=== PATIENT | female | born 1940 | race Caucasian/White ===

== ENCOUNTER 2017-01-12 08:23 | Emergency (ER) | payer MEDICARE, MEDICAID ==
[2017-01-12 08:27] VITALS: BP 156/87; PULSE 83; TEMP 98.7; O2SAT 98
[2017-01-12 08:28] VITALS: BMI 28.3
--- NOTE | 2017-01-12 08:46 | ED PDOC ---
HPI: Trauma/Fall - HPI Time Seen by Provider: 01/12/17 08:31 Chief Complaint (Nursing): Trauma Chief Complaint (Provider): Trauma History Per: Patient History/Exam Limitations: no limitations Onset/Duration Of Symptoms: Hrs Injury Occurred (Timing): Hours Ago: Location Of Injury: Left: Chest Severity: Mild Additional Complaint(s): Patient is a 76 year old female who presents to ED for evaluation of left rib pain s/p fall. Patient states that at 0200 todays he was walking to the bathroom and fell injury that area. Denies head, neck, back or hip injury. Notes pain is worsened with movement and deep inspirations but denies SOB. Past Medical History Reviewed: Historical Data, Nursing Documentation, Vital Signs Vital Signs: Last Vital Signs Temp 98.7 F 01/12/17 08:26 Pulse 83 01/12/17 08:26 Resp BP 156/87 H 01/12/17 08:26 Pulse Ox 98 01/12/17 09:01 - Medical History PMH: Anxiety, Arthritis, Asthma, COPD, HTN, Hypercholesterolemia, Osteoporosis Denies: Chronic Kidney Disease - Surgical History Surgical History: No Surg Hx - Family History Family History: States: No Known Family Hx - Living Arrangements Living Arrangements: Alone - Home Medications Home Medications: Ambulatory Orders Medication Instructions Recorded Albuterol/Ipratropium [Duoneb 3 3 ml IH Q6H PRN 01/26/15 mg/0.5 mg (3 ml) UD] Losartan/Hydrochlorothiazide 1 tab PO DAILY 01/26/15 [Hyzaar 12.5 mg-100 mg] Albuterol HFA [Ventolin HFA 90 2 puff IH Q4H PRN 06/13/16 mcg/actuation (8 g)] Alprazolam [Xanax] 0.5 mg PO BID 06/13/16 Bimatoprost [Lumigan] 1 drop EACHEYE HS 06/13/16 Budesonide/Formoterol Fumarate 2 puff IH Q12H 06/13/16 [Symbicort 160-4.5 Mcg Inhaler] Esomeprazole Magnesium [Nexium] 40 mg PO DAILY 06/13/16 Fluticasone Nasal [Flonase] 1 spray LA DAILY 06/13/16 Hydrocortisone [Proctosol-Hc] 1 appl RI HS 06/13/16 Loratadine [Claritin] 10 mg PO DAILY 06/13/16 Megestrol Acetate [Megace] 10 ml PO BID 06/13/16 Mirtazapine [Remeron] 15 mg PO HS 06/13/16 Montelukast [Singulair] 10 mg PO DAILY 06/13/16 Oxycodone HCl/Acetaminophen 1 tab PO Q6H PRN 06/13/16 [Percocet 7.5-325 mg Tablet] Rosuvastatin Calcium [Crestor] 10 mg PO DAILY 06/13/16 traMADol [Ultram] 50 mg PO Q8 #10 tab 01/12/17 - Allergies Allergies/Adverse Reactions: Allergies Allergy/AdvReac Type Severity Reaction Status Date / Time aspirin Allergy Mild RASH Verified 01/12/17 08:39 Review of Systems Constitutional: Negative for: Weakness Eyes: Negative for: Vision Change Cardiovascular: Negative for: Chest Pain, Palpitations Respiratory: Positive for: Pleuritic Pain. Negative for: Shortness of Breath Musculoskeletal: Positive for: Other (Rib pain ). Negative for: Neck Pain, Arm Pain, Back Pain, Leg Pain Neurological: Negative for: Weakness, Numbness Physical Exam - Reviewed Nursing Documentation Reviewed: Yes Vital Signs Reviewed: Yes - Physical Exam Appears: Positive for: Non-toxic, No Acute Distress Head Exam: Positive for: ATRAUMATIC, NORMAL INSPECTION Skin: Positive for: Normal Color, Warm Eye Exam: Positive for: Normal appearance Neck: Positive for: Normal, Painless ROM, Supple Cardiovascular/Chest: Positive for: Regular Rate, Rhythm. Negative for: Chest Non Tender (Left lateral rib tenderness (-) deformity (-) eccymosis (-) flail ) , Murmur Respiratory: Positive for: Normal Breath Sounds. Negative for: Respiratory Distress Back: Positive for: Normal Inspection. Negative for: Vertebral Tenderness Extremity: Positive for: Normal ROM. Negative for: Pedal Edema Neurologic/Psych: Positive for: Alert, Oriented. Negative for: Motor/Sensory Deficits - ECG O2 Sat by Pulse Oximetry: 98 (RA) Pulse Ox Interpretation: Normal Medical Decision Making Medical Decision Making: Time: 829 Initial impression: Fall injury r/o rib fracture Initial plan: -- Ribs and Chest Xray -- Morphine IM Scribe Attestation: Documented by Mini Stanton acting as a scribe for Raffaele Lira MD MD Scribe Attestation: All medical record entries made by the Shukri were at my direction and personally dictated by me. I have reviewed the chart and agree that the record accurately reflects my personal performance of the history, physical exam, medical decision making, and the department course for this patient. I have also personally directed, reviewed, and agree with the discharge instructions and disposition. Disposition - Clinical Impression Clinical Impression: Rib contusion - Patient ED Disposition Is Patient to be Admitted: No - Disposition Referrals: Corey García MD [Family Provider] - Disposition: Routine/Home Disposition Time: 09:43 Condition: FAIR Prescriptions: traMADol [Ultram] 50 mg PO Q8 #10 tab Instructions: Rib Contusion (ED) Print Language: SENEGALESE
--- NOTE | 2017-01-12 10:59 | RAD ---
PROCEDURE: Radiographs of the Chest and Left Ribs. HISTORY: trauma COMPARISON: Chest x-ray performed 06/13/16. TECHNIQUE: Frontal radiograph of the chest and multiple oblique radiographs of the left ribs were obtained. FINDINGS: Examination limited by habitus and hypoinflation. LEFT RIBS: No appreciable displaced rib fracture deformity. LUNGS: Central vascular and pulmonary venous congestion. PLEURA: No significant pleural effusion or definite pneumothorax identified. CARDIOVASCULAR: Cardiomegaly. Dense atherosclerotic calcifications of the aortic knob. OTHER FINDINGS: Osseous demineralization. Multilevel degenerative changes of the spine. Moderate constipation. Osseous demineralization limits evaluation for acute fracture lines. Severe degenerative changes in joint space narrowing of bilateral hip joints. Multilevel chronic anterior wedge fracture deformities of the thoracolumbar spine. IMPRESSION: Mild central vascular and pulmonary venous congestion. Cardiomegaly. Moderate constipation. Osseous demineralization. Degenerative changes. No appreciable displaced left rib fracture deformities. Multilevel chronic anterior wedge fracture deformities of the thoracolumbar spine.
== END 2017-01-12 12:58 | disposition home or self-care (01) ==
LOC: H.ER 08:23
DX: S20.219A Contusion of unspecified front wall of thorax, initial encounter (principal); W19.XXXA Unspecified fall, initial encounter; Y92.002 Bathroom of unspecified non-institutional (private) residence as the place of occurrence of the external cause; E78.00 Pure hypercholesterolemia, unspecified; F41.9 Anxiety disorder, unspecified; I10 Essential (primary) hypertension; J44.9 Chronic obstructive pulmonary disease, unspecified
CPT/HCPCS: 71101; 96372; 99283; J2270

== ENCOUNTER 2017-02-09 15:58 | Inpatient (IN) | payer MEDICARE, MEDICAID ==
[2017-02-09 15:58] VITALS: BMI 28.3
--- NOTE | 2017-02-09 16:37 | ED PDOC ---
HPI: SOB/CHF/COPD Time Seen by Provider: 02/09/17 16:08 Chief Complaint (Nursing): Shortness Of Breath History Per: Patient Onset/Duration Of Symptoms: Hrs (1), Sudden Onset Current Symptoms Are (Timing): Still Present Context: palpitations no cp Current Respiratory Medications: Albuterol Severity: Moderate Past Medical History Reviewed: Historical Data, Nursing Documentation, Vital Signs Vital Signs: Last Vital Signs Temp 98.2 F 02/09/17 16:01 Pulse 180 H 02/09/17 16:01 Resp 18 02/09/17 16:01 BP 101/64 02/09/17 16:01 Pulse Ox 97 02/09/17 16:38 - Medical History PMH: Anxiety, Arthritis, Asthma, COPD, HTN, Hypercholesterolemia, Osteoporosis Denies: Chronic Kidney Disease - Family History Family History: States: No Known Family Hx - Living Arrangements Living Arrangements: With Family - Social History Current smoker - smoking cessation education provided: No - Home Medications Home Medications: Ambulatory Orders Medication Instructions Recorded Albuterol/Ipratropium [Duoneb 3 3 ml IH Q6H PRN 01/26/15 mg/0.5 mg (3 ml) UD] Losartan/Hydrochlorothiazide 1 tab PO DAILY 01/26/15 [Hyzaar 12.5 mg-100 mg] Albuterol HFA [Ventolin HFA 90 2 puff IH Q4H PRN 06/13/16 mcg/actuation (8 g)] Alprazolam [Xanax] 0.5 mg PO BID 06/13/16 Bimatoprost [Lumigan] 1 drop EACHEYE HS 06/13/16 Budesonide/Formoterol Fumarate 2 puff IH Q12H 06/13/16 [Symbicort 160-4.5 Mcg Inhaler] Esomeprazole Magnesium [Nexium] 40 mg PO DAILY 06/13/16 Fluticasone Nasal [Flonase] 1 spray LA DAILY 06/13/16 Hydrocortisone [Proctosol-Hc] 1 appl ND HS 06/13/16 Loratadine [Claritin] 10 mg PO DAILY 06/13/16 Megestrol Acetate [Megace] 10 ml PO BID 06/13/16 Mirtazapine [Remeron] 15 mg PO HS 06/13/16 Montelukast [Singulair] 10 mg PO DAILY 06/13/16 Oxycodone HCl/Acetaminophen 1 tab PO Q6H PRN 06/13/16 [Percocet 7.5-325 mg Tablet] Rosuvastatin Calcium [Crestor] 10 mg PO DAILY 06/13/16 traMADol [Ultram] 50 mg PO Q8 #10 tab 01/12/17 - Allergies Allergies/Adverse Reactions: Allergies Allergy/AdvReac Type Severity Reaction Status Date / Time aspirin Allergy Mild RASH Verified 02/09/17 16:01 iodine Allergy RASH Verified 02/09/17 16:01 Review of Systems ROS Statement: Except As Marked, All Systems Reviewed And Found Negative Constitutional: Negative for: Fever, Chills Cardiovascular: Positive for: Palpitations. Negative for: Chest Pain, Edema, Light Headedness Respiratory: Positive for: Shortness of Breath. Negative for: Cough, SOB with Exertion, Pleuritic Pain, Sputum Gastrointestinal: Negative for: Nausea, Vomiting, Abdominal Pain, Diarrhea Musculoskeletal: Negative for: Neck Pain Skin: Negative for: Rash Neurological: Negative for: Weakness, Numbness Physical Exam - Reviewed Nursing Documentation Reviewed: Yes Vital Signs Reviewed: Yes - Physical Exam Appears: Positive for: In Acute Distress (mild) Head Exam: Positive for: ATRAUMATIC, NORMAL INSPECTION, NORMOCEPHALIC Skin: Positive for: Normal Color, Warm Eye Exam: Positive for: Normal appearance, EOMI, PERRL ENT: Positive for: Pharynx Is (clear,mmm). Negative for: Tonsillar Exudate Neck: Positive for: Normal, Painless ROM, Supple. Negative for: Decreased ROM, Limited ROM, Trachea Midline Cardiovascular/Chest: Positive for: Edema (4+ to ankle bl), Tachycardia. Negative for: Chest Non Tender, Gallop, Murmur, Ectopy, Friction Rub, Irregularly Irregular Respiratory: Positive for: Normal Breath Sounds. Negative for: Decreased Breath Sounds, Accessory Muscle Use, Crackles, Rales, Rhonchi, Stridor, Wheezing Gastrointestinal/Abdominal: Positive for: Normal Exam, Bowel Sounds, Soft. Negative for: Tenderness Back: Positive for: Normal Inspection. Negative for: L CVA Tenderness, R CVA Tenderness Extremity: Positive for: Normal ROM, Pedal Edema. 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 Negative for: Motor/Sensory Deficits - Laboratory Results Result Diagrams: 02/09/17 16:41 02/09/17 16:41 - ECG ECG: Positive for: Interpreted By Me Interpretation Of Abn EKG: rate of 173 svt O2 Sat by Pulse Oximetry: 97 Pulse Ox Interpretation: Normal - Progress ED Course And Treament: pt cardioverted here first with c mg then with 12 mg, pt converted to nsr. sx markedly improved. pmd eli Re-evaluation Time: 16:37 Condition: Improved Disposition - Clinical Impression Clinical Impression: Dyspnea, SVT (supraventricular tachycardia) - Patient ED Disposition Is Patient to be Admitted: Yes Counseled Patient/Family Regarding: Studies Performed, Diagnosis - Disposition Disposition Time: 17:51 Condition: STABLE - Pt Status Changed To: Hospital Disposition Of: Observation - POA Present On Arrival: None
[2017-02-09 16:48] LABS: BASO # 0.1 K/uL (0.0-0.2); BASO % 0.9 % (0.0-2.0); EOS # 0.4 K/uL (0.0-0.7); EOS % 4.2 % (0.0-4.0); HEMATOCRIT 31.6 % (34.0-47.0); LYMPH # 2.2 K/uL (1.0-4.3); LYMPH % 23.8 % (20.0-40.0); MEAN CORPUSCULAR HEMOGLOBIN 30.3 pg (27.0-31.0); MEAN CORPUSCULAR HGB CONC 34.1 g/dL (33.0-37.0); MEAN PLATELET VOLUME 6.9 fl (7.2-11.7); MONO # 0.8 K/uL (0.0-0.8); NEUT # 5.6 K/uL (1.8-7.0); NEUT % 62.1 % (50.0-75.0); RED CELL DISTRIBUTION WIDTH 14.7 % (11.5-14.5)
--- NOTE | 2017-02-09 16:56 | RAD ---
PROCEDURE: CHEST RADIOGRAPH, 1 VIEW HISTORY: tachy COMPARISON: 01/12/2017. FINDINGS: LUNGS: Clear. PLEURA: No pneumothorax or pleural fluid seen. CARDIOVASCULAR: No radiographic findings to suggest acute or significant cardiovascular disease. OSSEOUS STRUCTURES: No significant abnormalities. VISUALIZED UPPER ABDOMEN: Normal. OTHER FINDINGS: None. IMPRESSION: No active disease.
[2017-02-09 17:07] LABS: ALB/GLOB RATIO 1.4 (1.0-2.1); ALKALINE PHOSPHATASE 81 U/L (38-126); ALT/SGPT 23 U/L (9-52); AST/SGOT 20 U/L (14-36); BILIRUBIN,TOTAL 0.3 mg/dl (0.2-1.3); BLOOD UREA NITROGEN 11 mg/dl (7-17); CALCIUM 9.2 mg/dL (8.4-10.2); CARBON DIOXIDE 22 mmol/L (22-30); CHLORIDE 92 mmol/L (98-107); GFR AFRICAN-AMERICAN > 60; GLUCOSE,RANDOM 104 mg/dL (65-105); MAGNESIUM 1.8 MG/DL (1.6-2.3); POTASSIUM 3.7 MMOL/L (3.6-5.0); SODIUM 128 mmol/l (132-148); TOTAL PROTEIN 7.1 G/DL (6.3-8.2)
[2017-02-09 17:14] LABS: PARTIAL THROMBOPLASTIN TIME 29.7 SECONDS (23.3-32.5)
[2017-02-09] MEDS ORDERED: Sodium Chloride 0.9% 1,000 ML IV STA (18:46)
[2017-02-09] MEDS ORDERED: Albuterol-Ipratrop 3 mg / 0.5 (3 ml) UD IH PRN (23:28)
[2017-02-09] MEDS ORDERED: Oxycodone/Acetaminophen 5/325 mg Tab PO PRN (23:36)
[2017-02-09] MEDS ORDERED: Patient's Own Med (Budesonide/Formoterol Fumarate [Symbicort 160-4.5 Mcg Inhaler] 2 PUFF) IH SCH (23:45)
[2017-02-09] MEDS ORDERED: Sodium Chloride 0.9% 1,000 ML IV SCH (23:45)
[2017-02-10 06:22] LABS: HEMATOCRIT 28.9 % (34.0-47.0); MEAN CELL VOLUME 89.5 fl (81.0-99.0); MEAN CORPUSCULAR HEMOGLOBIN 29.6 pg (27.0-31.0); RED CELL DISTRIBUTION WIDTH 14.8 % (11.5-14.5); WHITE BLOOD COUNT 6.2 K/uL (4.8-10.8)
[2017-02-10 07:12] LABS: IRON 61 ug/dL (37-170)
[2017-02-10 07:16] LABS: ALB/GLOB RATIO 1.3 (1.0-2.1); ALKALINE PHOSPHATASE 70 U/L (38-126); ALT/SGPT 22 U/L (9-52); AST/SGOT 21 U/L (14-36); BILIRUBIN,TOTAL 0.3 mg/dl (0.2-1.3); BLOOD UREA NITROGEN 8 mg/dl (7-17); CALCIUM 8.5 mg/dL (8.4-10.2); CARBON DIOXIDE 23 mmol/L (22-30); CHLORIDE 98 mmol/L (98-107); CHOLESTEROL 133 mg/dL (0-199); GFR AFRICAN-AMERICAN > 60; GLUCOSE,RANDOM 82 mg/dL (65-105); POTASSIUM 3.3 MMOL/L (3.6-5.0); SODIUM 131 mmol/l (132-148)
[2017-02-10 07:31] LABS: T4 8.39 ug/dl (5.5-11.0)
[2017-02-10 07:44] LABS: THYROID STIMULATING HORMONE 1.54 mIU/ML (0.46-4.68)
[2017-02-10] MEDS: Fluticasone-Salmeterol 250-50mcg Diskus IH SCH ×2 (08:08→21:18)
[2017-02-10] MEDS: Pantoprazole 40 mg EC Tab PO SCH (08:12)
[2017-02-10] MEDS ORDERED: methylPREDNISolone 125 MG in Sodium Chloride 0.9% 50 ML IVPB ONE (08:23)
[2017-02-10] MEDS ORDERED: Aspirin 325 mg EC Tablets PO SCH (09:00)
[2017-02-10] MEDS ORDERED: Potassium CL 10 MEQ/50 ML 50 ML IVPB SCH (09:00)
[2017-02-10] MEDS ORDERED: Enoxaparin 40 mg Syringe SC SCH (09:00)
[2017-02-10] MEDS ORDERED: Patient's Own Med (Losartan/Hydrochlorothiazide [Hyzaar 100-12.5 Tablet] 1 TAB) PO SCH (09:00)
[2017-02-10] MEDS ORDERED: Potassium Chl 20 mEq in NS 1,000 ML IV SCH (09:05)
--- NOTE | 2017-02-10 10:06 | CP.PCM.HP ---
History of Present Illness - History of Present Illness History of Present Illness: CC: SOB. 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 Pt denied Chest pain. Worsening symptoms: SCHMITD, Legs edema, Hx of COPD, also c/o of chronic R-L knee pain, chronic back pain, aching type, moderate severity 5:10 Aggravated factor: Increased SOB when walking one block, when exposure to cold weather. Pt denied: Fever, chills, cough, bloody sputum, numbness, LOC, headache, n/v/d, abdominal pain, sick contact, recent travel. PMHx: COPD, A Rhinitis, Asthma, Chronic Lumbago, Chronic pain R-L knees, O/A, High cholesterol, HTN, Urinary Incontinence, Anxiety, Depression. CXR shows: No active disease. Present on Admission - Present on Admission Any Indicators Present on Admission: No Review of Systems - Constitutional Constitutional: Other (negative) - EENT Eyes: Requires Corrective Lenses Ears: Other (negative) Nose/Mouth/Throat: Other (negative) - Cardiovascular Cardiovascular: Dyspnea, Leg Edema, Rapid Heart Rate - Respiratory Respiratory: Dyspnea, Dyspnea on Exertion - Gastrointestinal Gastrointestinal: Other (negative) - Genitourinary Genitourinary: Urinary Incontinence - Musculoskeletal Musculoskeletal: Arthralgias, Back Pain, Other (Knees pain) - Integumentary Integumentary: Other (negative) - Neurological Neurological: Other (negative) - Psychiatric Psychiatric: Anxiety, Depression - Endocrine Endocrine: Other (negative) - Hematologic/Lymphatic Hematologic: Other (negative) Past Patient History - Past Medical History & Family History Past Medical History?: Yes Pertinent Family History: Unknown - Past Social History Smoking Status: Never Smoked Alcohol: None Drugs: Denies Home Situation {Lives}: With Family - CARDIAC Hx Cardiac Disorders: Yes Hx Hypercholesterolemia: Yes Hx Hypertension: Yes - PULMONARY Hx Respiratory Disorders: Yes Hx Asthma: Yes Hx Chronic Obstructive Pulmonary Disease (COPD): Yes - NEUROLOGICAL Hx Neurological Disorder: No - HEENT Hx HEENT Problems: Yes (Allergic Rhinitis) - RENAL Hx Chronic Kidney Disease: No - ENDOCRINE/METABOLIC Hx Endocrine Disorders: No - HEMATOLOGICAL/ONCOLOGICAL Hx Blood Disorders: No Hx AIDS: No Hx Human Immunodeficiency Virus (HIV): No - INTEGUMENTARY Hx Dermatological Problems: No - MUSCULOSKELETAL/RHEUMATOLOGICAL Hx Musculoskeletal Disorders: Yes Hx Arthritis: Yes Hx Back Pain: Yes Hx Falls: No Hx Osteoarthritis: Yes (R-L knee) Hx Osteoporosis: Yes - GASTROINTESTINAL Hx Gastrointestinal Disorders: Yes Hx Constipation: Yes - GENITOURINARY/GYNECOLOGICAL Hx Genitourinary Disorders: Yes Hx Incontinence: Yes - PSYCHIATRIC Hx Psychophysiologic Disorder: Yes Hx Anxiety: Yes Hx Depression: Yes Hx Substance Use: No - SURGICAL HISTORY Hx Surgeries: Yes Hx Eye Surgery: Yes Hx Orthopedic Surgery: Yes (ORIF ANKLE) - ANESTHESIA Hx Anesthesia: Yes Hx Anesthesia Reactions: No Hx Malignant Hyperthermia: No Has any member of the family had a problem w/ anesthesia?: No Meds Allergies/Adverse Reactions: Allergies Allergy/AdvReac Type Severity Reaction Status Date / Time aspirin Allergy Mild RASH Verified 02/09/17 16:01 iodine Allergy RASH Verified 02/09/17 16:01 Physical Exam - Constitutional Appears: No Acute Distress - Head Exam Head Exam: NORMAL INSPECTION - Eye Exam Eye Exam: PERRL - ENT Exam ENT Exam: Normal Oropharynx - Neck Exam Neck exam: Positive for: Normal Inspection - Respiratory Exam Respiratory Exam: Decreased Breath Sounds - Cardiovascular Exam Cardiovascular Exam: REGULAR RHYTHM, Systolic Murmur (3/6 Ao LSB radiated to carotid.) - GI/Abdominal Exam GI & Abdominal Exam: Normal Bowel Sounds, Soft - Extremities Exam Extremities exam: Positive for: tenderness (R-L knee) Additional comments: Legs edema - Back Exam Back exam: tenderness (L-S) Additional comments: Kyphosis - Neurological Exam Neurological exam: Alert, Oriented x3 Additional comments: No motor sensory deficit. - Psychiatric Exam Psychiatric exam: Anxious, Depressed - Skin Skin Exam: Warm Results - Vital Signs Recent Vital Signs: Last Vital Signs Temp 97.9 F 02/10/17 08:02 Pulse 70 02/10/17 08:09 Resp 18 02/10/17 08:02 BP 147/75 02/10/17 08:09 Pulse Ox 97 02/10/17 08:02 reviewed Good - Labs Result Diagrams: 02/10/17 05:25 02/10/17 05:25 Labs: Laboratory Results - last 24 hr 02/10/17 02/10/17 02/10/17 05:25 05:25 05:25 WBC 6.2 RBC 3.22 L Hgb 9.5 L Hct 28.9 L MCV 89.5 MCH 29.6 MCHC 33.0 RDW 14.8 H Plt Count 383 Sodium 131 L Potassium 3.3 L Chloride 98 Carbon Dioxide 23 Anion Gap 13 BUN 8 Creatinine 0.7 Est GFR ( Amer) > 60 Est GFR (Non-Af Amer) > 60 Random Glucose 82 Calcium 8.5 Iron 61 TIBC 321 % Saturation 19 L Ferritin Total Bilirubin 0.3 AST 21 ALT 22 Alkaline Phosphatase 70 Troponin I 0.1470 H* Total Protein 6.0 L Albumin 3.4 L Globulin 2.6 Albumin/Globulin Ratio 1.3 Triglycerides 52 Cholesterol 133 LDL Cholesterol Direct 65 HDL Cholesterol 49 Vitamin B12 575 Thyroxine (T4) 8.39 TSH 3rd Generation 1.54 02/10/17 08:23 WBC RBC Hgb Hct MCV MCH MCHC RDW Plt Count Sodium Potassium Chloride Carbon Dioxide Anion Gap BUN Creatinine Est GFR ( Amer) Est GFR (Non-Af Amer) Random Glucose Calcium Iron TIBC % Saturation Ferritin 20.9 Total Bilirubin AST ALT Alkaline Phosphatase Troponin I Total Protein Albumin Globulin Albumin/Globulin Ratio Triglycerides Cholesterol LDL Cholesterol Direct HDL Cholesterol Vitamin B12 Thyroxine (T4) TSH 3rd Generation reviewed J[facility] - Imaging and Cardiology Chest x-ray Status: Report reviewed by me (J.P.) Assessment & Plan (1) SVT (supraventricular tachycardia) Status: Acute Priority: High (2) NSTEMI (non-ST elevated myocardial infarction) Status: Acute Priority: High (3) Aortic stenosis Status: Acute Priority: High (4) COPD (chronic obstructive pulmonary disease) Status: Chronic Priority: Medium (5) HTN (hypertension) Status: Chronic Priority: Medium (6) Lumbago Status: Chronic Priority: Medium (7) Knee pain, bilateral Status: Chronic Priority: Medium (8) High cholesterol Status: Chronic Priority: Medium (9) Depression Status: Chronic Priority: Medium (10) Anxiety Status: Chronic Priority: Medium - Assessment and Plan (Free Text) Plan: Pt was een by Cardiology recommending cardiac Cath today. NPO for cardiac procedure today. Cardiology consult appreciated. - Date & Time Date: 02/10/17
--- NOTE | 2017-02-10 17:50 | CP.PCM.CON ---
History of Present Illness - History of Present Illness History of Present Illness: I was asked to see patient by Dr. García. Patient is a 76 year old female with PMH HTN, hypercholesterolemia who presents with dyspnea. Symptoms began about 3 days ago. She developed palpitations and was found to be in SVT. She was given adenosine. The patient ruled in for a myocardial infarction. The patient has no current chest pain. She denies syncope. Dyspnea occurs after walking one block. Review of Systems - Constitutional Constitutional: absent: As Per HPI, Anorexia, Chills, Daytime Sleepiness, Excessive Sweating, Fatigue, Fever, Frequent Falls, Headache, Increased Appetite , Lethargy, Malaise, Night Sweats, Snoring, Sleep Apnea, Weight Gain, Weight Loss, Weakness, Other - EENT Eyes: absent: As Per HPI, Blind Spots, Blurred Vision, Change in Vision, Decreased Night Vision, Diplopia, Discharge, Dry Eye, Exophthalmos, Floaters, Irritation, Itchy Eyes, Loss of Peripheral Vision, Pain, Photophobia, Requires Corrective Lenses, Sees Flashes, Spots in Vision, Tunnel Vision, Other Visual Disturbances, Loss of Vision, Other Ears: absent: As Per HPI, Decreased Hearing, Ear Discharge, Ear Pain, Tinnitus, Abnormal Hearing, Disequilibrium, Dizziness, Other Nose/Mouth/Throat: absent: As Per HPI, Epistaxis, Nasal Congestion, Nasal Discharge, Nasal Obstruction, Nasal Trauma, Nose Pain, Post Nasal Drip, Sinus Pain, Sinus Pressure, Bleeding Gums, Change in Voice, Dental Pain, Dry Mouth, Dysphagia, Halitosis, Hoarsness, Lip Swelling, Mouth Lesions, Mouth Pain, Odynophagia, Sore Throat, Throat Swelling, Tongue Swelling, Facial Pain, Neck Pain, Neck Mass, Other - Cardiovascular Cardiovascular: Dyspnea, Dyspnea on Exertion, Palpitations - Respiratory Respiratory: Dyspnea, Dyspnea on Exertion - Gastrointestinal Gastrointestinal: absent: As Per HPI, Abdominal Pain, Belching, Bloating, Change in Bowel Habits, Change in Stool Character, Coffee Ground Emesis, Constipation, Cramping, Diarrhea, Dyspepsia, Dysphagia, Early Satiety, Excessive Flatus, Fecal Incontinence, Heartburn, Hematemesis, Hematochezia, Loose Stools, Melena, Nausea, Odynophagia, Temesmus, Vomiting, Other - Genitourinary Genitourinary: absent: As Per HPI, Change in Urinary Stream, Difficulty Urinating, Dysuria, Flank Pain, Hematuria, Pyuria, Nocturia, Urinary Incontinence, Urinary Frequency, Urinary Hesitance, Urinary Urgency, Voiding Freq/Small Amts, Freq UTI, Hx Renal/Bladder Calculi, Hx /Renal Surgery, Bladder Distension, Other - Musculoskeletal Musculoskeletal: absent: As Per HPI, Abnormal Gait, Arthralgias, Atrophy, Back Pain, Deformity, Joint Swelling, Limited Range of Motion, Loss of Height, Muscle Cramps, Muscle Weakness, Myalgias, Neck Pain, Numbness, Radiating Pain into Limb, Stiffness, Tingling, Other - Integumentary Integumentary: absent: As Per HPI, Acne, Alopecia, Bleeding Lesions, Change in Hair, Change in Nails, Change in Pigmentation, Changing Lesions, Dry Skin, Erythema, Furuncle, Hirsutism, Lesions, New Lesions, Non-Healing Lesions, Photosensitivity, Pruritus, Rash, Skin Pain, Skin Ulcer, Sores, Striae, Swelling , Unusual Bruising, Wounds, Jaundice, Other - Neurological Neurological: absent: As Per HPI, Abnormal Gait, Abnormal Hearing, Abnormal Movements, Abnormal Speech, Behavioral Changes, Burning Sensations, Confusion, Convulsions, Disequilibrium, Dizziness, Numbness, Focal Weakness, Frequent Falls , Headaches, Lack of Coordination, Loss of Vision, Memory Loss, Paresthesias, Radicular Pain, Restless Legs, Sensory Deficit, Syncope, Tingling, Tremor, Vertigo, Weakness, Other Visual Disturbances, Other - Psychiatric Psychiatric: absent: As Per HPI, Abnormal Sleep Pattern, Anhedonia, Anxiety, Auditory Hallucinations, Behavioral Changes, Change in Appetite, Change in Libido, Confusion, Depression, Difficulty Concentrating, Hallucinations, Homicidal Ideation, Hopelessness, Irritability, Memory Loss, Mood Swings, Panic Attacks, Paranoia, Suicidal Ideation, Visual Hallucinations, Tactile Hallucinations, Other - Endocrine Endocrine: absent: As Per HPI, Change in Body Appearance, Change in Libido, Cold Intolorance, Deepening of Voice, Excessive Sweating, Fatigue, Flushing, Heat Intolorance, Increase in Ring/Shoe/Hat Size, Palpitations, Polydipsia, Polyphagia, Polyuria, Other - Hematologic/Lymphatic Hematologic: absent: As Per HPI, Easy Bleeding, Easy Bruising, Lymphadenopathy, Other Past Patient History - Past Medical History & Family History Past Medical History?: Yes - Past Social History Smoking Status: Never Smoked - CARDIAC Hx Cardiac Disorders: Yes Hx Hypercholesterolemia: Yes Hx Hypertension: Yes - PULMONARY Hx Respiratory Disorders: Yes Hx Asthma: Yes Hx Chronic Obstructive Pulmonary Disease (COPD): Yes - NEUROLOGICAL Hx Neurological Disorder: No - HEENT Hx HEENT Problems: Yes (Allergic Rhinitis) - RENAL Hx Chronic Kidney Disease: No - ENDOCRINE/METABOLIC Hx Endocrine Disorders: No - HEMATOLOGICAL/ONCOLOGICAL Hx Blood Disorders: No Hx AIDS: No Hx Human Immunodeficiency Virus (HIV): No - INTEGUMENTARY Hx Dermatological Problems: No - MUSCULOSKELETAL/RHEUMATOLOGICAL Hx Arthritis: Yes Hx Falls: No Hx Osteoporosis: Yes - GASTROINTESTINAL Hx Gastrointestinal Disorders: No - GENITOURINARY/GYNECOLOGICAL Hx Genitourinary Disorders: No - PSYCHIATRIC Hx Anxiety: Yes Hx Substance Use: No - SURGICAL HISTORY Hx Surgeries: Yes Hx Eye Surgery: Yes Hx Orthopedic Surgery: Yes (ORIF ANKLE) - ANESTHESIA Hx Anesthesia: Yes Hx Anesthesia Reactions: No Hx Malignant Hyperthermia: No Has any member of the family had a problem w/ anesthesia?: No Meds Allergies/Adverse Reactions: Allergies Allergy/AdvReac Type Severity Reaction Status Date / Time aspirin Allergy Mild RASH Verified 02/09/17 16:01 iodine Allergy RASH Verified 02/09/17 16:01 - Medications Medications: Current Medications Albuterol/Ipratropium (Duoneb 3 Mg/0.5 Mg (3 Ml) Ud) 3 ml IH Q6H PRN PRN Reason: Shortness of Breath Alprazolam (Xanax) 0.5 mg PO BID [facility] Last Admin: 02/10/17 17:26 Dose: Not Given Atorvastatin Calcium (Lipitor) 20 mg PO DAILY [facility] Last Admin: 02/10/17 08:11 Dose: Not Given Enoxaparin Sodium (Lovenox) 40 mg SC DAILY [facility] PRN Reason: Protocol Fluticasone Propionate (Flonase) 1 spr LA DAILY [facility] Last Admin: 02/10/17 09:42 Dose: Not Given Hydrochlorothiazide (Microzide) 12.5 mg PO DAILY [facility] Last Admin: 02/10/17 08:11 Dose: Not Given Potassium Chloride (Potassium Cl 10meq/50ml Sterile Water) 50 mls @ 50 mls/hr IVPB Q1 [facility] Last Admin: 02/10/17 10:00 Dose: Not Given Potassium Chloride/Sodium Chloride (Potassium Chl 20 Meq In Ns) 1,000 mls @ 59.406 mls/hr IV .[id number] [facility] Stop: 02/10/17 23:57 Last Admin: 02/10/17 10:03 Dose: 59.406 mls/hr Latanoprost (Xalatan Opht) 1 drop OU HS [facility] Loratadine (Claritin) 10 mg PO DAILY [facility] Last Admin: 02/10/17 08:09 Dose: Not Given Losartan Potassium (Cozaar) 100 mg PO DAILY [facility] Last Admin: 02/10/17 08:09 Dose: Not Given Mirtazapine (Remeron) 15 mg PO HS [facility] Montelukast Sodium (Singulair) 10 mg PO DAILY [facility] Last Admin: 02/10/17 08:12 Dose: Not Given Oxycodone/Acetaminophen (Percocet 5/325 Mg Tab) 1 tab PO Q6H PRN PRN Reason: Pain, severe (8-10) Pantoprazole Sodium (Protonix Ec Tab) 40 mg PO DAILY [facility] Last Admin: 02/10/17 08:12 Dose: Not Given Fluticasone/Salmeterol (Advair Diskus 250/50) 1 puff IH Q12 [facility] Last Admin: 02/10/17 08:08 Dose: Not Given Tramadol HCl (Ultram) 50 mg PO Q8 PRN PRN Reason: Pain, moderate (4-7) Last Admin: 02/10/17 00:35 Dose: 50 mg Physical Exam - Constitutional Appears: Non-toxic - Head Exam Head Exam: NORMAL INSPECTION - Eye Exam Eye Exam: Normal appearance - ENT Exam ENT Exam: Mucous Membranes Moist - Neck Exam Neck exam: Positive for: Full Rom - Respiratory Exam Respiratory Exam: Decreased Breath Sounds - Cardiovascular Exam Cardiovascular Exam: REGULAR RHYTHM Additional comments: III/ crescendo systolic murmur RUSB radiating to the carotids - GI/Abdominal Exam GI & Abdominal Exam: Normal Bowel Sounds - Rectal Exam Rectal Exam: Deferred - Extremities Exam Extremities exam: Positive for: pedal edema - Back Exam Back exam: NORMAL INSPECTION - Neurological Exam Neurological exam: Alert, Oriented x3 - Psychiatric Exam Psychiatric exam: Normal Affect - Skin Skin Exam: Normal Color Results - Vital Signs Recent Vital Signs: Last Vital Signs Temp 97.9 F 02/10/17 08:02 Pulse 70 02/10/17 08:09 Resp 18 02/10/17 08:02 BP 147/75 02/10/17 08:09 Pulse Ox 97 02/10/17 08:02 - Labs Result Diagrams: 02/10/17 05:25 02/10/17 05:25 - EKG Data EKG Interpreted by: Myself EKG shows normal: Sinus rhythm Assessment & Plan (1) NSTEMI (non-ST elevated myocardial infarction) Assessment and Plan: given risk factors and symptoms, patient will need evaluation of coronary anatomy. Status: Acute (2) Aortic stenosis Assessment and Plan: appears to have severe by exam. will check echocardiogram. will performe RHC/LHC Status: Acute (3) Dyspnea Assessment and Plan: may be due to underlying CAD or valvular heart disease. recommend cardiac catheterization Status: Acute (4) SVT (supraventricular tachycardia) Assessment and Plan: may be due to underlying ischemia Status: Acute (5) HTN (hypertension) Assessment and Plan: monitor blood pressure Status: Acute
[2017-02-10] MEDS ORDERED: Latanoprost 0.005% Opht SOUTION OU SCH (22:00)
[2017-02-10] MEDS ORDERED: Patient's Own Med (Bimatoprost [Lumigan] 1 DROP) EACHEYE SCH (22:00)
--- NOTE | 2017-02-11 07:26 | CP.PCM.PN ---
Subjective - Date & Time of Evaluation Date of Evaluation: 02/11/17 Time of Evaluation: 07:20 - Subjective Subjective: patient has no current chest pain or dyspnea. s/p cardiac catheterization. found to have severe aortic stenosis. I discussed cardiac cath findings and pathophysiology of with the patient. Objective - Vital Signs/Intake and Output Vital Signs (last 24 hours): Temp Pulse Resp BP Pulse Ox 98.5 F 84 18 145/82 97 02/11/17 05:00 02/11/17 05:00 02/11/17 05:00 02/11/17 05:00 02/11/17 05:00 - Medications Medications: Current Medications Albuterol/Ipratropium (Duoneb 3 Mg/0.5 Mg (3 Ml) Ud) 3 ml IH Q6H PRN PRN Reason: Shortness of Breath Alprazolam (Xanax) 0.5 mg PO BID [facility] Last Admin: 02/10/17 20:26 Dose: 0.5 mg Atorvastatin Calcium (Lipitor) 20 mg PO DAILY [facility] Last Admin: 02/10/17 08:11 Dose: Not Given Fluticasone Propionate (Flonase) 1 spr LA DAILY [facility] Last Admin: 02/10/17 09:42 Dose: Not Given Hydrochlorothiazide (Microzide) 12.5 mg PO DAILY [facility] Last Admin: 02/10/17 08:11 Dose: Not Given Potassium Chloride (Potassium Cl 10meq/50ml Sterile Water) 50 mls @ 50 mls/hr IVPB Q1 [facility] Last Admin: 02/10/17 10:00 Dose: Not Given Latanoprost (Xalatan Opht) 1 drop OU HS [facility] Last Admin: 02/10/17 21:31 Dose: 1 drop Loratadine (Claritin) 10 mg PO DAILY [facility] Last Admin: 02/10/17 08:09 Dose: Not Given Losartan Potassium (Cozaar) 100 mg PO DAILY [facility] Last Admin: 02/10/17 08:09 Dose: Not Given Mirtazapine (Remeron) 15 mg PO HS [facility] Last Admin: 02/10/17 21:21 Dose: 15 mg Montelukast Sodium (Singulair) 10 mg PO DAILY [facility] Last Admin: 02/10/17 08:12 Dose: Not Given Oxycodone/Acetaminophen (Percocet 5/325 Mg Tab) 1 tab PO Q6H PRN PRN Reason: Pain, severe (8-10) Pantoprazole Sodium (Protonix Ec Tab) 40 mg PO DAILY [facility] Last Admin: 02/10/17 08:12 Dose: Not Given Fluticasone/Salmeterol (Advair Diskus 250/50) 1 puff IH Q12 [facility] Last Admin: 02/10/17 21:18 Dose: 1 puff Tramadol HCl (Ultram) 50 mg PO Q8 PRN PRN Reason: Pain, moderate (4-7) Last Admin: 02/10/17 00:35 Dose: 50 mg - Labs Labs: PT 11.3 SECONDS (9.6-11.2) H 02/09/17 16:41 INR 1.09 (0.92-1.08) H 02/09/17 16:41 APTT 29.7 SECONDS (23.3-32.5) 02/09/17 16:41 - Constitutional Appears: Non-toxic - Head Exam Head Exam: NORMAL INSPECTION - Eye Exam Eye Exam: Normal appearance - ENT Exam ENT Exam: Mucous Membranes Moist - Neck Exam Neck Exam: Full ROM - Respiratory Exam Respiratory Exam: Decreased Breath Sounds - Cardiovascular Exam Cardiovascular Exam: REGULAR RHYTHM Additional comments: III/ crescendo systolic murmur RUSB to the carotids. - GI/Abdominal Exam GI & Abdominal Exam: Normal Bowel Sounds - Rectal Exam Rectal Exam: Deferred - Extremities Exam Extremities Exam: Pedal Edema - Back Exam Back Exam: NORMAL INSPECTION - Neurological Exam Neurological Exam: Alert - Psychiatric Exam Psychiatric exam: Normal Affect Assessment and Plan (1) NSTEMI (non-ST elevated myocardial infarction) Assessment & Plan: likely due to subendocardial ischemia from severe . Status: Acute (2) Aortic stenosis Assessment & Plan: recommend AVR. I explained risks and benefits in detail with the patient. Patient wishes to speak to her son and Dr. García. Status: Acute (3) Dyspnea Assessment & Plan: due to Status: Acute (4) SVT (supraventricular tachycardia) Assessment & Plan: no further arrhythmia Status: Acute (5) HTN (hypertension) Assessment & Plan: avoid aggressive afterlaod reduction with MELISSA inhibitor/ARB given . Status: Chronic
[2017-02-11] MEDS: Fluticasone-Salmeterol 250-50mcg Diskus IH SCH (09:56)
[2017-02-11] MEDS: Pantoprazole 40 mg EC Tab PO SCH (10:00)
[2017-02-11 10:34] LABS: HEMATOCRIT 32.1 % (34.0-47.0); MEAN CELL VOLUME 88.3 fl (81.0-99.0); MEAN CORPUSCULAR HEMOGLOBIN 29.9 pg (27.0-31.0); MEAN CORPUSCULAR HGB CONC 33.9 g/dL (33.0-37.0); RED CELL DISTRIBUTION WIDTH 14.6 % (11.5-14.5); WHITE BLOOD COUNT 9.5 K/uL (4.8-10.8)
[2017-02-11 10:57] LABS: BLOOD UREA NITROGEN 9 mg/dl (7-17); CALCIUM 8.6 mg/dL (8.4-10.2); CARBON DIOXIDE 23 mmol/L (22-30); CHLORIDE 99 mmol/L (98-107); GFR AFRICAN-AMERICAN > 60; GLUCOSE,RANDOM 94 mg/dL (65-105); POTASSIUM 3.6 MMOL/L (3.6-5.0); SODIUM 132 mmol/l (132-148)
--- NOTE | 2017-02-11 14:57 | CP.PCM.PN ---
Subjective - Date & Time of Evaluation Date of Evaluation: 02/11/17 Time of Evaluation: 11:00 - Subjective Subjective: F/U NSTEMI / . Pt with no c/o, no SOB. Objective - Vital Signs/Intake and Output Vital Signs (last 24 hours): Temp Pulse Resp BP Pulse Ox 97.7 F 86 18 113/69 98 02/11/17 12:21 02/11/17 12:21 02/11/17 12:21 02/11/17 12:21 02/11/17 12:21 - Medications Medications: Current Medications Albuterol/Ipratropium (Duoneb 3 Mg/0.5 Mg (3 Ml) Ud) 3 ml IH Q6H PRN PRN Reason: Shortness of Breath Alprazolam (Xanax) 0.5 mg PO BID [facility] Last Admin: 02/11/17 10:02 Dose: 0.5 mg Atorvastatin Calcium (Lipitor) 20 mg PO DAILY [facility] Last Admin: 02/11/17 09:59 Dose: 20 mg Fluticasone Propionate (Flonase) 1 spr LA DAILY [facility] Last Admin: 02/11/17 09:58 Dose: 1 spr Hydrochlorothiazide (Microzide) 12.5 mg PO DAILY [facility] Last Admin: 02/11/17 09:59 Dose: 12.5 mg Latanoprost (Xalatan Opht) 1 drop OU HS [facility] Last Admin: 02/10/17 21:31 Dose: 1 drop Loratadine (Claritin) 10 mg PO DAILY [facility] Last Admin: 02/11/17 09:57 Dose: 10 mg Losartan Potassium (Cozaar) 100 mg PO DAILY [facility] Last Admin: 02/11/17 09:58 Dose: 100 mg Mirtazapine (Remeron) 15 mg PO HS [facility] Last Admin: 02/10/17 21:21 Dose: 15 mg Montelukast Sodium (Singulair) 10 mg PO DAILY [facility] Last Admin: 02/11/17 09:57 Dose: 10 mg Oxycodone/Acetaminophen (Percocet 5/325 Mg Tab) 1 tab PO Q6H PRN PRN Reason: Pain, severe (8-10) Pantoprazole Sodium (Protonix Ec Tab) 40 mg PO DAILY [facility] Last Admin: 02/11/17 10:00 Dose: 40 mg Fluticasone/Salmeterol (Advair Diskus 250/50) 1 puff IH Q12 [facility] Last Admin: 02/11/17 09:56 Dose: 1 puff Tramadol HCl (Ultram) 50 mg PO Q8 PRN PRN Reason: Pain, moderate (4-7) Last Admin: 02/10/17 00:35 Dose: 50 mg - Labs Labs: 02/11/17 10:00 02/11/17 10:00 PT 11.3 SECONDS (9.6-11.2) H 02/09/17 16:41 INR 1.09 (0.92-1.08) H 02/09/17 16:41 APTT 29.7 SECONDS (23.3-32.5) 02/09/17 16:41 - Constitutional Appears: No Acute Distress - Head Exam Head Exam: NORMAL INSPECTION - Eye Exam Eye Exam: PERRL - ENT Exam ENT Exam: Normal Oropharynx - Neck Exam Neck Exam: Normal Inspection - Respiratory Exam Respiratory Exam: Decreased Breath Sounds - Cardiovascular Exam Cardiovascular Exam: REGULAR RHYTHM, Murmur (systolic, 3/6 Ao LSB radiating to the carotids) - GI/Abdominal Exam GI & Abdominal Exam: Soft, Normal Bowel Sounds - Extremities Exam Extremities Exam: Tenderness (R-L knee) Additional comments: Legs edema - Back Exam Back Exam: tenderness (L-S) - Neurological Exam Neurological Exam: Alert, Oriented x3. absent: Motor Sensory Deficit - Psychiatric Exam Psychiatric exam: Anxious, Depressed - Skin Skin Exam: Warm Assessment and Plan (1) SVT (supraventricular tachycardia) Status: Resolved (2) NSTEMI (non-ST elevated myocardial infarction) Status: Acute (3) Aortic stenosis Status: Acute (4) COPD (chronic obstructive pulmonary disease) Status: Chronic (5) HTN (hypertension) Status: Chronic (6) Lumbago Status: Chronic (7) Knee pain, bilateral Status: Chronic (8) High cholesterol Status: Chronic (9) Depression Status: Chronic (10) Anxiety Status: Chronic - Assessment and Plan (Free Text) Plan: Pt had Cardiac Cath with Dx of Severe Aortic Stenosis, Pt will be transferred to [facility] for Aortic valve replacement today..
[2017-02-11 16:08] VITALS: PULSE 82; RESP 20
--- NOTE | 2017-02-11 18:05 | CP.PCM.CON ---
History of Present Illness - History of Present Illness History of Present Illness: 76 year old female with PMHx of HTN, hypercholesterolemia was seen at bedside regarding left lower extremity wound. Patient is not talkative at bedside and is only responding to pain. Unable to obtain a more through history at this time. Past Patient History - Past Medical History & Family History Past Medical History?: Yes - Past Social History Smoking Status: Never Smoked Alcohol: None Drugs: Denies Home Situation {Lives}: With Family - CARDIAC Hx Cardiac Disorders: Yes Hx Hypercholesterolemia: Yes Hx Hypertension: Yes - PULMONARY Hx Respiratory Disorders: Yes Hx Asthma: Yes Hx Chronic Obstructive Pulmonary Disease (COPD): Yes - NEUROLOGICAL Hx Neurological Disorder: No - HEENT Hx HEENT Problems: Yes (Allergic Rhinitis) - RENAL Hx Chronic Kidney Disease: No - ENDOCRINE/METABOLIC Hx Endocrine Disorders: No - HEMATOLOGICAL/ONCOLOGICAL Hx Blood Disorders: No Hx AIDS: No Hx Human Immunodeficiency Virus (HIV): No - INTEGUMENTARY Hx Dermatological Problems: No - MUSCULOSKELETAL/RHEUMATOLOGICAL Hx Musculoskeletal Disorders: Yes Hx Arthritis: Yes Hx Back Pain: Yes Hx Falls: No Hx Osteoarthritis: Yes (R-L knee) Hx Osteoporosis: Yes - GASTROINTESTINAL Hx Gastrointestinal Disorders: Yes Hx Constipation: Yes - GENITOURINARY/GYNECOLOGICAL Hx Genitourinary Disorders: Yes Hx Incontinence: Yes - PSYCHIATRIC Hx Psychophysiologic Disorder: Yes Hx Anxiety: Yes Hx Depression: Yes Hx Substance Use: No - SURGICAL HISTORY Hx Surgeries: Yes Hx Eye Surgery: Yes Hx Orthopedic Surgery: Yes (ORIF ANKLE) - ANESTHESIA Hx Anesthesia: Yes Hx Anesthesia Reactions: No Hx Malignant Hyperthermia: No Has any member of the family had a problem w/ anesthesia?: No Meds Allergies/Adverse Reactions: Allergies Allergy/AdvReac Type Severity Reaction Status Date / Time aspirin Allergy Mild RASH Verified 02/09/17 16:01 iodine Allergy RASH Verified 02/09/17 16:01 - Medications Medications: Current Medications Albuterol/Ipratropium (Duoneb 3 Mg/0.5 Mg (3 Ml) Ud) 3 ml IH Q6H PRN PRN Reason: Shortness of Breath Alprazolam (Xanax) 0.5 mg PO BID [facility] Last Admin: 02/11/17 16:39 Dose: 0.5 mg Atorvastatin Calcium (Lipitor) 20 mg PO DAILY [facility] Last Admin: 02/11/17 09:59 Dose: 20 mg Fluticasone Propionate (Flonase) 1 spr LA DAILY [facility] Last Admin: 02/11/17 09:58 Dose: 1 spr Hydrochlorothiazide (Microzide) 12.5 mg PO DAILY [facility] Last Admin: 02/11/17 09:59 Dose: 12.5 mg Latanoprost (Xalatan Opht) 1 drop OU HS [facility] Last Admin: 02/10/17 21:31 Dose: 1 drop Loratadine (Claritin) 10 mg PO DAILY [facility] Last Admin: 02/11/17 09:57 Dose: 10 mg Losartan Potassium (Cozaar) 100 mg PO DAILY [facility] Last Admin: 02/11/17 09:58 Dose: 100 mg Mirtazapine (Remeron) 15 mg PO HS [facility] Last Admin: 02/10/17 21:21 Dose: 15 mg Montelukast Sodium (Singulair) 10 mg PO DAILY [facility] Last Admin: 02/11/17 09:57 Dose: 10 mg Oxycodone/Acetaminophen (Percocet 5/325 Mg Tab) 1 tab PO Q6H PRN PRN Reason: Pain, severe (8-10) Pantoprazole Sodium (Protonix Ec Tab) 40 mg PO DAILY [facility] Last Admin: 02/11/17 10:00 Dose: 40 mg Fluticasone/Salmeterol (Advair Diskus 250/50) 1 puff IH Q12 [facility] Last Admin: 02/11/17 09:56 Dose: 1 puff Tramadol HCl (Ultram) 50 mg PO Q8 PRN PRN Reason: Pain, moderate (4-7) Last Admin: 02/10/17 00:35 Dose: 50 mg Physical Exam - Constitutional Appears: No Acute Distress, Chronically Ill - Extremities Exam Additional comments: Lower extremity focused exam: Vasc:DP and PT pulses palpable 2/4 b/l. CFT < 3 seconds to all digits b/l. Skin temperature warm to cool from proximal to distal b/l. Neuro:Unable to assess Ortho:Pain on palpation to posterior aspect of left ankle Derm: Open ulceration noted to the posterior aspect of left ankle measuring approximately 6 cm by 3 cm by 0.2 cm, base is fibrotic and periwound is erythematous. No drainage, no purulence, no malodor noted. Results - Vital Signs Recent Vital Signs: Last Vital Signs Temp 98.7 F 02/11/17 16:00 Pulse 82 05/24/17 16:00 Resp 20 02/11/17 16:00 BP 125/74 02/11/17 16:00 Pulse Ox 100 02/11/17 16:00 - Labs Result Diagrams: 02/11/17 10:00 02/11/17 10:00 Labs: Laboratory Results - last 24 hr 02/10/17 02/11/17 02/11/17 19:30 10:00 10:00 WBC 9.5 D RBC 3.64 L Hgb 10.9 L Hct 32.1 L MCV 88.3 MCH 29.9 MCHC 33.9 RDW 14.6 H Plt Count 440 H Sodium 132 Potassium 3.6 Chloride 99 Carbon Dioxide 23 Anion Gap 14 BUN 9 Creatinine 0.6 L Est GFR ( Amer) > 60 Est GFR (Non-Af Amer) > 60 Random Glucose 94 Calcium 8.6 Troponin I 0.0620 Assessment & Plan - Assessment and Plan (Free Text) Assessment: 76 year old female with ulceration to the left posterior ankle Plan: patient examined and evaluated discussed with attending, Dr. Pederson chart, labs, vitals reviewed DSD applied to left ankle patient to follow up with Dr. Pederson upon D/C thank you for allowing us to participate in the care for your patient
[2017-02-11 20:31] VITALS: BP 143/67; TEMP 98; O2SAT 95
--- NOTE | 2017-02-12 18:36 | CARD ---
APPROVED REPORT EXAM: Two-dimensional and M-mode echocardiogram with Doppler and color Doppler. Other Information Quality : GoodRhythm : NSR INDICATION Abnormal EKG/Arrhythmia 2D DIMENSIONS IVSd1.19 (0.7-1.1cm)LVDd2.28 (3.9-5.9cm) LVOT Diameter1.93 (1.8-2.4cm)PWd0.81 (0.7-1.1cm) IVSs1.04 (0.8-1.2cm)LVDs2.79 (2.5-4.0cm) FS (%) 22.3 %PWs1.24 (0.8-1.2cm) Aortic Valve AoV Peak Entljoho848.4cm/sAoV VTI80.4cmAO Peak GR.64mmHg LVOT Peak Lpzkorie374.3cm/sLVOT VTI24.47cmAO Mean GR.41mmHg LESLEY (VMAX)0.00je8ERI (VTI)0.50cm2 Mitral Valve MV E Bxdqvduh261.0cm/sMV DECEL TBSS841yeOB A Eiheypqy974.9cm/s MV OVF64uhO/A ratio0.8MVA (PHT)2.33cm2 TDI Lateral E' Peak V11.49cm/sMedial E' Peak V6.19cm/sE/Lateral E'8.8 E/Medial E'16.3 Tricuspid Valve TR Peak Fwmxfkpy506bg/sRAP RSPOYIIR19qzVoYK Peak Gr.23mmHg IFBE04taUj LEFT VENTRICLE The left ventricle is normal size. There is normal left ventricular wall thickness. The left ventricular function is normal. The left ventricular ejection fraction is 55% There is normal LV segmental wall motion. Transmitral Doppler flow pattern is Grade III-reversible restrictive diastolic dysfunction. No left ventricle thrombus noted on this study. There is no ventricular septal defect visualized. There is no left ventricular aneurysm. There is no mass noted in the left ventricle. RIGHT VENTRICLE The right ventricle is normal size. There is normal right ventricular wall thickness. The right ventricular systolic function is normal. ATRIA The left atrium size is normal. The right atrium size is normal. The interatrial septum is intact with no evidence for an atrial septal defect. AORTIC VALVE The aortic valve is severely calcified. There is mild aortic regurgitation. . There is severe valvular aortic stenosis. Calculated aortic valve area is .9 cm2 with maximum pressure gradient of 64 mmHg and mean pressure gradient of mmHg. There is no aortic valvular vegetation. MITRAL VALVE The mitral valve is normal in structure and function. Mitral annular calcification is moderate to severe. There is no evidence of mitral valve prolapse. There is no mitral valve stenosis. There is no mitral valve regurgitation noted. TRICUSPID VALVE The tricuspid valve is normal in structure and function. There is no tricuspid valve regurgitation noted. There is no tricuspid valve prolapse or vegetation. There is no tricuspid valve stenosis. PULMONIC VALVE The pulmonary valve is normal in structure and function. There is no pulmonic valvular regurgitation. There is no pulmonic valvular stenosis. GREAT VESSELS The aortic root is normal in size. The ascending aorta is normal in size. The IVC is normal in size and collapses >50% with inspiration. PERICARDIAL EFFUSION The pericardium appears normal. There is no pleural effusion. <Conclusion> Normal LV systolic function Severe Aortic Stenosis LESLEY .9cm2 Mild Aortic Insufficiency
[2017-02-13 17:30] LABS: FOLATE 4.1 ng/mL
--- NOTE | 2017-02-13 19:16 | CARD ---
APPROVED REPORT EKG Measurement Heart [id number] <Conclusion> Normal sinus rhythm Possible Lateral infarct, age undetermined Possible Inferior infarct, age undetermined Abnormal ECG
--- NOTE | 2017-02-13 19:16 | CARD ---
APPROVED REPORT EKG Measurement Heart [id number] <Conclusion> Supraventricular tachycardia Rightward axis Possible Inferior infarct, age undetermined Abnormal ECG
== END 2017-02-11 21:00 | disposition short-term general hospital (02) | DRG 281 ==
LOC: H.ER 15:58 → H.ERHOLD 17:47 → H.TEL 19:13 → OBSVTOIN 02-10 14:27 → H.TEL 02-10 15:46
PROVIDERS: ADMIT Internal Medicine Pulmonary Disease; ATTEND Internal Medicine Pulmonary Disease
PROC: 4A023N8 Measurement of Cardiac Sampling and Pressure, Bilateral, Percutaneous Approach (ICD-10-PCS; principal; 2017-02-10)
PROC: B205YZZ Plain Radiography of Left Heart using Other Contrast (ICD-10-PCS; 2017-02-10)
DX: I21.4 Non-ST elevation (NSTEMI) myocardial infarction (principal); I47.1 Supraventricular tachycardia; L97.329 Non-pressure chronic ulcer of left ankle with unspecified severity; J44.9 Chronic obstructive pulmonary disease, unspecified; I35.0 Nonrheumatic aortic (valve) stenosis; I10 Essential (primary) hypertension; E78.00 Pure hypercholesterolemia, unspecified; F32.9 Major depressive disorder, single episode, unspecified; F41.9 Anxiety disorder, unspecified; J45.909 Unspecified asthma, uncomplicated; M81.0 Age-related osteoporosis without current pathological fracture; G89.29 Other chronic pain; R32 Unspecified urinary incontinence; Z88.6 Allergy status to analgesic agent; Z91.041 Radiographic dye allergy status

== ENCOUNTER 2017-05-03 00:06 | Inpatient (IN) | payer MEDICARE, MEDICAID ==
[2017-05-03 00:07] VITALS: BMI 28.3
[2017-05-03 00:52] LABS: BASO # 0.1 K/uL (0.0-0.2); BASO % 0.8 % (0.0-2.0); EOS # 0.1 K/uL (0.0-0.7); HEMOGLOBIN 11.4 g/dL (12.0-16.0); LYMPH # 1.8 K/uL (1.0-4.3); LYMPH % 17.4 % (20.0-40.0); MEAN CELL VOLUME 89.4 fl (81.0-99.0); MEAN CORPUSCULAR HEMOGLOBIN 31.7 pg (27.0-31.0); MEAN CORPUSCULAR HGB CONC 35.5 g/dL (33.0-37.0); MEAN PLATELET VOLUME 6.5 fl (7.2-11.7); MONO % 9.7 % (0.0-10.0); NEUT # 7.4 K/uL (1.8-7.0); NEUT % 71.1 % (50.0-75.0); RBC 3.59 Mil/uL (3.80-5.20); RED CELL DISTRIBUTION WIDTH 16.4 % (11.5-14.5); WHITE BLOOD COUNT 10.4 K/uL (4.8-10.8)
[2017-05-03 01:01] LABS: ALB/GLOB RATIO 1.5 (1.0-2.1); ALBUMIN 4.5 g/dL (3.5-5.0); ALT/SGPT 27 U/L (9-52); AST/SGOT 32 U/L (14-36); BLOOD UREA NITROGEN 10 mg/dl (7-17); GFR AFRICAN-AMERICAN > 60; GFR NON-AFRICAN AMERICAN > 60; LIPASE 73 U/L (23-300)
[2017-05-03] MEDS ORDERED: Sodium Chloride 0.9% 1,000 ML IV STA ×2 (01:10→03:47)
--- NOTE | 2017-05-03 02:11 | ED PDOC ---
HPI: Abdomen Time Seen by Provider: 05/03/17 00:15 Chief Complaint (Nursing): GI Problem Chief Complaint (Provider): Abdominal Pain History Per: Patient History/Exam Limitations: no limitations Onset/Duration Of Symptoms: Mins (prior to arrival) Current Symptoms Are (Timing): Still Present Severity: Moderate Location Of Pain/Discomfort: Diffuse Quality Of Discomfort: Cramping Associated Symptoms: Diarrhea (1x episode). denies: Fever, Nausea, Vomiting, Chest Pain Last Bowel Movement: Today (loose, non bloody, just prior to arrival) Additional Complaint(s): 76 year old female with a pertinent medical history of hypertension, coronary artery disease, anxiety, and CABG presents to the ED with complaints of abdominal pain and anxiety that started prior to arrival. She reports having abdominal cramping, fecal urgency, and 1x episode of diarrhea that happened just prior to arrival after she took laxatives to relieve constipation. She denies having nausea, vomiting, fever, cough, chest pain, and shortness of breath. PMD: Corey García MD Past Medical History Reviewed: Historical Data, Nursing Documentation, Vital Signs Vital Signs: Last Vital Signs Temp 98.2 F 05/03/17 04:02 Pulse 110 H 05/03/17 05:05 Resp 20 05/03/17 05:05 BP 169/80 H 05/03/17 04:02 Pulse Ox 96 05/03/17 05:05 - Medical History PMH: Anxiety, Arthritis, Asthma, COPD, HTN, Hypercholesterolemia, Osteoporosis Denies: HIV, Chronic Kidney Disease - Surgical History Surgical History: CABG Other surgeries: eye surgery, ankle surgery - Family History Family History: States: No Known Family Hx - Social History Current smoker - smoking cessation education provided: No Alcohol: None Drugs: Denies - Home Medications Home Medications: Ambulatory Orders Medication Instructions Recorded Albuterol/Ipratropium [Duoneb 3 3 ml IH Q6H PRN 01/26/15 mg/0.5 mg (3 ml) UD] Losartan/Hydrochlorothiazide 1 tab PO DAILY 01/26/15 [Hyzaar 100-12.5 Tablet] Albuterol Sulfate [Proair Hfa] 0.09 mg IH DAILY 07/19/15 Esomeprazole Magnesium [Nexium] 40 mg PO DAILY 07/19/15 HCTZ/Losartan Potassium [Hyzaar 1 tab PO DAILY 10/29/15 12.5 mg-50 mg] Rosuvastatin Calcium [Crestor] 10 mg PO DAILY 07/19/15 Albuterol HFA [Ventolin HFA 90 2 puff IH Q4H PRN 06/13/16 mcg/actuation (8 g)] Alprazolam [Xanax] 0.5 mg PO BID 06/13/16 Bimatoprost [Lumigan] 1 drop EACHEYE HS 06/13/16 Budesonide/Formoterol Fumarate 2 puff IH Q12H 06/13/16 [Symbicort 160-4.5 Mcg Inhaler] Esomeprazole Magnesium [Nexium] 40 mg PO DAILY 06/13/16 Fluticasone Nasal [Flonase] 1 spray LA DAILY 06/13/16 Hydrocortisone [Proctosol-Hc] 1 appl UT HS 06/13/16 Loratadine [Claritin] 10 mg PO DAILY 06/13/16 Megestrol Acetate [Megace] 10 ml PO BID 06/13/16 Mirtazapine [Remeron] 15 mg PO HS 06/13/16 Montelukast [Singulair] 10 mg PO DAILY 06/13/16 Oxycodone HCl/Acetaminophen 1 tab PO Q6H PRN 06/13/16 [Percocet 7.5-325 mg Tablet] Rosuvastatin Calcium [Crestor] 10 mg PO DAILY 06/13/16 traMADol [Ultram] 50 mg PO Q8 #10 tab 01/12/17 - Allergies Allergies/Adverse Reactions: Allergies Allergy/AdvReac Type Severity Reaction Status Date / Time aspirin Allergy Mild RASH Verified 02/09/17 16:01 iodine Allergy RASH Verified 02/09/17 16:01 Review of Systems ROS Statement: Except As Marked, All Systems Reviewed And Found Negative Constitutional: Negative for: Fever, Chills Cardiovascular: Negative for: Chest Pain Respiratory: Negative for: Cough, Shortness of Breath Gastrointestinal: Positive for: Abdominal Pain (cramping), Diarrhea (1x episode , non bloody). Negative for: Nausea, Vomiting Psych: Positive for: Anxiety Physical Exam - Reviewed Nursing Documentation Reviewed: Yes Vital Signs Reviewed: Yes - Physical Exam Appears: Positive for: Well, Non-toxic, In Acute Distress (mild painful distress ) Head Exam: Positive for: ATRAUMATIC, NORMOCEPHALIC Skin: Positive for: Normal Color, Warm, Dry Cardiovascular/Chest: Positive for: Regular Rate, Rhythm Respiratory: Positive for: Normal Breath Sounds. Negative for: Respiratory Distress Gastrointestinal/Abdominal: Positive for: Tenderness (mild epigastric tenderness ). Negative for: Guarding, Rebound Extremity: Positive for: Tenderness (left lower extremity: tibial surface is erythemetous with mild inuduration. as per son: patient has chronic cellulitis of her left leg, but it has improved from before.) Neurologic/Psych: Positive for: Alert, Oriented (3x), Mood/Affect (anxious) - Laboratory Results Result Diagrams: 05/03/17 00:40 05/03/17 00:40 - ECG O2 Sat by Pulse Oximetry: 98 (RA) Pulse Ox Interpretation: Normal Medical Decision Making Medical Decision Makin:15 Initial impression: 76 year old female with acute fecal urgency insetting of recent use of laxatives. Initial plan: * EKG * CMP * lipase * osmality serum * osmality urine * udip * CBC * XRay abdomen w/ chest * ativan 2mg IVP * IV NS 1,000ml IV 1,000mls/hr * accucheck * urinalysis * reevaluation 1:40 Patient's labs are significant for depressed sodium levels. Provider's opinion is that patient is positive for laxative abuse. Ordered CT head. 2:03 Patient will be admitted to telemetry under Corey García MD for hyponatremia. Scribe Attestation: Documented by Gisel Roche, acting as a scribe for Patrick Stallworth MD. Provider Scribe Attestation: All medical record entries made by the Scribe were at my direction and personally dictated by me. I have reviewed the chart and agree that the record accurately reflects my personal performance of the history, physical exam, medical decision making, and the department course for this patient. I have also personally directed, reviewed, and agree with the discharge instructions and disposition. Disposition - Clinical Impression Clinical Impression: Hyponatremia - Patient ED Disposition Is Patient to be Admitted: Yes Discussed With : Corey García Doctor Will See Patient In The: Hospital Counseled Patient/Family Regarding: Studies Performed, Diagnosis - Disposition Disposition Time: 02:03 Condition: FAIR - Pt Status Changed To: Hospital Disposition Of: Inpatient - Admit Certification Admit to Inpatient:: After my assessment, the patient will require hospitalization for at least two midnights. This is because of the severity of symptoms shown, intensity of services needed, and/or the medical risk in this patient being treated as an outpatient.
--- NOTE | 2017-05-03 02:47 | CT ---
EXAM: CT Head Without Intravenous Contrast CLINICAL HISTORY: 76 years old, female; Signs and symptoms; Weakness, extremity; Bilateral TECHNIQUE: Axial computed tomography images of the head/brain without intravenous contrast. All CT scans at this facility use one or more dose reduction techniques, viz.: automated exposure control; ma/kV adjustment per patient size (including targeted exams where dose is matched to indication; i.e. head); or iterative reconstruction technique. Coronal and sagittal reformatted images were created and reviewed. COMPARISON: CT - HEAD W/O CONTRAST 06/13/2016 10:23:33 AM FINDINGS: Brain: No acute intracranial hemorrhage. Age-appropriate periventricular white matter disease. No edema. Basal ganglia and cerebellar calcifications are identified. Ventricles: Age-appropriate ventriculomegaly. Bones: No acute displaced fracture. Sinuses: Unremarkable as visualized. No acute sinusitis. Mastoid air cells: Unremarkable as visualized. No mastoid effusion. IMPRESSION: No acute intracranial hemorrhage, or suspicious mass effect.
[2017-05-03 03:34] LABS: SQUAMOUS EPITHIAL 1 /hpf (0-5); URINE BACTERIA RARE (<OCC); URINE BILIRUBIN NEGATIVE (NEGATIVE); URINE BLOOD SMALL (NEGATIVE); URINE CLARITY CLEAR (Clear); URINE COLOR STRAW (YELLOW); URINE GLUCOSE (UA) NEG (Normal); URINE LEUKOCYTE ESTERASE NEG Leu/uL (Negative); URINE NITRATE NEGATIVE (NEGATIVE); URINE PROTEIN NEGATIVE (NEGATIVE); URINE UROBILINOGEN 0.2-1.0 mg/dL (0.2-1.0)
[2017-05-03] MEDS ORDERED: Sodium Chloride 3% 500 ML IV SCH (04:56)
[2017-05-03 08:08] LABS: HEMOGLOBIN 11.1 g/dL (12.0-16.0); MEAN CELL VOLUME 89.9 fl (81.0-99.0); MEAN CORPUSCULAR HEMOGLOBIN 30.4 pg (27.0-31.0); MEAN CORPUSCULAR HGB CONC 33.7 g/dL (33.0-37.0); RBC 3.66 Mil/uL (3.80-5.20); RED CELL DISTRIBUTION WIDTH 16.2 % (11.5-14.5); WHITE BLOOD COUNT 11.5 K/uL (4.8-10.8)
[2017-05-03 08:09] LABS: ALB/GLOB RATIO 1.3 (1.0-2.1); ALBUMIN 3.9 g/dL (3.5-5.0); ALT/SGPT 31 U/L (9-52); AST/SGOT 23 U/L (14-36); BLOOD UREA NITROGEN 8 mg/dl (7-17); CALCIUM 9.6 mg/dL (8.4-10.2); GFR AFRICAN-AMERICAN > 60; GFR NON-AFRICAN AMERICAN > 60; HDL CHOLESTEROL 67 MG/DL (30-70)
[2017-05-03 08:20] LABS: LDL CHOLESTEROL 86 mg/dL (0-129)
--- NOTE | 2017-05-03 08:21 | RAD ---
HISTORY: abd pain COMPARISON: No prior. FINDINGS: BOWEL: Abundant stool within the rectum.. No obstruction. No free air. BONES: Normal. OTHER FINDINGS: None. IMPRESSION: Constipation.
[2017-05-03 08:55] LABS: INR 1.1 (0.9-1.2); PARTIAL THROMBOPLASTIN TIME 29.5 Seconds (25.6-37.1); PROTHROMBIN TIME 11.3 Seconds (9.8-13.1)
--- NOTE | 2017-05-03 10:29 | CARD ---
APPROVED REPORT EKG Measurement Heart [id number] <Conclusion> Sinus tachycardia Possible Inferior infarct, age undetermined Abnormal ECG
--- NOTE | 2017-05-03 13:05 | CP.PCM.HP ---
History of Present Illness - History of Present Illness History of Present Illness: CC: Abdominal pain. 89 y/o F, brought by EMS to [facility], [place] for generalized abdominal pain on DOA with no relief, pain was cramping, moderate intensity 6:10, non radiated, as per PT, associated to a laxative that she took in AM for constipation, she denied nausea, vomiting. Worsening symptoms: AMS, Chronic LLE cellulites, open ulcer left posterior to left lateral malleolus, also open ulcers in areas of distal leg and dorsum L foot. Sodium in 132. Aggravated symptoms with movements. Pt denied: Fever, chills, nausea/vomiting, CP, syncope, SOB, cough, sick contact, recent travel. PMHx: Chronic cellulites LLE, COPD, Asthma, Allergic Rhinitis, HTN, Hx NSTEMI, AVR, Chronic Lumbago, Chronic R-L knee O/A, High Cholesterol, Urinary Incontinence, Anxiety, Depression. EKG shows: Sinus tachycardia. Head CT: No hemorrhage, mass effect. Chest/ Abd X-Ray: Constipation. Present on Admission - Present on Admission Any Indicators Present on Admission: No Review of Systems - Review of Systems Systems not reviewed;Unavailable: Acuity of Condition, Altered Mental Status Past Patient History - Past Medical History & Family History Past Medical History?: Yes Pertinent Family History: Unknown - Past Social History Smoking Status: Never Smoked Alcohol: None Drugs: Denies Home Situation {Lives}: With Family - CARDIAC Hx Cardiac Disorders: Yes Hx Hypercholesterolemia: Yes Hx Hypertension: Yes Other/Comment: MVR - PULMONARY Hx Respiratory Disorders: Yes Hx Asthma: Yes Hx Chronic Obstructive Pulmonary Disease (COPD): Yes - NEUROLOGICAL Hx Neurological Disorder: No - HEENT Hx HEENT Problems: No - RENAL Hx Chronic Kidney Disease: No - ENDOCRINE/METABOLIC Hx Endocrine Disorders: No - HEMATOLOGICAL/ONCOLOGICAL Hx Blood Disorders: No Hx Human Immunodeficiency Virus (HIV): No - INTEGUMENTARY Hx Dermatological Problems: Yes Hx Cellulitis: Yes (LLE) - MUSCULOSKELETAL/RHEUMATOLOGICAL Hx Musculoskeletal Disorders: Yes Hx Arthritis: Yes Hx Back Pain: Yes Hx Osteoporosis: Yes - GASTROINTESTINAL Hx Gastrointestinal Disorders: No - GENITOURINARY/GYNECOLOGICAL Hx Genitourinary Disorders: Yes Hx Incontinence: Yes - PSYCHIATRIC Hx Psychophysiologic Disorder: Yes Hx Anxiety: Yes Hx Depression: Yes - SURGICAL HISTORY Hx Surgeries: Yes Hx Valve Replacement: Yes (AVR) - ANESTHESIA Hx Anesthesia: Yes Hx Anesthesia Reactions: No Hx Malignant Hyperthermia: No Meds Allergies/Adverse Reactions: Allergies Allergy/AdvReac Type Severity Reaction Status Date / Time aspirin Allergy Mild RASH Verified 02/09/17 16:01 iodine Allergy RASH Verified 02/09/17 16:01 Physical Exam - Constitutional Appears: Agitated, Confused, Chronically Ill - Head Exam Head Exam: NORMAL INSPECTION - Eye Exam Eye Exam: PERRL - ENT Exam ENT Exam: Normal Exam - Neck Exam Neck exam: Positive for: Normal Inspection - Respiratory Exam Respiratory Exam: Decreased Breath Sounds (at bases) - Cardiovascular Exam Cardiovascular Exam: REGULAR RHYTHM, Systolic Murmur (09/26 LSB Ao) Additional comments: Kyphosis. - GI/Abdominal Exam GI & Abdominal Exam: Normal Bowel Sounds, Soft - Extremities Exam Extremities exam: Positive for: tenderness (LLE, R-L knees) Additional comments: LLE with redness, warm to touch, open ulcers Posterior to left lateral malleolus , distal leg and dorsum left foot. Dorsal pedal pulse 2+ b/l - Back Exam Back exam: tenderness (L-S) - Neurological Exam Additional comments: Awake, confused, disoriented, follows simple commands. no focal motor deficit. - Psychiatric Exam Psychiatric exam: Agitated, Anxious - Skin Skin Exam: Warm (see extremities.) Results - Vital Signs Recent Vital Signs: Last Vital Signs Temp 98.2 F 05/03/17 12:45 Pulse 90 05/03/17 12:45 Resp 18 05/03/17 12:45 BP 151/81 H 05/03/17 12:45 Pulse Ox 96 05/03/17 12:45 reviewed Good - Labs Result Diagrams: 05/05/17 05:40 05/05/17 05:40 Labs: Laboratory Results - last 24 hr 05/03/17 05/03/17 05/03/17 03:12 03:12 05:30 WBC RBC Hgb Hct MCV MCH MCHC RDW Plt Count PT 11.3 INR 1.1 APTT 29.5 Sodium Potassium Chloride Carbon Dioxide Anion Gap BUN Creatinine Est GFR ( Amer) Est GFR (Non-Af Amer) Random Glucose Calcium Total Bilirubin AST ALT Alkaline Phosphatase Total Protein Albumin Globulin Albumin/Globulin Ratio Triglycerides Cholesterol LDL Cholesterol Direct HDL Cholesterol TSH 3rd Generation Urine Color Straw Urine Clarity Clear Urine pH 7.0 Ur Specific Niland < 1.005 Urine Protein Negative Urine Glucose (UA) Neg Urine Ketones Negative Urine Blood Small Urine Nitrate Negative Urine Bilirubin Negative Urine Urobilinogen 0.2-1.0 Ur Leukocyte Esterase Neg Urine RBC (Auto) 1 Ur Squamous Epith Cells 1 Urine Bacteria Rare Urine Osmolality 170 L 05/03/17 05/03/17 05:30 05:30 WBC 11.5 H RBC 3.66 L Hgb 11.1 L Hct 32.9 L MCV 89.9 MCH 30.4 MCHC 33.7 RDW 16.2 H Plt Count 476 H PT INR APTT Sodium 132 Potassium 3.6 Chloride 95 L Carbon Dioxide 25 Anion Gap 16 BUN 8 Creatinine 0.6 L Est GFR ( Amer) > 60 Est GFR (Non-Af Amer) > 60 Random Glucose 85 Calcium 9.6 Total Bilirubin 0.3 AST 23 ALT 31 Alkaline Phosphatase 80 Total Protein 6.8 Albumin 3.9 Globulin 2.9 Albumin/Globulin Ratio 1.3 Triglycerides 43 Cholesterol 172 LDL Cholesterol Direct 86 HDL Cholesterol 67 TSH 3rd Generation 2.23 Urine Color Urine Clarity Urine pH Ur Specific Niland Urine Protein Urine Glucose (UA) Urine Ketones Urine Blood Urine Nitrate Urine Bilirubin Urine Urobilinogen Ur Leukocyte Esterase Urine RBC (Auto) Ur Squamous Epith Cells Urine Bacteria Urine Osmolality reviewed J.P. - EKG Data EKG comments: reviewed J.P. - Imaging and Cardiology Abdominal x-ray Status: Report reviewed by me (CandiceP.) Chest x-ray Status: Report reviewed by me (Good) Assessment & Plan (1) Abdominal pain Status: Acute Priority: High (2) Constipation Status: Chronic Priority: High (3) Altered mental status Status: Acute Priority: High (4) Hyponatremia Status: Acute Priority: High (5) Cellulitis of left leg Status: Chronic Priority: High (6) Ulcer of left lower extremity Status: Chronic Priority: High (7) Ulcer of left foot Status: Chronic Priority: High (8) Cellulitis of left foot Status: Chronic Priority: High (9) NSTEMI (non-ST elevated myocardial infarction) Status: Chronic Priority: High (10) COPD (chronic obstructive pulmonary disease) Status: Chronic Priority: Medium (11) HTN (hypertension) Status: Chronic Priority: Medium (12) Knee pain, bilateral Status: Chronic Priority: Medium (13) Lumbago Status: Chronic Priority: Medium (14) High cholesterol Status: Chronic Priority: Medium (15) Anxiety Status: Chronic Priority: High (16) Hx of aortic valve replacement Status: Acute - Assessment and Plan (Free Text) Plan: Blood C-S, Wound C-S, continue Zosyn, Vanco, Duoneb, Ultran, Ativan and rest of Tx, Podiatry , Cardiology and Psychiatric consult. - Date & Time Date: 05/03/17 Time: 11:45
[2017-05-03] MEDS: Sodium Chloride 0.9% 1,000 ML IV SCH (13:24)
--- NOTE | 2017-05-03 16:39 | US ---
PROCEDURE: Bilateral lower extremity venous duplex Doppler. HISTORY: MD order COMPARISON: None available. TECHNIQUE: Bilateral common femoral, superficial femoral, popliteal and posterior tibial veins were evaluated. Flow was assessed with color Doppler, compressibility, assessment of phasic flow and augmentation response. FINDINGS: COMMON FEMORAL VEIN: Right CFV: Unremarkable. Left CFV: Unremarkable. SUPERFICIAL FEMORAL VEIN: Right SFV: Unremarkable. Left SFV: Unremarkable. POPLITEAL VEIN: Right Popliteal: Unremarkable. Left Popliteal: Unremarkable. POSTERIOR TIBIAL VEIN: Right PTV: Unremarkable. Left PTV: Unremarkable. OTHER FINDINGS: None. IMPRESSION: No evidence of deep venous thrombosis.
--- NOTE | 2017-05-03 16:41 | US ---
PROCEDURE: Duplex ultrasound of the bilateral lower extremity arteries. HISTORY: MD order COMPARISON: None available. TECHNIQUE: Grayscale and duplex Doppler evaluation of the bilateral common femoral, superficial femoral, popliteal, posterior tibial and dorsalis pedis arteries was performed.. FINDINGS: RIGHT LOWER EXTREMITY: RIGHT COMMON FEMORAL ARTERY: Widely patent. Maximal flow velocity of 102.6 cm/s. RIGHT SUPERFICIAL FEMORAL ARTERY: Widely patent. Maximal flow velocity of 110.8 cm/s. RIGHT POPLITEAL ARTERY:Widely patent. Maximal flow velocity of 84.9 cm/s. RIGHT POSTERIOR TIBIAL ARTERY: Widely patent. Maximal flow velocity of 21.5 cm/s. RIGHT DORSALIS PEDIS ARTERY: Widely patent. Maximal flow velocity of 56.4 cm/s. LEFT LOWER EXTREMITY: Patient refused examination of the left lower extremity. OTHER FINDINGS: None. IMPRESSION: Unremarkable arterial Doppler study right lower extremity.
[2017-05-03] MEDS: Piperacillin/Tazobact 3.375 GM in Sodium Chloride 0.9% 100 ML IVPB SCH ×2 (17:10→21:12)
[2017-05-03] MEDS: Albuterol-Ipratrop 3 mg / 0.5 (3 ml) UD INH SCH (19:37)
[2017-05-04] MEDS: Piperacillin/Tazobact 3.375 GM in Sodium Chloride 0.9% 100 ML IVPB SCH ×4 (03:15→21:15)
[2017-05-04 06:41] LABS: HEMOGLOBIN 10.6 g/dL (12.0-16.0); MEAN CELL VOLUME 90.6 fl (81.0-99.0); MEAN CORPUSCULAR HEMOGLOBIN 30.6 pg (27.0-31.0); MEAN CORPUSCULAR HGB CONC 33.7 g/dL (33.0-37.0); RBC 3.46 Mil/uL (3.80-5.20); RED CELL DISTRIBUTION WIDTH 16.3 % (11.5-14.5); WHITE BLOOD COUNT 10.2 K/uL (4.8-10.8)
[2017-05-04 06:45] LABS: ALB/GLOB RATIO 1.3 (1.0-2.1); ALBUMIN 3.4 g/dL (3.5-5.0); ALT/SGPT 32 U/L (9-52); AST/SGOT 17 U/L (14-36); BLOOD UREA NITROGEN 7 mg/dl (7-17); CALCIUM 9.1 mg/dL (8.4-10.2); GFR AFRICAN-AMERICAN > 60; GFR NON-AFRICAN AMERICAN > 60
[2017-05-04] MEDS: Pantoprazole 40 mg EC Tab PO SCH (08:16)
[2017-05-04] MEDS: Albuterol-Ipratrop 3 mg / 0.5 (3 ml) UD INH SCH ×3 (08:18→19:00)
[2017-05-04] MEDS: Sodium Chloride 0.9% 1,000 ML IV SCH (08:18)
--- NOTE | 2017-05-04 08:46 | CP.PCM.CON ---
History of Present Illness - History of Present Illness History of Present Illness: psychiatry consult ordered by dr. benitez reason: confusion cc: nobody at home cares about me hpi: 76 yo female, brought to ER by family and found to have NA of 121, which was corrected to 132 about 5 hours later. she is very confused at present, and is tearful and stating that she is anxious and depressed at home. she reports that she feels people are mistreating her at home, but that she knows this is not true. she is tearful and anxious. she has been given ativan yesterday as well as ultram, per the RN. pt states she lives with her mother, who is 78 years old and a "grandson who has a foul mouth." she is unable to give more history. she recalls seeing a psychiatrist for "my nerves" who moved to [place] per her report. social: lives in [place]. substance use- denies/unknown medical: per dr. benitez mse: alert, oriented to self, place. does not know year or why she is in the hospital. mood is anxious and depressed. affect is tearful/dysphoric. memory impaired. reports history of a/v hallucinations, but is denying currently. denies suicidal or homicidal thoughts. poor i/j. assessment: delirium depression unspecified r/o dementia recommendation: low dose prn seroquel for agitation- 12.5mg q 8 hr prn agitation. could give standing dose 12.5mg hs. monitor neurologically after rapid correction of NA would avoid ativan and antihicholinergic medications tsh, head ct is wnl per report pt is not appropriate for inpt psychiatric care at this point as she is too confused to consent to voluntary treatment Past Patient History - Past Medical History & Family History Past Medical History?: Yes - Past Social History Alcohol: None Drugs: Denies - CARDIAC Hx Hypercholesterolemia: Yes Hx Hypertension: Yes - PULMONARY Hx Asthma: Yes Hx Chronic Obstructive Pulmonary Disease (COPD): Yes - NEUROLOGICAL Hx Neurological Disorder: No - HEENT Hx HEENT Problems: No - RENAL Hx Chronic Kidney Disease: No - ENDOCRINE/METABOLIC Hx Endocrine Disorders: No - HEMATOLOGICAL/ONCOLOGICAL Hx Human Immunodeficiency Virus (HIV): No - INTEGUMENTARY Hx Dermatological Problems: No - MUSCULOSKELETAL/RHEUMATOLOGICAL Hx Arthritis: Yes Hx Osteoporosis: Yes - GASTROINTESTINAL Hx Gastrointestinal Disorders: No - GENITOURINARY/GYNECOLOGICAL Hx Genitourinary Disorders: No - PSYCHIATRIC Hx Anxiety: Yes - SURGICAL HISTORY Hx Coronary Artery Bypass Graft: Yes - ANESTHESIA Hx Anesthesia: Yes Hx Anesthesia Reactions: No Hx Malignant Hyperthermia: No Meds Allergies/Adverse Reactions: Allergies Allergy/AdvReac Type Severity Reaction Status Date / Time aspirin Allergy Mild RASH Verified 02/09/17 16:01 iodine Allergy RASH Verified 02/09/17 16:01 - Medications Medications: Current Medications Albuterol/Ipratropium (Duoneb 3 Mg/0.5 Mg (3 Ml) Ud) 3 ml INH RTID [facility] Last Admin: 05/04/17 08:18 Dose: 3 ml Fluticasone Propionate (Flonase) 1 spr LA DAILY [facility] Last Admin: 05/04/17 08:17 Dose: 1 spr Sodium Chloride (Sodium Chloride 0.9%) 1,000 mls @ 50 mls/hr IV .Q20H [facility] Stop: 05/04/17 12:25 Last Admin: 05/04/17 08:18 Dose: 50 mls/hr Piperacillin Sod/Tazobactam (Sod 3.375 gm/ Sodium Chloride) 100 mls @ 100 mls/ hr IVPB Q6 [facility] Last Admin: 05/04/17 03:15 Dose: 100 mls/hr Vancomycin HCl 1 gm/ Sodium (Chloride) 250 mls @ 166.667 mls/hr IVPB Q12@0500, 1700 [facility] Last Admin: 05/04/17 05:00 Dose: 166.667 mls/hr Loratadine (Claritin) 10 mg PO DAILY [facility] Last Admin: 05/04/17 08:17 Dose: 10 mg Lorazepam (Ativan) 1 mg IVP Q4 PRN PRN Reason: Anxiety Last Admin: 05/03/17 09:10 Dose: 1 mg Montelukast Sodium (Singulair) 10 mg PO DAILY [facility] Last Admin: 05/04/17 08:16 Dose: 10 mg Pantoprazole Sodium (Protonix Ec Tab) 40 mg PO DAILY [facility] Last Admin: 05/04/17 08:16 Dose: 40 mg Tramadol HCl (Ultram) 50 mg PO Q8 PRN PRN Reason: Pain, moderate (4-7) Last Admin: 05/04/17 06:40 Dose: 50 mg Valsartan (Diovan) 160 mg PO BID [facility] Last Admin: 05/04/17 08:16 Dose: 160 mg Results - Vital Signs Recent Vital Signs: Last Vital Signs Temp 98.3 F 05/04/17 08:04 Pulse 88 05/04/17 08:04 Resp 20 05/04/17 08:04 BP 130/71 05/04/17 08:04 Pulse Ox 97 05/04/17 08:04 - Labs Result Diagrams: 05/04/17 05:30 05/04/17 05:30 Labs: Laboratory Results - last 24 hr 05/03/17 05/03/17 05/03/17 02:39 05:30 05:30 WBC 11.5 H RBC 3.66 L Hgb 11.1 L Hct 32.9 L MCV 89.9 MCH 30.4 MCHC 33.7 RDW 16.2 H Plt Count 476 H PT 11.3 INR 1.1 APTT 29.5 Sodium Potassium Chloride Carbon Dioxide Anion Gap BUN Creatinine Est GFR ( Amer) Est GFR (Non-Af Amer) POC Glucose (mg/dL) 97 Random Glucose Lactic Acid Calcium Total Bilirubin AST ALT Alkaline Phosphatase Total Protein Albumin Globulin Albumin/Globulin Ratio Triglycerides Cholesterol LDL Cholesterol Direct HDL Cholesterol TSH 3rd Generation 05/03/17 05/03/17 05/04/17 05:30 13:30 05:30 WBC 10.2 RBC 3.46 L Hgb 10.6 L Hct 31.3 L MCV 90.6 MCH 30.6 MCHC 33.7 RDW 16.3 H Plt Count 406 H PT INR APTT Sodium 132 Potassium 3.6 Chloride 95 L Carbon Dioxide 25 Anion Gap 16 BUN 8 Creatinine 0.6 L Est GFR ( Amer) > 60 Est GFR (Non-Af Amer) > 60 POC Glucose (mg/dL) Random Glucose 85 Lactic Acid 1.0 Calcium 9.6 Total Bilirubin 0.3 AST 23 ALT 31 Alkaline Phosphatase 80 Total Protein 6.8 Albumin 3.9 Globulin 2.9 Albumin/Globulin Ratio 1.3 Triglycerides 43 Cholesterol 172 LDL Cholesterol Direct 86 HDL Cholesterol 67 TSH 3rd Generation 2.23 05/04/17 05:30 WBC RBC Hgb Hct MCV MCH MCHC RDW Plt Count PT INR APTT Sodium 131 L Potassium 4.0 Chloride 101 Carbon Dioxide 23 Anion Gap 11 BUN 7 Creatinine 0.6 L Est GFR ( Amer) > 60 Est GFR (Non-Af Amer) > 60 POC Glucose (mg/dL) Random Glucose 87 Lactic Acid Calcium 9.1 Total Bilirubin 0.4 AST 17 ALT 32 Alkaline Phosphatase 74 Total Protein 6.0 L Albumin 3.4 L Globulin 2.6 Albumin/Globulin Ratio 1.3 Triglycerides Cholesterol LDL Cholesterol Direct HDL Cholesterol TSH 3rd Generation
--- NOTE | 2017-05-04 12:18 | CP.PCM.CON ---
History of Present Illness - History of Present Illness History of Present Illness: 76 year old female with PMHx of HTN, CAD, anxiety, CABG was consulted for podiatry for ulcerations of LLE. Patient is Croatian speaking. Hand Buffer service was used in today's encounter [id number]. Patient appears to be distracted easily, changing topics frequently. Difficulty obtaining the history and physical. Patients believes the ulcerations are from wearing orthopedic shoes. Ulcerations started 1 year ago. Been wearing orthopedic shoes for 4 years. She says she sees someone for the wound and cream application would be applied. Reports the ulcerations being the same size and not getting better. She reports ulcerations site being extremity painful. Denies n/v/sob/cp/chills or f. Past Patient History - Past Medical History & Family History Past Medical History?: Yes - Past Social History Smoking Status: Never Smoked Alcohol: None Drugs: Denies Home Situation {Lives}: With Family - CARDIAC Hx Cardiac Disorders: Yes Hx Hypercholesterolemia: Yes Hx Hypertension: Yes - PULMONARY Hx Respiratory Disorders: Yes Hx Asthma: Yes Hx Chronic Obstructive Pulmonary Disease (COPD): Yes - NEUROLOGICAL Hx Neurological Disorder: No - HEENT Hx HEENT Problems: No - RENAL Hx Chronic Kidney Disease: No - ENDOCRINE/METABOLIC Hx Endocrine Disorders: No - HEMATOLOGICAL/ONCOLOGICAL Hx Blood Disorders: No Hx Human Immunodeficiency Virus (HIV): No - INTEGUMENTARY Hx Dermatological Problems: Yes Hx Cellulitis: Yes (LLE) - MUSCULOSKELETAL/RHEUMATOLOGICAL Hx Musculoskeletal Disorders: Yes Hx Arthritis: Yes Hx Back Pain: Yes Hx Osteoporosis: Yes - GASTROINTESTINAL Hx Gastrointestinal Disorders: No - GENITOURINARY/GYNECOLOGICAL Hx Genitourinary Disorders: Yes Hx Incontinence: Yes - PSYCHIATRIC Hx Psychophysiologic Disorder: Yes Hx Anxiety: Yes Hx Depression: Yes - SURGICAL HISTORY Hx Surgeries: Yes Hx Coronary Artery Bypass Graft: Yes - ANESTHESIA Hx Anesthesia: Yes Hx Anesthesia Reactions: No Hx Malignant Hyperthermia: No Meds Allergies/Adverse Reactions: Allergies Allergy/AdvReac Type Severity Reaction Status Date / Time aspirin Allergy Mild RASH Verified 02/09/17 16:01 iodine Allergy RASH Verified 02/09/17 16:01 - Medications Medications: Current Medications Albuterol/Ipratropium (Duoneb 3 Mg/0.5 Mg (3 Ml) Ud) 3 ml INH RTID [facility] Last Admin: 05/04/17 08:18 Dose: 3 ml Fluticasone Propionate (Flonase) 1 spr LA DAILY [facility] Last Admin: 05/04/17 08:17 Dose: 1 spr Sodium Chloride (Sodium Chloride 0.9%) 1,000 mls @ 50 mls/hr IV .Q20H [facility] Stop: 05/04/17 12:25 Last Admin: 05/04/17 08:18 Dose: 50 mls/hr Piperacillin Sod/Tazobactam (Sod 3.375 gm/ Sodium Chloride) 100 mls @ 100 mls/ hr IVPB Q6 [facility] Last Admin: 05/04/17 09:01 Dose: 100 mls/hr Vancomycin HCl 1 gm/ Sodium (Chloride) 250 mls @ 166.667 mls/hr IVPB Q12@0500, 1700 [facility] Last Admin: 05/04/17 05:00 Dose: 166.667 mls/hr Loratadine (Claritin) 10 mg PO DAILY [facility] Last Admin: 05/04/17 08:17 Dose: 10 mg Lorazepam (Ativan) 1 mg IVP Q4 PRN PRN Reason: Anxiety Last Admin: 05/03/17 09:10 Dose: 1 mg Montelukast Sodium (Singulair) 10 mg PO DAILY [facility] Last Admin: 05/04/17 08:16 Dose: 10 mg Pantoprazole Sodium (Protonix Ec Tab) 40 mg PO DAILY [facility] Last Admin: 05/04/17 08:16 Dose: 40 mg Tramadol HCl (Ultram) 50 mg PO Q8 PRN PRN Reason: Pain, moderate (4-7) Last Admin: 05/04/17 06:40 Dose: 50 mg Valsartan (Diovan) 160 mg PO BID [facility] Last Admin: 05/04/17 08:16 Dose: 160 mg Physical Exam - Constitutional Appears: Well, Non-toxic, No Acute Distress - Extremities Exam Additional comments: Vasc: DP 1/4, PT 1/4 bilaterally, Temperature gradient is WNL, [employer] <4 seconds x10 digits, no edema noted to LE Ortho: severe pain with palpation of the periwound and site of ulceration. Neuro: gross sensation diminished bilaterally Derm: multiple ulcerations on left lower extremity all fibrous in nature, no drainage, no swelling, no malodor, no tunneling, no undermining noted, no fluctuance noted, no probe to bone noted. red/pink discoloration noted secondary to combination product stain and erythema Ulceration #1: located at the dorsum of metatarsal head 2 and 3, measures approximately 2 x .5 x .1 cm Ulceration #2: located on the anterior ankle measures approximately 2x 1 x .1 cm Ulceration #3: located on the lateral posterior ankle measures approximately 4 x .8 x .3 cm - Neurological Exam Neurological exam: Alert - Psychiatric Exam Psychiatric exam: Normal Affect, Normal Mood Results - Vital Signs Recent Vital Signs: Last Vital Signs Temp 98.3 F 05/04/17 08:04 Pulse 95 H 05/04/17 09:00 Resp 20 05/04/17 08:04 BP 130/71 05/04/17 08:04 Pulse Ox 97 05/04/17 08:04 - Labs Result Diagrams: 05/04/17 05:30 05/04/17 05:30 Labs: Laboratory Results - last 24 hr 05/03/17 05/03/17 05/04/17 02:39 13:30 05:30 WBC 10.2 RBC 3.46 L Hgb 10.6 L Hct 31.3 L MCV 90.6 MCH 30.6 MCHC 33.7 RDW 16.3 H Plt Count 406 H Sodium Potassium Chloride Carbon Dioxide Anion Gap BUN Creatinine Est GFR ( Amer) Est GFR (Non-Af Amer) POC Glucose (mg/dL) 97 Random Glucose Lactic Acid 1.0 Calcium Total Bilirubin AST ALT Alkaline Phosphatase Total Protein Albumin Globulin Albumin/Globulin Ratio 05/04/17 05:30 WBC RBC Hgb Hct MCV MCH MCHC RDW Plt Count Sodium 131 L Potassium 4.0 Chloride 101 Carbon Dioxide 23 Anion Gap 11 BUN 7 Creatinine 0.6 L Est GFR ( Amer) > 60 Est GFR (Non-Af Amer) > 60 POC Glucose (mg/dL) Random Glucose 87 Lactic Acid Calcium 9.1 Total Bilirubin 0.4 AST 17 ALT 32 Alkaline Phosphatase 74 Total Protein 6.0 L Albumin 3.4 L Globulin 2.6 Albumin/Globulin Ratio 1.3 Assessment & Plan - Assessment and Plan (Free Text) Assessment: 76 year old female with PMHx of HTN, CAD, anxiety, CABG with left ankle and foot cellulitis and ulcerations Plan: Patient was seen and examined at bedside Charts, labs, vitals reviewed: WBC 10.2, afebrile Discussed the plan in detail with attending Dr. Muñiz Duplex lower extremity arterial bilaterally- pt refused left, right unremarkable arterial doppler U/S- negative for DVT Pt to continue Abx per management Ulcerations dressed with xeroform and DSD at the moment Podiatry will follow while in house
--- NOTE | 2017-05-04 16:50 | CP.PCM.PN ---
Subjective - Date & Time of Evaluation Date of Evaluation: 05/04/17 Time of Evaluation: 12:00 - Subjective Subjective: F/U Cellulites LLE. Pt awake, c/o of pain in the LLE. Objective - Vital Signs/Intake and Output Vital Signs (last 24 hours): Temp Pulse Resp BP Pulse Ox 98.0 F 96 H 19 153/67 H 98 05/04/17 16:02 05/04/17 16:02 05/04/17 16:02 05/04/17 16:02 05/04/17 16:02 Intake and Output: 05/04/17 05/04/17 06:59 18:59 Intake Total 1250 Balance 1250 - Medications Medications: Current Medications Albuterol/Ipratropium (Duoneb 3 Mg/0.5 Mg (3 Ml) Ud) 3 ml INH RTID [facility] Last Admin: 05/04/17 14:33 Dose: 3 ml Fluticasone Propionate (Flonase) 1 spr LA DAILY [facility] Last Admin: 05/04/17 08:17 Dose: 1 spr Piperacillin Sod/Tazobactam (Sod 3.375 gm/ Sodium Chloride) 100 mls @ 100 mls/ hr IVPB Q6 [facility] Last Admin: 05/04/17 16:45 Dose: 100 mls/hr Vancomycin HCl 1 gm/ Sodium (Chloride) 250 mls @ 166.667 mls/hr IVPB Q12@0500, 1700 [facility] Last Admin: 05/04/17 16:45 Dose: 166.667 mls/hr Loratadine (Claritin) 10 mg PO DAILY [facility] Last Admin: 05/04/17 08:17 Dose: 10 mg Montelukast Sodium (Singulair) 10 mg PO DAILY [facility] Last Admin: 05/04/17 08:16 Dose: 10 mg Pantoprazole Sodium (Protonix Ec Tab) 40 mg PO DAILY [facility] Last Admin: 05/04/17 08:16 Dose: 40 mg Quetiapine Fumarate (Seroquel) 12.5 mg PO Q8 PRN PRN Reason: Agitation Last Admin: 05/04/17 16:46 Dose: 12.5 mg Tramadol HCl (Ultram) 50 mg PO Q8 PRN PRN Reason: Pain, moderate (4-7) Last Admin: 05/04/17 06:40 Dose: 50 mg Valsartan (Diovan) 160 mg PO BID [facility] Last Admin: 05/04/17 16:46 Dose: 160 mg - Labs Labs: 05/04/17 05:30 05/04/17 05:30 PT 11.3 Seconds (9.8-13.1) 05/03/17 05:30 INR 1.1 (0.9-1.2) 05/03/17 05:30 APTT 29.5 Seconds (25.6-37.1) 05/03/17 05:30 - Constitutional Appears: Confused, Chronically Ill - Head Exam Head Exam: NORMAL INSPECTION - Eye Exam Eye Exam: PERRL - ENT Exam ENT Exam: Normal Exam - Neck Exam Neck Exam: Normal Inspection - Respiratory Exam Respiratory Exam: Decreased Breath Sounds (at bases) - Cardiovascular Exam Cardiovascular Exam: REGULAR RHYTHM, Murmur (systolic) Additional comments: Kyphosis - GI/Abdominal Exam GI & Abdominal Exam: Soft, Normal Bowel Sounds - Extremities Exam Extremities Exam: Tenderness (LLE, R-L knee) Additional comments: LLE redness, warm to touch, open ulcers posterior to left lateral malleolus, distal leg and dorsum L foot. 1+ pitting edema LLE. Dorsal pedal pulse 2+ b/l. - Back Exam Back Exam: tenderness (L-S) - Neurological Exam Neurological Exam: Awake Additional comments: Confused, disoriented, follows simple commands, no focal motor deficit. - Psychiatric Exam Psychiatric exam: Anxious, Depressed - Skin Skin Exam: Warm Assessment and Plan (1) Abdominal pain Status: Acute (2) Constipation Status: Chronic (3) Altered mental status Status: Acute (4) Hyponatremia Status: Acute (5) Cellulitis of left leg Status: Chronic (6) Ulcer of left lower extremity Status: Chronic (7) Ulcer of left foot Status: Chronic (8) Cellulitis of left foot Status: Chronic (9) NSTEMI (non-ST elevated myocardial infarction) Status: Chronic (10) COPD (chronic obstructive pulmonary disease) Status: Chronic (11) HTN (hypertension) Status: Chronic (12) Knee pain, bilateral Status: Chronic (13) Lumbago Status: Chronic (14) High cholesterol Status: Chronic (15) Anxiety Status: Chronic (16) Depression Status: Chronic - Assessment and Plan (Free Text) Plan: F/U Foot X-Ray, Continue Zosyn, Vanco and rest of Tx, Psychiatric and Podiatry consult appreciated.
[2017-05-04 17:53] LABS: URINE BILIRUBIN NEGATIVE (NEGATIVE); URINE CLARITY SLIGHT-CLOUDY (Clear); URINE COLOR LT.YELLOW (YELLOW); URINE GLUCOSE (UA) NEG (Normal)
[2017-05-04 17:54] LABS: PH,URINE 7.5 (5.0-8.0); URINE BLOOD SMALL (NEGATIVE); URINE LEUKOCYTE ESTERASE SMALL Leu/uL (Negative); URINE NITRATE NEGATIVE (NEGATIVE); URINE PROTEIN NEGATIVE (NEGATIVE); URINE UROBILINOGEN 0.2 mg/dL (0.2-1.0)
[2017-05-04 17:55] LABS: SQUAMOUS EPITHIAL 5 /hpf (0-5)
[2017-05-04 17:56] LABS: URINE BACTERIA MOD (<OCC)
--- NOTE | 2017-05-04 19:22 | CP.PCM.CON ---
History of Present Illness - History of Present Illness History of Present Illness: I was asked to see patient by Dr. García. Patient is a 76 year old female with a history of aortic valvular disease s/p AVR who presents with teafulness and palpitations. The patient had a previous episode of SVT and was found to have severe . The patient is s/p AVR. The patient did well but now reports being very tearful. She denies chest pain. Review of Systems - Constitutional Constitutional: absent: As Per HPI, Anorexia, Chills, Daytime Sleepiness, Excessive Sweating, Fatigue, Fever, Frequent Falls, Headache, Increased Appetite , Lethargy, Malaise, Night Sweats, Snoring, Sleep Apnea, Weight Gain, Weight Loss, Weakness, Other - EENT Eyes: absent: As Per HPI, Blind Spots, Blurred Vision, Change in Vision, Decreased Night Vision, Diplopia, Discharge, Dry Eye, Exophthalmos, Floaters, Irritation, Itchy Eyes, Loss of Peripheral Vision, Pain, Photophobia, Requires Corrective Lenses, Sees Flashes, Spots in Vision, Tunnel Vision, Other Visual Disturbances, Loss of Vision, Other Ears: absent: As Per HPI, Decreased Hearing, Ear Discharge, Ear Pain, Tinnitus, Abnormal Hearing, Disequilibrium, Dizziness, Other Nose/Mouth/Throat: absent: As Per HPI, Epistaxis, Nasal Congestion, Nasal Discharge, Nasal Obstruction, Nasal Trauma, Nose Pain, Post Nasal Drip, Sinus Pain, Sinus Pressure, Bleeding Gums, Change in Voice, Dental Pain, Dry Mouth, Dysphagia, Halitosis, Hoarsness, Lip Swelling, Mouth Lesions, Mouth Pain, Odynophagia, Sore Throat, Throat Swelling, Tongue Swelling, Facial Pain, Neck Pain, Neck Mass, Other - Cardiovascular Cardiovascular: absent: As Per HPI, Acrocyanosis, Chest Pain, Chest Pain at Rest , Chest Pain with Activity, Claudication, Diaphoresis, Dyspnea, Dyspnea on Exertion, Edema, Irregular Heart Rhythm, Pain Radiating to Arm/Neck/Jaw, Leg Edema, Leg Ulcers, Lightheadedness, Orthopnea, Palpitations, Paroxysmal Nocturnal Dyspnea, Pedal Edema, Radiating Pain, Rapid Heart Rate, Slow Heart Rate, Syncope, Other - Respiratory Respiratory: absent: As Per HPI, Cough, Dyspnea, Hemoptysis, Dyspnea on Exertion , Wheezing, Snoring, Stridor, Pain on Inspiration, Chest Congestion, Excessive Mucous Production, Change in Mucous Color, Pain with Coughing, Other - Gastrointestinal Gastrointestinal: absent: As Per HPI, Abdominal Pain, Belching, Bloating, Change in Bowel Habits, Change in Stool Character, Coffee Ground Emesis, Constipation, Cramping, Diarrhea, Dyspepsia, Dysphagia, Early Satiety, Excessive Flatus, Fecal Incontinence, Heartburn, Hematemesis, Hematochezia, Loose Stools, Melena, Nausea, Odynophagia, Temesmus, Vomiting, Other - Genitourinary Genitourinary: absent: As Per HPI, Change in Urinary Stream, Difficulty Urinating, Dysuria, Flank Pain, Hematuria, Pyuria, Nocturia, Urinary Incontinence, Urinary Frequency, Urinary Hesitance, Urinary Urgency, Voiding Freq/Small Amts, Freq UTI, Hx Renal/Bladder Calculi, Hx /Renal Surgery, Bladder Distension, Other - Integumentary Integumentary: absent: As Per HPI, Acne, Alopecia, Bleeding Lesions, Change in Hair, Change in Nails, Change in Pigmentation, Changing Lesions, Dry Skin, Erythema, Furuncle, Hirsutism, Lesions, New Lesions, Non-Healing Lesions, Photosensitivity, Pruritus, Rash, Skin Pain, Skin Ulcer, Sores, Striae, Swelling , Unusual Bruising, Wounds, Jaundice, Other - Neurological Neurological: absent: As Per HPI, Abnormal Gait, Abnormal Hearing, Abnormal Movements, Abnormal Speech, Behavioral Changes, Burning Sensations, Confusion, Convulsions, Disequilibrium, Dizziness, Numbness, Focal Weakness, Frequent Falls , Headaches, Lack of Coordination, Loss of Vision, Memory Loss, Paresthesias, Radicular Pain, Restless Legs, Sensory Deficit, Syncope, Tingling, Tremor, Vertigo, Weakness, Other Visual Disturbances, Other - Psychiatric Psychiatric: absent: As Per HPI, Abnormal Sleep Pattern, Anhedonia, Anxiety, Auditory Hallucinations, Behavioral Changes, Change in Appetite, Change in Libido, Confusion, Depression, Difficulty Concentrating, Hallucinations, Homicidal Ideation, Hopelessness, Irritability, Memory Loss, Mood Swings, Panic Attacks, Paranoia, Suicidal Ideation, Visual Hallucinations, Tactile Hallucinations, Other - Endocrine Endocrine: absent: As Per HPI, Change in Body Appearance, Change in Libido, Cold Intolorance, Deepening of Voice, Excessive Sweating, Fatigue, Flushing, Heat Intolorance, Increase in Ring/Shoe/Hat Size, Palpitations, Polydipsia, Polyphagia, Polyuria, Other - Hematologic/Lymphatic Hematologic: absent: As Per HPI, Easy Bleeding, Easy Bruising, Lymphadenopathy, Other Past Patient History - Past Medical History & Family History Past Medical History?: Yes - Past Social History Smoking Status: Never Smoked Alcohol: None Drugs: Denies Home Situation {Lives}: With Family - CARDIAC Hx Cardiac Disorders: Yes Hx Hypercholesterolemia: Yes Hx Hypertension: Yes - PULMONARY Hx Respiratory Disorders: Yes Hx Asthma: Yes Hx Chronic Obstructive Pulmonary Disease (COPD): Yes - NEUROLOGICAL Hx Neurological Disorder: No - HEENT Hx HEENT Problems: No - RENAL Hx Chronic Kidney Disease: No - ENDOCRINE/METABOLIC Hx Endocrine Disorders: No - HEMATOLOGICAL/ONCOLOGICAL Hx Blood Disorders: No Hx Human Immunodeficiency Virus (HIV): No - INTEGUMENTARY Hx Dermatological Problems: Yes Hx Cellulitis: Yes (LLE) - MUSCULOSKELETAL/RHEUMATOLOGICAL Hx Musculoskeletal Disorders: Yes Hx Arthritis: Yes Hx Back Pain: Yes Hx Osteoporosis: Yes - GASTROINTESTINAL Hx Gastrointestinal Disorders: No - GENITOURINARY/GYNECOLOGICAL Hx Genitourinary Disorders: Yes Hx Incontinence: Yes - PSYCHIATRIC Hx Psychophysiologic Disorder: Yes Hx Anxiety: Yes Hx Depression: Yes - SURGICAL HISTORY Hx Surgeries: Yes Hx Coronary Artery Bypass Graft: Yes - ANESTHESIA Hx Anesthesia: Yes Hx Anesthesia Reactions: No Hx Malignant Hyperthermia: No Meds Allergies/Adverse Reactions: Allergies Allergy/AdvReac Type Severity Reaction Status Date / Time aspirin Allergy Mild RASH Verified 02/09/17 16:01 iodine Allergy RASH Verified 02/09/17 16:01 - Medications Medications: Current Medications Albuterol/Ipratropium (Duoneb 3 Mg/0.5 Mg (3 Ml) Ud) 3 ml INH RTID [facility] Last Admin: 05/04/17 19:00 Dose: 3 ml Fluticasone Propionate (Flonase) 1 spr LA DAILY [facility] Last Admin: 05/04/17 08:17 Dose: 1 spr Piperacillin Sod/Tazobactam (Sod 3.375 gm/ Sodium Chloride) 100 mls @ 100 mls/ hr IVPB Q6 [facility] Last Admin: 05/04/17 16:45 Dose: 100 mls/hr Vancomycin HCl 1 gm/ Sodium (Chloride) 250 mls @ 166.667 mls/hr IVPB Q12@0500, 1700 [facility] Last Admin: 05/04/17 16:45 Dose: 166.667 mls/hr Loratadine (Claritin) 10 mg PO DAILY [facility] Last Admin: 05/04/17 08:17 Dose: 10 mg Montelukast Sodium (Singulair) 10 mg PO DAILY [facility] Last Admin: 05/04/17 08:16 Dose: 10 mg Pantoprazole Sodium (Protonix Ec Tab) 40 mg PO DAILY [facility] Last Admin: 05/04/17 08:16 Dose: 40 mg Quetiapine Fumarate (Seroquel) 12.5 mg PO Q8 PRN PRN Reason: Agitation Last Admin: 05/04/17 16:46 Dose: 12.5 mg Tramadol HCl (Ultram) 50 mg PO Q8 PRN PRN Reason: Pain, moderate (4-7) Last Admin: 05/04/17 06:40 Dose: 50 mg Valsartan (Diovan) 160 mg PO BID [facility] Last Admin: 05/04/17 16:46 Dose: 160 mg Physical Exam - Constitutional Appears: Non-toxic - Head Exam Head Exam: NORMAL INSPECTION - Eye Exam Eye Exam: Normal appearance - ENT Exam ENT Exam: Mucous Membranes Moist - Neck Exam Neck exam: Positive for: Full Rom - Respiratory Exam Respiratory Exam: NORMAL BREATHING PATTERN - Cardiovascular Exam Cardiovascular Exam: REGULAR RHYTHM, Systolic Murmur - GI/Abdominal Exam GI & Abdominal Exam: Normal Bowel Sounds - Rectal Exam Rectal Exam: Deferred - Extremities Exam Extremities exam: Negative for: pedal edema - Back Exam Back exam: NORMAL INSPECTION - Neurological Exam Neurological exam: Alert - Psychiatric Exam Psychiatric exam: Normal Affect - Skin Skin Exam: Normal Color Results - Vital Signs Recent Vital Signs: Last Vital Signs Temp 98.0 F 05/04/17 16:02 Pulse 96 H 05/04/17 16:02 Resp 19 05/04/17 16:02 BP 153/67 H 05/04/17 16:02 Pulse Ox 98 05/04/17 16:02 - Labs Result Diagrams: 05/04/17 05:30 05/04/17 05:30 Labs: Laboratory Results - last 24 hr 05/03/17 05/04/17 05/04/17 02:39 05:30 05:30 WBC 10.2 RBC 3.46 L Hgb 10.6 L Hct 31.3 L MCV 90.6 MCH 30.6 MCHC 33.7 RDW 16.3 H Plt Count 406 H Sodium 131 L Potassium 4.0 Chloride 101 Carbon Dioxide 23 Anion Gap 11 BUN 7 Creatinine 0.6 L Est GFR ( Amer) > 60 Est GFR (Non-Af Amer) > 60 POC Glucose (mg/dL) 97 Random Glucose 87 Calcium 9.1 Total Bilirubin 0.4 AST 17 ALT 32 Alkaline Phosphatase 74 Total Protein 6.0 L Albumin 3.4 L Globulin 2.6 Albumin/Globulin Ratio 1.3 Urine Color Urine Clarity Urine pH Ur Specific [place] Urine Protein Urine Glucose (UA) Urine Ketones Urine Blood Urine Nitrate Urine Bilirubin Urine Urobilinogen Ur Leukocyte Esterase Urine RBC (Auto) Urine Microscopic WBC Ur Squamous Epith Cells Urine Bacteria 05/04/17 14:39 WBC RBC Hgb Hct MCV MCH MCHC RDW Plt Count Sodium Potassium Chloride Carbon Dioxide Anion Gap BUN Creatinine Est GFR ( Amer) Est GFR (Non-Af Amer) POC Glucose (mg/dL) Random Glucose Calcium Total Bilirubin AST ALT Alkaline Phosphatase Total Protein Albumin Globulin Albumin/Globulin Ratio Urine Color Lt.yellow Urine Clarity Slight-cloudy Urine pH 7.5 Ur Specific [place] < 1.005 Urine Protein Negative Urine Glucose (UA) Neg Urine Ketones Negative Urine Blood Small Urine Nitrate Negative Urine Bilirubin Negative Urine Urobilinogen 0.2 Ur Leukocyte Esterase Small Urine RBC (Auto) 7 H Urine Microscopic WBC 8 H Ur Squamous Epith Cells 5 Urine Bacteria Mod H - EKG Data EKG shows normal: Sinus rhythm Assessment & Plan (1) Aortic stenosis Assessment and Plan: s/p AVR no acute valvular pathology on examination. continue medical therapy Status: Acute Priority: High (2) SVT (supraventricular tachycardia) Assessment and Plan: will monitor on telemetry Status: Acute Priority: High (3) HTN (hypertension) Assessment and Plan: blood pressure will need better control Status: Chronic Priority: Medium
[2017-05-05] MEDS: Piperacillin/Tazobact 3.375 GM in Sodium Chloride 0.9% 100 ML IVPB SCH ×4 (03:19→22:15)
[2017-05-05 07:17] LABS: HEMOGLOBIN 11.4 g/dL (12.0-16.0); MEAN CELL VOLUME 91.2 fl (81.0-99.0); MEAN CORPUSCULAR HEMOGLOBIN 30.4 pg (27.0-31.0); MEAN CORPUSCULAR HGB CONC 33.3 g/dL (33.0-37.0); RBC 3.76 Mil/uL (3.80-5.20); RED CELL DISTRIBUTION WIDTH 16.9 % (11.5-14.5)
[2017-05-05 07:19] LABS: BLOOD UREA NITROGEN 5 mg/dl (7-17); CALCIUM 9.5 mg/dL (8.4-10.2); GFR AFRICAN-AMERICAN > 60; GFR NON-AFRICAN AMERICAN > 60
[2017-05-05] MEDS: Albuterol-Ipratrop 3 mg / 0.5 (3 ml) UD INH SCH ×3 (08:22→20:07)
[2017-05-05] MEDS: Pantoprazole 40 mg EC Tab PO SCH (08:44)
--- NOTE | 2017-05-05 10:55 | RAD ---
PROCEDURE: Left Foot Radiographs. HISTORY: r/o cellulitis COMPARISON: None. FINDINGS: BONES: There is no evidence of bony erosion or bone destruction. There is diffuse bone demineralization. Bone alignment is normal. JOINTS: There is moderate degenerative osteoarthrosis in the talonavicular joint with osteophytes and subarticular cystic changes. SOFT TISSUES: Normal. OTHER FINDINGS: Atherosclerotic vascular calcifications are present. IMPRESSION: No radiographic evidence for osteomyelitis. If there is a persistent clinical concern, an MRI may be performed for further evaluation.
[2017-05-05] MEDS: Santyl Collagenase OINTMENT TOP SCH (11:30)
--- NOTE | 2017-05-05 11:41 | CP.PCM.PN ---
Subjective - Date & Time of Evaluation Date of Evaluation: 05/05/17 Time of Evaluation: 10:40 - Subjective Subjective: F/U Cellulites LLE Pt alert, oriented, c/o of pain in left foot, Pt's son at bed sided. Objective - Vital Signs/Intake and Output Vital Signs (last 24 hours): Temp Pulse Resp BP Pulse Ox 97.4 F L 78 20 159/75 H 96 05/05/17 08:50 05/05/17 08:50 05/05/17 08:50 05/05/17 08:50 05/05/17 08:50 Intake and Output: 05/05/17 05/05/17 06:59 18:59 Intake Total 850 Balance 850 - Medications Medications: Current Medications Albuterol/Ipratropium (Duoneb 3 Mg/0.5 Mg (3 Ml) Ud) 3 ml INH RTID [facility] Last Admin: 05/05/17 08:22 Dose: 3 ml Collagenase (Santyl) 1 applic TOP DAILY [facility] Fluticasone Propionate (Flonase) 1 spr LA DAILY [facility] Last Admin: 05/05/17 08:45 Dose: 1 spr Piperacillin Sod/Tazobactam (Sod 3.375 gm/ Sodium Chloride) 100 mls @ 100 mls/ hr IVPB Q6 [facility] Last Admin: 05/05/17 09:09 Dose: 100 mls/hr Vancomycin HCl 1 gm/ Sodium (Chloride) 250 mls @ 166.667 mls/hr IVPB Q12@0500, 1700 [facility] Last Admin: 05/05/17 04:26 Dose: 166.667 mls/hr Loratadine (Claritin) 10 mg PO DAILY [facility] Last Admin: 05/05/17 08:44 Dose: 10 mg Montelukast Sodium (Singulair) 10 mg PO DAILY [facility] Last Admin: 05/05/17 08:44 Dose: 10 mg Pantoprazole Sodium (Protonix Ec Tab) 40 mg PO DAILY [facility] Last Admin: 05/05/17 08:44 Dose: 40 mg Quetiapine Fumarate (Seroquel) 12.5 mg PO Q8 PRN PRN Reason: Agitation Last Admin: 05/05/17 08:44 Dose: 12.5 mg Tramadol HCl (Ultram) 50 mg PO Q8 PRN PRN Reason: Pain, moderate (4-7) Last Admin: 05/05/17 09:16 Dose: 50 mg Valsartan (Diovan) 160 mg PO BID [facility] Last Admin: 05/05/17 08:44 Dose: 160 mg - Labs Labs: 05/05/17 05:40 05/05/17 05:40 PT 11.3 Seconds (9.8-13.1) 05/03/17 05:30 INR 1.1 (0.9-1.2) 05/03/17 05:30 APTT 29.5 Seconds (25.6-37.1) 05/03/17 05:30 - Constitutional Appears: Confused, Chronically Ill - Head Exam Head Exam: NORMAL INSPECTION - Eye Exam Eye Exam: PERRL - ENT Exam ENT Exam: Normal Exam - Neck Exam Neck Exam: Normal Inspection - Respiratory Exam Respiratory Exam: Decreased Breath Sounds (at bases) - Cardiovascular Exam Cardiovascular Exam: REGULAR RHYTHM, Murmur (systolic) Additional comments: Kyphosis - GI/Abdominal Exam GI & Abdominal Exam: Soft, Normal Bowel Sounds - Extremities Exam Extremities Exam: Tenderness (LLE, R-L knee) Additional comments: LLE redness, warm to touch, open ulcers posterior to left lateral malleolus, distal leg and dorsum L foot. 1+ pitting edema LLE, dorsal pedal pulse 2+ b/l. - Back Exam Back Exam: tenderness (L-S) - Neurological Exam Neurological Exam: Awake Additional comments: Confused, follows simple commands, no focal motor deficit. - Psychiatric Exam Psychiatric exam: Anxious, Depressed - Skin Skin Exam: Warm (See extremities exam.) Assessment and Plan (1) Abdominal pain Status: Acute (2) Constipation Status: Chronic (3) Altered mental status Status: Acute (4) Hyponatremia Status: Acute (5) Cellulitis of left leg Status: Chronic (6) Ulcer of left lower extremity Status: Chronic (7) Ulcer of left foot Status: Chronic (8) Cellulitis of left foot Status: Chronic (9) NSTEMI (non-ST elevated myocardial infarction) Status: Chronic (10) COPD (chronic obstructive pulmonary disease) Status: Chronic (11) HTN (hypertension) Status: Chronic (12) Knee pain, bilateral Status: Chronic (13) Lumbago Status: Chronic (14) High cholesterol Status: Chronic (15) Anxiety Status: Chronic - Assessment and Plan (Free Text) Plan: Continue Vanco, Rocjessiehin, Duoneb and rest of Tx. Cardiology consult appreciated.
--- NOTE | 2017-05-05 12:10 | CP.PCM.PN ---
Subjective - Date & Time of Evaluation Date of Evaluation: 05/05/17 Time of Evaluation: 12:07 - Subjective Subjective: 76 year year old female was seen at bedside today for ulcerations at the lateral ankle and posterior foot. She appears to be resting comfortably in bed, awake, and alert. Her son was sitting at bedside. She reports no acute events overnight. reports the same pain on the left lower extremity. Dressing is c/d/ i. Denies n/v/sob/cp/chills of f. Objective - Vital Signs/Intake and Output Vital Signs (last 24 hours): Temp Pulse Resp BP Pulse Ox 97.4 F L 78 20 159/75 H 96 05/05/17 08:50 05/05/17 08:50 05/05/17 08:50 05/05/17 08:50 05/05/17 08:50 Intake and Output: 05/05/17 05/05/17 06:59 18:59 Intake Total 850 Balance 850 - Medications Medications: Current Medications Albuterol/Ipratropium (Duoneb 3 Mg/0.5 Mg (3 Ml) Ud) 3 ml INH RTID [facility] Last Admin: 05/05/17 08:22 Dose: 3 ml Collagenase (Santyl) 1 applic TOP DAILY [facility] Fluticasone Propionate (Flonase) 1 spr LA DAILY [facility] Last Admin: 05/05/17 08:45 Dose: 1 spr Piperacillin Sod/Tazobactam (Sod 3.375 gm/ Sodium Chloride) 100 mls @ 100 mls/ hr IVPB Q6 [facility] Last Admin: 05/05/17 09:09 Dose: 100 mls/hr Vancomycin HCl 1 gm/ Sodium (Chloride) 250 mls @ 166.667 mls/hr IVPB Q12@0500, 1700 [facility] Last Admin: 05/05/17 04:26 Dose: 166.667 mls/hr Loratadine (Claritin) 10 mg PO DAILY [facility] Last Admin: 05/05/17 08:44 Dose: 10 mg Montelukast Sodium (Singulair) 10 mg PO DAILY [facility] Last Admin: 05/05/17 08:44 Dose: 10 mg Pantoprazole Sodium (Protonix Ec Tab) 40 mg PO DAILY [facility] Last Admin: 05/05/17 08:44 Dose: 40 mg Quetiapine Fumarate (Seroquel) 12.5 mg PO Q8 PRN PRN Reason: Agitation Last Admin: 05/05/17 08:44 Dose: 12.5 mg Tramadol HCl (Ultram) 50 mg PO Q8 PRN PRN Reason: Pain, moderate (4-7) Last Admin: 05/05/17 09:16 Dose: 50 mg Valsartan (Diovan) 160 mg PO BID [facility] Last Admin: 05/05/17 08:44 Dose: 160 mg - Labs Labs: 05/05/17 05:40 05/05/17 05:40 PT 11.3 Seconds (9.8-13.1) 05/03/17 05:30 INR 1.1 (0.9-1.2) 05/03/17 05:30 APTT 29.5 Seconds (25.6-37.1) 05/03/17 05:30 - Constitutional Appears: Well, Non-toxic, No Acute Distress - Extremities Exam Additional comments: Vasc: DP 1/4, PT 1/4 bilaterally, Temperature gradient is WNL, [employer] <4 seconds x10 digits, no edema noted to LE Ortho: severe pain with palpation of the periwound and site of ulceration. Neuro: gross sensation diminished bilaterally Derm: multiple ulcerations on left lower extremity all fibrous in nature, no drainage, no swelling, no malodor, no tunneling, no undermining noted, no fluctuance noted, no probe to bone noted. 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 Explain to son and patient the importance of getting this study done. U/S- negative for DVT X-rays waiting final report Pt to continue Abx per management Ulcerations dressed with santyl, saline wet to dry, 4x4 and dsd. Podiatry will follow while in house
--- NOTE | 2017-05-05 12:49 | PQF GENQUE ---
Dr. García, In agreement with the BMI:46.4 4ft 2 in: listed in the EMR? if yes: (1) please list the BMI in your progress note (2) please include a corresponding diagnosis to go along with the BMI OR: Disagree OR:Other explanation of clinical findings This form is a permanent part of the medical record Clarification of your documentation is requested to better reflect the severity of illness and intensity of treatment of your patient. Indicators present [] Specify: [] [] Specify: [] [] Specify: [] [] Specify: [] Location in the medical record that reflects the above clinical findings: [] Treatment Provided: [] PHYSICIAN'S RESPONSE Based on your medical judgment of the clinical indicators outlined above please clarify the following: [] Practitioner response [] If unable to determine, please check the box, sign and date. Present On Admission (POA) Indicator: [] Present at the time of admission [] Not present at the time of admission [] Clinically Undetermined In responding to this query, please exercise your independent professional judgment. The fact that a question is asked does not imply that any particular answer is desired or expected. Thank you for your clarification on this documentation. If you have any questions please call. * Thank you, Emily Calle RN BSN ext. #[phone] MTDD
--- NOTE | 2017-05-05 12:58 | PQF GENQUE ---
Dr. García, Please document cause or type of skin ulcers: left ankle and dorsum metatarsal head:: if known: i.e. Non-pressure ulcer associated with: Atherosclerosis of lower extremities Chronic venous hypertension Diabetes Postphlebitic syndrome Postthrombotic syndrome Varicose veins Other (please specify) Unknown Other (please specify) OR: Clinically unable to determine OR: Unknown ER note: PE:chronic cellulitis of her left leg, but it has improved from before Podiatry consult: Ulceration #1: located at the dorsum of metatarsal head Ulceration #2: located on the anterior ankle Ulceration #3: located on the lateral posterior ankle Impression.: left ankle and foot cellulitis and ulcerations This form is a permanent part of the medical record Clarification of your documentation is requested to better reflect the severity of illness and intensity of treatment of your patient. Indicators present [] Specify: [] [] Specify: [] [] Specify: [] [] Specify: [] Location in the medical record that reflects the above clinical findings: [] Treatment Provided: [] PHYSICIAN'S RESPONSE Based on your medical judgment of the clinical indicators outlined above please clarify the following: [] Practitioner response [] If unable to determine, please check the box, sign and date. Present On Admission (POA) Indicator: [] Present at the time of admission [] Not present at the time of admission [] Clinically Undetermined In responding to this query, please exercise your independent professional judgment. The fact that a question is asked does not imply that any particular answer is desired or expected. Thank you for your clarification on this documentation. If you have any questions please call. * Thank you, Emily Calle RN BSN ext. #[phone] MTDD
--- NOTE | 2017-05-05 13:11 | PQF GENQUE ---
Dr. García, Etiology of Abdominal Pain?: if known after the work up is completed ER note: CC: Abdominal Pain: she reports having abdominal cramping, fecal urgency, and 1x episode of diarrhea that happened just prior to arrival after she took laxatives to relieve constipation H and P: brought by EMS to [facility], [place] for generalized abdominal pain on DOA with no relief, pain was cramping, moderate intensity 6:10, non radiated, as per PT, associated to a laxative that she took in AM for constipation PE: GI Abdominal Exam: Normal Bowel Sounds, Soft Assessment includes: (1) Abdominal pain Status: Acute Priority: High (2) Constipation Status: Chronic Priority: High (3) Altered mental status Status: Acute Priority: High Abdomen with Chest: report:Impression: Constipation This form is a permanent part of the medical record Clarification of your documentation is requested to better reflect the severity of illness and intensity of treatment of your patient. Indicators present [] Specify: [] [] Specify: [] [] Specify: [] [] Specify: [] Location in the medical record that reflects the above clinical findings: [] Treatment Provided: [] PHYSICIAN'S RESPONSE Based on your medical judgment of the clinical indicators outlined above please clarify the following: [] Practitioner response [] If unable to determine, please check the box, sign and date. Present On Admission (POA) Indicator: [] Present at the time of admission [] Not present at the time of admission [] Clinically Undetermined In responding to this query, please exercise your independent professional judgment. The fact that a question is asked does not imply that any particular answer is desired or expected. Thank you for your clarification on this documentation. If you have any questions please call. * Thank you, Emily Calle RN BSN ext. #[phone] MTDD
--- NOTE | 2017-05-05 13:21 | PQF GENQUE ---
Dr. García, Clarification of:NSTEMI (non-ST elevated myocardial infarction) Status: Chronic Priority: High; listed in the H and P and progress notes History of NSTEMI? OR:Other explanation of clinical finding Cardiology consult: Assessment Plan : (1) Aortic stenosis Assessment and Plan : (1) Aortic stenosis Assessment and Plan: s/p AVR no acute valvular pathology on examination. continue medical therapy Status: Acute Priority: High (2) SVT (supraventricular tachycardia) Assessment and Plan: will monitor on telemetry Status: Acute Priority: High (3) HTN (hypertension) Assessment and Plan: blood pressure will need better control Status: Chronic Priority: Medium This form is a permanent part of the medical record Clarification of your documentation is requested to better reflect the severity of illness and intensity of treatment of your patient. Indicators present [] Specify: [] [] Specify: [] [] Specify: [] [] Specify: [] Location in the medical record that reflects the above clinical findings: [] Treatment Provided: [] PHYSICIAN'S RESPONSE Based on your medical judgment of the clinical indicators outlined above please clarify the following: [] Practitioner response [] If unable to determine, please check the box, sign and date. Present On Admission (POA) Indicator: [] Present at the time of admission [] Not present at the time of admission [] Clinically Undetermined In responding to this query, please exercise your independent professional judgment. The fact that a question is asked does not imply that any particular answer is desired or expected. Thank you for your clarification on this documentation. If you have any questions please call. * Thank you, Emily Calle RN BSN ext. #[phone] MTDD
--- NOTE | 2017-05-05 17:20 | CP.PCM.PN ---
Subjective - Date & Time of Evaluation Date of Evaluation: 05/05/17 Time of Evaluation: 17:00 - Subjective Subjective: patient has no current chest pain or dyspnea. Objective - Vital Signs/Intake and Output Vital Signs (last 24 hours): Temp Pulse Resp BP Pulse Ox 98.6 F 102 H 18 144/76 98 05/05/17 16:32 05/05/17 16:32 05/05/17 16:32 05/05/17 16:32 05/05/17 16:32 Intake and Output: 05/05/17 05/05/17 06:59 18:59 Intake Total 850 Balance 850 - Medications Medications: Current Medications Albuterol/Ipratropium (Duoneb 3 Mg/0.5 Mg (3 Ml) Ud) 3 ml INH RTID [facility] Last Admin: 05/05/17 13:45 Dose: 3 ml Collagenase (Santyl) 1 applic TOP DAILY [facility] Last Admin: 05/05/17 11:30 Dose: 1 applic Fluticasone Propionate (Flonase) 1 spr LA DAILY [facility] Last Admin: 05/05/17 08:45 Dose: 1 spr Piperacillin Sod/Tazobactam (Sod 3.375 gm/ Sodium Chloride) 100 mls @ 100 mls/ hr IVPB Q6 [facility] Last Admin: 05/05/17 16:58 Dose: 100 mls/hr Vancomycin HCl 1 gm/ Sodium (Chloride) 250 mls @ 166.667 mls/hr IVPB Q12@0500, 1700 [facility] Last Admin: 05/05/17 16:58 Dose: 166.667 mls/hr Loratadine (Claritin) 10 mg PO DAILY [facility] Last Admin: 05/05/17 08:44 Dose: 10 mg Montelukast Sodium (Singulair) 10 mg PO DAILY [facility] Last Admin: 05/05/17 08:44 Dose: 10 mg Pantoprazole Sodium (Protonix Ec Tab) 40 mg PO DAILY [facility] Last Admin: 05/05/17 08:44 Dose: 40 mg Quetiapine Fumarate (Seroquel) 12.5 mg PO Q8 PRN PRN Reason: Agitation Last Admin: 05/05/17 08:44 Dose: 12.5 mg Tramadol HCl (Ultram) 50 mg PO Q8 PRN PRN Reason: Pain, moderate (4-7) Last Admin: 05/05/17 09:16 Dose: 50 mg Valsartan (Diovan) 160 mg PO BID [facility] Last Admin: 05/05/17 17:00 Dose: 160 mg - Labs Labs: 05/05/17 05:40 05/05/17 05:40 PT 11.3 Seconds (9.8-13.1) 05/03/17 05:30 INR 1.1 (0.9-1.2) 05/03/17 05:30 APTT 29.5 Seconds (25.6-37.1) 05/03/17 05:30 - Constitutional Appears: Non-toxic - Head Exam Head Exam: NORMAL INSPECTION - Eye Exam Eye Exam: Normal appearance - ENT Exam ENT Exam: Mucous Membranes Moist - Neck Exam Neck Exam: Full ROM - Respiratory Exam Respiratory Exam: Decreased Breath Sounds - Cardiovascular Exam Cardiovascular Exam: REGULAR RHYTHM - GI/Abdominal Exam GI & Abdominal Exam: Normal Bowel Sounds - Rectal Exam Rectal Exam: Deferred - Extremities Exam Extremities Exam: Pedal Edema - Back Exam Back Exam: NORMAL INSPECTION - Neurological Exam Neurological Exam: Alert - Psychiatric Exam Psychiatric exam: Normal Affect - Skin Skin Exam: Normal Color Assessment and Plan (1) Aortic stenosis Assessment & Plan: stable valvular status Status: Acute (2) SVT (supraventricular tachycardia) Assessment & Plan: no current arrhythmia Status: Acute (3) HTN (hypertension) Assessment & Plan: blood pressure control Status: Chronic
[2017-05-06] MEDS: Piperacillin/Tazobact 3.375 GM in Sodium Chloride 0.9% 100 ML IVPB SCH ×4 (04:16→21:28)
[2017-05-06] MEDS: Albuterol-Ipratrop 3 mg / 0.5 (3 ml) UD INH SCH ×3 (08:02→20:11)
--- NOTE | 2017-05-06 08:51 | CP.PCM.PN ---
Subjective - Date & Time of Evaluation Date of Evaluation: 05/06/17 Time of Evaluation: 08:47 - Subjective Subjective: Podiatry- Dr. Singer 76 year year old female was seen at bedside today for ulcerations at the lateral ankle and posterior foot. She appears to be resting comfortably in bed, AAOx3, and in NAD. She reports no acute events overnight. Reports the same pain on the left lower extremity. Dressing is c/d/i. Denies n/v/sob/cp/chills of f. Objective - Vital Signs/Intake and Output Vital Signs (last 24 hours): Temp Pulse Resp BP Pulse Ox 99.7 F H 103 H 20 149/74 97 05/06/17 08:00 05/06/17 08:00 05/06/17 08:00 05/06/17 08:00 05/06/17 08:00 - Medications Medications: Current Medications Albuterol/Ipratropium (Duoneb 3 Mg/0.5 Mg (3 Ml) Ud) 3 ml INH RTID [facility] Last Admin: 05/06/17 08:02 Dose: 3 ml Collagenase (Santyl) 1 applic TOP DAILY [facility] Last Admin: 05/05/17 11:30 Dose: 1 applic Fluticasone Propionate (Flonase) 1 spr LA DAILY [facility] Last Admin: 05/05/17 08:45 Dose: 1 spr Piperacillin Sod/Tazobactam (Sod 3.375 gm/ Sodium Chloride) 100 mls @ 100 mls/ hr IVPB Q6 [facility] Last Admin: 05/06/17 04:16 Dose: 100 mls/hr Vancomycin HCl 1 gm/ Sodium (Chloride) 250 mls @ 166.667 mls/hr IVPB Q12@0500, 1700 [facility] Last Admin: 05/05/17 16:58 Dose: 166.667 mls/hr Loratadine (Claritin) 10 mg PO DAILY [facility] Last Admin: 05/05/17 08:44 Dose: 10 mg Montelukast Sodium (Singulair) 10 mg PO DAILY [facility] Last Admin: 05/05/17 08:44 Dose: 10 mg Pantoprazole Sodium (Protonix Ec Tab) 40 mg PO DAILY [facility] Last Admin: 05/05/17 08:44 Dose: 40 mg Quetiapine Fumarate (Seroquel) 12.5 mg PO Q8 PRN PRN Reason: Agitation Last Admin: 05/05/17 18:34 Dose: 12.5 mg Tramadol HCl (Ultram) 50 mg PO Q8 PRN PRN Reason: Pain, moderate (4-7) Last Admin: 05/05/17 09:16 Dose: 50 mg Valsartan (Diovan) 160 mg PO BID [facility] Last Admin: 05/05/17 17:00 Dose: 160 mg - Labs Labs: 05/05/17 05:40 05/05/17 05:40 PT 11.3 Seconds (9.8-13.1) 05/03/17 05:30 INR 1.1 (0.9-1.2) 05/03/17 05:30 APTT 29.5 Seconds (25.6-37.1) 05/03/17 05:30 - Constitutional Appears: Well, Non-toxic, No Acute Distress - Extremities Exam Additional comments: Vasc: DP 1/4, PT 1/4 bilaterally, Temperature gradient is WNL, [employer] <4 seconds x10 digits, no edema noted to LE Ortho: severe pain with palpation of the periwound and site of ulceration. Neuro: gross sensation diminished bilaterally Derm: multiple ulcerations on left lower extremity all fibrous in nature, no drainage, no swelling, no malodor, no tunneling, no undermining noted, no fluctuance noted, no probe to bone noted. red/pink discoloration noted secondary to combination product stain and erythema Ulceration #1: located at the dorsum of metatarsal head 2 and 3, measures approximately 2 x .5 x .1 cm Ulceration #2: located on the anterior ankle measures approximately 2x 1 x .1 cm Ulceration #3: located on the lateral posterior ankle measures approximately 4 x .8 x .3 cm - Neurological Exam Neurological Exam: Alert, Awake, Oriented x3 - Psychiatric Exam Psychiatric exam: Normal Affect, Normal Mood Assessment and Plan - Assessment and Plan (Free Text) Assessment: 76 year old female with PMHx of HTN, CAD, anxiety, 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 Podiatry will follow while in house
[2017-05-06] MEDS: Pantoprazole 40 mg EC Tab PO SCH (09:53)
--- NOTE | 2017-05-06 15:08 | CP.PCM.PN ---
Subjective - Date & Time of Evaluation Date of Evaluation: 05/06/17 Time of Evaluation: 10:30 - Subjective Subjective: F/U Cellulites LLE Pt alert, calm, c/o of pain in L foot, son at bed side. Objective - Vital Signs/Intake and Output Vital Signs (last 24 hours): Temp Pulse Resp BP Pulse Ox 98.4 F 94 H 18 137/71 97 05/06/17 11:59 05/06/17 11:59 05/06/17 11:59 05/06/17 11:59 05/06/17 11:59 - Medications Medications: Current Medications Albuterol/Ipratropium (Duoneb 3 Mg/0.5 Mg (3 Ml) Ud) 3 ml INH RTID [facility] Last Admin: 05/06/17 13:30 Dose: 3 ml Collagenase (Santyl) 1 applic TOP DAILY [facility] Last Admin: 05/05/17 11:30 Dose: 1 applic Fluticasone Propionate (Flonase) 1 spr LA DAILY [facility] Last Admin: 05/06/17 09:54 Dose: 1 spr Piperacillin Sod/Tazobactam (Sod 3.375 gm/ Sodium Chloride) 100 mls @ 100 mls/ hr IVPB Q6 [facility] Last Admin: 05/06/17 09:55 Dose: 100 mls/hr Vancomycin HCl 1 gm/ Sodium (Chloride) 250 mls @ 166.667 mls/hr IVPB Q12@0500, 1700 [facility] Last Admin: 05/06/17 09:54 Dose: 166.667 mls/hr Loratadine (Claritin) 10 mg PO DAILY [facility] Last Admin: 05/06/17 09:54 Dose: 10 mg Montelukast Sodium (Singulair) 10 mg PO DAILY [facility] Last Admin: 05/06/17 09:54 Dose: 10 mg Pantoprazole Sodium (Protonix Ec Tab) 40 mg PO DAILY [facility] Last Admin: 05/06/17 09:53 Dose: 40 mg Quetiapine Fumarate (Seroquel) 12.5 mg PO Q8 PRN PRN Reason: Agitation Last Admin: 05/05/17 18:34 Dose: 12.5 mg Tramadol HCl (Ultram) 50 mg PO Q8 PRN PRN Reason: Pain, moderate (4-7) Last Admin: 05/05/17 09:16 Dose: 50 mg Valsartan (Diovan) 160 mg PO BID [facility] Last Admin: 05/06/17 09:53 Dose: 160 mg - Labs Labs: 05/05/17 05:40 05/05/17 05:40 PT 11.3 Seconds (9.8-13.1) 05/03/17 05:30 INR 1.1 (0.9-1.2) 05/03/17 05:30 APTT 29.5 Seconds (25.6-37.1) 05/03/17 05:30 - Constitutional Appears: Chronically Ill - Head Exam Head Exam: NORMAL INSPECTION - Eye Exam Eye Exam: PERRL - ENT Exam ENT Exam: Normal Oropharynx - Neck Exam Neck Exam: Normal Inspection - Respiratory Exam Respiratory Exam: Decreased Breath Sounds (at bases) - Cardiovascular Exam Cardiovascular Exam: REGULAR RHYTHM, Murmur (systolic) Additional comments: Kyphosis - GI/Abdominal Exam GI & Abdominal Exam: Soft, Normal Bowel Sounds - Extremities Exam Extremities Exam: Tenderness (LLE, R-L knee) Additional comments: LLE redness, warm to touch, open ulcers posterior to left lateral malleolus, distal leg and dorsum L foot. 1+ edema L foot. - Back Exam Back Exam: tenderness (L-S) - Neurological Exam Neurological Exam: Awake Additional comments: Confused, follows simple commands, no focal motor deficit. - Psychiatric Exam Psychiatric exam: Anxious, Depressed - Skin Skin Exam: Warm (See extremities.) Assessment and Plan (1) Abdominal pain Status: Acute (2) Constipation Status: Chronic (3) Altered mental status Status: Acute (4) Hyponatremia Status: Acute (5) Cellulitis of left leg Status: Chronic (6) Ulcer of left lower extremity Status: Chronic (7) Ulcer of left foot Status: Chronic (8) Cellulitis of left foot Status: Chronic (9) NSTEMI (non-ST elevated myocardial infarction) Status: Chronic (10) COPD (chronic obstructive pulmonary disease) Status: Chronic (11) HTN (hypertension) Status: Chronic (12) Knee pain, bilateral Status: Chronic (13) Lumbago Status: Chronic (14) High cholesterol Status: Chronic (15) Anxiety Status: Chronic - Assessment and Plan (Free Text) Plan: Continue Rocephin, Vanco, Diflucan, Duoneb, Tramadol and rest of Tx.
[2017-05-06] MEDS: Santyl Collagenase OINTMENT TOP SCH (15:37)
--- NOTE | 2017-05-06 18:05 | CP.PCM.PN ---
Subjective - Date & Time of Evaluation Date of Evaluation: 05/06/17 Time of Evaluation: 17:25 - Subjective Subjective: patient denies chest pain. Objective - Vital Signs/Intake and Output Vital Signs (last 24 hours): Temp Pulse Resp BP Pulse Ox 98.4 F 103 H 16 127/66 96 05/06/17 16:21 05/06/17 16:21 05/06/17 16:21 05/06/17 16:21 05/06/17 16:21 - Medications Medications: Current Medications Albuterol/Ipratropium (Duoneb 3 Mg/0.5 Mg (3 Ml) Ud) 3 ml INH RTID [facility] Last Admin: 05/06/17 13:30 Dose: 3 ml Collagenase (Santyl) 1 applic TOP DAILY [facility] Last Admin: 05/06/17 15:37 Dose: 1 applic Fluconazole (Diflucan) 100 mg PO DAILY [facility] Last Admin: 05/06/17 16:44 Dose: 100 mg Fluticasone Propionate (Flonase) 1 spr LA DAILY [facility] Last Admin: 05/06/17 09:54 Dose: 1 spr Piperacillin Sod/Tazobactam (Sod 3.375 gm/ Sodium Chloride) 100 mls @ 100 mls/ hr IVPB Q6 [facility] Last Admin: 05/06/17 16:44 Dose: 100 mls/hr Vancomycin HCl 1 gm/ Sodium (Chloride) 250 mls @ 166.667 mls/hr IVPB Q12@0500, 1700 [facility] Last Admin: 05/06/17 16:45 Dose: 166.667 mls/hr Loratadine (Claritin) 10 mg PO DAILY [facility] Last Admin: 05/06/17 09:54 Dose: 10 mg Montelukast Sodium (Singulair) 10 mg PO DAILY [facility] Last Admin: 05/06/17 09:54 Dose: 10 mg Pantoprazole Sodium (Protonix Ec Tab) 40 mg PO DAILY [facility] Last Admin: 05/06/17 09:53 Dose: 40 mg Quetiapine Fumarate (Seroquel) 12.5 mg PO Q8 PRN PRN Reason: Agitation Last Admin: 05/05/17 18:34 Dose: 12.5 mg Tramadol HCl (Ultram) 50 mg PO Q8 PRN PRN Reason: Pain, moderate (4-7) Last Admin: 05/06/17 15:34 Dose: 50 mg Valsartan (Diovan) 160 mg PO BID [facility] Last Admin: 05/06/17 09:53 Dose: 160 mg - Labs Labs: 05/05/17 05:40 05/05/17 05:40 PT 11.3 Seconds (9.8-13.1) 05/03/17 05:30 INR 1.1 (0.9-1.2) 05/03/17 05:30 APTT 29.5 Seconds (25.6-37.1) 05/03/17 05:30 - Constitutional Appears: Non-toxic - Head Exam Head Exam: NORMAL INSPECTION - Eye Exam Eye Exam: Normal appearance - ENT Exam ENT Exam: Mucous Membranes Moist - Neck Exam Neck Exam: Full ROM - Respiratory Exam Respiratory Exam: Decreased Breath Sounds - Cardiovascular Exam Cardiovascular Exam: REGULAR RHYTHM - GI/Abdominal Exam GI & Abdominal Exam: Normal Bowel Sounds - Rectal Exam Rectal Exam: Deferred - Extremities Exam Extremities Exam: absent: Pedal Edema - Back Exam Back Exam: NORMAL INSPECTION - Neurological Exam Neurological Exam: Alert - Psychiatric Exam Psychiatric exam: Normal Affect - Skin Skin Exam: Normal Color Assessment and Plan (1) Aortic stenosis Assessment & Plan: s/p AVR. Status: Acute (2) SVT (supraventricular tachycardia) Assessment & Plan: no further events Status: Acute (3) HTN (hypertension) Assessment & Plan: follow blood pressure Status: Chronic
[2017-05-07] MEDS: Piperacillin/Tazobact 3.375 GM in Sodium Chloride 0.9% 100 ML IVPB SCH ×2 (03:59→10:12)
[2017-05-07] MEDS: Albuterol-Ipratrop 3 mg / 0.5 (3 ml) UD INH SCH ×2 (07:33→13:35)
[2017-05-07 08:02] VITALS: RESP 18
[2017-05-07] MEDS: Pantoprazole 40 mg EC Tab PO SCH (09:09)
[2017-05-07] MEDS: Santyl Collagenase OINTMENT TOP SCH (09:26)
--- NOTE | 2017-05-07 10:26 | CP.PCM.PN ---
Subjective - Date & Time of Evaluation Date of Evaluation: 05/07/17 Time of Evaluation: 10:24 - Subjective Subjective: Podiatry- Dr. Singer 76 year old female seen at bedside today for left leg and foot ulcerations. Patient is resting comfortably in bed. Patient reports no acute events overnight and continues to have pain to her left lower extremity at the ulceration site. Dressings to left leg are clean and dry. Patient denies N/V/F/C /CP/SOB. Patient denies any further pedal complaints at this time. Objective - Vital Signs/Intake and Output Vital Signs (last 24 hours): Temp Pulse Resp BP Pulse Ox 98.7 F 85 18 149/65 97 05/07/17 08:02 05/07/17 08:02 05/07/17 08:02 05/07/17 08:02 05/07/17 08:02 - Medications Medications: Current Medications Albuterol/Ipratropium (Duoneb 3 Mg/0.5 Mg (3 Ml) Ud) 3 ml INH RTID [facility] Last Admin: 05/07/17 07:33 Dose: 3 ml Collagenase (Santyl) 1 applic TOP DAILY [facility] Last Admin: 05/07/17 09:26 Dose: Not Given Fluconazole (Diflucan) 100 mg PO DAILY [facility] Last Admin: 05/07/17 09:09 Dose: 100 mg Fluticasone Propionate (Flonase) 1 spr LA DAILY [facility] Last Admin: 05/06/17 09:54 Dose: 1 spr Piperacillin Sod/Tazobactam (Sod 3.375 gm/ Sodium Chloride) 100 mls @ 100 mls/ hr IVPB Q6 [facility] Last Admin: 05/07/17 03:59 Dose: 100 mls/hr Vancomycin HCl 1 gm/ Sodium (Chloride) 250 mls @ 166.667 mls/hr IVPB Q12@0500, 1700 [facility] Last Admin: 05/07/17 04:02 Dose: 166.667 mls/hr Loratadine (Claritin) 10 mg PO DAILY [facility] Last Admin: 05/07/17 09:09 Dose: 10 mg Montelukast Sodium (Singulair) 10 mg PO DAILY [facility] Last Admin: 05/07/17 09:09 Dose: 10 mg Pantoprazole Sodium (Protonix Ec Tab) 40 mg PO DAILY [facility] Last Admin: 05/07/17 09:09 Dose: 40 mg Quetiapine Fumarate (Seroquel) 12.5 mg PO Q8 PRN PRN Reason: Agitation Last Admin: 05/07/17 09:10 Dose: 12.5 mg Tramadol HCl (Ultram) 50 mg PO Q8 PRN PRN Reason: Pain, moderate (4-7) Last Admin: 05/06/17 15:34 Dose: 50 mg Valsartan (Diovan) 160 mg PO BID [facility] Last Admin: 05/07/17 09:08 Dose: 160 mg - Labs Labs: 05/05/17 05:40 05/05/17 05:40 PT 11.3 Seconds (9.8-13.1) 05/03/17 05:30 INR 1.1 (0.9-1.2) 05/03/17 05:30 APTT 29.5 Seconds (25.6-37.1) 05/03/17 05:30 - Constitutional Appears: Well, Non-toxic - Extremities Exam Additional comments: LE focused exam: Vasc: DP 1/4, PT 1/4 bilaterally, Temperature gradient is WNL, [employer] <4 seconds x10 digits, no edema noted to LE Ortho: severe pain with palpation of the periwound and site of ulceration. Neuro: gross sensation diminished bilaterally Derm: multiple ulcerations on left lower extremity. No drainage, no swelling, no malodor, no tunneling, no undermining noted, no fluctuance noted, no probe to bone noted. Red/pink discoloration seen in periwound area mostly due to at home remedy patient and family have been applying to the leg. Ulceration #1: located at the dorsum of metatarsal head 2 and 3 has mostly granular, measures approximately 1.5 x 0.4 x .1 cm Ulceration #2: located on the anterior ankle measures approximately 1.5 x 0.8 x 0.1 cm Ulceration #3: located on the lateral posterior ankle has mostly fibrous base and measures approximately 3.5 x 0.6 x 0.2. 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 Singer Charts, labs and vitals reviewed; afebrile Patient wounds cleansed with sterile saline, santyl applied to fibrous posterior ulcer and leg dressed with DSD Ankle Xray ordered Patient continues to refuse left lower extremity arterial duplex. Continue IV abx Podiatry will continue to follow while in house
--- NOTE | 2017-05-07 12:53 | PQF GENQUE ---
Dr. García, Please clarify the underlying cause of patient's altered mental status and relate that cause to the alteration in mental status: if known Cardiac condition Electrolyte/metabolic imbalance Infectious process Neurologic condition Psychiatric condition Respiratory condition Other condition (please specify) OR Clinically unable to determine OR Unknown H and P dxs. include:.1) Abdominal pain Acute (2) Constipation Chronic (3) Altered mental status Acute (4) Hyponatremia Acute (5) Cellulitis of left leg Chronic (6) Ulcer of left lower extremity and foot Chronic (8) Cellulitis of left foot Chronic (9) NSTEMI (non-ST elevated myocardial infarction) Status: Chronic (10) COPD (chronic obstructive pulmonary disease) Status: Chronic Priority (11) HTN (hypertension) Status: Chronic (12) Knee pain, bilateral Status: Chronic (13) Lumbago Status: Chronic Priority: Medium (15) Anxiety Status: Chronic 05/04 Psychiatric consult: Impression:Delirium, Depression unspecified and R/O Dementia Sodium: 123->132->131 Chloride:88->95->101 Serum Osmolarity:255 urine culture: negative blood culture: prelim: no growth after 4 days ankle culture: prelim: yeast species IVF's, IVAB's, ativan, seroquel, wound care This form is a permanent part of the medical record Clarification of your documentation is requested to better reflect the severity of illness and intensity of treatment of your patient. Indicators present [] Specify: [] [] Specify: [] [] Specify: [] [] Specify: [] Location in the medical record that reflects the above clinical findings: [] Treatment Provided: [] PHYSICIAN'S RESPONSE Based on your medical judgment of the clinical indicators outlined above please clarify the following: [] Practitioner response [] If unable to determine, please check the box, sign and date. Present On Admission (POA) Indicator: [] Present at the time of admission [] Not present at the time of admission [] Clinically Undetermined In responding to this query, please exercise your independent professional judgment. The fact that a question is asked does not imply that any particular answer is desired or expected. Thank you for your clarification on this documentation. If you have any questions please call:[ ] * Thank you, [ ] size marker [place]
[2017-05-07 13:34] LABS: HEMOGLOBIN 11.7 g/dL (12.0-16.0); MEAN CELL VOLUME 90.5 fl (81.0-99.0); MEAN CORPUSCULAR HEMOGLOBIN 29.7 pg (27.0-31.0); MEAN CORPUSCULAR HGB CONC 32.9 g/dL (33.0-37.0); RBC 3.92 Mil/uL (3.80-5.20); RED CELL DISTRIBUTION WIDTH 16.8 % (11.5-14.5); WHITE BLOOD COUNT 13.2 K/uL (4.8-10.8)
[2017-05-07 13:42] LABS: BLOOD UREA NITROGEN 5 mg/dl (7-17); CALCIUM 9.6 mg/dL (8.4-10.2); GFR AFRICAN-AMERICAN > 60; GFR NON-AFRICAN AMERICAN > 60
--- NOTE | 2017-05-07 16:02 | CP.PCM.PN ---
Subjective - Date & Time of Evaluation Date of Evaluation: 05/07/17 - Subjective Subjective: F/U cellulites LLE. Pt awake, less pain in L foot. Express she wants to go home, discussed with her that needs one more week of abx. Objective - Vital Signs/Intake and Output Vital Signs (last 24 hours): Temp Pulse Resp BP Pulse Ox 98.5 F 93 H 18 146/74 97 05/07/17 12:31 05/07/17 12:31 05/07/17 12:31 05/07/17 12:31 05/07/17 12:31 - Medications Medications: Current Medications Albuterol/Ipratropium (Duoneb 3 Mg/0.5 Mg (3 Ml) Ud) 3 ml INH RTID [facility] Last Admin: 05/07/17 13:35 Dose: Not Given Collagenase (Santyl) 1 applic TOP DAILY [facility] Last Admin: 05/07/17 09:26 Dose: Not Given Fluconazole (Diflucan) 100 mg PO DAILY [facility] Last Admin: 05/07/17 09:09 Dose: 100 mg Fluticasone Propionate (Flonase) 1 spr LA DAILY [facility] Last Admin: 05/07/17 15:36 Dose: Not Given Piperacillin Sod/Tazobactam (Sod 3.375 gm/ Sodium Chloride) 100 mls @ 100 mls/ hr IVPB Q6 [facility] Last Admin: 05/07/17 03:59 Dose: 100 mls/hr Vancomycin HCl 1 gm/ Sodium (Chloride) 250 mls @ 166.667 mls/hr IVPB Q12@0500, 1700 [facility] Last Admin: 05/07/17 04:02 Dose: 166.667 mls/hr Loratadine (Claritin) 10 mg PO DAILY [facility] Last Admin: 05/07/17 09:09 Dose: 10 mg Montelukast Sodium (Singulair) 10 mg PO DAILY [facility] Last Admin: 05/07/17 09:09 Dose: 10 mg Pantoprazole Sodium (Protonix Ec Tab) 40 mg PO DAILY [facility] Last Admin: 05/07/17 09:09 Dose: 40 mg Quetiapine Fumarate (Seroquel) 12.5 mg PO Q8 PRN PRN Reason: Agitation Last Admin: 05/07/17 09:10 Dose: 12.5 mg Tramadol HCl (Ultram) 50 mg PO Q8 PRN PRN Reason: Pain, moderate (4-7) Last Admin: 05/06/17 15:34 Dose: 50 mg Valsartan (Diovan) 160 mg PO BID [facility] Last Admin: 05/07/17 09:08 Dose: 160 mg - Labs Labs: 05/07/17 13:18 05/07/17 13:18 PT 11.3 Seconds (9.8-13.1) 05/03/17 05:30 INR 1.1 (0.9-1.2) 05/03/17 05:30 APTT 29.5 Seconds (25.6-37.1) 05/03/17 05:30 - Constitutional Appears: Confused, Chronically Ill - Head Exam Head Exam: NORMAL INSPECTION - Eye Exam Eye Exam: PERRL - ENT Exam ENT Exam: Normal Exam - Neck Exam Neck Exam: Normal Inspection - Respiratory Exam Respiratory Exam: Decreased Breath Sounds (at bases) - Cardiovascular Exam Cardiovascular Exam: REGULAR RHYTHM, Murmur (systolic) Additional comments: Kyphosis - GI/Abdominal Exam GI & Abdominal Exam: Soft, Normal Bowel Sounds - Extremities Exam Extremities Exam: Tenderness (LLE, R-L knee.) Additional comments: LLE less redness, less warm to touch, open ulcer posterior to left lateral malleolus, distal leg and dorsum, L foot. Dorsal pedal pulse 2+ b/l - Back Exam Back Exam: tenderness (L-S) - Neurological Exam Neurological Exam: Awake Additional comments: Confused, follows simple commands, no focal motor deficit. - Psychiatric Exam Psychiatric exam: Anxious, Depressed - Skin Skin Exam: Warm Assessment and Plan (1) Abdominal pain Status: Acute (2) Constipation Status: Chronic (3) Altered mental status Status: Acute (4) Hyponatremia Status: Acute (5) Cellulitis of left leg Status: Chronic (6) Ulcer of left lower extremity Status: Chronic (7) Ulcer of left foot Status: Chronic (8) Cellulitis of left foot Status: Chronic (9) NSTEMI (non-ST elevated myocardial infarction) Status: Chronic (10) COPD (chronic obstructive pulmonary disease) Status: Chronic (11) HTN (hypertension) Status: Chronic (12) Knee pain, bilateral Status: Chronic (13) Lumbago Status: Chronic (14) High cholesterol Status: Chronic (15) Anxiety Status: Chronic (16) Depression Status: Chronic - Assessment and Plan (Free Text) Plan: to be transferred to TCU to continue abx Tx.
[2017-05-07 16:48] VITALS: BP 127/77; PULSE 91; TEMP 98.4; O2SAT 98
--- NOTE | 2017-05-08 17:05 | RAD ---
PROCEDURE: Left Ankle Radiographs. HISTORY: left leg cellulitis and ulcerations COMPARISON: 12/15/2008 and 05/04/2017. FINDINGS: BONES: Evidence of hindfoot fusion, findings identified on the prior study from 2008. JOINTS: Normal. No osteoarthritis. Ankle mortise maintained. Talar dome intact SOFT TISSUES: Soft tissue swelling primarily along the plantar aspect of the foot OTHER FINDINGS: None. IMPRESSION: Soft tissue swelling without acute articular or osseous abnormality.
== END 2017-05-07 17:02 | DRG 641 ==
LOC: H.ER 00:06 → H.ERHOLD 02:03 → H.TEL 03:58
PROVIDERS: ADMIT Internal Medicine Pulmonary Disease; ATTEND Internal Medicine Pulmonary Disease
DX: E87.1 Hypo-osmolality and hyponatremia (principal); L03.116 Cellulitis of left lower limb; L97.329 Non-pressure chronic ulcer of left ankle with unspecified severity; L97.529 Non-pressure chronic ulcer of other part of left foot with unspecified severity; I47.1 Supraventricular tachycardia; I35.0 Nonrheumatic aortic (valve) stenosis; K59.09 Other constipation; J44.9 Chronic obstructive pulmonary disease, unspecified; I10 Essential (primary) hypertension; I25.2 Old myocardial infarction; I25.10 Atherosclerotic heart disease of native coronary artery without angina pectoris; E78.00 Pure hypercholesterolemia, unspecified; M17.0 Bilateral primary osteoarthritis of knee; J45.909 Unspecified asthma, uncomplicated; M81.0 Age-related osteoporosis without current pathological fracture; F32.9 Major depressive disorder, single episode, unspecified; F41.9 Anxiety disorder, unspecified; Z79.51 Long term (current) use of inhaled steroids; Z95.1 Presence of aortocoronary bypass graft; Z95.2 Presence of prosthetic heart valve; Z88.6 Allergy status to analgesic agent; Z91.041 Radiographic dye allergy status

== ENCOUNTER 2017-05-07 15:16 | Inpatient (IN) | payer MEDICAID, MEDICARE ==
[2017-05-07 17:16] VITALS: BMI 46.4
[2017-05-07] MEDS ORDERED: Albuterol-Ipratrop 3 mg / 0.5 (3 ml) UD IH PRN (18:55)
[2017-05-07] MEDS ORDERED: Piperacillin/Tazobact 3.375 gm Inj IVPB SCH (19:00)
[2017-05-07] MEDS ORDERED: Vancomycin 1 g Inj IVPB SCH (21:00)
[2017-05-07] MEDS: Piperacillin/Tazobact 3.375 GM in Sodium Chloride 0.9% 100 ML IVPB SCH (22:31)
[2017-05-08] MEDS: Piperacillin/Tazobact 3.375 GM in Sodium Chloride 0.9% 100 ML IVPB SCH ×4 (04:34→23:39)
[2017-05-08] MEDS: Pantoprazole 40 mg EC Tab PO SCH (09:03)
--- NOTE | 2017-05-08 11:42 | CP.PCM.PN ---
Subjective - Date & Time of Evaluation Date of Evaluation: 05/08/17 Time of Evaluation: 06:30 - Subjective Subjective: Podiatry- Dr. Singer 76 year old female seen at bedside today for left leg and foot ulcerations. Patient is resting comfortably in bed. Patient reports no acute events overnight and continues to have pain to her left lower extremity at the ulceration sites. Dressings to left leg are clean and dry. Patient was transferred to TCU overnight. Patient denies N/V/F/C/CP/SOB. Patient denies any further pedal complaints at this time. Objective - Vital Signs/Intake and Output Vital Signs (last 24 hours): Temp Pulse Resp BP Pulse Ox 98.8 F 82 20 142/76 98 05/08/17 08:00 05/08/17 08:00 05/08/17 08:00 05/08/17 08:00 05/08/17 08:00 - Medications Medications: Current Medications Acetaminophen (Tylenol 325mg Tab) 650 mg PO Q6 PRN PRN Reason: Pain, moderate (4-7) Last Admin: 05/08/17 11:07 Dose: 650 mg Albuterol/Ipratropium (Duoneb 3 Mg/0.5 Mg (3 Ml) Ud) 3 ml IH Q6H PRN PRN Reason: Shortness of Breath Fluconazole (Diflucan) 100 mg PO DAILY [facility] Last Admin: 05/08/17 09:01 Dose: 100 mg Fluticasone Propionate (Flonase) 1 spr LA DAILY [facility] Last Admin: 05/08/17 09:03 Dose: 1 spr Vancomycin HCl 1 gm/ Sodium (Chloride) 250 mls @ 166.667 mls/hr IVPB Q12@0500, 1700 [facility] Piperacillin Sod/Tazobactam (Sod 3.375 gm/ Sodium Chloride) 100 mls @ 100 mls/ hr IVPB 0000,0600,1200,1800 [facility] Loratadine (Claritin) 10 mg PO DAILY [facility] Last Admin: 05/08/17 09:01 Dose: 10 mg Montelukast Sodium (Singulair) 10 mg PO DAILY [facility] Last Admin: 05/08/17 09:04 Dose: 10 mg Pantoprazole Sodium (Protonix Ec Tab) 40 mg PO DAILY [facility] Last Admin: 05/08/17 09:03 Dose: 40 mg Quetiapine Fumarate (Seroquel) 12.5 mg PO Q8 PRN PRN Reason: Agitation Tramadol HCl (Ultram) 50 mg PO Q8 [facility] Last Admin: 05/08/17 09:32 Dose: Not Given Valsartan (Diovan) 160 mg PO BID [facility] Last Admin: 05/08/17 09:02 Dose: 160 mg - Constitutional Appears: Well, Non-toxic, No Acute Distress - Extremities Exam Additional comments: LE focused exam: Vasc: DP 1/4, PT 1/4 bilaterally, Temperature gradient is WNL, CFT <4 seconds x10 digits, no edema noted to LE Ortho: severe pain with palpation of the periwound and site of ulceration. Neuro: gross sensation diminished bilaterally Derm: multiple ulcerations on left lower extremity. No drainage, no swelling, no malodor, no tunneling, no undermining noted, no fluctuance noted, no probe to bone noted. Red/pink discoloration seen in periwound area mostly due to at home remedy patient and family have been applying to the leg. Ankle Xray: No official read yet. 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
[2017-05-08] MEDS ORDERED: Bismuth Subsalicylate 262 mg/15 ml Sus (240 ml) PO ONE (14:19)
--- NOTE | 2017-05-08 15:40 | CP.PCM.HP ---
History of Present Illness - History of Present Illness History of Present Illness: CC: Cellulites Left leg and L foot. 76 y/o admitted to [facility] on 05/03/17 for LLE and L foot cellulites, Ulcers. On 05/07/17 Pt improved and was transferred to TCU unit to continue abx IV Tx. Pt with less pain in L leg today, L foot. Present on Admission - Present on Admission Any Indicators Present on Admission: No Review of Systems - Constitutional Constitutional: Other - EENT Eyes: Requires Corrective Lenses Ears: Other (negative) Nose/Mouth/Throat: Other (negative) - Cardiovascular Cardiovascular: Other (negative) - Respiratory Respiratory: Other (negative) - Gastrointestinal Gastrointestinal: Other (negative) - Genitourinary Genitourinary: Urinary Incontinence - Musculoskeletal Musculoskeletal: Arthralgias, Back Pain - Integumentary Integumentary: Skin Pain, Skin Ulcer, Other (knees pain) - Neurological Neurological: Other (negative) - Psychiatric Psychiatric: Anxiety, Depression - Endocrine Endocrine: Other (negative) - Hematologic/Lymphatic Hematologic: Other (negative) Past Patient History - Past Medical History & Family History Past Medical History?: Yes Pertinent Family History: Unknown - Past Social History Smoking Status: Never Smoked Alcohol: None Drugs: Denies Home Situation {Lives}: With Family - CARDIAC Hx Cardiac Disorders: Yes Hx Hypercholesterolemia: Yes Hx Hypertension: Yes Other/Comment: MVR - PULMONARY Hx Respiratory Disorders: Yes Hx Asthma: Yes Hx Chronic Obstructive Pulmonary Disease (COPD): Yes - NEUROLOGICAL Hx Neurological Disorder: No - HEENT Hx HEENT Problems: No - RENAL Hx Chronic Kidney Disease: No - ENDOCRINE/METABOLIC Hx Endocrine Disorders: No - HEMATOLOGICAL/ONCOLOGICAL Hx Blood Disorders: No Hx Human Immunodeficiency Virus (HIV): No - INTEGUMENTARY Hx Dermatological Problems: Yes Hx Cellulitis: Yes (LLE) - MUSCULOSKELETAL/RHEUMATOLOGICAL Hx Musculoskeletal Disorders: Yes Hx Arthritis: Yes Hx Back Pain: Yes Hx Falls: No Hx Osteoporosis: Yes - GASTROINTESTINAL Hx Gastrointestinal Disorders: No - GENITOURINARY/GYNECOLOGICAL Hx Genitourinary Disorders: Yes Hx Incontinence: Yes - PSYCHIATRIC Hx Psychophysiologic Disorder: Yes Hx Anxiety: Yes Hx Depression: Yes Hx Substance Use: No - SURGICAL HISTORY Hx Surgeries: Yes Hx Valve Replacement: Yes (AVR) - ANESTHESIA Hx Anesthesia: Yes Hx Anesthesia Reactions: No Hx Malignant Hyperthermia: No Meds Allergies/Adverse Reactions: Allergies Allergy/AdvReac Type Severity Reaction Status Date / Time aspirin Allergy Mild RASH Verified 05/07/17 17:16 iodine Allergy RASH Verified 05/07/17 17:16 Physical Exam - Constitutional Appears: No Acute Distress, Chronically Ill - Head Exam Head Exam: NORMAL INSPECTION - Eye Exam Eye Exam: PERRL - ENT Exam ENT Exam: Normal Exam - Neck Exam Neck exam: Positive for: Normal Inspection - Respiratory Exam Respiratory Exam: Decreased Breath Sounds (at bases) - Cardiovascular Exam Cardiovascular Exam: REGULAR RHYTHM, Systolic Murmur (1/6 LSB Ao) Additional comments: Kyphosis - GI/Abdominal Exam GI & Abdominal Exam: Normal Bowel Sounds, Soft - Extremities Exam Extremities exam: Positive for: tenderness (R-L knee, LLE) Additional comments: LE with redness, warm to touch, open ulcers posterior to lateral malleolus, distal leg and dorsum left foot. Dorsal pedal pulse 2+ b/l - Back Exam Back exam: tenderness (L-S) - Neurological Exam Neurological exam: Alert, CN II-XII Intact, Oriented x3 Additional comments: No motor sensory deficit. - Psychiatric Exam Psychiatric exam: Anxious, Depressed - Skin Skin Exam: Warm (see extremities.) Results - Vital Signs Recent Vital Signs: Last Vital Signs Temp 98.8 F 05/08/17 08:00 Pulse 82 05/08/17 08:00 Resp 20 05/08/17 08:00 BP 142/76 05/08/17 08:00 Pulse Ox 98 05/08/17 08:00 reviewed J.P. - Labs Labs: reviewed J.P. Assessment & Plan (1) Cellulitis of left foot Status: Chronic Priority: High (2) Cellulitis of left leg Status: Chronic Priority: High (3) Lumbago Status: Chronic Priority: Medium (4) Knee pain, bilateral Status: Chronic Priority: Medium (5) COPD (chronic obstructive pulmonary disease) Status: Chronic Priority: Medium (6) High cholesterol Status: Chronic Priority: Medium (7) HTN (hypertension) Status: Chronic Priority: Medium (8) Anxiety Status: Chronic Priority: High - Assessment and Plan (Free Text) Plan: Continue Vanco, Zosyn, Diflucan, Tylenol, Diovan and rest of medications. Podiatry consult appreciated, Cardiology consult. - Date & Time Date: 05/08/17 Time: 11:30
[2017-05-09] MEDS: Piperacillin/Tazobact 3.375 GM in Sodium Chloride 0.9% 100 ML IVPB SCH ×4 (05:44→23:54)
[2017-05-09] MEDS: Pantoprazole 40 mg EC Tab PO SCH (08:52)
[2017-05-09] MEDS: Santyl Collagenase OINTMENT TOP SCH (12:32)
--- NOTE | 2017-05-09 14:30 | CP.PCM.PN ---
Subjective - Date & Time of Evaluation Date of Evaluation: 05/09/17 Time of Evaluation: 12:50 - Subjective Subjective: Podiatry- Dr. Singer 76 year old female seen at bedside today for left leg and foot ulcerations. Patient is resting comfortably in bed. Patient reports no acute events overnight and continues to have pain to her left lower extremity at the ulceration sites. Dressings to left leg are clean and dry. Patient was transferred to TCU overnight. Patient denies N/V/F/C/CP/SOB. Patient denies any further pedal complaints at this time. Objective - Vital Signs/Intake and Output Vital Signs (last 24 hours): Temp Pulse Resp BP Pulse Ox 98.1 F 87 20 138/72 98 05/09/17 08:52 05/09/17 08:52 05/09/17 08:52 05/09/17 08:52 05/09/17 08:52 - Medications Medications: Current Medications Acetaminophen (Tylenol 325mg Tab) 650 mg PO Q6 PRN PRN Reason: Pain, moderate (4-7) Last Admin: 05/08/17 11:07 Dose: 650 mg Albuterol/Ipratropium (Duoneb 3 Mg/0.5 Mg (3 Ml) Ud) 3 ml IH Q6H PRN PRN Reason: Shortness of Breath Last Admin: 05/08/17 20:55 Dose: 3 ml Collagenase (Santyl) 1 applic TOP DAILY [facility] Last Admin: 05/09/17 12:32 Dose: 1 applic Fluconazole (Diflucan) 100 mg PO DAILY [facility] Last Admin: 05/09/17 08:53 Dose: 100 mg Fluticasone Propionate (Flonase) 1 spr LA DAILY [facility] Last Admin: 05/09/17 08:53 Dose: 1 spr Piperacillin Sod/Tazobactam (Sod 3.375 gm/ Sodium Chloride) 100 mls @ 100 mls/ hr IVPB 0000,0600,1200,1800 [facility] Last Admin: 05/09/17 12:40 Dose: 100 mls/hr Vancomycin HCl 1 gm/ Sodium (Chloride) 250 mls @ 166.667 mls/hr IVPB Q12@0400, 1600 [facility] Loratadine (Claritin) 10 mg PO DAILY [facility] Last Admin: 05/09/17 08:53 Dose: 10 mg Montelukast Sodium (Singulair) 10 mg PO DAILY [facility] Last Admin: 05/09/17 08:52 Dose: 10 mg Pantoprazole Sodium (Protonix Ec Tab) 40 mg PO DAILY [facility] Last Admin: 05/09/17 08:52 Dose: 40 mg Quetiapine Fumarate (Seroquel) 12.5 mg PO Q8 PRN PRN Reason: Agitation Last Admin: 05/08/17 23:36 Dose: 12.5 mg Tramadol HCl (Ultram) 50 mg PO Q8 PRN PRN Reason: Pain, moderate (4-7) Valsartan (Diovan) 160 mg PO BID [facility] Last Admin: 05/09/17 08:52 Dose: 160 mg Zolpidem Tartrate (Ambien) 5 mg PO HS [facility] - Constitutional Appears: Well, Non-toxic, No Acute Distress - Extremities Exam Additional comments: Left lower extremity focused exam: Vasc: DP 1/4, PT 1/4 bilaterally, Temperature gradient is WNL, CFT <4 seconds x10 digits, no edema noted to LE Ortho: severe pain with palpation of the periwound and site of ulceration. Neuro: gross sensation diminished bilaterally Derm: multiple ulcerations on left lower extremity. No drainage, no swelling, no malodor, no tunneling, no undermining noted, no fluctuance noted, no probe to bone noted. Red/pink inflammatory discoloration seen in periwound area mostly due to at home remedy patient and family have been applying to the leg. Ankle Xray: No official read yet. 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 Plan: Patient seen and evaluated at bedside. Charts, labs and vitals reviewed; afebrile. Left leg dressed with Santyl to posterior wound and DSD Prescribe Topicort 0.25% for use to left lower legs zone if inflammation. Patient continues to refuse left lower extremity arterial duplex at this time, right artrial duplex unremarkable. Continue IV abx in TCU until 05/11 Podiatry will continue to follow while in house
[2017-05-09] MEDS: Betamethasone Dip 0.05% Cream(15 gm) TOP SCH (16:42)
--- NOTE | 2017-05-09 16:59 | CP.PCM.PN ---
Subjective - Date & Time of Evaluation Date of Evaluation: 05/09/17 Time of Evaluation: 13:30 - Subjective Subjective: Cellulites L foot. Pt with minimal pain in L foot, continue anxious. Objective - Vital Signs/Intake and Output Vital Signs (last 24 hours): Temp Pulse Resp BP Pulse Ox 98.2 F 89 20 143/76 100 05/09/17 16:49 05/09/17 16:49 05/09/17 16:49 05/09/17 16:49 05/09/17 16:49 - Medications Medications: Current Medications Acetaminophen (Tylenol 325mg Tab) 650 mg PO Q6 PRN PRN Reason: Pain, moderate (4-7) Last Admin: 05/08/17 11:07 Dose: 650 mg Albuterol/Ipratropium (Duoneb 3 Mg/0.5 Mg (3 Ml) Ud) 3 ml IH Q6H PRN PRN Reason: Shortness of Breath Last Admin: 05/08/17 20:55 Dose: 3 ml Betamethasone Dipropion Augmented (Diprolene Af) 1 gm TOP BID [facility] Last Admin: 05/09/17 16:42 Dose: 1 applic Collagenase (Santyl) 1 applic TOP DAILY [facility] Last Admin: 05/09/17 12:32 Dose: 1 applic Fluconazole (Diflucan) 100 mg PO DAILY [facility] Last Admin: 05/09/17 08:53 Dose: 100 mg Fluticasone Propionate (Flonase) 1 spr LA DAILY [facility] Last Admin: 05/09/17 08:53 Dose: 1 spr Piperacillin Sod/Tazobactam (Sod 3.375 gm/ Sodium Chloride) 100 mls @ 100 mls/ hr IVPB 0000,0600,1200,1800 [facility] Last Admin: 05/09/17 12:40 Dose: 100 mls/hr Vancomycin HCl 1 gm/ Sodium (Chloride) 250 mls @ 166.667 mls/hr IVPB Q12@0400, 1600 [facility] Last Admin: 05/09/17 15:58 Dose: 166.667 mls/hr Loratadine (Claritin) 10 mg PO DAILY [facility] Last Admin: 05/09/17 08:53 Dose: 10 mg Montelukast Sodium (Singulair) 10 mg PO DAILY [facility] Last Admin: 05/09/17 08:52 Dose: 10 mg Pantoprazole Sodium (Protonix Ec Tab) 40 mg PO DAILY [facility] Last Admin: 05/09/17 08:52 Dose: 40 mg Quetiapine Fumarate (Seroquel) 12.5 mg PO Q8 PRN PRN Reason: Agitation Last Admin: 05/08/17 23:36 Dose: 12.5 mg Tramadol HCl (Ultram) 50 mg PO Q8 PRN PRN Reason: Pain, moderate (4-7) Valsartan (Diovan) 160 mg PO BID [facility] Last Admin: 05/09/17 16:04 Dose: 160 mg Zolpidem Tartrate (Ambien) 5 mg PO HS [facility] - Constitutional Appears: No Acute Distress, Chronically Ill - Eye Exam Eye Exam: PERRL - ENT Exam ENT Exam: Normal Exam - Neck Exam Neck Exam: Normal Inspection - Respiratory Exam Respiratory Exam: Decreased Breath Sounds (at bases) - Cardiovascular Exam Cardiovascular Exam: REGULAR RHYTHM, Murmur (systolic) Additional comments: Kyphosis - GI/Abdominal Exam GI & Abdominal Exam: Soft, Normal Bowel Sounds - Extremities Exam Extremities Exam: Tenderness (LLE, R-L knee) Additional comments: Dressing L foot, LLE redness, warm to touch, open ulcers posterior to left lateral malleolus, distal leg and dorsum L foot. - Back Exam Back Exam: tenderness (L-S) - Neurological Exam Neurological Exam: Awake Additional comments: Confused, follows simplecommands, no focal motor deficit. - Psychiatric Exam Psychiatric exam: Anxious, Depressed - Skin Skin Exam: Warm (see extremities.) Assessment and Plan (1) Cellulitis of left foot Status: Chronic (2) Cellulitis of left leg Status: Chronic (3) Lumbago Status: Chronic (4) Knee pain, bilateral Status: Chronic (5) COPD (chronic obstructive pulmonary disease) Status: Chronic (6) High cholesterol Status: Chronic (7) HTN (hypertension) Status: Chronic (8) Anxiety Status: Chronic - Assessment and Plan (Free Text) Plan: Continue current Louisa Arnett and rest of Tx,
[2017-05-09] MEDS ORDERED: Desoximetasone 0.25% Cream(15 gm) TOP SCH (17:00)
[2017-05-10] MEDS: Piperacillin/Tazobact 3.375 GM in Sodium Chloride 0.9% 100 ML IVPB SCH ×4 (05:55→23:50)
[2017-05-10] MEDS: Pantoprazole 40 mg EC Tab PO SCH (08:52)
[2017-05-10] MEDS: Santyl Collagenase OINTMENT TOP SCH (08:54)
[2017-05-10] MEDS: Betamethasone Dip 0.05% Cream(15 gm) TOP SCH ×2 (08:54→17:40)
--- NOTE | 2017-05-10 12:43 | CP.PCM.PN ---
Subjective - Date & Time of Evaluation Date of Evaluation: 05/10/17 Time of Evaluation: 12:40 - Subjective Subjective: Podiatry- Dr. Singer 76 year old female seen at bedside today for left leg and foot ulcerations. Patient is resting comfortably in bed. Patient reports no acute events overnights and continues to have pain to her left lower extremity at the ulceration sites. Dressings to left leg are clean and dry. Patient denies N/V/F/ C/CP/SOB. Patient denies any further pedal complaints at this time. 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 Objective - Vital Signs/Intake and Output Vital Signs (last 24 hours): Temp Pulse Resp BP Pulse Ox 98.1 F 85 20 144/73 98 05/10/17 08:21 05/10/17 08:21 05/10/17 08:21 05/10/17 08:21 05/10/17 08:21 - Medications Medications: Current Medications Acetaminophen (Tylenol 325mg Tab) 650 mg PO Q6 PRN PRN Reason: Pain, moderate (4-7) Last Admin: 05/08/17 11:07 Dose: 650 mg Albuterol/Ipratropium (Duoneb 3 Mg/0.5 Mg (3 Ml) Ud) 3 ml IH Q6H PRN PRN Reason: Shortness of Breath Last Admin: 05/08/17 20:55 Dose: 3 ml Betamethasone Dipropion Augmented (Diprolene Af) 1 gm TOP BID [facility] Last Admin: 05/10/17 08:54 Dose: 1 applic Collagenase (Santyl) 1 applic TOP DAILY [facility] Last Admin: 05/10/17 08:54 Dose: 1 applic Fluconazole (Diflucan) 100 mg PO DAILY [facility] Last Admin: 05/10/17 08:53 Dose: 100 mg Fluticasone Propionate (Flonase) 1 spr LA DAILY [facility] Last Admin: 05/10/17 08:54 Dose: 1 spr Piperacillin Sod/Tazobactam (Sod 3.375 gm/ Sodium Chloride) 100 mls @ 100 mls/ hr IVPB 0000,0600,1200,1800 [facility] Last Admin: 05/10/17 05:55 Dose: 100 mls/hr Vancomycin HCl 1 gm/ Sodium (Chloride) 250 mls @ 166.667 mls/hr IVPB Q12@0400, 1600 [facility] Last Admin: 05/10/17 03:58 Dose: 166.667 mls/hr Loratadine (Claritin) 10 mg PO DAILY [facility] Last Admin: 05/10/17 08:53 Dose: 10 mg Montelukast Sodium (Singulair) 10 mg PO DAILY@1800 [facility] Pantoprazole Sodium (Protonix Ec Tab) 40 mg PO DAILY [facility] Last Admin: 05/10/17 08:52 Dose: 40 mg Quetiapine Fumarate (Seroquel) 12.5 mg PO Q8 PRN PRN Reason: Agitation Last Admin: 05/08/17 23:36 Dose: 12.5 mg Tramadol HCl (Ultram) 50 mg PO Q8 PRN PRN Reason: Pain, moderate (4-7) Last Admin: 05/10/17 06:35 Dose: 50 mg Valsartan (Diovan) 160 mg PO BID [facility] Last Admin: 05/10/17 08:52 Dose: 160 mg Zolpidem Tartrate (Ambien) 5 mg PO HS [facility] Last Admin: 05/09/17 21:18 Dose: 5 mg - Constitutional Appears: Well, Non-toxic, No Acute Distress - Extremities Exam Additional comments: Left lower extremity focused exam: Vasc: DP 1/4, PT 1/4 bilaterally, Temperature gradient is WNL, CFT <4 seconds x10 digits, no edema noted to LE Ortho: severe pain with palpation of the periwound and site of ulceration. Neuro: gross sensation diminished bilaterally Derm: multiple ulcerations on left lower extremity. No drainage, no swelling, no malodor, no tunneling, no undermining noted, no fluctuance noted, no probe to bone noted. Red/pink inflammatory discoloration seen in periwound area mostly due to at home remedy patient and family have been applying to the leg. Ankle Xray: No official read yet. Podiatric observation includes severe DJD at ankle and STJ with severe calcification of multiple large vessels Ulceration #1: located at the dorsum of metatarsal head 2 and 3 is resolved though epithelial tissue is greatly inflamed. Ulceration #2: located on the anterior ankle measures is resolved though epithelial tissue is greatly inflamed. Ulceration #3: located on the lateral posterior ankle has mostly fibrous base and measures approximately 3.5 x 0.6 x 0.2. 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 Plan: Patient seen and evaluated at bedside. Charts, labs and vitals reviewed; afebrile. Discussed with Dr. Singer, who endorsed the following plan. Left leg dressed with Santyl to posterior wound, topical Betamethasone to left lower legs zone if inflammation, and DSD Pt prescribed 6 day Medrol Dose pack for us on outpatient basis, to start first day post discharge. Explained need and dosage instructions to patient. Patient confirms she has her son and home apparel sales associate who will help her with he medications when she is discharged. Continue IV abx in TCU until 05/11. Podiatry will continue to follow while in house
--- NOTE | 2017-05-11 06:37 | CP.PCM.PN ---
Subjective - Date & Time of Evaluation Date of Evaluation: 05/11/17 Time of Evaluation: 06:35 - Subjective Subjective: Podiatry- Dr. Singer 76 year old female seen at bedside today for left leg and foot ulcerations. Patient is resting comfortably in bed. Patient reports no acute events overnights and continues to have pain to her left lower extremity at the ulceration sites, slightly increased from yesterday. Dressings to left leg are clean and dry. Patient denies N/V/F/C/CP/SOB. Patient denies any further pedal complaints at this time. Objective - Vital Signs/Intake and Output Vital Signs (last 24 hours): Temp Pulse Resp BP Pulse Ox 99.5 F 100 H 20 165/75 H 100 05/10/17 21:33 05/10/17 21:33 05/10/17 21:33 05/10/17 21:33 05/10/17 21:33 - Medications Medications: Current Medications Acetaminophen (Tylenol 325mg Tab) 650 mg PO Q6 PRN PRN Reason: Pain, moderate (4-7) Last Admin: 05/10/17 13:26 Dose: 650 mg Albuterol/Ipratropium (Duoneb 3 Mg/0.5 Mg (3 Ml) Ud) 3 ml IH Q6H PRN PRN Reason: Shortness of Breath Last Admin: 05/08/17 20:55 Dose: 3 ml Betamethasone Dipropion Augmented (Diprolene Af) 1 gm TOP BID [facility] Last Admin: 05/10/17 17:40 Dose: 1 applic Collagenase (Santyl) 1 applic TOP DAILY [facility] Last Admin: 05/10/17 08:54 Dose: 1 applic Fluconazole (Diflucan) 100 mg PO DAILY [facility] Last Admin: 05/10/17 08:53 Dose: 100 mg Fluticasone Propionate (Flonase) 1 spr LA DAILY [facility] Last Admin: 05/10/17 08:54 Dose: 1 spr Piperacillin Sod/Tazobactam (Sod 3.375 gm/ Sodium Chloride) 100 mls @ 100 mls/ hr IVPB 0000,0600,1200,1800 [facility] Last Admin: 05/10/17 23:50 Dose: 100 mls/hr Vancomycin HCl 1 gm/ Sodium (Chloride) 250 mls @ 166.667 mls/hr IVPB Q12@0400, 1600 [facility] Last Admin: 05/11/17 03:58 Dose: 166.667 mls/hr Loratadine (Claritin) 10 mg PO DAILY [facility] Last Admin: 05/10/17 08:53 Dose: 10 mg Montelukast Sodium (Singulair) 10 mg PO DAILY@1800 [facility] Last Admin: 05/10/17 17:39 Dose: 10 mg Pantoprazole Sodium (Protonix Ec Tab) 40 mg PO DAILY [facility] Last Admin: 05/10/17 08:52 Dose: 40 mg Quetiapine Fumarate (Seroquel) 12.5 mg PO Q8 PRN PRN Reason: Agitation Last Admin: 05/08/17 23:36 Dose: 12.5 mg Tramadol HCl (Ultram) 50 mg PO Q8 PRN PRN Reason: Pain, moderate (4-7) Last Admin: 05/10/17 21:31 Dose: 50 mg Valsartan (Diovan) 160 mg PO BID [facility] Last Admin: 05/10/17 17:40 Dose: 160 mg Zolpidem Tartrate (Ambien) 5 mg PO HS [facility] Last Admin: 05/10/17 23:19 Dose: 5 mg - Constitutional Appears: Well, Non-toxic, No Acute Distress - Extremities Exam Additional comments: Left lower extremity focused exam: Vasc: DP 1/4, PT 1/4 bilaterally, Temperature gradient is WNL, CFT <4 seconds x10 digits, no edema noted to LE Ortho: severe pain with palpation of the periwound and site of ulceration. Neuro: gross sensation diminished bilaterally Derm: multiple ulcerations on left lower extremity. No drainage, no swelling, no malodor, no tunneling, no undermining noted, no fluctuance noted, no probe to bone noted. Red/pink inflammatory discoloration seen in periwound area mostly due to at home remedy patient and family have been applying to the leg but increased from yesterday. Ankle Xray: No official read yet. Podiatric observation includes severe DJD at ankle and STJ with severe calcification of multiple large vessels Ulceration #1: located at the dorsum of metatarsal head 2 and 3 is resolved though epithelial tissue is greatly inflamed. Ulceration #2: located on the anterior ankle measures is resolved though epithelial tissue is greatly inflamed. Ulceration #3: located on the lateral posterior ankle has mostly fibrous base and measures approximately 3.5 x 0.6 x 0.2. 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 Plan: Patient seen and evaluated at bedside. Charts, labs and vitals reviewed; afebrile. Discussed with Dr. Singer, who endorsed the following plan. Left leg dressed with Santyl to posterior wound, topical Betamethasone to left lower legs zone where inflammation present, and DSD Pt prescribed 6 day Medrol Dose pack for us on outpatient basis, to start first day post discharge. Instructions on proper use of dose pack explained to patient over the weekend Patient confirms she has her son and home treasury accountant who will help her with he medications when she is discharged. Continue IV abx in TCU until discharge later today Patient will follow up with Dr. Singer in wound care center following DC
[2017-05-11] MEDS: Piperacillin/Tazobact 3.375 GM in Sodium Chloride 0.9% 100 ML IVPB SCH ×4 (07:11→23:29)
[2017-05-11 09:12] LABS: ALB/GLOB RATIO 1.3 (1.0-2.1); ALKALINE PHOSPHATASE 75 U/L (38-126); ALT/SGPT 34 U/L (9-52); AST/SGOT 19 U/L (14-36); BILIRUBIN,TOTAL 0.4 mg/dl (0.2-1.3); BLOOD UREA NITROGEN 7 mg/dl (7-17); CALCIUM 9.7 mg/dL (8.4-10.2); CARBON DIOXIDE 20 mmol/L (22-30); CHLORIDE 98 mmol/L (98-107); GFR AFRICAN-AMERICAN > 60; GLUCOSE,RANDOM 109 mg/dL (65-105); MAGNESIUM 1.6 MG/DL (1.6-2.3); PHOSPHOROUS 3.3 mg/dl (2.5-4.5); POTASSIUM 3.6 MMOL/L (3.6-5.0); SODIUM 127 mmol/l (132-148); TOTAL PROTEIN 6.7 G/DL (6.3-8.2)
[2017-05-11] MEDS: Pantoprazole 40 mg EC Tab PO SCH (09:35)
[2017-05-11] MEDS: Santyl Collagenase OINTMENT TOP SCH (09:36)
[2017-05-11] MEDS: Betamethasone Dip 0.05% Cream(15 gm) TOP SCH (09:36)
[2017-05-11 09:42] LABS: THYROID STIMULATING HORMONE 2.32 mIU/ML (0.46-4.68)
--- NOTE | 2017-05-11 12:57 | CARD ---
APPROVED REPORT EKG Measurement Heart [id number] <Conclusion> Supraventricular tachycardia Rightward axis Cannot rule out Inferior infarct, age undetermined Abnormal ECG
--- NOTE | 2017-05-11 13:56 | PCM.RRTMUL ---
AUTOMOTIVE SPECIALTY TECHNICIAN Nurse Assessment - Situation AUTOMOTIVE SPECIALTY TECHNICIAN Responder Arrival Time:: 08:05 Location:: Room Number:: 707-2 AUTOMOTIVE SPECIALTY TECHNICIAN Reason for Call: Tachycardia AUTOMOTIVE SPECIALTY TECHNICIAN Called By: RN - IV IV Inserted during AUTOMOTIVE SPECIALTY TECHNICIAN?: No - Respiratory Oxygen Delivery Method:: Nasal Cannula (2L) Received Nebulizer Treatments:: No Was the Patient Ventilated with Bag/Mask 100% O2?: No Secretions Suctioned?: No Was the Patient Intubated?: No Was the Patient Placed on a Ventilator?: No - Medication Medications Administered During AUTOMOTIVE SPECIALTY TECHNICIAN :: adenosine 6mg iv. coreg 6.25mg po - Diagnostic Test Ordered EKG:: Yes Chest X-Ray:: No CT Scan:: No - Stat Labs Ordered AUTOMOTIVE SPECIALTY TECHNICIAN Stat Labs Ordered:: BMP, TROPONIN AUTOMOTIVE SPECIALTY TECHNICIAN Other Labs Ordered:: Mg, Lisset, TSH CPR started during AUTOMOTIVE SPECIALTY TECHNICIAN?: No - Vital Signs Blood Pressure:: 126/76 Pulse Rate:: 183 Respiratory Rate:: 28 Temperature:: 97.5 F Oxygen Saturation:: 98 - Luisa Coma Scale Coma Scale Eye Opening:: Spontaneous Coma Scale Motor:: Obeys Commands Movement Coma Scale Verbal:: Oriented Coma Scale Total:: 15 - Time AUTOMOTIVE SPECIALTY TECHNICIAN Ended Time AUTOMOTIVE SPECIALTY TECHNICIAN Ended:: 08:26 - Vital Signs at end of AUTOMOTIVE SPECIALTY TECHNICIAN Blood Pressure:: 126/76 Pulse Rate:: 106 Respiratory Rate:: 21 Temperature:: 97.5 F O2 Sat by Pulse Oximetry:: 100 - Recommendations 5) AUTOMOTIVE SPECIALTY TECHNICIAN Level of Care Recommendations: Remain in current setting 6) Notifications: Attending Physician, Consultations, Family or Designated Caregiver - A) Initial Vital Signs: Blood Pressure: 126/76 Pulse Rate: 183 Respiratory Rate: 28 Temperature: 97.5 F O2 Sat by Pulse Oximetry: 98 - B) Neurological Status (Select all that apply): Alert, Responsive, Oriented, Verbal, Follows Commands. absent: Disoriented, Confused - C) Respiratory Oxygen Delivery Method: Nasal Cannula @L/min (2) - Constitutional Appears: Well, No Acute Distress - Head Head Exam: ATRAUMATIC, NORMOCEPHALIC - Eyes Eye Exam: EOMI, Normal appearance, PERRL. absent: Nystagmus - Respiratory Exam Respiratory Exam: Clear to Ausculation Bilateral, NORMAL BREATHING PATTERN. absent: Rales, Rhonchi, Wheezes - Cardiovascular Exam Cardiovascular Exam: Tachycardia, +S1, +S2 - GI/Abdominal Exam GI & Abdominal Exam: Soft, Normal Bowel Sounds. absent: Tenderness - Neurological Exam Neurological Exam: Alert, Awake, CN II-XII Intact, Oriented x3 - Extremities Exam Extremities Exam: Full ROM. absent: Calf Tenderness Plan - A. End of AUTOMOTIVE SPECIALTY TECHNICIAN Vital Signs: Blood Pressure: 135/74 Pulse Rate: 106 Respiratory Rate: 21 Temperature: 97.5 F O2 Sat by Pulse Oximetry: 100 - B. Assessment of Findings&Treatment Plan AUTOMOTIVE SPECIALTY TECHNICIAN called by RN for sudden onset tachycardia. 76 yo F patient with PMH of OA,HLD, HTN, SVT, NC and COPD that present sudden onset tachycardia. She is lying on bed looking little anxious but no distressed. Denies chest pain, dizziness, sob, headche, no fever nausea or vomiting, no abdominal pain, no W/T/N. Impression: SVT O2 via NC. Adenosine 6 mg IV. Coreg 6.25 mg PO. CMP Troponin Mg Ph TSH. Patient remains in current setting.
[2017-05-11 16:34] VITALS: RESP 20
--- NOTE | 2017-05-11 16:51 | CP.PCM.PN ---
Subjective - Date & Time of Evaluation Date of Evaluation: 05/11/17 Time of Evaluation: 11:30 - Subjective Subjective: F/U LLE Ulcers. Pt with minimal pain in L foot. Hoffman an episode of rapid response in AM for spontaneous tachycardia, HR was 181, Pt had Adenosine 6 mg IV and Coreg 6.25 po , there after HR decreased to 106. Objective - Vital Signs/Intake and Output Vital Signs (last 24 hours): Temp Pulse Resp BP Pulse Ox 98.1 F 81 20 147/73 100 05/11/17 16:34 05/11/17 16:34 05/11/17 16:34 05/11/17 16:34 05/11/17 16:34 - Medications Medications: Current Medications Acetaminophen (Tylenol 325mg Tab) 650 mg PO Q6 PRN PRN Reason: Pain, moderate (4-7) Last Admin: 05/11/17 12:58 Dose: 650 mg Albuterol/Ipratropium (Duoneb 3 Mg/0.5 Mg (3 Ml) Ud) 3 ml IH Q6H PRN PRN Reason: Shortness of Breath Last Admin: 05/08/17 20:55 Dose: 3 ml Carvedilol (Coreg) 6.25 mg PO Q12 [facility] Last Admin: 05/11/17 09:37 Dose: 6.25 mg Collagenase (Santyl) 1 applic TOP DAILY [facility] Last Admin: 05/11/17 09:36 Dose: Not Given Fluconazole (Diflucan) 100 mg PO DAILY [facility] Last Admin: 05/11/17 09:36 Dose: 100 mg Fluticasone Propionate (Flonase) 1 spr LA DAILY [facility] Last Admin: 05/11/17 09:36 Dose: 1 spr Piperacillin Sod/Tazobactam (Sod 3.375 gm/ Sodium Chloride) 100 mls @ 100 mls/ hr IVPB 0000,0600,1200,1800 [facility] Last Admin: 05/11/17 12:39 Dose: 100 mls/hr Vancomycin HCl 1 gm/ Sodium (Chloride) 250 mls @ 166.667 mls/hr IVPB Q12@0400, 1600 [facility] Last Admin: 05/11/17 16:44 Dose: 166.667 mls/hr Loratadine (Claritin) 10 mg PO DAILY [facility] Last Admin: 05/11/17 09:35 Dose: 10 mg Methylprednisolone (Medrol) 4 mg PO DAILY [facility] Stop: 05/18/17 09:01 Montelukast Sodium (Singulair) 10 mg PO DAILY@1800 [facility] Last Admin: 05/10/17 17:39 Dose: 10 mg Pantoprazole Sodium (Protonix Ec Tab) 40 mg PO DAILY [facility] Last Admin: 05/11/17 09:35 Dose: 40 mg Quetiapine Fumarate (Seroquel) 12.5 mg PO Q8 PRN PRN Reason: Agitation Last Admin: 05/11/17 16:23 Dose: 12.5 mg Tramadol HCl (Ultram) 50 mg PO Q8 PRN PRN Reason: Pain, moderate (4-7) Last Admin: 05/10/17 21:31 Dose: 50 mg Valsartan (Diovan) 160 mg PO BID [facility] Last Admin: 05/11/17 09:35 Dose: 160 mg Zolpidem Tartrate (Ambien) 5 mg PO HS [facility] Last Admin: 05/10/17 23:19 Dose: 5 mg - Labs Labs: 05/11/17 08:30 - Constitutional Appears: Chronically Ill - Head Exam Head Exam: NORMAL INSPECTION - Eye Exam Eye Exam: PERRL - ENT Exam ENT Exam: Normal Exam - Neck Exam Neck Exam: Normal Inspection - Respiratory Exam Respiratory Exam: Decreased Breath Sounds (at bases) - Cardiovascular Exam Cardiovascular Exam: REGULAR RHYTHM, Murmur (systolic) Additional comments: Kyphosis - GI/Abdominal Exam GI & Abdominal Exam: Soft, Normal Bowel Sounds - Extremities Exam Extremities Exam: Tenderness (LLE, R-L knee) Additional comments: Multiple ulcers LLE, dressing in place. 1+ pitting edema LLE. Dorsal pedal pulse 2+ b/l. - Back Exam Back Exam: tenderness (L-S) - Neurological Exam Neurological Exam: Alert, Awake, Oriented x3 Additional comments: Confused at times. - Psychiatric Exam Psychiatric exam: Anxious, Depressed - Skin Skin Exam: Warm Assessment and Plan (1) Cellulitis of left foot Status: Chronic (2) Cellulitis of left leg Status: Chronic (3) Lumbago Status: Chronic (4) Knee pain, bilateral Status: Chronic (5) COPD (chronic obstructive pulmonary disease) Status: Chronic (6) High cholesterol Status: Chronic (7) HTN (hypertension) Status: Chronic (8) Anxiety Status: Chronic - Assessment and Plan (Free Text) Plan: Continue Merren, Vanco, Diflucan, Duoneb, Ultran and rest of Tx.
--- NOTE | 2017-05-11 22:18 | CP.PCM.CON ---
History of Present Illness - History of Present Illness History of Present Illness: I was asked to see patient by DR. García. Patient is a 76 year old female with a history of HTN, aoritc valve disease, who is s/p [employer] for tachycardia. The patient complained of palpitations and was found to be in SVT, SHe responded to AV chaparro manny therapy, (adenosine was givnen. The patient had a previous SVT prior to AVR. Review of Systems - Constitutional Constitutional: absent: As Per HPI, Anorexia, Chills, Daytime Sleepiness, Excessive Sweating, Fatigue, Fever, Frequent Falls, Headache, Increased Appetite , Lethargy, Malaise, Night Sweats, Snoring, Sleep Apnea, Weight Gain, Weight Loss, Weakness, Other - EENT Eyes: absent: As Per HPI, Blind Spots, Blurred Vision, Change in Vision, Decreased Night Vision, Diplopia, Discharge, Dry Eye, Exophthalmos, Floaters, Irritation, Itchy Eyes, Loss of Peripheral Vision, Pain, Photophobia, Requires Corrective Lenses, Sees Flashes, Spots in Vision, Tunnel Vision, Other Visual Disturbances, Loss of Vision, Other Ears: absent: As Per HPI, Decreased Hearing, Ear Discharge, Ear Pain, Tinnitus, Abnormal Hearing, Disequilibrium, Dizziness, Other Nose/Mouth/Throat: absent: As Per HPI, Epistaxis, Nasal Congestion, Nasal Discharge, Nasal Obstruction, Nasal Trauma, Nose Pain, Post Nasal Drip, Sinus Pain, Sinus Pressure, Bleeding Gums, Change in Voice, Dental Pain, Dry Mouth, Dysphagia, Halitosis, Hoarsness, Lip Swelling, Mouth Lesions, Mouth Pain, Odynophagia, Sore Throat, Throat Swelling, Tongue Swelling, Facial Pain, Neck Pain, Neck Mass, Other - Breasts Breasts: absent: As Per HPI, Change in Shape, Mass, Pain, Nipple Discharge, Nipple Inversion, Skin Changes, Swelling, Other - Cardiovascular Cardiovascular: Palpitations - Respiratory Respiratory: absent: As Per HPI, Cough, Dyspnea, Hemoptysis, Dyspnea on Exertion , Wheezing, Snoring, Stridor, Pain on Inspiration, Chest Congestion, Excessive Mucous Production, Change in Mucous Color, Pain with Coughing, Other - Gastrointestinal Gastrointestinal: absent: As Per HPI, Abdominal Pain, Belching, Bloating, Change in Bowel Habits, Change in Stool Character, Coffee Ground Emesis, Constipation, Cramping, Diarrhea, Dyspepsia, Dysphagia, Early Satiety, Excessive Flatus, Fecal Incontinence, Heartburn, Hematemesis, Hematochezia, Loose Stools, Melena, Nausea, Odynophagia, Temesmus, Vomiting, Other - Genitourinary Genitourinary: absent: As Per HPI, Change in Urinary Stream, Difficulty Urinating, Dysuria, Flank Pain, Hematuria, Pyuria, Nocturia, Urinary Incontinence, Urinary Frequency, Urinary Hesitance, Urinary Urgency, Voiding Freq/Small Amts, Freq UTI, Hx Renal/Bladder Calculi, Hx /Renal Surgery, Bladder Distension, Other - Musculoskeletal Musculoskeletal: absent: As Per HPI, Abnormal Gait, Arthralgias, Atrophy, Back Pain, Deformity, Joint Swelling, Limited Range of Motion, Loss of Height, Muscle Cramps, Muscle Weakness, Myalgias, Neck Pain, Numbness, Radiating Pain into Limb, Stiffness, Tingling, Other - Integumentary Integumentary: absent: As Per HPI, Acne, Alopecia, Bleeding Lesions, Change in Hair, Change in Nails, Change in Pigmentation, Changing Lesions, Dry Skin, Erythema, Furuncle, Hirsutism, Lesions, New Lesions, Non-Healing Lesions, Photosensitivity, Pruritus, Rash, Skin Pain, Skin Ulcer, Sores, Striae, Swelling , Unusual Bruising, Wounds, Jaundice, Other - Neurological Neurological: absent: As Per HPI, Abnormal Gait, Abnormal Hearing, Abnormal Movements, Abnormal Speech, Behavioral Changes, Burning Sensations, Confusion, Convulsions, Disequilibrium, Dizziness, Numbness, Focal Weakness, Frequent Falls , Headaches, Lack of Coordination, Loss of Vision, Memory Loss, Paresthesias, Radicular Pain, Restless Legs, Sensory Deficit, Syncope, Tingling, Tremor, Vertigo, Weakness, Other Visual Disturbances, Other - Psychiatric Psychiatric: absent: As Per HPI, Abnormal Sleep Pattern, Anhedonia, Anxiety, Auditory Hallucinations, Behavioral Changes, Change in Appetite, Change in Libido, Confusion, Depression, Difficulty Concentrating, Hallucinations, Homicidal Ideation, Hopelessness, Irritability, Memory Loss, Mood Swings, Panic Attacks, Paranoia, Suicidal Ideation, Visual Hallucinations, Tactile Hallucinations, Other - Endocrine Endocrine: absent: As Per HPI, Change in Body Appearance, Change in Libido, Cold Intolorance, Deepening of Voice, Excessive Sweating, Fatigue, Flushing, Heat Intolorance, Increase in Ring/Shoe/Hat Size, Palpitations, Polydipsia, Polyphagia, Polyuria, Other - Hematologic/Lymphatic Hematologic: absent: As Per HPI, Easy Bleeding, Easy Bruising, Lymphadenopathy, Other Past Patient History - Past Medical History & Family History Past Medical History?: Yes - Past Social History Smoking Status: Never Smoked Alcohol: None Drugs: Denies Home Situation {Lives}: With Family - CARDIAC Hx Cardiac Disorders: Yes Hx Hypercholesterolemia: Yes Hx Hypertension: Yes - PULMONARY Hx Chronic Obstructive Pulmonary Disease (COPD): Yes - NEUROLOGICAL Hx Neurological Disorder: No - HEENT Hx HEENT Problems: No - RENAL Hx Chronic Kidney Disease: No - ENDOCRINE/METABOLIC Hx Endocrine Disorders: No - HEMATOLOGICAL/ONCOLOGICAL Hx Blood Disorders: No Hx Human Immunodeficiency Virus (HIV): No - INTEGUMENTARY Hx Dermatological Problems: Yes Hx Cellulitis: Yes (LLE) - MUSCULOSKELETAL/RHEUMATOLOGICAL Hx Arthritis: Yes - GASTROINTESTINAL Hx Gastrointestinal Disorders: No - GENITOURINARY/GYNECOLOGICAL Hx Genitourinary Disorders: Yes Hx Incontinence: Yes - PSYCHIATRIC Hx Psychophysiologic Disorder: Yes Hx Anxiety: Yes Hx Depression: Yes Hx Substance Use: No - SURGICAL HISTORY Hx Surgeries: Yes Hx Valve Replacement: Yes (AVR) - ANESTHESIA Hx Anesthesia: Yes Hx Anesthesia Reactions: No Hx Malignant Hyperthermia: No Meds Allergies/Adverse Reactions: Allergies Allergy/AdvReac Type Severity Reaction Status Date / Time aspirin Allergy Mild RASH Verified 05/07/17 17:16 iodine Allergy RASH Verified 05/07/17 17:16 - Medications Medications: Current Medications Acetaminophen (Tylenol 325mg Tab) 650 mg PO Q6 PRN PRN Reason: Pain, moderate (4-7) Last Admin: 05/11/17 12:58 Dose: 650 mg Albuterol/Ipratropium (Duoneb 3 Mg/0.5 Mg (3 Ml) Ud) 3 ml IH Q6H PRN PRN Reason: Shortness of Breath Last Admin: 05/08/17 20:55 Dose: 3 ml Carvedilol (Coreg) 12.5 mg PO Q12 [facility] Collagenase (Santyl) 1 applic TOP DAILY [facility] Last Admin: 05/11/17 09:36 Dose: Not Given Fluconazole (Diflucan) 100 mg PO DAILY [facility] Last Admin: 05/11/17 09:36 Dose: 100 mg Fluticasone Propionate (Flonase) 1 spr LA DAILY [facility] Last Admin: 05/11/17 09:36 Dose: 1 spr Piperacillin Sod/Tazobactam (Sod 3.375 gm/ Sodium Chloride) 100 mls @ 100 mls/ hr IVPB 0000,0600,1200,1800 [facility] Last Admin: 05/11/17 17:56 Dose: 100 mls/hr Vancomycin HCl 1 gm/ Sodium (Chloride) 250 mls @ 166.667 mls/hr IVPB Q12@0400, 1600 [facility] Last Admin: 05/11/17 16:44 Dose: 166.667 mls/hr Loratadine (Claritin) 10 mg PO DAILY [facility] Last Admin: 05/11/17 09:35 Dose: 10 mg Methylprednisolone (Medrol) 4 mg PO DAILY [facility] Stop: 05/18/17 09:01 Montelukast Sodium (Singulair) 10 mg PO DAILY@1800 [facility] Last Admin: 05/11/17 17:55 Dose: 10 mg Pantoprazole Sodium (Protonix Ec Tab) 40 mg PO DAILY [facility] Last Admin: 05/11/17 09:35 Dose: 40 mg Quetiapine Fumarate (Seroquel) 12.5 mg PO Q8 PRN PRN Reason: Agitation Last Admin: 05/11/17 16:23 Dose: 12.5 mg Tramadol HCl (Ultram) 50 mg PO Q8 PRN PRN Reason: Pain, moderate (4-7) Last Admin: 05/10/17 21:31 Dose: 50 mg Valsartan (Diovan) 160 mg PO BID [facility] Last Admin: 05/11/17 17:55 Dose: 160 mg Zolpidem Tartrate (Ambien) 5 mg PO [facility] Last Admin: 05/11/17 22:04 Dose: Not Given Physical Exam - Constitutional Appears: Non-toxic - Head Exam Head Exam: NORMAL INSPECTION - Eye Exam Eye Exam: Normal appearance - ENT Exam ENT Exam: Mucous Membranes Moist - Neck Exam Neck exam: Positive for: Full Rom - Respiratory Exam Respiratory Exam: NORMAL BREATHING PATTERN - Cardiovascular Exam Cardiovascular Exam: REGULAR RHYTHM - GI/Abdominal Exam GI & Abdominal Exam: Normal Bowel Sounds - Rectal Exam Rectal Exam: Deferred - Extremities Exam Extremities exam: Positive for: pedal edema - Back Exam Back exam: NORMAL INSPECTION - Neurological Exam Neurological exam: Alert, Oriented x3 - Psychiatric Exam Psychiatric exam: Normal Affect - Skin Skin Exam: Normal Color Results - Vital Signs Recent Vital Signs: Last Vital Signs Temp 97.9 F 05/11/17 20:01 Pulse 88 05/11/17 20:32 Resp 20 05/11/17 20:01 BP 155/73 H 05/11/17 20:32 Pulse Ox 96 05/11/17 20:01 - Labs Result Diagrams: 05/11/17 08:30 Labs: Laboratory Results - last 24 hr 05/11/17 08:30 Sodium 127 L Potassium 3.6 Chloride 98 Carbon Dioxide 20 L Anion Gap 13 BUN 7 Creatinine 0.8 Est GFR ( Amer) > 60 Est GFR (Non-Af Amer) > 60 Random Glucose 109 H Calcium 9.7 Phosphorus 3.3 Magnesium 1.6 Total Bilirubin 0.4 AST 19 ALT 34 Alkaline Phosphatase 75 Troponin I 0.0140 Total Protein 6.7 Albumin 3.8 Globulin 2.9 Albumin/Globulin Ratio 1.3 TSH 3rd Generation 2.32 - EKG Data EKG Interpreted by: Myself Assessment & Plan (1) SVT (supraventricular tachycardia) Assessment and Plan: patient had a previous history of SVT. I will increase Coreg. I have discussed the possibility of ablation given recurretn SVT. Status: Acute
[2017-05-12] MEDS: Piperacillin/Tazobact 3.375 GM in Sodium Chloride 0.9% 100 ML IVPB SCH ×4 (05:34→23:35)
--- NOTE | 2017-05-12 08:28 | CP.PCM.PN ---
Subjective - Date & Time of Evaluation Date of Evaluation: 05/12/17 Time of Evaluation: 08:25 - Subjective Subjective: Podiatry- Dr. Singer 76 year old female seen at bedside today for left leg and foot ulcerations. Patient is resting comfortably in bed. Patient continues to have pain to her left lower extremity at the ulceration sites, slightly increased from yesterday. Dressings to left leg are clean and dry. Patient denies N/V/F/C/CP/ SOB. Patient denies any further pedal complaints at this time. Objective - Vital Signs/Intake and Output Vital Signs (last 24 hours): Temp Pulse Resp BP Pulse Ox 98.2 F 78 20 163/74 H 98 05/12/17 08:02 05/12/17 08:02 05/12/17 08:02 05/12/17 08:02 05/12/17 08:02 - Medications Medications: Current Medications Acetaminophen (Tylenol 325mg Tab) 650 mg PO Q6 PRN PRN Reason: Pain, moderate (4-7) Last Admin: 05/11/17 12:58 Dose: 650 mg Albuterol/Ipratropium (Duoneb 3 Mg/0.5 Mg (3 Ml) Ud) 3 ml IH Q6H PRN PRN Reason: Shortness of Breath Last Admin: 05/08/17 20:55 Dose: 3 ml Carvedilol (Coreg) 12.[address] [facility] Collagenase (Santyl) [address] [facility] Last Admin: 05/11/17 09:36 Dose: Not Given Fluconazole (Diflucan) [address] [facility] Last Admin: 05/11/17 09:36 Dose: 100 mg Fluticasone Propionate (Flonase) [address] [facility] Last Admin: 05/11/17 09:36 Dose: 1 spr Piperacillin Sod/Tazobactam (Sod 3.375 gm/ Sodium Chloride) 100 mls @ 100 mls/ hr IVPB 0000,0600,1200,1800 [facility] Last Admin: 05/12/17 05:34 Dose: 100 mls/hr Vancomycin HCl 1 gm/ Sodium (Chloride) 250 mls @ 166.667 mls/hr IVPB Q12@0400, 1600 [facility] Last Admin: 05/12/17 03:23 Dose: 166.667 mls/hr Loratadine (Claritin) [address] [facility] Last Admin: 05/11/17 09:35 Dose: 10 mg Methylprednisolone (Medrol) [address] [facility] Stop: 05/18/17 09:01 Montelukast Sodium (Singulair) 10 mg PO DAILY@1800 [facility] Last Admin: 05/11/17 17:55 Dose: 10 mg Pantoprazole Sodium (Protonix Ec Tab) [address] [facility] Last Admin: 05/11/17 09:35 Dose: 40 mg Quetiapine Fumarate (Seroquel) 12.5 mg PO Q8 PRN PRN Reason: Agitation Last Admin: 05/11/17 16:23 Dose: 12.5 mg Tramadol HCl (Ultram) 50 mg PO Q8 PRN PRN Reason: Pain, moderate (4-7) Last Admin: 05/10/17 21:31 Dose: 50 mg Valsartan (Diovan) [address] [facility] Last Admin: 05/11/17 17:55 Dose: 160 mg Zolpidem Tartrate (Ambien) [address] [facility] Last Admin: 05/11/17 23:42 Dose: 5 mg - Labs Labs: 05/11/17 08:30 - Constitutional Appears: Well, Non-toxic, No Acute Distress - Extremities Exam Additional comments: Left lower extremity focused exam: Vasc: DP 1/4, PT 1/4 bilaterally, Temperature gradient is WNL, CFT <4 seconds x10 digits, no edema noted to LE Ortho: pain with palpation of the periwound and site of ulceration. Neuro: gross sensation diminished bilaterally Derm: multiple ulcerations on left lower extremity. No drainage, no swelling, no malodor, no tunneling, no undermining noted, no fluctuance noted, no probe to bone noted. Red/pink inflammatory discoloration seen in periwound area mostly due to at home remedy patient and family have been applying to the leg Ankle Xray: Soft tissue swelling without acute articular or osseous abnormality Ulceration #1: located at the dorsum of metatarsal head 2 and 3 is resolved though epithelial tissue is greatly inflamed. Ulceration #2: located on the anterior ankle measures is resolved though epithelial tissue is greatly inflamed. Ulceration #3: located on the lateral posterior ankle has mostly fibrous base and measures approximately 3.5 x 0.6 x 0.2. cm - Neurological Exam Neurological Exam: Alert, Awake, Oriented x3 - Psychiatric Exam Psychiatric exam: Normal Affect, Normal Mood Assessment and Plan - Assessment and Plan (Free Text) Assessment: 76 year old female with multiple ulcerations vs. vasculitis to left ankle and foot Plan: Patient seen and evaluated at bedside. Charts, labs and vitals reviewed; afebrile. Discussed plan with attending, Dr. Singer Podiatry aware of [employer] called on patient yesterday secondary to tachycardia Left leg dressed with Santyl to posterior wound and DSD to foot and leg Nursing informed on proper administration of Medrol dose pack to patient while she remains in house and informed to call with any questions Continue IV abx per ID Podiatry will continue to follow while patient in house
[2017-05-12] MEDS: Pantoprazole 40 mg EC Tab PO SCH (09:14)
[2017-05-12] MEDS: Santyl Collagenase OINTMENT TOP SCH (13:40)
--- NOTE | 2017-05-12 17:48 | CP.PCM.PN ---
Subjective - Date & Time of Evaluation Date of Evaluation: 05/12/17 Time of Evaluation: 11:30 - Subjective Subjective: F/U LLE Cellulites. Pt c/o of minimal pain in L foot, no CP, no SOB today, c/o of water nose. Objective - Vital Signs/Intake and Output Vital Signs (last 24 hours): Temp Pulse Resp BP Pulse Ox 100.0 F H 77 20 156/67 H 100 05/12/17 16:46 05/12/17 16:46 05/12/17 16:46 05/12/17 16:46 05/12/17 16:46 - Medications Medications: Current Medications Acetaminophen (Tylenol 325mg Tab) 650 mg PO Q6 PRN PRN Reason: Pain, moderate (4-7) Last Admin: 05/12/17 11:35 Dose: 650 mg Albuterol/Ipratropium (Duoneb 3 Mg/0.5 Mg (3 Ml) Ud) 3 ml IH Q6H PRN PRN Reason: Shortness of Breath Last Admin: 05/08/17 20:55 Dose: 3 ml Carvedilol (Coreg) 12.5 mg PO Q12 [facility] Last Admin: 05/12/17 09:13 Dose: 12.5 mg Collagenase (Santyl) 1 applic TOP DAILY [facility] Last Admin: 05/12/17 13:40 Dose: 1 applic Fluconazole (Diflucan) 100 mg PO DAILY [facility] Last Admin: 05/12/17 09:13 Dose: 100 mg Fluticasone Propionate (Flonase) 1 spr LA DAILY [facility] Last Admin: 05/12/17 09:12 Dose: 1 spr Piperacillin Sod/Tazobactam (Sod 3.375 gm/ Sodium Chloride) 100 mls @ 100 mls/ hr IVPB 0000,0600,1200,1800 [facility] Last Admin: 05/12/17 13:39 Dose: 100 mls/hr Vancomycin HCl 1 gm/ Sodium (Chloride) 250 mls @ 166.667 mls/hr IVPB Q12@0400, 1600 [facility] Last Admin: 05/12/17 17:16 Dose: 166.667 mls/hr Loratadine (Claritin) 10 mg PO DAILY [facility] Last Admin: 05/12/17 09:13 Dose: 10 mg Montelukast Sodium (Singulair) 10 mg PO DAILY@1800 [facility] Last Admin: 05/12/17 17:19 Dose: 10 mg Pantoprazole Sodium (Protonix Ec Tab) 40 mg PO DAILY [facility] Last Admin: 05/12/17 09:14 Dose: 40 mg Quetiapine Fumarate (Seroquel) 12.5 mg PO Q8 PRN PRN Reason: Agitation Last Admin: 05/11/17 16:23 Dose: 12.5 mg Tramadol HCl (Ultram) 50 mg PO Q8 PRN PRN Reason: Pain, moderate (4-7) Last Admin: 05/10/17 21:31 Dose: 50 mg Valsartan (Diovan) 160 mg PO BID [facility] Last Admin: 05/12/17 17:19 Dose: 160 mg Zolpidem Tartrate (Ambien) 5 mg PO HS [facility] Last Admin: 05/11/17 23:42 Dose: 5 mg - Labs Labs: 05/11/17 08:30 - Constitutional Appears: Chronically Ill - Eye Exam Eye Exam: PERRL - ENT Exam ENT Exam: Mucous Membranes Moist - Neck Exam Neck Exam: Normal Inspection - Respiratory Exam Respiratory Exam: Decreased Breath Sounds (at bases) - Cardiovascular Exam Cardiovascular Exam: REGULAR RHYTHM, Murmur (systolic) Additional comments: Kyphosis - GI/Abdominal Exam GI & Abdominal Exam: Soft, Normal Bowel Sounds - Extremities Exam Extremities Exam: Pedal Edema, Tenderness (LLE, R-L knee) Additional comments: Ulcers LLE, dressing in place. Dorsal pedal pulse 2+ b/l - Back Exam Back Exam: tenderness (L-S) - Neurological Exam Neurological Exam: Awake, Oriented x3 Additional comments: No focal motor deficit. - Psychiatric Exam Psychiatric exam: Depressed - Skin Skin Exam: Warm Assessment and Plan (1) Cellulitis of left foot Status: Chronic (2) Cellulitis of left leg Status: Chronic (3) Lumbago Status: Chronic (4) Knee pain, bilateral Status: Chronic (5) COPD (chronic obstructive pulmonary disease) Status: Chronic (6) High cholesterol Status: Chronic (7) HTN (hypertension) Status: Chronic (8) Anxiety Status: Chronic - Assessment and Plan (Free Text) Plan: Continue Vanco, Zosyn, Diflucant, Duoneb, Claritin and rest of Tx.
[2017-05-13] MEDS: Piperacillin/Tazobact 3.375 GM in Sodium Chloride 0.9% 100 ML IVPB SCH (05:14)
--- NOTE | 2017-05-13 08:00 | CP.PCM.PN ---
Subjective - Date & Time of Evaluation Date of Evaluation: 05/12/17 Time of Evaluation: 18:10 - Subjective Subjective: patient has no current chest pain. feels well. Objective - Vital Signs/Intake and Output Vital Signs (last 24 hours): Temp Pulse Resp BP Pulse Ox 98.4 F 82 20 129/65 98 05/13/17 07:48 05/13/17 07:48 05/13/17 07:48 05/13/17 07:48 05/13/17 07:48 - Medications Medications: Current Medications Acetaminophen (Tylenol 325mg Tab) 650 mg PO Q6 PRN PRN Reason: Pain, moderate (4-7) Last Admin: 05/12/17 11:35 Dose: 650 mg Albuterol/Ipratropium (Duoneb 3 Mg/0.5 Mg (3 Ml) Ud) 3 ml IH Q6H PRN PRN Reason: Shortness of Breath Last Admin: 05/08/17 20:55 Dose: 3 ml Carvedilol (Coreg) 12.5 mg PO Q12 [facility] Last Admin: 05/12/17 20:31 Dose: 12.5 mg Collagenase (Santyl) 1 applic TOP DAILY [facility] Last Admin: 05/12/17 13:40 Dose: 1 applic Fluconazole (Diflucan) 100 mg PO DAILY [facility] Last Admin: 05/12/17 09:13 Dose: 100 mg Fluticasone Propionate (Flonase) 1 spr LA DAILY [facility] Last Admin: 05/12/17 09:12 Dose: 1 spr Piperacillin Sod/Tazobactam (Sod 3.375 gm/ Sodium Chloride) 100 mls @ 100 mls/ hr IVPB 0000,0600,1200,1800 [facility] Last Admin: 05/13/17 05:14 Dose: 100 mls/hr Vancomycin HCl 1 gm/ Sodium (Chloride) 250 mls @ 166.667 mls/hr IVPB Q12@0400, 1600 [facility] Last Admin: 05/13/17 03:11 Dose: 166.667 mls/hr Loratadine (Claritin) 10 mg PO DAILY [facility] Last Admin: 05/12/17 09:13 Dose: 10 mg Montelukast Sodium (Singulair) 10 mg PO DAILY@1800 [facility] Last Admin: 05/12/17 17:19 Dose: 10 mg Pantoprazole Sodium (Protonix Ec Tab) 40 mg PO DAILY [facility] Last Admin: 05/12/17 09:14 Dose: 40 mg Quetiapine Fumarate (Seroquel) 12.5 mg PO Q8 PRN PRN Reason: Agitation Last Admin: 05/11/17 16:23 Dose: 12.5 mg Tramadol HCl (Ultram) 50 mg PO Q8 PRN PRN Reason: Pain, moderate (4-7) Last Admin: 05/10/17 21:31 Dose: 50 mg Valsartan (Diovan) 160 mg PO BID [facility] Last Admin: 05/12/17 17:19 Dose: 160 mg Zolpidem Tartrate (Ambien) 5 mg PO HS [facility] Last Admin: 05/12/17 21:17 Dose: 5 mg - Labs Labs: 05/11/17 08:30 - Constitutional Appears: Non-toxic - Head Exam Head Exam: NORMAL INSPECTION - Eye Exam Eye Exam: Normal appearance - ENT Exam ENT Exam: Mucous Membranes Moist - Neck Exam Neck Exam: Full ROM - Respiratory Exam Respiratory Exam: NORMAL BREATHING PATTERN - Cardiovascular Exam Cardiovascular Exam: REGULAR RHYTHM - GI/Abdominal Exam GI & Abdominal Exam: Normal Bowel Sounds - Rectal Exam Rectal Exam: Deferred - Extremities Exam Extremities Exam: absent: Pedal Edema - Back Exam Back Exam: NORMAL INSPECTION - Neurological Exam Neurological Exam: Alert - Psychiatric Exam Psychiatric exam: Normal Affect - Skin Skin Exam: Normal Color Assessment and Plan (1) SVT (supraventricular tachycardia) Assessment & Plan: increased betablocker. will consider outpatient ablation if patient agrees. Status: Acute (2) HTN (hypertension) Assessment & Plan: toelrateting medical therapy Status: Chronic
--- NOTE | 2017-05-13 08:12 | CP.PCM.PN ---
Subjective - Date & Time of Evaluation Date of Evaluation: 05/13/17 Time of Evaluation: 08:10 - Subjective Subjective: Podiatry- Dr. 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 Patient is resting comfortably in bed. Patient continues to have pain to her left lower extremity at the ulceration sites but states that it is decreased from yesterday. Dressings to left leg are clean and dry. Patient denies N/V/F/C/CP/SOB. Patient denies any further pedal complaints at this time. Objective - Vital Signs/Intake and Output Vital Signs (last 24 hours): Temp Pulse Resp BP Pulse Ox 98.4 F 82 20 129/65 98 05/13/17 07:48 05/13/17 07:48 05/13/17 07:48 05/13/17 07:48 05/13/17 07:48 - Medications Medications: Current Medications Acetaminophen (Tylenol 325mg Tab) 650 mg PO Q6 PRN PRN Reason: Pain, moderate (4-7) Last Admin: 05/12/17 11:35 Dose: 650 mg Albuterol/Ipratropium (Duoneb 3 Mg/0.5 Mg (3 Ml) Ud) 3 ml IH Q6H PRN PRN Reason: Shortness of Breath Last Admin: 05/08/17 20:55 Dose: 3 ml Carvedilol (Coreg) 12.5 mg PO Q12 [facility] Last Admin: 05/12/17 20:31 Dose: 12.5 mg Collagenase (Santyl) 1 applic TOP DAILY [facility] Last Admin: 05/12/17 13:40 Dose: 1 applic Fluconazole (Diflucan) 100 mg PO DAILY [facility] Last Admin: 05/12/17 09:13 Dose: 100 mg Fluticasone Propionate (Flonase) 1 spr LA DAILY [facility] Last Admin: 05/12/17 09:12 Dose: 1 spr Piperacillin Sod/Tazobactam (Sod 3.375 gm/ Sodium Chloride) 100 mls @ 100 mls/ hr IVPB 0000,0600,1200,1800 [facility] Last Admin: 05/13/17 05:14 Dose: 100 mls/hr Vancomycin HCl 1 gm/ Sodium (Chloride) 250 mls @ 166.667 mls/hr IVPB Q12@0400, 1600 [facility] Last Admin: 05/13/17 03:11 Dose: 166.667 mls/hr Loratadine (Claritin) 10 mg PO DAILY [facility] Last Admin: 05/12/17 09:13 Dose: 10 mg Methylprednisolone (Medrol) 20 mg PO ONCE ONE Stop: 05/13/17 08:09 Montelukast Sodium (Singulair) 10 mg PO DAILY@1800 [facility] Last Admin: 05/12/17 17:19 Dose: 10 mg Pantoprazole Sodium (Protonix Ec Tab) 40 mg PO DAILY [facility] Last Admin: 05/12/17 09:14 Dose: 40 mg Quetiapine Fumarate (Seroquel) 12.5 mg PO Q8 PRN PRN Reason: Agitation Last Admin: 05/11/17 16:23 Dose: 12.5 mg Tramadol HCl (Ultram) 50 mg PO Q8 PRN PRN Reason: Pain, moderate (4-7) Last Admin: 05/10/17 21:31 Dose: 50 mg Valsartan (Diovan) 160 mg PO BID [facility] Last Admin: 05/12/17 17:19 Dose: 160 mg Zolpidem Tartrate (Ambien) 5 mg PO HS [facility] Last Admin: 05/12/17 21:17 Dose: 5 mg - Labs Labs: 05/11/17 08:30 - Constitutional Appears: Well, Non-toxic, No Acute Distress - Extremities Exam Additional comments: Left lower extremity focused exam: Vasc: DP 1/4, PT 1/4 bilaterally, Temperature gradient is WNL, CFT <4 seconds x10 digits, no edema noted to LE Ortho: pain with palpation of the periwound and site of ulceration. Neuro: gross sensation diminished bilaterally Derm: multiple ulcerations on left lower extremity most likely secondary to vasculitis. No drainage, no swelling, no malodor, no tunneling, no undermining noted, no fluctuance noted, no probe to bone noted. Red/pink inflammatory discoloration seen in periwound area mostly due to at home remedy patient and family have been applying to the leg. Overall erythema decreased from yesterday Ulceration #1: located at the dorsum of metatarsal head 2 and 3 is resolved though epithelial tissue is inflamed. Ulceration #2: located on the anterior ankle measures is resolved though epithelial tissue is greatly inflamed. Ulceration #3: located on the lateral posterior ankle has mostly fibrous base and measures approximately 3.5 x 0.6 x 0.2. 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 Charts, labs and vitals reviewed; afebrile. Discussed plan with attending, Dr. Singer Erythema noted to be significantly decreased from yesterday Left leg dressed with Santyl to posterior wound and DSD to foot and leg Day two of Medrol dose pack ordered Nursing informed on proper administration of Medrol dose pack to patient while she remains in house and informed to call with any questions Continue IV abx Podiatry will continue to follow while patient in house
[2017-05-13] MEDS: Santyl Collagenase OINTMENT TOP SCH (09:03)
[2017-05-13] MEDS: Pantoprazole 40 mg EC Tab PO SCH (09:03)
--- NOTE | 2017-05-13 16:51 | CP.PCM.PN ---
Subjective - Date & Time of Evaluation Date of Evaluation: 05/13/17 Time of Evaluation: 12:10 - Subjective Subjective: F/U LLE Cellulites. Pt with less pain in LLE. Objective - Vital Signs/Intake and Output Vital Signs (last 24 hours): Temp Pulse Resp BP Pulse Ox 98.4 F 82 20 129/65 98 05/13/17 07:48 05/13/17 09:02 05/13/17 07:48 05/13/17 09:02 05/13/17 07:48 - Medications Medications: Current Medications Acetaminophen (Tylenol 325mg Tab) 650 mg PO Q6 PRN PRN Reason: Pain, moderate (4-7) Last Admin: 05/12/17 11:35 Dose: 650 mg Albuterol/Ipratropium (Duoneb 3 Mg/0.5 Mg (3 Ml) Ud) 3 ml IH Q6H PRN PRN Reason: Shortness of Breath Last Admin: 05/08/17 20:55 Dose: 3 ml Amoxicillin/Clavulanate Potassium (Augmentin 875 Mg-125 Mg Tab) 1 tab PO Q12 [facility] Carvedilol (Coreg) 12.5 mg PO Q12 [facility] Last Admin: 05/13/17 09:02 Dose: 12.5 mg Collagenase (Santyl) 1 applic TOP DAILY [facility] Last Admin: 05/13/17 09:03 Dose: Not Given Fluconazole (Diflucan) 100 mg PO DAILY [facility] Last Admin: 05/13/17 09:02 Dose: 100 mg Fluticasone Propionate (Flonase) 1 spr LA DAILY [facility] Last Admin: 05/13/17 09:02 Dose: 1 spr Loratadine (Claritin) 10 mg PO DAILY [facility] Last Admin: 05/13/17 09:02 Dose: 10 mg Montelukast Sodium (Singulair) 10 mg PO DAILY@1800 [facility] Last Admin: 05/12/17 17:19 Dose: 10 mg Pantoprazole Sodium (Protonix Ec Tab) 40 mg PO DAILY [facility] Last Admin: 05/13/17 09:03 Dose: 40 mg Quetiapine Fumarate (Seroquel) 12.5 mg PO Q8 PRN PRN Reason: Agitation Last Admin: 05/13/17 15:34 Dose: 12.5 mg Tramadol HCl (Ultram) 50 mg PO Q8 PRN PRN Reason: Pain, moderate (4-7) Last Admin: 05/10/17 21:31 Dose: 50 mg Valsartan (Diovan) 160 mg PO BID [facility] Last Admin: 05/13/17 09:03 Dose: 160 mg Zolpidem Tartrate (Ambien) 5 mg PO HS [facility] Last Admin: 05/12/17 21:17 Dose: 5 mg - Labs Labs: 05/11/17 08:30 - Constitutional Appears: Chronically Ill - Head Exam Head Exam: NORMAL INSPECTION - Eye Exam Eye Exam: PERRL - ENT Exam ENT Exam: Normal Exam - Neck Exam Neck Exam: Normal Inspection - Respiratory Exam Respiratory Exam: Decreased Breath Sounds (at bases) - Cardiovascular Exam Cardiovascular Exam: REGULAR RHYTHM, Murmur (systolic) Additional comments: Kyphosis. - GI/Abdominal Exam GI & Abdominal Exam: Soft, Normal Bowel Sounds - Extremities Exam Extremities Exam: Tenderness (LLE, R-L knee) Additional comments: L foot dressing in place. - Back Exam Back Exam: tenderness (L-S) - Neurological Exam Neurological Exam: Alert, Awake, Oriented x3 Additional comments: No focal motor deficit. - Psychiatric Exam Psychiatric exam: Anxious - Skin Skin Exam: Warm Assessment and Plan (1) Cellulitis of left foot Status: Chronic (2) Cellulitis of left leg Status: Chronic (3) Lumbago Status: Chronic (4) Knee pain, bilateral Status: Chronic (5) COPD (chronic obstructive pulmonary disease) Status: Chronic (6) High cholesterol Status: Chronic (7) HTN (hypertension) Status: Chronic (8) Anxiety Status: Chronic - Assessment and Plan (Free Text) Plan: Discussed with therapist, Pt with unsteady gait, difficulty to walk, needs more days of PT.
[2017-05-13] MEDS: Amoxicillin-Clav 875-125 mg Tab PO SCH (21:55)
--- NOTE | 2017-05-14 08:02 | CP.PCM.PN ---
Subjective - Date & Time of Evaluation Date of Evaluation: 05/14/17 Time of Evaluation: 07:59 - Subjective Subjective: Podiatry- Dr. Singer 76 year old female seen at bedside today for left leg and foot ulcerations. Patient is resting comfortably in bed. Patient continues to have pain to her left lower extremity at the ulceration sites but states that it is decreased from yesterday. Dressings to left leg are clean and dry. Per nursing patient received day 2 of her Medrol dose pack yesterday. Patient denies N/V/F/C/CP/ SOB. Patient denies any further pedal complaints at this time. Objective - Vital Signs/Intake and Output Vital Signs (last 24 hours): Temp Pulse Resp BP Pulse Ox 99.5 F 70 20 119/57 L 89 L 05/13/17 20:43 05/13/17 21:54 05/13/17 20:43 05/13/17 21:54 05/13/17 20:43 - Medications Medications: Current Medications Acetaminophen (Tylenol 325mg Tab) 650 mg PO Q6 PRN PRN Reason: Pain, moderate (4-7) Last Admin: 05/12/17 11:35 Dose: 650 mg Albuterol/Ipratropium (Duoneb 3 Mg/0.5 Mg (3 Ml) Ud) 3 ml IH Q6H PRN PRN Reason: Shortness of Breath Last Admin: 05/08/17 20:55 Dose: 3 ml Amoxicillin/Clavulanate Potassium (Augmentin 875 Mg-125 Mg Tab) 1 tab PO Q12 [facility] Last Admin: 05/13/17 21:55 Dose: 1 tab Carvedilol (Coreg) 12.5 mg PO Q12 [facility] Last Admin: 05/13/17 21:54 Dose: 12.5 mg Collagenase (Santyl) 1 applic TOP DAILY [facility] Last Admin: 05/13/17 09:03 Dose: Not Given Fluconazole (Diflucan) 100 mg PO DAILY [facility] Last Admin: 05/13/17 09:02 Dose: 100 mg Fluticasone Propionate (Flonase) 1 spr LA DAILY [facility] Last Admin: 05/13/17 09:02 Dose: 1 spr Loratadine (Claritin) 10 mg PO DAILY [facility] Last Admin: 05/13/17 09:02 Dose: 10 mg Montelukast Sodium (Singulair) 10 mg PO DAILY@1800 [facility] Last Admin: 05/13/17 17:06 Dose: 10 mg Pantoprazole Sodium (Protonix Ec Tab) 40 mg PO DAILY [facility] Last Admin: 05/13/17 09:03 Dose: 40 mg Quetiapine Fumarate (Seroquel) 12.5 mg PO Q8 PRN PRN Reason: Agitation Last Admin: 05/13/17 15:34 Dose: 12.5 mg Tramadol HCl (Ultram) 50 mg PO Q8 PRN PRN Reason: Pain, moderate (4-7) Last Admin: 05/10/17 21:31 Dose: 50 mg Valsartan (Diovan) 160 mg PO BID [facility] Last Admin: 05/13/17 17:06 Dose: 160 mg Zolpidem Tartrate (Ambien) 5 mg PO HS [facility] Last Admin: 05/13/17 21:55 Dose: 5 mg - Labs Labs: 05/11/17 08:30 - Constitutional Appears: Well, Non-toxic, No Acute Distress - Extremities Exam Additional comments: Left lower extremity focused exam: Vasc: DP 1/4, PT 1/4 bilaterally, Temperature gradient is WNL, CFT <4 seconds x10 digits, no edema noted to LE Ortho: pain with palpation of the periwound and site of ulceration. Neuro: gross sensation diminished bilaterally Derm: multiple resolved ulcerations on left lower extremity. No drainage, no swelling, no malodor, no tunneling, no undermining noted, no fluctuance noted, no probe to bone noted. Red/pink inflammatory discoloration seen in periwound area resolving Ulceration #1: located at the dorsum of metatarsal head 2 and 3 is resolved though epithelial tissue is inflamed Ulceration #2: located on the anterior ankle measures is resolved though epithelial tissue is inflamed. Ulceration #3: located on the lateral posterior ankle has mostly fibrous base and measures approximately 3.5 x 0.6 x 0.2. 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 Charts, labs and vitals reviewed; afebrile. Discussed plan with attending, Dr. Singer Left leg cleansed with saline and dressed with Santyl to posterior wound and DSD to foot and leg Per nursing, Dr. García is going to have patient DC'd home today to her son Medrol dose pack will be continued once DC'd Patient will follow up with Dr. Singer in wound care center following DC
[2017-05-14 08:18] VITALS: BP 130/69; PULSE 79; TEMP 98.1; O2SAT 99
[2017-05-14] MEDS: Amoxicillin-Clav 875-125 mg Tab PO SCH (08:51)
[2017-05-14] MEDS: Pantoprazole 40 mg EC Tab PO SCH (08:52)
[2017-05-14] MEDS: Santyl Collagenase OINTMENT TOP SCH (08:52)
--- NOTE | 2017-05-14 11:59 | CP.PCM.PN ---
Subjective - Date & Time of Evaluation Date of Evaluation: 05/14/17 Time of Evaluation: 13:00 - Subjective Subjective: F/U cellulites LLE. Pt with less pain in LLE. Objective - Vital Signs/Intake and Output Vital Signs (last 24 hours): Temp Pulse Resp BP Pulse Ox 98.1 F 79 20 130/69 99 05/14/17 08:16 05/14/17 08:52 05/14/17 08:16 05/14/17 08:52 05/14/17 08:16 - Medications Medications: Current Medications Acetaminophen (Tylenol 325mg Tab) 650 mg PO Q6 PRN PRN Reason: Pain, moderate (4-7) Last Admin: 05/12/17 11:35 Dose: 650 mg Albuterol/Ipratropium (Duoneb 3 Mg/0.5 Mg (3 Ml) Ud) 3 ml IH Q6H PRN PRN Reason: Shortness of Breath Last Admin: 05/08/17 20:55 Dose: 3 ml Amoxicillin/Clavulanate Potassium (Augmentin 875 Mg-125 Mg Tab) 1 tab PO Q12 [facility] Last Admin: 05/14/17 08:51 Dose: 1 tab Carvedilol (Coreg) 12.5 mg PO Q12 [facility] Last Admin: 05/14/17 08:52 Dose: 12.5 mg Collagenase (Santyl) 1 applic TOP DAILY [facility] Last Admin: 05/14/17 08:52 Dose: Not Given Fluconazole (Diflucan) 100 mg PO DAILY [facility] Last Admin: 05/14/17 08:52 Dose: 100 mg Fluticasone Propionate (Flonase) 1 spr LA DAILY [facility] Last Admin: 05/14/17 08:51 Dose: Not Given Loratadine (Claritin) 10 mg PO DAILY [facility] Last Admin: 05/14/17 08:51 Dose: 10 mg Montelukast Sodium (Singulair) 10 mg PO DAILY@1800 [facility] Last Admin: 05/13/17 17:06 Dose: 10 mg Pantoprazole Sodium (Protonix Ec Tab) 40 mg PO DAILY [facility] Last Admin: 05/14/17 08:52 Dose: 40 mg Quetiapine Fumarate (Seroquel) 12.5 mg PO Q8 PRN PRN Reason: Agitation Last Admin: 05/13/17 15:34 Dose: 12.5 mg Tramadol HCl (Ultram) 50 mg PO Q8 PRN PRN Reason: Pain, moderate (4-7) Last Admin: 05/10/17 21:31 Dose: 50 mg Valsartan (Diovan) 160 mg PO BID [facility] Last Admin: 05/14/17 08:52 Dose: 160 mg Zolpidem Tartrate (Ambien) 5 mg PO HS [facility] Last Admin: 05/13/17 21:55 Dose: 5 mg - Labs Labs: 05/11/17 08:30 - Constitutional Appears: No Acute Distress, Chronically Ill - Head Exam Head Exam: NORMAL INSPECTION - Eye Exam Eye Exam: PERRL - ENT Exam ENT Exam: Normal Exam - Neck Exam Neck Exam: Normal Inspection - Respiratory Exam Respiratory Exam: Decreased Breath Sounds (at bases) - Cardiovascular Exam Cardiovascular Exam: REGULAR RHYTHM, Murmur (systolic) - GI/Abdominal Exam GI & Abdominal Exam: Soft, Normal Bowel Sounds - Extremities Exam Extremities Exam: Tenderness (LLE, R-L knee) Additional comments: LLE dressing in place. - Back Exam Back Exam: tenderness (L-S) - Neurological Exam Neurological Exam: Alert, Oriented x3 Additional comments: No focal motor deficit. - Psychiatric Exam Psychiatric exam: Anxious - Skin Skin Exam: Warm Assessment and Plan (1) Cellulitis of left foot Status: Chronic (2) Cellulitis of left leg Status: Chronic (3) Lumbago Status: Chronic (4) Knee pain, bilateral Status: Chronic (5) COPD (chronic obstructive pulmonary disease) Status: Chronic (6) High cholesterol Status: Chronic (7) HTN (hypertension) Status: Chronic (8) Anxiety Status: Chronic - Assessment and Plan (Free Text) Plan: As per Pt's family, Pt has 2 homemakers, also a family member will stay with her 13/04. We will arrange for PT as out-Pt.
== END 2017-05-14 15:30 | disposition home health service (06) | DRG 277 ==
LOC: H.TCU 17:19
PROVIDERS: ADMIT Internal Medicine Pulmonary Disease; ATTEND Internal Medicine Pulmonary Disease
PROC: F07M6FZ Therapeutic Exercise Treatment of Musculoskeletal System - Whole Body using Assistive, Adaptive, Supportive or Protective Equipment (ICD-10-PCS; principal; 2017-05-07)
PROC: F08Z4FZ Home Management Treatment using Assistive, Adaptive, Supportive or Protective Equipment (ICD-10-PCS; 2017-05-07)
PROC: 3E03329 Introduction of Other Anti-infective into Peripheral Vein, Percutaneous Approach (ICD-10-PCS; 2017-05-07)
DX: L03.116 Cellulitis of left lower limb (principal); J44.9 Chronic obstructive pulmonary disease, unspecified; I47.1 Supraventricular tachycardia; L97.329 Non-pressure chronic ulcer of left ankle with unspecified severity; L97.529 Non-pressure chronic ulcer of other part of left foot with unspecified severity; I77.6 Arteritis, unspecified; I10 Essential (primary) hypertension; F41.9 Anxiety disorder, unspecified; E78.00 Pure hypercholesterolemia, unspecified; I25.10 Atherosclerotic heart disease of native coronary artery without angina pectoris; Z95.1 Presence of aortocoronary bypass graft; M19.072 Primary osteoarthritis, left ankle and foot; M81.0 Age-related osteoporosis without current pathological fracture; Z95.2 Presence of prosthetic heart valve; F32.9 Major depressive disorder, single episode, unspecified; M25.561 Pain in right knee; M25.562 Pain in left knee; M54.5 Low back pain

== ENCOUNTER 2018-06-28 16:17 | Inpatient (IN) | payer MEDICARE, MEDICAID ==
[2018-06-28 16:17] VITALS: BMI 28.3
--- NOTE | 2018-06-28 16:52 | ED PDOC ---
Lower Extremity Pain/Injury Time Seen by Provider: 06/28/18 16:43 Chief Complaint (Nursing): Lower Extremity Problem/Injury Chief Complaint (Provider): Lower Extremity Problem/Injury History Per: Patient History/Exam Limitations: no limitations Onset/Duration Of Symptoms: Days (x3 months) Current Symptoms Are (Timing): Still Present Additional Complaint(s): 77 year old female with a history surgical debridement of foot wound, htn, early dementia, anxiety, high cholesterol, hyponatremia, asthma, and gastritis presents to the ED complaining of left foot pain onset 3 months. Patient reports she has a wound on the inner part of her ankle. She is being cared for by a visiting nurse but over the past few weeks, her foot has been more painful, with increasing redness that extends up her led, oozing drainage from wound and other areas of her foot. She denies any type of trauma, fever, or chills but is strictly bed bound due to severe arthritis. Patient is compliant with all of her medications. She saw her PMD today who sent her here for further evaluation. PMD: Dr. García Past Medical History Reviewed: Historical Data, Nursing Documentation, Vital Signs Vital Signs: Last Vital Signs Temp 98.2 F 06/28/18 16:23 Pulse 84 06/28/18 16:23 Resp 18 06/28/18 16:23 BP 142/64 06/28/18 16:23 Pulse Ox 99 06/28/18 16:23 - Medical History PMH: Anxiety, Arthritis, Asthma, CAD, COPD, Dementia, Depression, HTN, Hypercholesterolemia, Osteoporosis Denies: HIV, Chronic Kidney Disease - Surgical History Surgical History: CABG - Family History Family History: States: Unknown Family Hx - Social History Current smoker - smoking cessation education provided: No Ex-Smoker (has not smoked in the last 12 months): No Alcohol: None Drugs: Denies - Home Medications Home Medications: Ambulatory Orders Medication Instructions Recorded RX: Rosuvastatin Calcium [Crestor] 10 mg PO DAILY 07/19/15 RX: Albuterol HFA [Ventolin HFA 90 2 puff IH Q4H PRN 06/13/16 mcg/actuation (8 g)] RX: Budesonide/Formoterol Fumarate 2 puff IH Q12H 06/13/16 [Symbicort 160-4.5 Mcg Inhaler] RX: Alprazolam [Xanax] 0.25 mg PO Q12 PRN 06/28/18 RX: Diclofenac Sodium [Voltaren] 1 appl TOP Q6 PRN 06/28/18 RX: Divalproex [Depakote Sprinkles] 125 mg PO BID 06/28/18 RX: Esomeprazole Magnesium [Nexium] 40 mg PO DAILY 06/28/18 RX: Fluticasone Propionate 2 puff LA DAILY 06/28/18 [Flonase] RX: Irbesartan [Avapro] 75 mg PO DAILY 06/28/18 RX: Mirtazapine [Remeron] 15 mg PO HS 06/28/18 RX: Montelukast [Singulair] 10 mg PO HS 06/28/18 RX: Sodium Chloride [Sodium 1 gm PO Q12 06/28/18 Chloride Tab] RX: oxyCODONE/Acetaminophen 1 tab PO Q4 PRN 06/28/18 [Percocet 5/325 mg Tab] RX: traMADol [Ultram] 50 mg PO Q6 PRN 06/28/18 Cefepime 1gm in NS 100ml [Maxipime 1 gm IVPB Q8 #21 bag 07/02/18 1gm] RX: Mupirocin 2% Ointment 1 applic TOP BID tube 07/02/18 [Bactroban Ointment] Vancomycin 750mg [Vancomycin 750 750 mg IVPB Q12 #14 bag 07/02/18 mg in NS] - Allergies Allergies/Adverse Reactions: Allergies Allergy/AdvReac Type Severity Reaction Status Date / Time aspirin Allergy Mild RASH Verified 05/07/17 17:16 iodine Allergy RASH Verified 05/07/17 17:16 Review of Systems ROS Statement: Except As Marked, All Systems Reviewed And Found Negative Constitutional: Negative for: Fever, Chills Musculoskeletal: Positive for: Foot Pain (right with wound on inner part of ankle) Physical Exam - Reviewed Nursing Documentation Reviewed: Yes Vital Signs Reviewed: Yes - Physical Exam Appears: Positive for: Non-toxic (but appears chronically ill), In Acute Distress (mild painful distress ) Head Exam: Positive for: ATRAUMATIC, NORMOCEPHALIC Skin: Positive for: Warm, Dry, Pallor Eye Exam: Positive for: EOMI, PERRL ENT: Negative for: Pharyngeal Erythema, Tonsillar Exudate Neck: Positive for: Painless ROM, Supple Cardiovascular/Chest: Positive for: Regular Rate, Rhythm. Negative for: Murmur Respiratory: Positive for: Normal Breath Sounds. Negative for: Respiratory Distress Gastrointestinal/Abdominal: Positive for: Soft. Negative for: Tenderness Back: Positive for: Other (kyphosis) Extremity: Positive for: Other (left lower extremity: ankle and foot diffusely edematous with marie wet blanching erythema extending from toes up till inferior lower leg, wet oval shaped ulcer on the medial malleolus ankle and foot about 3x4 inches with wet yellow base well demarcated, diffuse tenderness to palpation of foot, limited ROM of digits and at ankle, otherwise no deformity) Lymphatic: Negative for: Adenopathy Neurologic/Psych: Positive for: Alert. Negative for: Motor/Sensory Deficits - Laboratory Results Result Diagrams: 07/05/18 05:35 07/05/18 05:35 - ECG O2 Sat by Pulse Oximetry: 99 (RA) Pulse Ox Interpretation: Normal Medical Decision Making Medical Decision Making: Time: 1643 Initial Impression: Left foot cellulitis and open wound Initial Plan: --Type and screen --VBG --CMP --CRP --CBC with differentials --Erythrocyte sedimentation rate --PTT --PT --CXR --Blood cultures --Wound cultures --Left ankle XR --Left foot XR --Duplex lower extremities Labs demonstrate mild hyponatremia (chronic) and mild anemia. LEFT ankle xray: osteopenia no fx/dislocation Accession No. : [id number] Patient Name / ID : JUANITA QUEEN / [id number] Exam Date : 06/28/2018 17:06:35 ( Approved ) Study Comment : Sex / Age : F / 77Y Creator : Queenie Felix MD Dictator : Queenie Felix MD Instrument Installer : Forming Roll Operator : Queenie Felix MD Approver2 : Report Date : 06/28/2018 18:17:50 My Comment : Left lower extremity ultrasound. Indication: Left foot/ankle pain and swelling Technique: Duplex ultrasound evaluation of the left lower extremity Comparison: Bilateral lower extremity ultrasound performed 05/03/17 Findings: There is normal flow, compressibility, and augmentation of the left common femoral, femoral, and popliteal veins. The left posterior tibial vein appears patent. 2.7 x 0.9 x 1.2 cm left inguinal lymph node with evidence of internal fatty hilum. Impression: No evidence of deep venous thrombosis in the left lower extremity. Accession No. : [id number] Patient Name / ID : JUANITA QUEEN / [id number] Exam Date : 06/28/2018 17:28:44 ( Approved ) Study Comment : Sex / Age : F / 77Y Creator : Alex Flores MD Dictator : Alex Flores MD Instrument Installer : Forming Roll Operator : Alex Flores MD Approver2 : Report Date : 06/28/2018 18:30:09 My Comment : Date of service: 06/28/2018 PROCEDURE: Duplex ultrasound of the left lower extremity arteries. HISTORY: LEFT foot/ankle pain and swelling COMPARISON: None available. TECHNIQUE: Grayscale and duplex Doppler evaluation of the left common femoral, superficial femoral, popliteal, posterior tibial and dorsalis pedis arteries was performed.. FINDINGS: COMMON FEMORAL ARTERY: Heterogeneous plaque formation. Maximal flow velocity of 133.2 cm/s. SUPERFICIAL FEMORAL ARTERY:Heterogeneous plaque formation. Maximal flow velocity of 195.2 cm/s. This represents stenosis 50-69%. POPLITEAL ARTERY:Heterogeneous plaque formation. Maximal flow velocity of 128.1 cm/s. POSTERIOR TIBIAL ARTERY: Occluded maximal flow velocity of cm/s. Flow identified in the anterior tibial artery DORSALIS PEDIS ARTERY: Heterogeneous plaque formation. Maximal flow velocity of 186.9 cm/s. OTHER FINDINGS: None. IMPRESSION: Stenotic lesions/disease in the distal left SFA this approximates 50-69% karma rowing the vessel. Occluded posterior tibial artery. Elevated flows indicative of stenotic disease (50-69%) in the dorsalis pedis artery. CXR with no acute findings DW Dr García PMD DW Dr [facility] Podiatry resident LUI[facility] Cardiology Scribe Attestation: Documented by Ivis Marr, acting as a scribe for Pippa Gtz MD Provider Scribe Attestation: All medical record entries made by the Scribe were at my direction and pers onally dictated by me. I have reviewed the chart and agree that the record accurately reflects my personal performance of the history, physical exam, medical decision making, and the department course for this patient. I have also personally directed, reviewed, and agree with the discharge instructions and disposition. Disposition - Clinical Impression Clinical Impression: Cellulitis of left leg, Ulcer of left lower extremity, PVD (peripheral vascular disease) Counseled Patient/Family Regarding: Studies Performed, Diagnosis - Disposition Disposition Time: 19:00 Condition: FAIR - Pt Status Changed To: Hospital Disposition Of: Inpatient - Admit Certification Admit to Inpatient:: After my assessment, the patient will require hospitalization for at least two midnights. This is because of the severity of symptoms shown, intensity of services needed, and/or the medical risk in this patient being treated as an outpatient. - POA Present On Arrival: Pressure Ulcer
--- NOTE | 2018-06-28 17:48 | CP.PCM.CON ---
Addendum entered and electronically signed by Yuan Houston DPM 06/28/18 19:43: cloth hand number [id number] used for translation. Original Note: History of Present Illness - History of Present Illness History of Present Illness: Podiatry consult notes for attending Dr. Singer: 77 year old female with PMH of left LE wound debridement, Anxiety, Arthritis, Asthma, CAD, COPD, Dementia, Depression, HTN, Hypercholesterolemia, Osteoporosis seen and evaluated in the ED for left foot pain, redness and ulcerations. Patient was accompanied by her son in the bedside which states that she was treated from her leg ulcerations years ago. Patient son states that the 3 months ago it started to get worse. He states that she has a wound on the inner part of her left ankle and in the back of her left ankle as well. He states that 1 month ago she got admitted to [facility] for her ulcerations and left side cellulitis. He state sthat she got IV Abx and got improved and sen home. He states that Today Dr. Peters her primary doctor sent her to the [facility] as he noted that her legs got worse. He states that she is being cared for by a visiting nurse but over the past few weeks. Patient son states that she has oozing drainage from wound and other areas of her foot. Patient denies any trauma to her feet, Patient denies any other pedal complaint at this time. Patient denies any recent F/N/V/C or SOB. PMH: Anxiety, Arthritis, Asthma, CAD, COPD, Dementia, Depression, HTN, Hypercholesterolemia, Osteoporosis PMH: CABG, left LE wound debridement. Allergies: Aspirin, Iodine Social Hx: Denies smoking, EtOH or illicit drug use. Review of Systems - Review of Systems Review of Systems: As per HPI Past Patient History - Past Medical History & Family History Past Medical History?: Yes - Past Social History Alcohol: None Drugs: Denies - CARDIAC Hx Hypercholesterolemia: Yes Hx Hypertension: Yes - PULMONARY Hx Asthma: Yes Hx Chronic Obstructive Pulmonary Disease (COPD): Yes - NEUROLOGICAL Hx Dementia: Yes - HEENT Hx HEENT Problems: Yes (Allergic Rhinitis) - RENAL Hx Chronic Kidney Disease: No - ENDOCRINE/METABOLIC Hx Endocrine Disorders: No - HEMATOLOGICAL/ONCOLOGICAL Hx Human Immunodeficiency Virus (HIV): No - INTEGUMENTARY Hx Dermatological Problems: Yes Hx Cellulitis: Yes (LLE) - MUSCULOSKELETAL/RHEUMATOLOGICAL Hx Arthritis: Yes Hx Osteoporosis: Yes - GASTROINTESTINAL Hx Gastrointestinal Disorders: Yes Hx Constipation: Yes - GENITOURINARY/GYNECOLOGICAL Hx Genitourinary Disorders: Yes Hx Incontinence: Yes Hx Urinary Tract Infection: Yes - PSYCHIATRIC Hx Anxiety: Yes Hx Depression: Yes - SURGICAL HISTORY Hx Coronary Artery Bypass Graft: Yes - ANESTHESIA Hx Anesthesia: Yes Hx Anesthesia Reactions: No Hx Malignant Hyperthermia: No Meds Allergies/Adverse Reactions: Allergies Allergy/AdvReac Type Severity Reaction Status Date / Time aspirin Allergy Mild RASH Verified 05/07/17 17:16 iodine Allergy RASH Verified 05/07/17 17:16 Physical Exam - Constitutional Appears: Well, Non-toxic, No Acute Distress - Head Exam Head Exam: ATRAUMATIC, NORMOCEPHALIC - Extremities Exam Additional comments: LE focused exam: Vasc: DP/PT faintly palpable 1/4 b/l, Cap refill delayed < 4 sec to all digits, Temp gradient warm to warm from proximal to distal in the left side. And warm to cool from proximal to distal to the right side. +2 pitting edema on the right side and mild non pitting edema on the left side. Erythema extending from the left foot all the way above the midcalf on the left side. Neuro: Gross and protective sensations deminished b/l. Derm: Erythema extending from the left foot all the way above the midcalf on the left side. 2 ulcerations noted on the left side. 1st one is medial malleolar ulcer which is 9.5 X 4.0 X 0.2. Base is fibrogranular 70:30, Minimal serous drainage. No malodor, no probe to bone. No tunneling, undermining or tracking. 2nd one is posterior heel ulcer which is 4.5 X 2.0 X 0.3. Base is fibrogranular 80:20, Minimal serous drainage. No malodor, no probe to bone. No tunneling, undermining or tracking. both ulcers surrounded by erythema and non pitting edema. Positive clinical signs of active infection. Left inter-spaces 1-4 shows interdigital macerations. Toe nails elongated, thickened and dystrophic in all digits. MSK: Pain on palpating left LE. Pain on palpating the periwound areas. - Neurological Exam Neurological exam: Alert, Oriented x3 - Psychiatric Exam Psychiatric exam: Normal Affect, Normal Mood Results - Vital Signs Recent Vital Signs: Last Vital Signs Temp 98.2 F 06/28/18 16:23 Pulse 84 06/28/18 16:23 Resp 18 06/28/18 16:23 BP 142/64 06/28/18 16:23 Pulse Ox 99 06/28/18 16:54 Assessment & Plan - Assessment and Plan (Free Text) Assessment: 77 y/o F patient seen and evaluated in the ED for Left LE ulcerations, cellulitis and PVD. Plan: Patient seen and evaluated in the ED. Plan discussed in details with attending Dr. Singer. Chart, labs and vitals reviewed; Afebrile, WBCs 7.6 X-ray left foot reviewed: Diffuse osteoporosis, No evidence of Osteomyelitis. X-ray left ankle reviewed: Diffuse osteoporosis, Some erosions noted at the medial malleolous. LE venous duplex reviewed; No evidence of DVT. LE arterial duplex done; Stenotic lesions distal SFA 50-69% narrowing with occluded PT artery. Stenotic duisease in the DP artery 50-69% Wound culture obtained and sent to the lab. Patient will be admitted by the primary service for IV Abx. ID consulted. Vascular surgery consulted. Ulcer dressed usig bacitracin and DSD. Orderd Bactroban to be added to the dressing starting from tomorrow. Thanks you for consulting podiatry service. Podiatry will foolow up the patient while in house - Date & Time Date: 06/28/18 Time: 17:45
--- NOTE | 2018-06-28 18:19 | US ---
Left lower extremity ultrasound. Indication: Left foot/ankle pain and swelling Technique: Duplex ultrasound evaluation of the left lower extremity Comparison: Bilateral lower extremity ultrasound performed 05/03/17 Findings: There is normal flow, compressibility, and augmentation of the left common femoral, femoral, and popliteal veins. The left posterior tibial vein appears patent. 2.7 x 0.9 x 1.2 cm left inguinal lymph node with evidence of internal fatty hilum. Impression: No evidence of deep venous thrombosis in the left lower extremity.
[2018-06-28 18:32] LABS: VENOUS BLOOD GAS PCO2 46 mmHg (40-60); VENOUS BLOOD GAS PO2 21 mm/Hg (30-55)
--- NOTE | 2018-06-28 18:33 | US ---
Date of service: 06/28/2018 PROCEDURE: Duplex ultrasound of the left lower extremity arteries. HISTORY: LEFT foot/ankle pain and swelling COMPARISON: None available. TECHNIQUE: Grayscale and duplex Doppler evaluation of the left common femoral, superficial femoral, popliteal, posterior tibial and dorsalis pedis arteries was performed.. FINDINGS: COMMON FEMORAL ARTERY: Heterogeneous plaque formation. Maximal flow velocity of 133.2 cm/s. SUPERFICIAL FEMORAL ARTERY:Heterogeneous plaque formation. Maximal flow velocity of 195.2 cm/s. This represents stenosis 50-69%. POPLITEAL ARTERY:Heterogeneous plaque formation. Maximal flow velocity of 128.1 cm/s. POSTERIOR TIBIAL ARTERY: Occluded maximal flow velocity of cm/s. Flow identified in the anterior tibial artery DORSALIS PEDIS ARTERY: Heterogeneous plaque formation. Maximal flow velocity of 186.9 cm/s. OTHER FINDINGS: None. IMPRESSION: Stenotic lesions/disease in the distal left SFA this approximates 50-69% narrowing the vessel. Occluded posterior tibial artery. Elevated flows indicative of stenotic disease (50-69%) in the dorsalis pedis artery.
[2018-06-28 19:01] LABS: BASO % 0.6 % (0.0-2.0); EOS # 0.5 K/uL (0.0-0.7); HEMOGLOBIN 11.1 g/dL (12.0-16.0); LYMPH # 1.6 K/uL (1.0-4.3); LYMPH % 20.4 % (20.0-40.0); MEAN CELL VOLUME 94.1 fl (81.0-99.0); MEAN CORPUSCULAR HEMOGLOBIN 31.6 pg (27.0-31.0); MEAN CORPUSCULAR HGB CONC 33.6 g/dL (33.0-37.0); MEAN PLATELET VOLUME 7.8 fl (7.2-11.7); MONO # 0.9 K/uL (0.0-0.8); MONO % 11.2 % (0.0-10.0); NEUT # 4.6 K/uL (1.8-7.0); NEUT % 60.8 % (50.0-75.0); RBC 3.5 Mil/uL (3.80-5.20); RED CELL DISTRIBUTION WIDTH 14.5 % (11.5-14.5); WHITE BLOOD COUNT 7.6 K/uL (4.8-10.8)
[2018-06-28 19:09] LABS: ALB/GLOB RATIO 1.2 (1.0-2.1); ALBUMIN 3.9 g/dL (3.5-5.0); ALT/SGPT 20 U/L (9-52); AST/SGOT 32 U/L (14-36); BLOOD UREA NITROGEN 7 mg/dl (7-17); CALCIUM 10.1 mg/dL (8.4-10.2); GFR NON-AFRICAN AMERICAN > 60
[2018-06-28 19:10] LABS: PROTHROMBIN TIME 10.6 Seconds (9.8-13.1)
[2018-06-28 19:12] LABS: PARTIAL THROMBOPLASTIN TIME 32.3 Seconds (25.6-37.1)
[2018-06-28] MEDS ORDERED: Piperacillin/Tazobact 3.375 GM in Sodium Chloride 0.9% 100 ML IVPB STA (19:20)
[2018-06-28] MEDS ORDERED: Piperacillin/Tazobact 3.375 gm Inj IVPB ONE (19:53)
[2018-06-28] MEDS ORDERED: Vancomycin 1 g Inj ONE (21:27)
[2018-06-28] MEDS ORDERED: Patient's Own Med (Diclofenac Sodium [Voltaren] 1 APPL) TOP PRN (23:08)
[2018-06-29] MEDS: Divalproex 125 mg Sprinkle Capsule PO SCH ×3 (00:13→16:15)
[2018-06-29] MEDS: Piperacillin/Tazobact 3.375 GM in Sodium Chloride 0.9% 100 ML IVPB SCH ×3 (03:43→16:15)
[2018-06-29 05:26] LABS: BASO # 0.1 K/uL (0.0-0.2); BASO % 0.9 % (0.0-2.0); EOS # 0.6 K/uL (0.0-0.7); EOS % 8.2 % (0.0-4.0); HEMOGLOBIN 10.7 g/dL (12.0-16.0); LYMPH # 1.4 K/uL (1.0-4.3); LYMPH % 19.5 % (20.0-40.0); MEAN CELL VOLUME 93.6 fl (81.0-99.0); MEAN CORPUSCULAR HEMOGLOBIN 32.1 pg (27.0-31.0); MEAN CORPUSCULAR HGB CONC 34.3 g/dL (33.0-37.0); MEAN PLATELET VOLUME 7.4 fl (7.2-11.7); MONO # 0.9 K/uL (0.0-0.8); MONO % 12.3 % (0.0-10.0); NEUT # 4.3 K/uL (1.8-7.0); NEUT % 59.1 % (50.0-75.0); RBC 3.33 Mil/uL (3.80-5.20); WHITE BLOOD COUNT 7.3 K/uL (4.8-10.8)
[2018-06-29 05:27] LABS: PROTHROMBIN TIME 11.2 Seconds (9.8-13.1)
[2018-06-29 05:29] LABS: PARTIAL THROMBOPLASTIN TIME 32.7 Seconds (25.6-37.1)
[2018-06-29 06:32] LABS: ALB/GLOB RATIO 1.1 (1.0-2.1); ALBUMIN 3.3 g/dL (3.5-5.0); ALT/SGPT 15 U/L (9-52); AST/SGOT 24 U/L (14-36); BLOOD UREA NITROGEN 6 mg/dl (7-17); CALCIUM 9.8 mg/dL (8.4-10.2); GFR NON-AFRICAN AMERICAN > 60; HDL CHOLESTEROL 78 MG/DL (30-70); LDL CHOLESTEROL 53 mg/dL (0-129); T4 6.74 ug/dl (5.5-11.0)
--- NOTE | 2018-06-29 07:00 | CARD ---
APPROVED REPORT Date of service: 06/28/2018 EKG Measurement Heart [id number] NM [id number] <Conclusion> Sinus tachycardia Possible Inferior infarct, age undetermined Abnormal ECG
--- NOTE | 2018-06-29 07:37 | CP.PCM.PN ---
Subjective - Date & Time of Evaluation Date of Evaluation: 06/29/18 Time of Evaluation: 10:35 - Subjective Subjective: Podiatry progress notes for attending Dr. Singer: 77 year old female seen and evaluated in the bedside for left foot pain, redness and ulcerations. Patient was sleeping in her bed comfortably at the visit time. Patient states that she is still having pain in her left leg but it's less than yesterday. Patient denies any other pedal complaint at this time. Patient denies any overnight F/N/V/C or SOB. Objective - Vital Signs/Intake and Output Vital Signs (last 24 hours): Temp Pulse Resp BP Pulse Ox 98.1 F 107 H 19 122/57 L 97 06/28/18 23:40 06/28/18 23:40 06/29/18 00:17 06/29/18 00:43 06/29/18 00:17 - Medications Medications: Current Medications Albuterol/Ipratropium (Duoneb 3 Mg/0.5 Mg (3 Ml) Ud) 3 ml INH RTID CINDY Alprazolam (Xanax) 0.25 mg PO Q12 PRN PRN Reason: Anxiety Last Admin: 06/28/18 23:40 Dose: 0.25 mg Atorvastatin Calcium (Lipitor) 20 mg PO DAILY [facility] Collagenase (Santyl) 1 applic TOP DAILY [facility] Divalproex Sodium (Depakote Sprinkles) 125 mg PO BID CINDY Last Admin: 06/29/18 00:13 Dose: 125 mg Enoxaparin Sodium (Lovenox) 40 mg SC DAILY CINDY; Protocol Fluticasone Propionate (Flonase) 2 spr LA DAILY [facility] Vancomycin HCl 1 gm/ Sodium (Chloride) 250 mls @ 166.667 mls/hr IVPB Q12 CINDY; Protocol Piperacillin Sod/Tazobactam (Sod 3.375 gm/ Sodium Chloride) 100 mls @ 100 mls/hr IVPB Q6 CINDY; Protocol Last Admin: 06/29/18 03:43 Dose: 100 mls/hr Losartan Potassium (Cozaar) 25 mg PO DAILY [facility] Mirtazapine (Remeron) 15 mg PO HS CINDY Last Admin: 06/28/18 23:40 Dose: 15 mg Montelukast Sodium (Singulair) 10 mg PO HS [facility] Morphine Sulfate (Morphine) 2 mg IVP Q4 PRN PRN Reason: Pain, severe (8-10) Last Admin: 06/28/18 23:40 Dose: 2 mg Mupirocin (Bactroban Ointment) 1 applic TOP BID [facility] Pantoprazole Sodium (Protonix Ec Tab) 40 mg PO DAILY [facility] Sodium Chloride (Sodium Chloride Tab) 2 gm PO Q12 [facility] Tramadol HCl (Ultram) 50 mg PO Q6 PRN PRN Reason: Pain, moderate (4-7) Last Admin: 06/29/18 03:46 Dose: 50 mg - Labs Labs: 06/29/18 05:00 06/29/18 05:00 PT 11.2 Seconds (9.8-13.1) 06/29/18 05:00 INR 1.0 06/29/18 05:00 APTT 32.7 Seconds (25.6-37.1) 06/29/18 05:00 - Constitutional Appears: Well, Non-toxic - Head Exam Head Exam: ATRAUMATIC, NORMOCEPHALIC - Extremities Exam Additional comments: LE focused exam: Vasc: DP/PT faintly palpable 1/4 b/l, Cap refill delayed = 4 sec to all digits, Temp gradient warm to warm from proximal to distal in the left side. And warm to cool from proximal to distal to the right side. +2 pitting edema on the right side and mild non pitting edema on the left side. Erythema extending from the left foot to the mid-calf on the left side. rythema noted to be less than yesterday. Neuro: Gross and protective sensations deminished b/l. Derm: Erythema extending from the left foot to the midcalf on the left side. 2 ulcerations noted on the left side. 1st one is medial malleolar ulcer which is 9.5 X 4.0 X 0.2. Base is fibrogranular 70:30, Minimal serous drainage. No malodor, no probe to bone. No tunneling, undermining or tracking. 2nd one is posterior heel ulcer which is 4.5 X 2.0 X 0.3. Base is fibrogranular 80:20, Minimal serous drainage. No malodor, no probe to bone. No tunneling, undermining or tracking. both ulcers surrounded by erythema (less than yesterday) and mild non pitting edema. Positive clinical signs of active infection. Left inter-spaces 1-4 shows interdigital macerations. Toe nails elongated, thickened and dystrophic in all digits. MSK: Pain on palpating left LE. Pain on palpating the dianna-wound areas. - Neurological Exam Neurological Exam: Alert, Awake, Oriented x3 - Psychiatric Exam Psychiatric exam: Normal Affect, Normal Mood Assessment and Plan - Assessment and Plan (Free Text) Assessment: 77 y/o F patient seen and evaluated in the ED for Left LE ulcerations, cellulitis and PVD. Plan: Patient seen and evaluated in the bedside. Plan discussed in details with attending Dr. Singer. Chart, labs and vitals reviewed; Afebrile, WBCs 7.3 X-ray left foot reviewed: Diffuse osteoporosis, No evidence of Osteomyelitis. X-ray left ankle reviewed: Diffuse osteoporosis, Some erosions noted at the medial malleolous. LE venous duplex reviewed; No evidence of DVT. LE arterial duplex done; Stenotic lesions distal SFA 50-69% narrowing with occluded PT artery. Stenotic duisease in the DP artery 50-69% Wound culture obtained and sent to the lab. Patient will be admitted by the primary service for IV Abx. ID onboard. Vascular surgery consulted. Ulcer dressed usig bactroban and DSD. Thanks you for consulting podiatry service. Podiatry will follow up the patient while in house
[2018-06-29] MEDS: Albuterol-Ipratrop 3 mg / 0.5 (3 ml) UD INH SCH ×3 (07:45→19:10)
[2018-06-29 08:32] LABS: URINE BILIRUBIN NEGATIVE (NEGATIVE); URINE BLOOD NEGATIVE (NEGATIVE); URINE CLARITY CLEAR (Clear); URINE COLOR COLORLESS (YELLOW); URINE GLUCOSE (UA) NEG (Normal); URINE LEUKOCYTE ESTERASE NEG Leu/uL (Negative); URINE PROTEIN NEGATIVE (NEGATIVE); URINE UROBILINOGEN 0.2-1.0 mg/dL (0.2-1.0)
--- NOTE | 2018-06-29 08:35 | RAD ---
Date of service: 06/28/2018 PROCEDURE: CHEST RADIOGRAPH, 1 VIEW HISTORY: cellulitis COMPARISON: Portable chest 07/25/2017. FINDINGS: LUNGS: Right apex is obscured by lower face with the patient is unable to adequately position. Patient also rotated toward the right. Visualized air king appear clear bilaterally. PLEURA: No pleural effusion or pneumothorax identified grossly bilaterally. Right apex is obscured as discussed above. CARDIOVASCULAR: Cardiomediastinal silhouette appears stable including sternotomy wires and prosthetic cardiac valve. No pulmonary vascular derangement appreciated. OSSEOUS STRUCTURES: No significant abnormalities. VISUALIZED UPPER ABDOMEN: Normal. OTHER FINDINGS: None. IMPRESSION: No definite interval cardiopulmonary disease identified on acute basis. Sternotomy wires and prosthetic cardiac valve are reiterated. Patient rotated toward the right with lower face also not adequately positioned obscuring the right apex.
--- NOTE | 2018-06-29 08:36 | RAD ---
Date of service: 06/28/2018 PROCEDURE: Left Ankle Radiographs. HISTORY: ankle swelling infection COMPARISON: None FINDINGS: BONES: No acute fracture or destructive bony lesion identified. Diffuse osteopenia suggests osteoporosis. JOINTS: Tibiotalar joint fusion identified. Subtalar joint is stable and unremarkable grossly. No dislocation or subluxation apparent grossly. SOFT TISSUES: Vascular and additional soft tissue calcifications are identified which are nonspecific but could reflect potential autoimmune or other inflammatory process once again. OTHER FINDINGS: None. IMPRESSION: No definite acute fracture dislocation appreciated at the left ankle. Tibiotalar joint fusion reiterated as well as soft tissue vascular and additional calcifications as discussed above. Diffuse osteopenia suggests osteoporosis.
--- NOTE | 2018-06-29 08:44 | RAD ---
Date of service: 06/28/2018 PROCEDURE: Left Foot Radiographs. HISTORY: foot swelling infection ulceration COMPARISON: Left foot radiographs 05/04/2017. FINDINGS: BONES: Diffuse osteopenia suggests osteoporosis. No definite acute displaced fracture. No dislocation identified. No destructive bony lesion appreciated diffuse degenerative joint disease seen throughout forefoot and hindfoot joint but especially at the midfoot joints or prominent articular cortical sclerosis and joint space narrowing are identified. Soft tissues reflect vascular calcifications and plantar greater than dorsal soft tissue edema. No retained radiodense foreign body or emphysema soft tissue changes identified. Vascular calcifications are also seen in the soft tissues as well as additional more superficial calcifications of indeterminate etiology once again. Tibiotalar joint fusion reiterated. JOINTS: As above. SOFT TISSUES: As above. OTHER FINDINGS: None. IMPRESSION: Soft tissue edema suggests cellulitis as clinically known. Diffuse osteopenia is again appreciate suggesting osteoporosis. Tibiotalar joint effusion reiterated. No acute fracture grossly evident or dislocation although diffuse osteopenia suggests osteoporosis.
[2018-06-29] MEDS ORDERED: Patient's Own Med (Rosuvastatin Calcium [Crestor] 10 MG) PO SCH (09:00)
[2018-06-29] MEDS ORDERED: IRBESARTAN 75 MG PO SCH (09:00)
[2018-06-29] MEDS: Enoxaparin 40 mg Syringe SC SCH (10:10)
[2018-06-29] MEDS: Santyl Collagenase OINTMENT TOP SCH (10:11)
[2018-06-29] MEDS: Pantoprazole 40 mg EC Tab PO SCH (10:11)
--- NOTE | 2018-06-29 10:20 | CP.PCM.CON ---
History of Present Illness - History of Present Illness History of Present Illness: Infectious Disease Consultation Note- Asked to see this patient at the request of for infection of the leg/foot. HPI- Patient is a 77 year old female with PMH of arthritis, asthma, CAD s/p CABG, HTN, HLD, who was admitted for left lower leg ulcer , redness and pain. according to the patietn this ulcer has been present for few months now but it has been getting progressively worse as per medical records she has a wound on the inner part of her left ankle and in the back of her left ankle as well and 1 month ago she got admitted to [facility] for her ulcerations and left side cellulitis and apparently received got IV Abx and got improved and was sent home. Apparently pt. was seen by her PMD who adbised her to be admitted here since her ulcer and cellulitis was getting worse and she had oozing from the ulcer as well. Pt. denies any fever or chills but states the foot and ankle region is very tender. PMH: Anxiety, Arthritis, Asthma, CAD, COPD, Dementia, Depression, HTN, Hypercholesterolemia, Osteoporosis PMH: CABG, left LE wound debridement. Allergies: Aspirin, Iodine Social Hx: Denies smoking, EtOH or illicit drug use. Review of Systems - Review of Systems Review of Systems: ROS- denies any fever or chills, denies any MCKEON, denies any cough or sob, denies any chest pain, denies any nausea or vomitjng, denies any abd. pain left ankle open ulcer with surrounding redness and very tender to touch denies any injury to the area Past Patient History - Past Medical History & Family History Past Medical History?: Yes - Past Social History Smoking Status: Never Smoked Alcohol: None Drugs: Denies Home Situation {Lives}: With Family - CARDIAC Hx Cardiac Disorders: Yes Hx Hypercholesterolemia: Yes Hx Hypertension: Yes Other/Comment: CABG - PULMONARY Hx Respiratory Disorders: Yes Hx Asthma: Yes Hx Chronic Obstructive Pulmonary Disease (COPD): Yes - NEUROLOGICAL Hx Neurological Disorder: Yes Hx Dementia: Yes - HEENT Hx HEENT Problems: Yes (Allergic Rhinitis) - RENAL Hx Chronic Kidney Disease: No - ENDOCRINE/METABOLIC Hx Endocrine Disorders: No - HEMATOLOGICAL/ONCOLOGICAL Hx Blood Disorders: No - INTEGUMENTARY Hx Dermatological Problems: Yes Hx Cellulitis: Yes (LLE) - MUSCULOSKELETAL/RHEUMATOLOGICAL Hx Musculoskeletal Disorders: Yes Hx Arthritis: Yes Hx Falls: Yes Hx Osteoarthritis: Yes Hx Osteoporosis: Yes - GASTROINTESTINAL Hx Gastrointestinal Disorders: Yes Hx Constipation: Yes - GENITOURINARY/GYNECOLOGICAL Hx Genitourinary Disorders: Yes Hx Incontinence: Yes Hx Urinary Tract Infection: Yes - PSYCHIATRIC Hx Psychophysiologic Disorder: Yes Hx Anxiety: Yes Hx Depression: Yes Hx Substance Use: No - SURGICAL HISTORY Hx Surgeries: Yes Hx Coronary Artery Bypass Graft: Yes - ANESTHESIA Hx Anesthesia: Yes Hx Anesthesia Reactions: No Hx Malignant Hyperthermia: No Meds Allergies/Adverse Reactions: Allergies Allergy/AdvReac Type Severity Reaction Status Date / Time aspirin Allergy Mild RASH Verified 05/07/17 17:16 iodine Allergy RASH Verified 05/07/17 17:16 - Medications Medications: Current Medications Albuterol/Ipratropium (Duoneb 3 Mg/0.5 Mg (3 Ml) Ud) 3 ml INH RTID [facility] Last Admin: 06/29/18 07:45 Dose: 3 ml Alprazolam (Xanax) 0.25 mg PO Q12 PRN PRN Reason: Anxiety Last Admin: 06/28/18 23:40 Dose: 0.25 mg Atorvastatin Calcium (Lipitor) 20 mg PO DAILY [facility] Last Admin: 06/29/18 10:10 Dose: 20 mg Collagenase (Santyl) 1 applic TOP DAILY [facility] Last Admin: 06/29/18 10:11 Dose: 1 applic Divalproex Sodium (Depakote Sprinkles) 125 mg PO BID [facility] Last Admin: 06/29/18 10:08 Dose: 125 mg Enoxaparin Sodium (Lovenox) 40 mg SC DAILY [facility]; Protocol Last Admin: 06/29/18 10:10 Dose: 40 mg Fluticasone Propionate (Flonase) 2 spr LA DAILY [facility] Last Admin: 06/29/18 10:10 Dose: 2 spr Vancomycin HCl 1 gm/ Sodium (Chloride) 250 mls @ 166.667 mls/hr IVPB Q12 [facility]; Protocol Last Admin: 06/29/18 10:13 Dose: 166.667 mls/hr Piperacillin Sod/Tazobactam (Sod 3.375 gm/ Sodium Chloride) 100 mls @ 100 mls/hr IVPB Q6 [facility]INDY; Protocol Last Admin: 06/29/18 10:12 Dose: 100 mls/hr Losartan Potassium (Cozaar) 25 mg PO DAILY [facility] Last Admin: 06/29/18 10:08 Dose: 25 mg Mirtazapine (Remeron) 15 mg PO HS [facility] Last Admin: 06/28/18 23:40 Dose: 15 mg Montelukast Sodium (Singulair) 10 mg PO HS [facility] Morphine Sulfate (Morphine) 2 mg IVP Q4 PRN PRN Reason: Pain, severe (8-10) Last Admin: 06/28/18 23:40 Dose: 2 mg Mupirocin (Bactroban Ointment) 1 applic TOP BID [facility] Last Admin: 06/29/18 10:06 Dose: Not Given Pantoprazole Sodium (Protonix Ec Tab) 40 mg PO DAILY [facility] Last Admin: 06/29/18 10:11 Dose: 40 mg Sodium Chloride (Sodium Chloride Tab) 2 gm PO Q12 [facility] Last Admin: 06/29/18 10:12 Dose: 2 gm Tramadol HCl (Ultram) 50 mg PO Q6 PRN PRN Reason: Pain, moderate (4-7) Last Admin: 06/29/18 03:46 Dose: 50 mg Physical Exam - Constitutional Appears: Non-toxic, No Acute Distress - Head Exam Head Exam: ATRAUMATIC - Eye Exam Eye Exam: EOMI, PERRL - ENT Exam ENT Exam: Normal Oropharynx - Neck Exam Neck exam: Positive for: Full Rom - Respiratory Exam Respiratory Exam: Clear to Auscultation Bilateral, NORMAL BREATHING PATTERN - Cardiovascular Exam Cardiovascular Exam: RRR, +S1, +S2 - GI/Abdominal Exam GI & Abdominal Exam: Normal Bowel Sounds, Soft Additional comments: NT, ND - Extremities Exam Additional comments: left medial ankle region with 6 x 7 cm round open ulcer with scant yellow discharge, no malodor, + surrounding erythema + tenderness to touch - Neurological Exam Neurological exam: Alert, Oriented x3 Results - Vital Signs Recent Vital Signs: Last Vital Signs Temp 97.5 F L 06/29/18 07:45 Pulse 69 06/29/18 10:08 Resp 18 06/29/18 07:45 BP 125/61 06/29/18 10:08 Pulse Ox 97 06/29/18 07:45 - Labs Result Diagrams: 06/29/18 05:00 06/29/18 05:00 Labs: Laboratory Results - last 24 hr 06/28/18 06/28/18 06/28/18 18:00 18:00 18:00 WBC 7.6 RBC 3.50 L Hgb 11.1 L Hct 32.9 L MCV 94.1 MCH 31.6 H MCHC 33.6 RDW 14.5 Plt Count 359 MPV 7.8 Neut % (Auto) 60.8 Lymph % (Auto) 20.4 [place] % (Auto) 11.2 H Eos % (Auto) 7.0 H Baso % (Auto) 0.6 Neut # (Auto) 4.6 Lymph # (Auto) 1.6 [place] # (Auto) 0.9 H Eos # (Auto) 0.5 Baso # (Auto) 0.0 ESR 16 PT 10.6 INR 1.0 APTT 32.3 pO2 VBG pH VBG pCO2 VBG HCO3 VBG Total CO2 VBG O2 Sat (Calc) VBG Base Excess VBG Potassium Glucose Lactate FiO2 Sodium 129 L Potassium 5.0 Chloride 91 L Carbon Dioxide 29 Anion Gap 14 BUN 7 Creatinine 0.5 L Est GFR ( Amer) > 60 Est GFR (Non-Af Amer) > 60 Random Glucose 93 Calcium 10.1 Total Bilirubin 0.2 AST 32 ALT 20 Alkaline Phosphatase 111 Total Protein 7.2 Albumin 3.9 Globulin 3.3 Albumin/Globulin Ratio 1.2 Triglycerides Cholesterol LDL Cholesterol Direct HDL Cholesterol Thyroxine (T4) TSH 3rd Generation Venous Blood Potassium Urine Color Urine Clarity Urine pH Ur Specific [place] Urine Protein Urine Glucose (UA) Urine Ketones Urine Blood Urine Nitrate Urine Bilirubin Urine Urobilinogen Ur Leukocyte Esterase Urine RBC (Auto) Urine Microscopic WBC Blood Type Blood Type Confirm Antibody Screen BBK History Checked 06/28/18 06/28/18 06/28/18 18:00 18:25 21:00 WBC RBC Hgb Hct MCV MCH MCHC RDW Plt Count MPV Neut % (Auto) Lymph % (Auto) [place] % (Auto) Eos % (Auto) Baso % (Auto) Neut # (Auto) Lymph # (Auto) [place] # (Auto) Eos # (Auto) Baso # (Auto) ESR PT INR APTT pO2 21 L VBG pH 7.40 VBG pCO2 46 VBG HCO3 25.6 VBG Total CO2 29.9 H VBG O2 Sat (Calc) 38.4 L VBG Base Excess 3.0 H VBG Potassium 4.9 Glucose 97 Lactate 1.2 FiO2 21.0 Sodium 126.0 L Potassium Chloride 94.0 L Carbon Dioxide Anion Gap BUN Creatinine Est GFR ( Amer) Est GFR (Non-Af Amer) Random Glucose Calcium Total Bilirubin AST ALT Alkaline Phosphatase Total Protein Albumin Globulin Albumin/Globulin Ratio Triglycerides Cholesterol LDL Cholesterol Direct HDL Cholesterol Thyroxine (T4) TSH 3rd Generation Venous Blood Potassium 4.9 Urine Color Urine Clarity Urine pH Ur Specific [place] Urine Protein Urine Glucose (UA) Urine Ketones Urine Blood Urine Nitrate Urine Bilirubin Urine Urobilinogen Ur Leukocyte Esterase Urine RBC (Auto) Urine Microscopic WBC Blood Type O NEGATIVE Blood Type Confirm O NEGATIVE Antibody Screen Negative BBK History Checked No verified bt 06/29/18 06/29/18 06/29/18 05:00 05:00 05:00 WBC 7.3 RBC 3.33 L Hgb 10.7 L Hct 31.1 L MCV 93.6 MCH 32.1 H MCHC 34.3 RDW 14.0 Plt Count 350 MPV 7.4 Neut % (Auto) 59.1 Lymph % (Auto) 19.5 L [place] % (Auto) 12.3 H Eos % (Auto) 8.2 H Baso % (Auto) 0.9 Neut # (Auto) 4.3 Lymph # (Auto) 1.4 [place] # (Auto) 0.9 H Eos # (Auto) 0.6 Baso # (Auto) 0.1 ESR PT 11.2 INR 1.0 APTT 32.7 pO2 VBG pH VBG pCO2 VBG HCO3 VBG Total CO2 VBG O2 Sat (Calc) VBG Base Excess VBG Potassium Glucose Lactate FiO2 Sodium 134 Potassium 4.6 Chloride 98 Carbon Dioxide 30 Anion Gap 11 BUN 6 L Creatinine 0.6 L Est GFR ( Amer) > 60 Est GFR (Non-Af Amer) > 60 Random Glucose 85 Calcium 9.8 Total Bilirubin 0.3 AST 24 ALT 15 Alkaline Phosphatase 87 Total Protein 6.3 Albumin 3.3 L Globulin 3.0 Albumin/Globulin Ratio 1.1 Triglycerides 45 D Cholesterol 158 LDL Cholesterol Direct 53 HDL Cholesterol 78 H Thyroxine (T4) 6.74 TSH 3rd Generation 3.64 Venous Blood Potassium Urine Color Urine Clarity Urine pH Ur Specific [place] Urine Protein Urine Glucose (UA) Urine Ketones Urine Blood Urine Nitrate Urine Bilirubin Urine Urobilinogen Ur Leukocyte Esterase Urine RBC (Auto) Urine Microscopic WBC Blood Type Blood Type Confirm Antibody Screen BBK History Checked 06/29/18 08:05 WBC RBC Hgb Hct MCV MCH MCHC RDW Plt Count MPV Neut % (Auto) Lymph % (Auto) [place] % (Auto) Eos % (Auto) Baso % (Auto) Neut # (Auto) Lymph # (Auto) [place] # (Auto) Eos # (Auto) Baso # (Auto) ESR PT INR APTT pO2 VBG pH VBG pCO2 VBG HCO3 VBG Total CO2 VBG O2 Sat (Calc) VBG Base Excess VBG Potassium Glucose Lactate FiO2 Sodium Potassium Chloride Carbon Dioxide Anion Gap BUN Creatinine Est GFR ( Amer) Est GFR (Non-Af Amer) Random Glucose Calcium Total Bilirubin AST ALT Alkaline Phosphatase Total Protein Albumin Globulin Albumin/Globulin Ratio Triglycerides Cholesterol LDL Cholesterol Direct HDL Cholesterol Thyroxine (T4) TSH 3rd Generation Venous Blood Potassium Urine Color Colorless Urine Clarity Clear Urine pH 7.0 Ur Specific [place] 1.005 Urine Protein Negative Urine Glucose (UA) Neg Urine Ketones Negative Urine Blood Negative Urine Nitrate Negative Urine Bilirubin Negative Urine Urobilinogen 0.2-1.0 Ur Leukocyte Esterase Neg Urine RBC (Auto) 1 Urine Microscopic WBC 1 Blood Type Blood Type Confirm Antibody Screen BBK History Checked Laboratory Results - last 72 hr 06/28/18 06/28/18 06/28/18 18:00 18:00 18:00 WBC 7.6 RBC 3.50 L Hgb 11.1 L Hct 32.9 L MCV 94.1 MCH 31.6 H MCHC 33.6 RDW 14.5 Plt Count 359 MPV 7.8 Neut % (Auto) 60.8 Lymph % (Auto) 20.4 [place] % (Auto) 11.2 H Eos % (Auto) 7.0 H Baso % (Auto) 0.6 Neut # (Auto) 4.6 Lymph # (Auto) 1.6 [place] # (Auto) 0.9 H Eos # (Auto) 0.5 Baso # (Auto) 0.0 ESR 16 PT 10.6 INR 1.0 APTT 32.3 pO2 VBG pH VBG pCO2 VBG HCO3 VBG Total CO2 VBG O2 Sat (Calc) VBG Base Excess VBG Potassium Glucose Lactate FiO2 Sodium 129 L Potassium 5.0 Chloride 91 L Carbon Dioxide 29 Anion Gap 14 BUN 7 Creatinine 0.5 L Est GFR ( Amer) > 60 Est GFR (Non-Af Amer) > 60 Random Glucose 93 Calcium 10.1 Total Bilirubin 0.2 AST 32 ALT 20 Alkaline Phosphatase 111 C-Reactive Protein < 5.00 Total Protein 7.2 Albumin 3.9 Globulin 3.3 Albumin/Globulin Ratio 1.2 Triglycerides Cholesterol LDL Cholesterol Direct HDL Cholesterol Thyroxine (T4) TSH 3rd Generation Venous Blood Potassium Urine Color Urine Clarity Urine pH Ur Specific [place] Urine Protein Urine Glucose (UA) Urine Ketones Urine Blood Urine Nitrate Urine Bilirubin Urine Urobilinogen Ur Leukocyte Esterase Urine RBC (Auto) Urine Microscopic WBC Blood Type Blood Type Confirm Antibody Screen BBK History Checked 06/28/18 06/28/18 06/28/18 18:00 18:25 21:00 WBC RBC Hgb Hct MCV MCH MCHC RDW Plt Count MPV Neut % (Auto) Lymph % (Auto) [place] % (Auto) Eos % (Auto) Baso % (Auto) Neut # (Auto) Lymph # (Auto) [place] # (Auto) Eos # (Auto) Baso # (Auto) ESR PT INR APTT pO2 21 L VBG pH 7.40 VBG pCO2 46 VBG HCO3 25.6 VBG Total CO2 29.9 H VBG O2 Sat (Calc) 38.4 L VBG Base Excess 3.0 H VBG Potassium 4.9 Glucose 97 Lactate 1.2 FiO2 21.0 Sodium 126.0 L Potassium Chloride 94.0 L Carbon Dioxide Anion Gap BUN Creatinine Est GFR ( Amer) Est GFR (Non-Af Amer) Random Glucose Calcium Total Bilirubin AST ALT Alkaline Phosphatase C-Reactive Protein Total Protein Albumin Globulin Albumin/Globulin Ratio Triglycerides Cholesterol LDL Cholesterol Direct HDL Cholesterol Thyroxine (T4) TSH 3rd Generation Venous Blood Potassium 4.9 Urine Color Urine Clarity Urine pH Ur Specific [place] Urine Protein Urine Glucose (UA) Urine Ketones Urine Blood Urine Nitrate Urine Bilirubin Urine Urobilinogen Ur Leukocyte Esterase Urine RBC (Auto) Urine Microscopic WBC Blood Type O NEGATIVE Blood Type Confirm O NEGATIVE Antibody Screen Negative BBK History Checked No verified bt 06/29/18 06/29/18 06/29/18 05:00 05:00 05:00 WBC 7.3 RBC 3.33 L Hgb 10.7 L Hct 31.1 L MCV 93.6 MCH 32.1 H MCHC 34.3 RDW 14.0 Plt Count 350 MPV 7.4 Neut % (Auto) 59.1 Lymph % (Auto) 19.5 L [place] % (Auto) 12.3 H Eos % (Auto) 8.2 H Baso % (Auto) 0.9 Neut # (Auto) 4.3 Lymph # (Auto) 1.4 [place] # (Auto) 0.9 H Eos # (Auto) 0.6 Baso # (Auto) 0.1 ESR PT 11.2 INR 1.0 APTT 32.7 pO2 VBG pH VBG pCO2 VBG HCO3 VBG Total CO2 VBG O2 Sat (Calc) VBG Base Excess VBG Potassium Glucose Lactate FiO2 Sodium 134 Potassium 4.6 Chloride 98 Carbon Dioxide 30 Anion Gap 11 BUN 6 L Creatinine 0.6 L Est GFR ( Amer) > 60 Est GFR (Non-Af Amer) > 60 Random Glucose 85 Calcium 9.8 Total Bilirubin 0.3 AST 24 ALT 15 Alkaline Phosphatase 87 C-Reactive Protein Total Protein 6.3 Albumin 3.3 L Globulin 3.0 Albumin/Globulin Ratio 1.1 Triglycerides 45 D Cholesterol 158 LDL Cholesterol Direct 53 HDL Cholesterol 78 H Thyroxine (T4) 6.74 TSH 3rd Generation 3.64 Venous Blood Potassium Urine Color Urine Clarity Urine pH Ur Specific [place] Urine Protein Urine Glucose (UA) Urine Ketones Urine Blood Urine Nitrate Urine Bilirubin Urine Urobilinogen Ur Leukocyte Esterase Urine RBC (Auto) Urine Microscopic WBC Blood Type Blood Type Confirm Antibody Screen BBK History Checked 06/29/18 08:05 WBC RBC Hgb Hct MCV MCH MCHC RDW Plt Count MPV Neut % (Auto) Lymph % (Auto) [place] % (Auto) Eos % (Auto) Baso % (Auto) Neut # (Auto) Lymph # (Auto) [place] # (Auto) Eos # (Auto) Baso # (Auto) ESR PT INR APTT pO2 VBG pH VBG pCO2 VBG HCO3 VBG Total CO2 VBG O2 Sat (Calc) VBG Base Excess VBG Potassium Glucose Lactate FiO2 Sodium Potassium Chloride Carbon Dioxide Anion Gap BUN Creatinine Est GFR ( Amer) Est GFR (Non-Af Amer) Random Glucose Calcium Total Bilirubin AST ALT Alkaline Phosphatase C-Reactive Protein Total Protein Albumin Globulin Albumin/Globulin Ratio Triglycerides Cholesterol LDL Cholesterol Direct HDL Cholesterol Thyroxine (T4) TSH 3rd Generation Venous Blood Potassium Urine Color Colorless Urine Clarity Clear Urine pH 7.0 Ur Specific [place] 1.005 Urine Protein Negative Urine Glucose (UA) Neg Urine Ketones Negative Urine Blood Negative Urine Nitrate Negative Urine Bilirubin Negative Urine Urobilinogen 0.2-1.0 Ur Leukocyte Esterase Neg Urine RBC (Auto) 1 Urine Microscopic WBC 1 Blood Type Blood Type Confirm Antibody Screen BBK History Checked Microbiology 06/28/18 18:51 Foot - Left Gram Stain - Final Accession No. : [id number] Patient Name / ID : JUANITA QUEEN / [id number] Exam Date : 06/28/2018 18:24:54 ( Addendum_Approved ) Study Comment : Sex / Age : F / 77Y Creator : day lyles Dictator : Aman Faye MD Summer Sessions Director : Bit Welder : Aman Faye MD Approver2 : Report Date : 06/28/2018 18:47:32 My Comment : * ADDENDUM: Examination was compared prior left ankle radiographs 05/07/2017. [ Addendum Report Added by Aman Faye MD at 06/29/2018 08:37:40 ] Date of service: 06/28/2018 PROCEDURE: Left Ankle Radiographs. HISTORY: ankle swelling infection COMPARISON: None FINDINGS: BONES: No acute fracture or destructive bony lesion identified. Diffuse osteopenia suggests osteoporosis. JOINTS: Tibiotalar joint fusion identified. Subtalar joint is stable and unremarkable grossly. No dislocation or subluxation apparent grossly. SOFT TISSUES: Vascular and additional soft tissue calcifications are identified which are nonspecific but could reflect potential autoimmune or other inflammatory process once again. OTHER FINDINGS: None. IMPRESSION: No definite acute fracture dislocation appreciated at the left ankle. Tibiotalar joint fusion reiterated as well as soft tissue vascular and adam tional calcifications as discussed above. Diffuse osteopenia suggests osteoporosis. Accession No. : [id number] Patient Name / ID : JUANITA QUEEN / [id number] Exam Date : 06/28/2018 18:24:54 ( Approved ) Study Comment : Sex / Age : F / 77Y Creator : day lyles Dictator : Aman Faye MD Summer Sessions Director : Bit Welder : Aman Faye MD Approver2 : Report Date : 06/28/2018 18:47:33 My Comment : Date of service: 06/28/2018 PROCEDURE: CHEST RADIOGRAPH, 1 VIEW HISTORY: cellulitis COMPARISON: Portable chest 07/25/2017. FINDINGS: LUNGS: Right apex is obscured by lower face with the patient is unable to adequately position. Patient also rotated toward the right. Visualized air king appear clear bilaterally. PLEURA: No pleural effusion or pneumothorax identified grossly bilaterally. Right apex is obscured as discussed above. CARDIOVASCULAR: Cardiomediastinal silhouette appears stable including sternotomy wires and prosthetic cardiac valve. No pulmonary vascular derangement appreciated. OSSEOUS STRUCTURES: No significant abnormalities. VISUALIZED UPPER ABDOMEN: Normal. OTHER FINDINGS: None. IMPRESSION: No definite interval cardiopulmonary disease identified on acute basis. Sternot sylvester wires and prosthetic cardiac valve are reiterated. Patient rotated toward the right with lower face also not adequately positioned obscuring the right apex. Accession No. : [id number] Patient Name / ID : JUANITA QUEEN / [id number] Exam Date : 06/28/2018 18:24:54 ( Approved ) Study Comment : Sex / Age : F / 77Y Creator : day lyles Dictator : Aman Faye MD Summer Sessions Director : Bit Welder : Aman Faye MD Approver2 : Report Date : 06/28/2018 18:47:32 My Comment : Date of service: 06/28/2018 PROCEDURE: Left Foot Radiographs. HISTORY: foot swelling infection ulceration COMPARISON: Left foot radiographs 05/04/2017. FINDINGS: BONES: Diffuse osteopenia suggests osteoporosis. No definite acute displaced fracture. No dislocation identified. No destructive bony lesion appreciated diffuse degenerative joint disease seen throughout forefoot and hindfoot joint but especially at the midfoot joints or prominent articular cortical sclerosis and joint space narrowing are identified. Soft tissues reflect vascular calcifications and plantar greater than dorsal soft tissue edema. No retained radiodense foreign body or emphysema soft tissue changes identified. Vascular calcifications are also seen in the soft tissues as well as additional more superficial calcifications of indeterminate etiology once again. Tibiotalar joint fusion reiterated. JOINTS: As above. SOFT TISSUES: As above. OTHER FINDINGS: None. IMPRESSION: Soft tissue edema suggests cellulitis as clinically known. Diffuse osteopenia is again appreciate suggesting osteoporosis. Tibiotalar joint effusion reiterated. No acute fracture grossly evident or dislocation although diffuse osteopenia suggests osteoporosis.Accession No. : [id number] Patient Name / ID : JUANITA QUEEN / [id number] Exam Date : 06/28/2018 17:28:44 ( Approved ) Study Comment : Sex / Age : F / 77Y Creator : Alex Flores MD Dictator : Alex Flores MD Summer Sessions Director : Bit Welder : Alex Flores MD Approver2 : Report Date : 06/28/2018 18:30:09 My Comment : Date of service: 06/28/2018 PROCEDURE: Duplex ultrasound of the left lower extremity arteries. HISTORY: LEFT foot/ankle pain and swelling COMPARISON: None available. TECHNIQUE: Grayscale and duplex Doppler evaluation of the left common femoral, superficial femoral, popliteal, posterior tibial and dorsalis pedis arteries was performed.. FINDINGS: COMMON FEMORAL ARTERY: Heterogeneous plaque formation. Maximal flow velocity of 133.2 cm/s. SUPERFICIAL FEMORAL ARTERY:Heterogeneous plaque formation. Maximal flow velocity of 195.2 cm/s. This represents stenosis 50-69%. POPLITEAL ARTERY:Heterogeneous plaque formation. Maximal flow velocity of 128.1 cm/s. POSTERIOR TIBIAL ARTERY: Occluded maximal flow velocity of cm/s. Flow identified in the anterior tibial artery DORSALIS PEDIS ARTERY: Heterogeneous plaque formation. Maximal flow velocity of 186.9 cm/s. OTHER FINDINGS: None. IMPRESSION: Stenotic lesions/disease in the distal left SFA this approximates 50-69% narrowing the vessel. Occluded posterior tibial artery. Elevated flows indicative of stenotic disease (50-69%) in the dorsalis pedis artery. Assessment & Plan (1) Cellulitis of left leg Status: Chronic Priority: High (2) CAD (coronary artery disease) Status: Acute - Assessment and Plan (Free Text) Assessment: A/P- 77 year old female with CAD s/p CABG admitted with nonhealing left medial ankle ulcer/wound and surrounding cellulitis. pt. is not septic. she is afebrile has normal wbc count most likely she has extensive peripheral vascular disease and hence the poor healing of her left medial ankle ulcer/wound. low ESR. plan- await wound cx. check blood cx x 2. advise to cover empirically for staph and skin vasquez pending further results. will start pt. on IV vancomyicn . keep vanco trough <15. d/c zosyn would benefit from vascular consultation. wound care as per podiatry team. All labs and imaging and medical chart notes reviewed. Thank you for allowing me to take part in the care of this patient. All above also d/w patient and she verbalizes understanding of all above.
--- NOTE | 2018-06-29 16:51 | CP.PCM.HP ---
History of Present Illness - History of Present Illness History of Present Illness: 77 y/o F, multiple chronic medical conditions, including Hx of L/E wound I&D, S/P AVR, HTN, COPD. Pt was brought to [facility] [place] for evaluation of chronic L foot pain, associated to redness, swollen, now with with open wound in the inner and back side of ankle with no relief, pain described as aching, constant, moderate to severe intensity 8:10. Worsening symptom: Difficulty walking, decreased sensation LLE. Aggravated factor: Walking. Pt denied: Fever, chills, n/v/d, abdominal pain, CP, palpitations, SOB, cough, sick contact. Foot X-Ray: L foot Cellulitis. L Ankle X-Ray: No Fx, Tibiotalar joint fusion. CXR: Air king appear clear b/l. Left Lower Ext Vein U-S: No DVT. Left Lower Ext Art. U-S: Occluded posterior tibial artery. 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 Present on Admission - Present on Admission Any Indicators Present on Admission: No Review of Systems - Constitutional Constitutional: Other (negative) - EENT Eyes: Requires Corrective Lenses Ears: Other (negative) Nose/Mouth/Throat: Other (negative) - Cardiovascular Cardiovascular: Rapid Heart Rate - Respiratory Respiratory: Other (negative) - Gastrointestinal Gastrointestinal: Other (negative) - Genitourinary Genitourinary: Urinary Incontinence - Musculoskeletal Musculoskeletal: Arthralgias, Radiating Pain into Limb - Integumentary Integumentary: Skin Ulcer - Neurological Neurological: Confusion (at times.) - Psychiatric Psychiatric: Anxiety - Endocrine Endocrine: Other (negative) - Hematologic/Lymphatic Hematologic: Other (negative) Past Patient History - Past Medical History & Family History Past Medical History?: Yes Pertinent Family History: Unknown - Past Social History Smoking Status: Never Smoked Alcohol: None Drugs: Denies Home Situation {Lives}: With Family - CARDIAC Hx Cardiac Disorders: Yes Hx Hypercholesterolemia: Yes Hx Hypertension: Yes Other/Comment: AVR - PULMONARY Hx Respiratory Disorders: Yes Hx Asthma: Yes Hx Chronic Obstructive Pulmonary Disease (COPD): Yes - NEUROLOGICAL Hx Neurological Disorder: Yes Hx Dementia: Yes - HEENT Hx HEENT Problems: Yes (Allergic Rhinitis) - RENAL Hx Chronic Kidney Disease: No - ENDOCRINE/METABOLIC Hx Endocrine Disorders: No - HEMATOLOGICAL/ONCOLOGICAL Hx Blood Disorders: No Hx Human Immunodeficiency Virus (HIV): No - INTEGUMENTARY Hx Dermatological Problems: Yes Hx Cellulitis: Yes (LLE) - MUSCULOSKELETAL/RHEUMATOLOGICAL Hx Musculoskeletal Disorders: Yes Hx Arthritis: Yes Hx Falls: Yes Hx Osteoarthritis: Yes Hx Osteoporosis: Yes - GASTROINTESTINAL Hx Gastrointestinal Disorders: Yes Hx Constipation: Yes - GENITOURINARY/GYNECOLOGICAL Hx Genitourinary Disorders: Yes Hx Incontinence: Yes Hx Urinary Tract Infection: Yes - PSYCHIATRIC Hx Psychophysiologic Disorder: Yes Hx Anxiety: Yes Hx Depression: Yes Hx Substance Use: No - SURGICAL HISTORY Hx Surgeries: Yes Hx Coronary Artery Bypass Graft: Yes - ANESTHESIA Hx Anesthesia: Yes Hx Anesthesia Reactions: No Hx Malignant Hyperthermia: No Meds Allergies/Adverse Reactions: Allergies Allergy/AdvReac Type Severity Reaction Status Date / Time aspirin Allergy Mild RASH Verified 05/07/17 17:16 iodine Allergy RASH Verified 05/07/17 17:16 Physical Exam - Constitutional Appears: No Acute Distress, Chronically Ill - Head Exam Head Exam: NORMAL INSPECTION - Eye Exam Eye Exam: PERRL - ENT Exam ENT Exam: Normal Exam - Neck Exam Neck exam: Positive for: Normal Inspection - Respiratory Exam Respiratory Exam: Rhonchi (few scattered) - Cardiovascular Exam Cardiovascular Exam: REGULAR RHYTHM, Systolic Murmur (1/6 LSB Ao) - GI/Abdominal Exam GI & Abdominal Exam: Normal Bowel Sounds, Soft - Extremities Exam Extremities exam: Positive for: tenderness (on palpation L ankle/foot.) Additional comments: L ankle open ulcer with surrounded erythema, dressing in place, Erythema extending from toe up to inferior lower leg. - Back Exam Back exam: tenderness (L-S) Additional comments: Kyphosis - Neurological Exam Neurological exam: Alert, Oriented x3 - Psychiatric Exam Psychiatric exam: Anxious - Skin Skin Exam: Erythema, Warm Additional comments: See extremities. Results - Vital Signs Recent Vital Signs: Last Vital Signs Temp 98 F 06/29/18 16:29 Pulse 81 06/29/18 16:29 Resp 20 06/29/18 16:29 BP 163/84 H 06/29/18 16:29 Pulse Ox 96 06/29/18 16:29 reviewed Good - Labs Result Diagrams: 07/01/18 06:00 07/01/18 06:00 Labs: Laboratory Results - last 24 hr 10/08/18 10/08/18 10/08/18 18:00 18:00 18:00 WBC 7.6 RBC 3.50 L Hgb 11.1 L Hct 32.9 L MCV 94.1 MCH 31.6 H MCHC 33.6 RDW 14.5 Plt Count 359 MPV 7.8 Neut % (Auto) 60.8 Lymph % (Auto) 20.4 [place] % (Auto) 11.2 H Eos % (Auto) 7.0 H Baso % (Auto) 0.6 Neut # (Auto) 4.6 Lymph # (Auto) 1.6 [place] # (Auto) 0.9 H Eos # (Auto) 0.5 Baso # (Auto) 0.0 ESR 16 PT 10.6 INR 1.0 APTT 32.3 pO2 VBG pH VBG pCO2 VBG HCO3 VBG Total CO2 VBG O2 Sat (Calc) VBG Base Excess VBG Potassium Glucose Lactate FiO2 Sodium 129 L Potassium 5.0 Chloride 91 L Carbon Dioxide 29 Anion Gap 14 BUN 7 Creatinine 0.5 L Est GFR ( Amer) > 60 Est GFR (Non-Af Amer) > 60 Random Glucose 93 Calcium 10.1 Total Bilirubin 0.2 AST 32 ALT 20 Alkaline Phosphatase 111 C-Reactive Protein < 5.00 Total Protein 7.2 Albumin 3.9 Globulin 3.3 Albumin/Globulin Ratio 1.2 Triglycerides Cholesterol LDL Cholesterol Direct HDL Cholesterol Thyroxine (T4) TSH 3rd Generation Venous Blood Potassium Urine Color Urine Clarity Urine pH Ur Specific [place] Urine Protein Urine Glucose (UA) Urine Ketones Urine Blood Urine Nitrate Urine Bilirubin Urine Urobilinogen Ur Leukocyte Esterase Urine RBC (Auto) Urine Microscopic WBC Blood Type Blood Type Confirm Antibody Screen BBK History Checked 06/28/18 06/28/18 06/28/18 18:00 18:25 21:00 WBC RBC Hgb Hct MCV MCH MCHC RDW Plt Count MPV Neut % (Auto) Lymph % (Auto) [place] % (Auto) Eos % (Auto) Baso % (Auto) Neut # (Auto) Lymph # (Auto) [place] # (Auto) Eos # (Auto) Baso # (Auto) ESR PT INR APTT pO2 21 L VBG pH 7.40 VBG pCO2 46 VBG HCO3 25.6 VBG Total CO2 29.9 H VBG O2 Sat (Calc) 38.4 L VBG Base Excess 3.0 H VBG Potassium 4.9 Glucose 97 Lactate 1.2 FiO2 21.0 Sodium 126.0 L Potassium Chloride 94.0 L Carbon Dioxide Anion Gap BUN Creatinine Est GFR ( Amer) Est GFR (Non-Af Amer) Random Glucose Calcium Total Bilirubin AST ALT Alkaline Phosphatase C-Reactive Protein Total Protein Albumin Globulin Albumin/Globulin Ratio Triglycerides Cholesterol LDL Cholesterol Direct HDL Cholesterol Thyroxine (T4) TSH 3rd Generation Venous Blood Potassium 4.9 Urine Color Urine Clarity Urine pH Ur Specific [place] Urine Protein Urine Glucose (UA) Urine Ketones Urine Blood Urine Nitrate Urine Bilirubin Urine Urobilinogen Ur Leukocyte Esterase Urine RBC (Auto) Urine Microscopic WBC Blood Type O NEGATIVE Blood Type Confirm O NEGATIVE Antibody Screen Negative BBK History Checked No verified bt 06/29/18 06/29/18 06/29/18 05:00 05:00 05:00 WBC 7.3 RBC 3.33 L Hgb 10.7 L Hct 31.1 L MCV 93.6 MCH 32.1 H MCHC 34.3 RDW 14.0 Plt Count 350 MPV 7.4 Neut % (Auto) 59.1 Lymph % (Auto) 19.5 L [place] % (Auto) 12.3 H Eos % (Auto) 8.2 H Baso % (Auto) 0.9 Neut # (Auto) 4.3 Lymph # (Auto) 1.4 [place] # (Auto) 0.9 H Eos # (Auto) 0.6 Baso # (Auto) 0.1 ESR PT 11.2 INR 1.0 APTT 32.7 pO2 VBG pH VBG pCO2 VBG HCO3 VBG Total CO2 VBG O2 Sat (Calc) VBG Base Excess VBG Potassium Glucose Lactate FiO2 Sodium 134 Potassium 4.6 Chloride 98 Carbon Dioxide 30 Anion Gap 11 BUN 6 L Creatinine 0.6 L Est GFR ( Amer) > 60 Est GFR (Non-Af Amer) > 60 Random Glucose 85 Calcium 9.8 Total Bilirubin 0.3 AST 24 ALT 15 Alkaline Phosphatase 87 C-Reactive Protein Total Protein 6.3 Albumin 3.3 L Globulin 3.0 Albumin/Globulin Ratio 1.1 Triglycerides 45 D Cholesterol 158 LDL Cholesterol Direct 53 HDL Cholesterol 78 H Thyroxine (T4) 6.74 TSH 3rd Generation 3.64 Venous Blood Potassium Urine Color Urine Clarity Urine pH Ur Specific [place] Urine Protein Urine Glucose (UA) Urine Ketones Urine Blood Urine Nitrate Urine Bilirubin Urine Urobilinogen Ur Leukocyte Esterase Urine RBC (Auto) Urine Microscopic WBC Blood Type Blood Type Confirm Antibody Screen BBK History Checked 06/29/18 08:05 WBC RBC Hgb Hct MCV MCH MCHC RDW Plt Count MPV Neut % (Auto) Lymph % (Auto) [place] % (Auto) Eos % (Auto) Baso % (Auto) Neut # (Auto) Lymph # (Auto) [place] # (Auto) Eos # (Auto) Baso # (Auto) ESR PT INR APTT pO2 VBG pH VBG pCO2 VBG HCO3 VBG Total CO2 VBG O2 Sat (Calc) VBG Base Excess VBG Potassium Glucose Lactate FiO2 Sodium Potassium Chloride Carbon Dioxide Anion Gap BUN Creatinine Est GFR ( Amer) Est GFR (Non-Af Amer) Random Glucose Calcium Total Bilirubin AST ALT Alkaline Phosphatase C-Reactive Protein Total Protein Albumin Globulin Albumin/Globulin Ratio Triglycerides Cholesterol LDL Cholesterol Direct HDL Cholesterol Thyroxine (T4) TSH 3rd Generation Venous Blood Potassium Urine Color Colorless Urine Clarity Clear Urine pH 7.0 Ur Specific [place] 1.005 Urine Protein Negative Urine Glucose (UA) Neg Urine Ketones Negative Urine Blood Negative Urine Nitrate Negative Urine Bilirubin Negative Urine Urobilinogen 0.2-1.0 Ur Leukocyte Esterase Neg Urine RBC (Auto) 1 Urine Microscopic WBC 1 Blood Type Blood Type Confirm Antibody Screen BBK History Checked reviewed J.P. - EKG Data EKG comments: reviewed J.P. - Imaging and Cardiology Chest x-ray Status: Report reviewed by me (Good) Venous US Status: Report reviewed by me (Good) Additional comment: Foot and Ankle X-Rays: Reviewed J.P. Assessment & Plan (1) Ulcer of left ankle Status: Acute Priority: High (2) Cellulitis of left leg Status: Chronic Priority: High (3) S/P AVR Status: Chronic Priority: High (4) CAD (coronary artery disease) Status: Chronic Priority: Medium (5) PVD (peripheral vascular disease) Status: Chronic Priority: High (6) COPD (chronic obstructive pulmonary disease) Status: Chronic Priority: Medium (7) HTN (hypertension) Status: Chronic Priority: Medium (8) High cholesterol Status: Chronic Priority: Medium (9) Anxiety Status: Chronic Priority: Medium - Assessment and Plan (Free Text) Plan: F/U L foot wound C-S, Continue Vanco, Bactroban, Lovenox, Ultran, Cozaar, Depakote, Duoneb, Xanax, Remeron, Lipitor and rest of Tx. ID and Process Control Engineer consult appreciated, Cardiac consult. - Date & Time Date: 06/29/18 Time: 11:30
--- NOTE | 2018-06-29 20:14 | CP.PCM.CON ---
History of Present Illness - History of Present Illness History of Present Illness: I was asked to evaluate patient by Dr García. Patient is 77 year old female with HTN valvular heart disease s/p AVR, PAD, DM who presents with cellulitis. The patient was noted to have LLE ulcer She states she had an angiogram done one montha ago, but does not recall where. She has rest pain Review of Systems - Constitutional Constitutional: absent: As Per HPI, Anorexia, Chills, Daytime Sleepiness, Excessive Sweating, Fatigue, Fever, Frequent Falls, Headache, Increased Appetite, Lethargy, Malaise, Night Sweats, Snoring, Sleep Apnea, Weight Gain, Weight Loss, Weakness, Other - EENT Eyes: absent: As Per HPI, Blind Spots, Blurred Vision, Change in Vision, Decreased Night Vision, Diplopia, Discharge, Dry Eye, Exophthalmos, Floaters, Irritation, Itchy Eyes, Loss of Peripheral Vision, Pain, Photophobia, Requires Corrective Lenses, Sees Flashes, Spots in Vision, Tunnel Vision, Other Visual Disturbances, Loss of Vision, Other Ears: absent: As Per HPI, Decreased Hearing, Ear Discharge, Ear Pain, Tinnitus, Abnormal Hearing, Disequilibrium, Dizziness, Other Nose/Mouth/Throat: absent: As Per HPI, Epistaxis, Nasal Congestion, Nasal Discharge, Nasal Obstruction, Nasal Trauma, Nose Pain, Post Nasal Drip, Sinus Pain, Sinus Pressure, Bleeding Gums, Change in Voice, Dental Pain, Dry Mouth, Dysphagia, Halitosis, Hoarsness, Lip Swelling, Mouth Lesions, Mouth Pain, Odynophagia, Sore Throat, Throat Swelling, Tongue Swelling, Facial Pain, Neck Pain, Neck Mass, Other - Cardiovascular Cardiovascular: absent: As Per HPI, Acrocyanosis, Chest Pain, Chest Pain at Rest, Chest Pain with Activity, Claudication, Diaphoresis, Dyspnea, Dyspnea on Exertion, Edema, Irregular Heart Rhythm, Pain Radiating to Arm/Neck/Jaw, Leg Edema, Leg Ulcers, Lightheadedness, Orthopnea, Palpitations, Paroxysmal Nocturnal Dyspnea, Pedal Edema, Radiating Pain, Rapid Heart Rate, Slow Heart Rate, Syncope, Other - Respiratory Respiratory: absent: As Per HPI, Cough, Dyspnea, Hemoptysis, Dyspnea on Exertion, Wheezing, Snoring, Stridor, Pain on Inspiration, Chest Congestion, Excessive Mucous Production, Change in Mucous Color, Pain with Coughing, Other - Gastrointestinal Gastrointestinal: absent: As Per HPI, Abdominal Pain, Belching, Bloating, Change in Bowel Habits, Change in Stool Character, Coffee Ground Emesis, Constipation, Cramping, Diarrhea, Dyspepsia, Dysphagia, Early Satiety, Excessive Flatus, Fecal Incontinence, Heartburn, Hematemesis, Hematochezia, Loose Stools, Melena, Nausea, Odynophagia, Temesmus, Vomiting, Other - Genitourinary Genitourinary: absent: As Per HPI, Change in Urinary Stream, Difficulty Urinating, Dysuria, Flank Pain, Hematuria, Pyuria, Nocturia, Urinary Incontinence, Urinary Frequency, Urinary Hesitance, Urinary Urgency, Voiding Freq/Small Amts, Freq UTI, Hx Renal/Bladder Calculi, Hx /Renal Surgery, Quinn dder Distension, Other - Musculoskeletal Musculoskeletal: Radiating Pain into Limb - Integumentary Integumentary: Skin Ulcer - Neurological Neurological: absent: As Per HPI, Abnormal Gait, Abnormal Hearing, Abnormal Movements, Abnormal Speech, Behavioral Changes, Burning Sensations, Confusion, Convulsions, Disequilibrium, Dizziness, Numbness, Focal Weakness, Frequent Falls, Headaches, Lack of Coordination, Loss of Vision, Memory Loss, Paresthesias, Radicular Pain, Restless Legs, Sensory Deficit, Syncope, Tingling, Tremor, Vertigo, Weakness, Other Visual Disturbances, Other - Psychiatric Psychiatric: absent: As Per HPI, Abnormal Sleep Pattern, Anhedonia, Anxiety, Auditory Hallucinations, Behavioral Changes, Change in Appetite, Change in Libido, Confusion, Depression, Difficulty Concentrating, Hallucinations, Homicidal Ideation, Hopelessness, Irritability, Memory Loss, Mood Swings, Panic Attacks, Paranoia, Suicidal Ideation, Visual Hallucinations, Tactile Hallucinations, Other - Endocrine Endocrine: absent: As Per HPI, Change in Body Appearance, Change in Libido, Cold Intolorance, Deepening of Voice, Excessive Sweating, Fatigue, Flushing, Heat Intolorance, Increase in Ring/Shoe/Hat Size, Palpitations, Polydipsia, Polyphagia, Polyuria, Other - Hematologic/Lymphatic Hematologic: absent: As Per HPI, Easy Bleeding, Easy Bruising, Lymphadenopathy, Other Past Patient History - Past Medical History & Family History Past Medical History?: Yes - Past Social History Smoking Status: Never Smoked Alcohol: None Drugs: Denies Home Situation {Lives}: With Family - CARDIAC Hx Cardiac Disorders: Yes Hx Hypercholesterolemia: Yes Hx Hypertension: Yes - PULMONARY Hx Respiratory Disorders: Yes Hx Asthma: Yes Hx Chronic Obstructive Pulmonary Disease (COPD): Yes - NEUROLOGICAL Hx Neurological Disorder: Yes Hx Dementia: Yes - HEENT Hx HEENT Problems: Yes (Allergic Rhinitis) - RENAL Hx Chronic Kidney Disease: No - ENDOCRINE/METABOLIC Hx Endocrine Disorders: No - HEMATOLOGICAL/ONCOLOGICAL Hx Human Immunodeficiency Virus (HIV): No - INTEGUMENTARY Hx Dermatological Problems: Yes Hx Cellulitis: Yes (LLE) - MUSCULOSKELETAL/RHEUMATOLOGICAL Hx Musculoskeletal Disorders: Yes Hx Arthritis: Yes Hx Falls: Yes Hx Osteoarthritis: Yes Hx Osteoporosis: Yes - GASTROINTESTINAL Hx Gastrointestinal Disorders: Yes Hx Constipation: Yes - GENITOURINARY/GYNECOLOGICAL Hx Genitourinary Disorders: Yes Hx Incontinence: Yes Hx Urinary Tract Infection: Yes - PSYCHIATRIC Hx Psychophysiologic Disorder: Yes Hx Anxiety: Yes Hx Depression: Yes Hx Substance Use: No - SURGICAL HISTORY Hx Surgeries: Yes Hx Coronary Artery Bypass Graft: Yes - ANESTHESIA Hx Anesthesia: Yes Hx Anesthesia Reactions: No Hx Malignant Hyperthermia: No Meds Allergies/Adverse Reactions: Allergies Allergy/AdvReac Type Severity Reaction Status Date / Time aspirin Allergy Mild RASH Verified 05/07/17 17:16 iodine Allergy RASH Verified 05/07/17 17:16 - Medications Medications: Current Medications Albuterol/Ipratropium (Duoneb 3 Mg/0.5 Mg (3 Ml) Ud) 3 ml INH RTID [facility] Last Admin: 06/29/18 19:10 Dose: 3 ml Alprazolam (Xanax) 0.25 mg PO Q12 PRN PRN Reason: Anxiety Last Admin: 06/28/18 23:40 Dose: 0.25 mg Atorvastatin Calcium (Lipitor) 20 mg PO DAILY [facility] Last Admin: 06/29/18 10:10 Dose: 20 mg Collagenase (Santyl) 1 applic TOP DAILY [facility] Last Admin: 06/29/18 10:11 Dose: 1 applic Divalproex Sodium (Depakote Sprinkles) 125 mg PO BID [facility] Last Admin: 06/29/18 16:15 Dose: 125 mg Enoxaparin Sodium (Lovenox) 40 mg SC DAILY [facility]; Protocol Last Admin: 06/29/18 10:10 Dose: 40 mg Fluticasone Propionate (Flonase) 2 spr LA DAILY [facility] Last Admin: 06/29/18 10:10 Dose: 2 spr Vancomycin HCl 1 gm/ Sodium (Chloride) 250 mls @ 166.667 mls/hr IVPB Q12 [facility]; Protocol Last Admin: 06/29/18 10:13 Dose: 166.667 mls/hr Losartan Potassium (Cozaar) 25 mg PO DAILY [facility] Last Admin: 06/29/18 10:08 Dose: 25 mg Mirtazapine (Remeron) 15 mg PO HS [facility] Last Admin: 06/28/18 23:40 Dose: 15 mg Montelukast Sodium (Singulair) 10 mg PO HS [facility] Morphine Sulfate (Morphine) 2 mg IVP Q4 PRN PRN Reason: Pain, severe (8-10) Last Admin: 06/28/18 23:40 Dose: 2 mg Mupirocin (Bactroban Ointment) 1 applic TOP BID [facility] Last Admin: 06/29/18 16:14 Dose: Not Given Pantoprazole Sodium (Protonix Ec Tab) 40 mg PO DAILY [facility] Last Admin: 06/29/18 10:11 Dose: 40 mg Sodium Chloride (Sodium Chloride Tab) 2 gm PO Q12 [facility] Last Admin: 06/29/18 10:12 Dose: 2 gm Tramadol HCl (Ultram) 50 mg PO Q6 PRN PRN Reason: Pain, moderate (4-7) Last Admin: 06/29/18 16:20 Dose: 50 mg Physical Exam - Constitutional Appears: Non-toxic - Head Exam Head Exam: NORMAL INSPECTION - Eye Exam Eye Exam: Normal appearance - ENT Exam ENT Exam: Mucous Membranes Moist - Neck Exam Neck exam: Positive for: Full Rom - Respiratory Exam Respiratory Exam: Decreased Breath Sounds - Cardiovascular Exam Cardiovascular Exam: REGULAR RHYTHM, Systolic Murmur - GI/Abdominal Exam GI & Abdominal Exam: Normal Bowel Sounds - Rectal Exam Rectal Exam: Deferred - Extremities Exam Extremities exam: Negative for: pedal edema - Back Exam Back exam: NORMAL INSPECTION - Neurological Exam Neurological exam: Alert, Oriented x3 - Psychiatric Exam Psychiatric exam: Normal Affect - Skin Skin Exam: Normal Color Results - Vital Signs Recent Vital Signs: Last Vital Signs Temp 98 F 06/29/18 16:29 Pulse 81 06/29/18 16:29 Resp 20 06/29/18 16:29 BP 163/84 H 06/29/18 16:29 Pulse Ox 96 10/09/18 16:29 - Labs Result Diagrams: 06/29/18 05:00 06/29/18 05:00 Labs: Laboratory Results - last 24 hr 06/28/18 06/28/18 06/28/18 18:00 18:00 21:00 WBC RBC Hgb Hct MCV MCH MCHC RDW Plt Count MPV Neut % (Auto) Lymph % (Auto) [place] % (Auto) Eos % (Auto) Baso % (Auto) Neut # (Auto) Lymph # (Auto) [place] # (Auto) Eos # (Auto) Baso # (Auto) ESR 16 PT INR APTT Sodium Potassium Chloride Carbon Dioxide Anion Gap BUN Creatinine Est GFR ( Amer) Est GFR (Non-Af Amer) Random Glucose Calcium Total Bilirubin AST ALT Alkaline Phosphatase C-Reactive Protein < 5.00 Total Protein Albumin Globulin Albumin/Globulin Ratio Triglycerides Cholesterol LDL Cholesterol Direct HDL Cholesterol Thyroxine (T4) TSH 3rd Generation Urine Color Urine Clarity Urine pH Ur Specific [place] Urine Protein Urine Glucose (UA) Urine Ketones Urine Blood Urine Nitrate Urine Bilirubin Urine Urobilinogen Ur Leukocyte Esterase Urine RBC (Auto) Urine Microscopic WBC Blood Type Confirm O NEGATIVE 06/29/18 06/29/18 06/29/18 05:00 05:00 05:00 WBC 7.3 RBC 3.33 L Hgb 10.7 L Hct 31.1 L MCV 93.6 MCH 32.1 H MCHC 34.3 RDW 14.0 Plt Count 350 MPV 7.4 Neut % (Auto) 59.1 Lymph % (Auto) 19.5 L [place] % (Auto) 12.3 H Eos % (Auto) 8.2 H Baso % (Auto) 0.9 Neut # (Auto) 4.3 Lymph # (Auto) 1.4 [place] # (Auto) 0.9 H Eos # (Auto) 0.6 Baso # (Auto) 0.1 ESR PT 11.2 INR 1.0 APTT 32.7 Sodium 134 Potassium 4.6 Chloride 98 Carbon Dioxide 30 Anion Gap 11 BUN 6 L Creatinine 0.6 L Est GFR ( Amer) > 60 Est GFR (Non-Af Amer) > 60 Random Glucose 85 Calcium 9.8 Total Bilirubin 0.3 AST 24 ALT 15 Alkaline Phosphatase 87 C-Reactive Protein Total Protein 6.3 Albumin 3.3 L Globulin 3.0 Albumin/Globulin Ratio 1.1 Triglycerides 45 D Cholesterol 158 LDL Cholesterol Direct 53 HDL Cholesterol 78 H Thyroxine (T4) 6.74 TSH 3rd Generation 3.64 Urine Color Urine Clarity Urine pH Ur Specific [place] Urine Protein Urine Glucose (UA) Urine Ketones Urine Blood Urine Nitrate Urine Bilirubin Urine Urobilinogen Ur Leukocyte Esterase Urine RBC (Auto) Urine Microscopic WBC Blood Type Confirm 06/29/18 08:05 WBC RBC Hgb Hct MCV MCH MCHC RDW Plt Count MPV Neut % (Auto) Lymph % (Auto) [place] % (Auto) Eos % (Auto) Baso % (Auto) Neut # (Auto) Lymph # (Auto) [place] # (Auto) Eos # (Auto) Baso # (Auto) ESR PT INR APTT Sodium Potassium Chloride Carbon Dioxide Anion Gap BUN Creatinine Est GFR ( Amer) Est GFR (Non-Af Amer) Random Glucose Calcium Total Bilirubin AST ALT Alkaline Phosphatase C-Reactive Protein Total Protein Albumin Globulin Albumin/Globulin Ratio Triglycerides Cholesterol LDL Cholesterol Direct HDL Cholesterol Thyroxine (T4) TSH 3rd Generation Urine Color Colorless Urine Clarity Clear Urine pH 7.0 Ur Specific [place] 1.005 Urine Protein Negative Urine Glucose (UA) Neg Urine Ketones Negative Urine Blood Negative Urine Nitrate Negative Urine Bilirubin Negative Urine Urobilinogen 0.2-1.0 Ur Leukocyte Esterase Neg Urine RBC (Auto) 1 Urine Microscopic WBC 1 Blood Type Confirm - EKG Data EKG Interpreted by: Myself EKG shows normal: Sinus rhythm Assessment & Plan - Assessment and Plan (Free Text) Assessment: PAD The doppler suggests moderate PAD. recommend CT angiogram. I discussed with patient. conitnue anbx Vavlular heart disease s/p AVR stable
[2018-06-29] MEDS ORDERED: methylPREDNISolone 1 GM in Sodium Chloride 0.9% 250 ML IV SCH (22:59)
[2018-06-29] MEDS ORDERED: methylPREDNISolone 1 GM in Sodium Chloride 0.9% 250 ML IV ONE (23:01)
--- NOTE | 2018-06-30 06:33 | CP.PCM.PN ---
Subjective - Date & Time of Evaluation Date of Evaluation: 06/30/18 Time of Evaluation: 11:03 - Subjective Subjective: Podiatry progress notes for attending Dr. Singer: 77 year old female seen and evaluated in the bedside for left foot pain, redness and ulcerations. Patient was sleeping in her bed comfortably at the visit time. Patient states that she is still having pain in her left leg but it's less than yesterday. Patient denies any other pedal complaint at this time. Patient denies any overnight F/N/V/C or SOB. Patient is going today for CTA. Objective - Vital Signs/Intake and Output Vital Signs (last 24 hours): Temp Pulse Resp BP Pulse Ox 97.8 F 88 19 144/66 97 06/30/18 00:00 06/30/18 00:00 06/30/18 00:00 06/30/18 00:00 06/30/18 00:00 - Medications Medications: Current Medications Albuterol/Ipratropium (Duoneb 3 Mg/0.5 Mg (3 Ml) Ud) 3 ml INH RTID [facility] Last Admin: 06/29/18 19:10 Dose: 3 ml Alprazolam (Xanax) 0.25 mg PO Q12 PRN PRN Reason: Anxiety Last Admin: 06/28/18 23:40 Dose: 0.25 mg Atorvastatin Calcium (Lipitor) 20 mg PO DAILY [facility] Last Admin: 06/29/18 10:10 Dose: 20 mg Collagenase (Santyl) 1 applic TOP DAILY [facility] Last Admin: 06/29/18 10:11 Dose: 1 applic Divalproex Sodium (Depakote Sprinkles) 125 mg PO BID [facility] Last Admin: 06/29/18 16:15 Dose: 125 mg Enoxaparin Sodium (Lovenox) 40 mg SC DAILY [facility]; Protocol Last Admin: 06/29/18 10:10 Dose: 40 mg Fluticasone Propionate (Flonase) 2 spr LA DAILY [facility] Last Admin: 06/29/18 10:10 Dose: 2 spr Vancomycin HCl 1 gm/ Sodium (Chloride) 250 mls @ 166.667 mls/hr IVPB Q12 [facility]; Protocol Last Admin: 06/29/18 22:21 Dose: 166.667 mls/hr Methylprednisolone 1 gm/ (Sodium Chloride) 250 mls @ 62.5 mls/hr IV ONCE ONE Stop: 06/30/18 11:59 Losartan Potassium (Cozaar) 25 mg PO DAILY [facility] Last Admin: 06/29/18 10:08 Dose: 25 mg Mirtazapine (Remeron) 15 mg PO HS [facility] Last Admin: 06/29/18 22:13 Dose: 15 mg Montelukast Sodium (Singulair) 10 mg PO HS [facility] Last Admin: 06/29/18 22:13 Dose: 10 mg Morphine Sulfate (Morphine) 2 mg IVP Q4 PRN PRN Reason: Pain, severe (8-10) Last Admin: 06/28/18 23:40 Dose: 2 mg Mupirocin (Bactroban Ointment) 1 applic TOP BID [facility] Last Admin: 06/29/18 16:14 Dose: Not Given Pantoprazole Sodium (Protonix Ec Tab) 40 mg PO DAILY [facility] Last Admin: 06/29/18 10:11 Dose: 40 mg Sodium Chloride (Sodium Chloride Tab) 2 gm PO Q12 [facility] Last Admin: 06/29/18 22:12 Dose: 2 gm Tramadol HCl (Ultram) 50 mg PO Q6 PRN PRN Reason: Pain, moderate (4-7) Last Admin: 06/29/18 16:20 Dose: 50 mg - Labs Labs: 06/29/18 05:00 06/29/18 05:00 PT 11.2 Seconds (9.8-13.1) 06/29/18 05:00 INR 1.0 06/29/18 05:00 APTT 32.7 Seconds (25.6-37.1) 06/29/18 05:00 - Constitutional Appears: Well, Non-toxic, No Acute Distress - Head Exam Head Exam: ATRAUMATIC, NORMOCEPHALIC - Extremities Exam Additional comments: LE focused exam: Vasc: DP/PT faintly palpable 1/4 b/l, Cap refill delayed = 4 sec to all digits, Temp gradient warm to warm from proximal to distal in the left side. And warm to cool from proximal to distal to the right side. +2 pitting edema on the right side and mild non pitting edema on the left side. Erythema extending from the left foot to the mid-calf on the left side. erythema noted to be less than yesterday. Neuro: Gross and protective sensations deminished b/l. Derm: Erythema extending from the left foot to the midcalf on the left side. 2 ulcerations noted on the left side. 1st one is medial malleolar ulcer which is 9.5 X 4.0 X 0.2. Base is fibrogranular 70:30, Minimal serous drainage. No malodor, no probe to bone. No tunneling, undermining or tracking. 2nd one is posterior heel ulcer which is 4.5 X 2.0 X 0.3. Base is fibrogranular 80:20, Minimal serous drainage. No malodor, no probe to bone. No tunneling, undermining or tracking. both ulcers surrounded by erythema (less than yesterday) and mild non pitting edema. Positive clinical signs of active infection. Left inter-spaces 1-4 shows interdigital macerations. Toe nails elongated, thickened and dystrophic in all digits. MSK: Pain on palpating left LE. Pain on palpating the dianna-wound areas. - Neurological Exam Neurological Exam: Alert, Awake, Oriented x3 - Psychiatric Exam Psychiatric exam: Normal Affect, Normal Mood Assessment and Plan - Assessment and Plan (Free Text) Assessment: 77 y/o F patient seen and evaluated in the ED for Left LE ulcerations, cellulitis and PVD. Plan: Patient seen and evaluated in the bedside. Plan discussed in details with attending Dr. Singer. [employer] service [id number] used for welsh translation. Chart, labs and vitals reviewed; Afebrile, WBCs 7.3 (10/9) X-ray left foot reviewed: Diffuse osteoporosis, No evidence of Osteomyelitis. X-ray left ankle reviewed: Diffuse osteoporosis, Some erosions noted at the medial malleolous. LE venous duplex reviewed; No evidence of DVT. LE arterial duplex done; Stenotic lesions distal SFA 50-69% narrowing with occluded PT artery. Stenotic duisease in the DP artery 50-69% Wound culture No Growth after 24 hours (preliminary) ID onboard. ID states that there is no active infection and the patient erythema and ulceration is due to arterial insufficiency. Vascular surgery Onboard. Patient is going today for CTA lE. Ulcer dressed usig bactroban and DSD. Podiatry will follow up the patient while in house
[2018-06-30] MEDS: Albuterol-Ipratrop 3 mg / 0.5 (3 ml) UD INH SCH ×3 (07:27→19:23)
[2018-06-30] MEDS: Santyl Collagenase OINTMENT TOP SCH (08:00)
[2018-06-30] MEDS ORDERED: methylPREDNISolone 1 GM in Sodium Chloride 0.9% 250 ML IV ONE (08:00)
[2018-06-30] MEDS ORDERED: Iodixanol 320 MG/ML 100 ML BOTTLE IV ONE (08:23)
[2018-06-30] MEDS ORDERED: Sodium Chloride 0.9% 50 ML IV ONE (08:24)
[2018-06-30] MEDS ORDERED: methylPREDNISolone 1 GM in Sodium Chloride 0.9% 250 ML IV SCH (09:00)
[2018-06-30] MEDS: Divalproex 125 mg Sprinkle Capsule PO SCH ×2 (10:05→18:13)
[2018-06-30] MEDS: Enoxaparin 40 mg Syringe SC SCH (10:06)
[2018-06-30] MEDS: Pantoprazole 40 mg EC Tab PO SCH (10:06)
--- NOTE | 2018-06-30 14:18 | CT ---
Date of service: 06/30/2018 PROCEDURE: CT Angiography Abdomen, Pelvis and Lower Extremity with Contrast HISTORY: LLE ulcer, PAD COMPARISON: None available. TECHNIQUE: Technique: CT angiography of the abdomen, pelvis and bilateral lower extremities performed in the arterial phase of enhancement. Coronal and sagittal reformats, and well as rotating MIP images of the vessels generated at the workstation. Intravenous contrast dose: 100 CUBIC CENTIMETERS VISIPAQUE 320 Radiation dose: Total exam DLP = 1042.50 MGy-cm. This CT exam was performed using one or more of the following dose reduction techniques: Automated exposure control, adjustment of the mA and/or kV according to patient size, and/or use of iterative reconstruction technique. FINDINGS: CT ANGIOGRAPHY: ABDOMINAL AORTA:: There is mild calcific plaque in the aorta without aneurysm or stenosis. MAJOR AORTIC BRANCHES: Celiac [place]: Unremarkable. Superior mesenteric artery: Unremarkable. Inferior mesenteric artery: Unremarkable. Renal arteries: Unremarkable. PELVIC ARTERIES: Right Common Iliac: Unremarkable. Right External Iliac: Unremarkable. Right Internal Iliac: Unremarkable. Left Common Iliac: Unremarkable. Left External Iliac: Unremarkable. Left Internal Iliac: Unremarkable. RIGHT LOWER EXTREMITY ARTERIES: Right Common Femoral: Unremarkable. Right Superficial Femoral: Diffuse moderate calcific plaque throughout the SF Area of mild to moderate stenosis present within the mid and distal segments. Right Profunda Femoris: Moderate calcific plaque at profunda femoral artery without stenosis. Right Popliteal:Calcific plaque of the popliteal artery without significant stenosis.. Right Anterior Tibial: A calcified which limits evaluation. Believed to be patent. Right Tibioperoneal Trunk: Unremarkable. Right Posterior Tibial: Moderately calcified which limits evaluation. Possible moderate stenosis of the distal segment. Right Peroneal: Remarkable Right dorsalis pedis : Unremarkable. LEFT LOWER EXTREMITY ARTERIES: Left Common Femoral: Unremarkable. Left Superficial Femoral: Moderate calcific plaque throughout the SFA with no significant stenosis.. Left Profunda Femoris: Calcific plaque of the profunda femoral artery without stenosis. Left Popliteal: Calcific plaque of the popliteal artery without significant stenosis. Left Anterior Tibial: Moderate calcific plaque of the anterior tibial artery limits its evaluation. No definite stenosis. Left Tibioperoneal Trunk: Unremarkable. Left Posterior Tibial: Unremarkable. Left Peroneal: Unremarkable. Left Dorsalis pedis: Unremarkable. NON-ANGIOGRAPHIC ASPECT OF THE EXAM: LOWER THORAX: Unremarkable. LIVER: Unremarkable. No gross lesion or ductal dilatation. GALLBLADDER AND BILE DUCTS: Unremarkable. PANCREAS: Unremarkable. No gross lesion or ductal dilatation. SPLEEN: Unremarkable. ADRENALS: Unremarkable. No mass. KIDNEYS AND URETERS: Unremarkable. No hydronephrosis. No solid mass. Large right renal cyst. STOMACH AND BOWEL: Evaluation of PO contrast. No obstruction. No gross mural thickening. APPENDIX: PERITONEUM: Unremarkable. No free fluid. No free air. LYMPH NODES: Unremarkable. No enlarged lymph nodes. BLADDER: Unremarkable. REPRODUCTIVE: Unremarkable. BONES: No acute fracture. OTHER FINDINGS: None. IMPRESSION: CT ANGIOGRAM ABDOMEN/PELVIS: 1. Essentially unremarkable CT angiogram of the abdomen pelvis. RIGHT LOWER EXTREMITY CT ANGIOGRAM: 1. There is moderate calcific plaque of the profunda femoral artery superficial femoral artery. [id number] stenosis of the mid and distal SFA. 2. Popliteal artery has moderate is calcific plaque but no significant stenosis. 3. Runoff shows the unremarkable peroneal artery. Both the anterior tibial artery and posterior tibial artery are mildly calcified which limits evaluation. There is possible moderate stenosis of the distal posterior tibial artery. LOWER EXTREMITY CT ANGIOGRAM: 1. The common femoral is unremarkable per 2. There is moderate plaque throughout the SFA without significant stenosis. There is moderate plaque throughout the popliteal artery without significant stenosis. 3. Runoff shows a patent peroneal artery. The anterior tibial artery and posterior tibial artery artery moderately calcified which limits evaluation. Both arteries are believed to be patent.
--- NOTE | 2018-06-30 15:21 | CP.PCM.PN ---
Subjective - Date & Time of Evaluation Date of Evaluation: 06/30/18 Time of Evaluation: 11:20 - Subjective Subjective: F/U Ulcer/Cellulitis LLE Pt c/o of Pain LLE Objective - Vital Signs/Intake and Output Vital Signs (last 24 hours): Temp Pulse Resp BP Pulse Ox 98.1 F 89 18 147/72 97 06/30/18 08:03 06/30/18 10:04 06/30/18 08:03 06/30/18 10:04 06/30/18 08:03 - Medications Medications: Current Medications Albuterol/Ipratropium (Duoneb 3 Mg/0.5 Mg (3 Ml) Ud) 3 ml INH RTID [facility] Last Admin: 06/30/18 14:19 Dose: 3 ml Alprazolam (Xanax) 0.25 mg PO Q12 PRN PRN Reason: Anxiety Last Admin: 06/30/18 12:20 Dose: 0.25 mg Atorvastatin Calcium (Lipitor) 20 mg PO DAILY [facility] Last Admin: 06/30/18 10:06 Dose: 20 mg Collagenase (Santyl) 1 applic TOP DAILY [facility] Last Admin: 06/29/18 10:11 Dose: 1 applic Divalproex Sodium (Depakote Sprinkles) 125 mg PO BID [facility] Last Admin: 06/30/18 10:05 Dose: 125 mg Enoxaparin Sodium (Lovenox) 40 mg SC DAILY [facility]; Protocol Last Admin: 06/30/18 10:06 Dose: 40 mg Fluticasone Propionate (Flonase) 2 spr LA DAILY [facility] Last Admin: 06/30/18 10:05 Dose: 2 spr Vancomycin HCl 1 gm/ Sodium (Chloride) 250 mls @ 166.667 mls/hr IVPB Q12 [facility]; Protocol Last Admin: 06/30/18 10:07 Dose: 166.667 mls/hr Losartan Potassium (Cozaar) 25 mg PO DAILY [facility] [place] Last Admin: 06/30/18 10:04 Dose: 25 mg Mirtazapine (Remeron) 15 mg PO HS [facility] Last Admin: 06/29/18 22:13 Dose: 15 mg Montelukast Sodium (Singulair) 10 mg PO HS [facility] Last Admin: 06/29/18 22:13 Dose: 10 mg Morphine Sulfate (Morphine) 2 mg IVP Q4 PRN PRN Reason: Pain, severe (8-10) Last Admin: 06/30/18 12:52 Dose: 2 mg Mupirocin (Bactroban Ointment) 1 applic TOP BID [facility] [place] Last Admin: 06/29/18 16:14 Dose: Not Given Pantoprazole Sodium (Protonix Ec Tab) 40 mg PO DAILY [facility] [place] Last Admin: 06/30/18 10:06 Dose: 40 mg Sodium Chloride (Sodium Chloride Tab) 2 gm PO Q12 [facility] Last Admin: 06/30/18 10:07 Dose: 2 gm Tramadol HCl (Ultram) 50 mg PO Q6 PRN PRN Reason: Pain, moderate (4-7) Last Admin: 06/29/18 16:20 Dose: 50 mg - Labs Labs: 06/29/18 05:00 06/29/18 05:00 PT 11.2 Seconds (9.8-13.1) 06/29/18 05:00 INR 1.0 06/29/18 05:00 APTT 32.7 Seconds (25.6-37.1) 06/29/18 05:00 - Constitutional Appears: No Acute Distress, Chronically Ill - Head Exam Head Exam: NORMAL INSPECTION - Eye Exam Eye Exam: PERRL - ENT Exam ENT Exam: Normal Exam - Neck Exam Neck Exam: Normal Inspection - Respiratory Exam Respiratory Exam: Rhonchi (few scattered) - Cardiovascular Exam Cardiovascular Exam: REGULAR RHYTHM, Murmur (systolic 1/6 LSB Ao) - GI/Abdominal Exam GI & Abdominal Exam: Soft, Normal Bowel Sounds - Extremities Exam Extremities Exam: Tenderness (on palpation L ankle & foot) Additional comments: Open ulcer L ankle with surrounded erythema, dressing in place. Erythema from L toe extending up to inferior lower leg. - Back Exam Back Exam: tenderness (L-S) Additional comments: Kyphosis - Neurological Exam Neurological Exam: Alert, Oriented x3 - Psychiatric Exam Psychiatric exam: Anxious - Skin Skin Exam: Erythema, Warm Assessment and Plan (1) Ulcer of left ankle Status: Acute (2) Cellulitis of left leg Status: Chronic (3) S/P AVR Status: Chronic (4) CAD (coronary artery disease) Status: Chronic (5) PVD (peripheral vascular disease) Status: Chronic (6) COPD (chronic obstructive pulmonary disease) Status: Chronic (7) HTN (hypertension) Status: Chronic (8) High cholesterol Status: Chronic (9) Anxiety Status: Chronic - Assessment and Plan (Free Text) Plan: Leg wound C-S Pseudomonas, Continue Vanco, Cefepime, Duoneb, Lovenox and rest of Tx.
--- NOTE | 2018-06-30 17:34 | CP.PCM.PN ---
Subjective - Date & Time of Evaluation Date of Evaluation: 06/30/18 Time of Evaluation: 17:20 - Subjective Subjective: patient has no current chest pain.s/p CT angiogram Objective - Vital Signs/Intake and Output Vital Signs (last 24 hours): Temp Pulse Resp BP Pulse Ox 98.2 F 103 H 20 112/64 97 06/30/18 17:05 06/30/18 17:05 06/30/18 17:05 06/30/18 17:05 06/30/18 17:05 - Medications Medications: Current Medications Albuterol/Ipratropium (Duoneb 3 Mg/0.5 Mg (3 Ml) Ud) 3 ml INH RTID [facility] Last Admin: 06/30/18 14:19 Dose: 3 ml Alprazolam (Xanax) 0.25 mg PO Q12 PRN PRN Reason: Anxiety Last Admin: 06/30/18 12:20 Dose: 0.25 mg Atorvastatin Calcium (Lipitor) 20 mg PO DAILY [facility] Last Admin: 06/30/18 10:06 Dose: 20 mg Collagenase (Santyl) 1 applic TOP DAILY [facility] Last Admin: 06/29/18 10:11 Dose: 1 applic Divalproex Sodium (Depakote Sprinkles) 125 mg PO BID [facility] Last Admin: 06/30/18 10:05 Dose: 125 mg Enoxaparin Sodium (Lovenox) 40 mg SC DAILY [facility]; Protocol Last Admin: 06/30/18 10:06 Dose: 40 mg Fluticasone Propionate (Flonase) 2 spr LA DAILY [facility] Last Admin: 06/30/18 10:05 Dose: 2 spr Vancomycin HCl 1 gm/ Sodium (Chloride) 250 mls @ 166.667 mls/hr IVPB Q12 [facility]; Protocol Last Admin: 06/30/18 10:07 Dose: 166.667 mls/hr Cefepime HCl 1 gm/ Sodium (Chloride) 100 mls @ 100 mls/hr IVPB Q8 [facility]; Protocol Losartan Potassium (Cozaar) 25 mg PO DAILY [facility] Last Admin: 06/30/18 10:04 Dose: 25 mg Mirtazapine (Remeron) 15 mg PO HS [facility] Last Admin: 06/29/18 22:13 Dose: 15 mg Montelukast Sodium (Singulair) 10 mg PO HS [facility] Last Admin: 06/29/18 22:13 Dose: 10 mg Morphine Sulfate (Morphine) 2 mg IVP Q4 PRN PRN Reason: Pain, severe (8-10) Last Admin: 06/30/18 12:52 Dose: 2 mg Mupirocin (Bactroban Ointment) 1 applic TOP BID [facility] Last Admin: 06/29/18 16:14 Dose: Not Given Pantoprazole Sodium (Protonix Ec Tab) 40 mg PO DAILY [facility] Last Admin: 06/30/18 10:06 Dose: 40 mg Sodium Chloride (Sodium Chloride Tab) 2 gm PO Q12 [facility] Last Admin: 06/30/18 10:07 Dose: 2 gm Tramadol HCl (Ultram) 50 mg PO Q6 PRN PRN Reason: Pain, moderate (4-7) Last Admin: 06/29/18 16:20 Dose: 50 mg - Labs Labs: 06/29/18 05:00 06/29/18 05:00 PT 11.2 Seconds (9.8-13.1) 06/29/18 05:00 INR 1.0 06/29/18 05:00 APTT 32.7 Seconds (25.6-37.1) 06/29/18 05:00 - Constitutional Appears: Non-toxic - Head Exam Head Exam: NORMAL INSPECTION - Eye Exam Eye Exam: Normal appearance - ENT Exam ENT Exam: Mucous Membranes Moist - Neck Exam Neck Exam: Full ROM - Respiratory Exam Respiratory Exam: NORMAL BREATHING PATTERN - Cardiovascular Exam Cardiovascular Exam: REGULAR RHYTHM - GI/Abdominal Exam GI & Abdominal Exam: Normal Bowel Sounds - Rectal Exam Rectal Exam: Deferred - Extremities Exam Additional comments: erythema of the lower extremities. - Back Exam Back Exam: NORMAL INSPECTION - Neurological Exam Neurological Exam: Alert - Psychiatric Exam Psychiatric exam: Normal Affect - Skin Skin Exam: Erythema Assessment and Plan (1) PVD (peripheral vascular disease) Assessment & Plan: The CT angiogram reveals difuse calcification but no obstruction. Recommend continued antibiotics. antiplatelet therapy is recommended Status: Chronic
[2018-06-30] MEDS: Cefepime 1 GM in Sodium Chloride 0.9% 100 ML IVPB SCH (18:35)
[2018-07-01] MEDS: Cefepime 1 GM in Sodium Chloride 0.9% 100 ML IVPB SCH ×3 (00:29→16:09)
[2018-07-01 06:32] LABS: HEMOGLOBIN 10.2 g/dL (12.0-16.0); MEAN CELL VOLUME 93.8 fl (81.0-99.0); MEAN CORPUSCULAR HEMOGLOBIN 31.9 pg (27.0-31.0); RBC 3.2 Mil/uL (3.80-5.20); RED CELL DISTRIBUTION WIDTH 14.8 % (11.5-14.5); WHITE BLOOD COUNT 12.5 K/uL (4.8-10.8)
[2018-07-01 06:50] LABS: ALB/GLOB RATIO 1.1 (1.0-2.1); ALBUMIN 3.4 g/dL (3.5-5.0); ALT/SGPT 21 U/L (9-52); AST/SGOT 21 U/L (14-36); BLOOD UREA NITROGEN 13 mg/dl (7-17); CALCIUM 9.6 mg/dL (8.4-10.2); GFR NON-AFRICAN AMERICAN > 60
--- NOTE | 2018-07-01 07:10 | CP.PCM.PN ---
<Yuan Houston - Last Filed: 07/01/18 09:53> Subjective - Date & Time of Evaluation Date of Evaluation: 07/01/18 Time of Evaluation: 09:53 - Subjective Subjective: Podiatry progress notes for attending Dr. Singer: 77 year old female seen and evaluated in the bedside for left foot pain, redness and ulcerations. Patient is AAO X 3. Patient states that she is still having pain in her left leg but. Patient denies any other pedal complaint at this time. Patient denies any overnight F/N/V/C or SOB. Objective - Vital Signs/Intake and Output Vital Signs (last 24 hours): Temp Pulse Resp BP Pulse Ox 98.0 F 93 H 18 125/70 94 L 06/30/18 23:46 06/30/18 23:46 06/30/18 23:46 06/30/18 23:46 06/30/18 23:46 - Medications Medications: Current Medications Albuterol/Ipratropium (Duoneb 3 Mg/0.5 Mg (3 Ml) Ud) 3 ml INH RTID [facility] Last Admin: 06/30/18 19:23 Dose: 3 ml Alprazolam (Xanax) 0.25 mg PO Q12 PRN PRN Reason: Anxiety Last Admin: 06/30/18 12:20 Dose: 0.25 mg Atorvastatin Calcium (Lipitor) 20 mg PO DAILY [facility] Last Admin: 06/30/18 10:06 Dose: 20 mg Collagenase (Santyl) 1 applic TOP DAILY [facility] Last Admin: 06/30/18 08:00 Dose: Not Given Divalproex Sodium (Depakote Sprinkles) 125 mg PO BID [facility] Last Admin: 06/30/18 18:13 Dose: 125 mg Enoxaparin Sodium (Lovenox) 40 mg SC DAILY [facility]; Protocol Last Admin: 06/30/18 10:06 Dose: 40 mg Fluticasone Propionate (Flonase) 2 spr LA DAILY [facility] Last Admin: 06/30/18 10:05 Dose: 2 spr Vancomycin HCl 1 gm/ Sodium (Chloride) 250 mls @ 166.667 mls/hr IVPB Q12 [facility]; Protocol Last Admin: 06/30/18 21:25 Dose: 166.667 mls/hr Cefepime HCl 1 gm/ Sodium (Chloride) 100 mls @ 100 mls/hr IVPB Q8 [facility]; Protocol Last Admin: 07/01/18 00:29 Dose: 100 mls/hr Losartan Potassium (Cozaar) 25 mg PO DAILY [facility] Last Admin: 06/30/18 10:04 Dose: 25 mg Mirtazapine (Remeron) 15 mg PO HS [facility] Last Admin: 06/30/18 21:24 Dose: 15 mg Montelukast Sodium (Singulair) 10 mg PO HS [facility] Last Admin: 06/30/18 21:24 Dose: 10 mg Morphine Sulfate (Morphine) 2 mg IVP Q4 PRN PRN Reason: Pain, severe (8-10) Last Admin: 07/01/18 04:26 Dose: 2 mg Mupirocin (Bactroban Ointment) 1 applic TOP BID [facility] Last Admin: 06/30/18 17:34 Dose: Not Given Pantoprazole Sodium (Protonix Ec Tab) 40 mg PO DAILY [facility] Last Admin: 06/30/18 10:06 Dose: 40 mg Sodium Chloride (Sodium Chloride Tab) 2 gm PO Q12 [facility] Last Admin: 06/30/18 21:24 Dose: 2 gm Tramadol HCl (Ultram) 50 mg PO Q6 PRN PRN Reason: Pain, moderate (4-7) Last Admin: 06/30/18 21:28 Dose: 50 mg - Labs Labs: 07/01/18 06:00 07/01/18 06:00 PT 11.2 Seconds (9.8-13.1) 06/29/18 05:00 INR 1.0 06/29/18 05:00 APTT 32.7 Seconds (25.6-37.1) 06/29/18 05:00 - Constitutional Appears: Well, Non-toxic, No Acute Distress - Head Exam Head Exam: ATRAUMATIC, NORMOCEPHALIC - Extremities Exam Additional comments: LE focused exam: Vasc: DP/PT faintly palpable 1/4 b/l, Cap refill delayed = 4 sec to all digits, Temp gradient warm to warm from proximal to distal in the left side. And warm to cool from proximal to distal to the right side. +2 pitting edema on the right side and mild non pitting edema on the left side. Erythema extending from the left foot to the mid-calf on the left side. erythema noted to be less than yesterday. Neuro: Gross and protective sensations deminished b/l. Derm: Erythema extending from the left foot to the midcalf on the left side. 2 ulcerations noted on the left side. 1st one is medial malleolar ulcer which is 9.5 X 4.0 X 0.2. Base is fibrogranular 70:30, Minimal serous drainage. No malodor, no probe to bone. No tunneling, undermining or tracking. 2nd one is posterior heel ulcer which is 4.5 X 2.0 X 0.3. Base is fibrogranular 80:20, Minimal serous drainage. No malodor, no probe to bone. No tunneling, undermining or tracking. both ulcers surrounded by erythema (less than yesterday) and mild non pitting edema. Positive clinical signs of active infection. Left inter-spaces 1-4 shows interdigital macerations. Toe nails elongated, thickened and dystrophic in all digits. MSK: Pain on palpating left LE. Pain on palpating the dianna-wound areas. - Neurological Exam Neurological Exam: Alert, Awake, Oriented x3 Assessment and Plan - Assessment and Plan (Free Text) Assessment: 77 y/o F patient seen and evaluated in the ED for Left LE ulcerations, cellulitis and PVD. Plan: Patient seen and evaluated in the bedside. Plan discussed in details with attending Dr. Singer. [employer] service [id number] used for slovenian translation. Chart, labs and vitals reviewed; Afebrile, WBCs 12.5 X-ray left foot reviewed: Diffuse osteoporosis, No evidence of Osteomyelitis. X-ray left ankle reviewed: Diffuse osteoporosis, Some erosions noted at the medial malleolous. LE venous duplex reviewed; No evidence of DVT. LE arterial duplex done; Stenotic lesions distal SFA 50-69% narrowing with o ccluded PT artery. Stenotic disease in the DP artery 50-69% Wound culture Pseudomonas aerogenosa, beta hemolytic strept.. CTA LE: Diffuse calcifications but no occlusion. Possible moderate stenosis in the R distal PT artery. ID onboard. recommendations appreciated Continue IV Abx as per ID Vascular surgery Onboard. recommendations appreciated Ulcer dressed using bactroban and DSD. Podiatry will continue to follow up the patient while in house <Vinny Singer - Last Filed: 07/06/18 09:04> Objective - Vital Signs/Intake and Output Vital Signs (last 24 hours): Temp Pulse Resp BP Pulse Ox 97.8 F 92 H 20 162/78 H 95 07/05/18 16:33 07/05/18 16:33 07/05/18 16:33 07/05/18 16:33 07/05/18 16:33 - Labs Labs: 07/05/18 05:35 07/05/18 05:35 PT 11.2 Seconds (9.8-13.1) 06/29/18 05:00 INR 1.0 06/29/18 05:00 APTT 32.7 Seconds (25.6-37.1) 06/29/18 05:00 Assessment and Plan - Assessment and Plan (Free Text) Plan: discussed with resident above, recommmend local wound care at this time, patient to follow in wound center upon D.c
[2018-07-01] MEDS: Albuterol-Ipratrop 3 mg / 0.5 (3 ml) UD INH SCH ×4 (07:37→19:16)
[2018-07-01] MEDS: Pantoprazole 40 mg EC Tab PO SCH (08:20)
[2018-07-01] MEDS: Divalproex 125 mg Sprinkle Capsule PO SCH ×2 (08:21→16:12)
[2018-07-01] MEDS: Enoxaparin 40 mg Syringe SC SCH (08:22)
[2018-07-01] MEDS: Santyl Collagenase OINTMENT TOP SCH (11:13)
--- NOTE | 2018-07-01 11:49 | CP.PCM.PN ---
Subjective - Date & Time of Evaluation Date of Evaluation: 07/01/18 Time of Evaluation: 11:49 - Subjective Subjective: Id note- Pt. seen and examined today. denies any fever or chills. Objective - Vital Signs/Intake and Output Vital Signs (last 24 hours): Temp Pulse Resp BP Pulse Ox 98.4 F 107 H 20 174/70 H 97 07/01/18 08:42 07/01/18 08:42 07/01/18 08:42 07/01/18 08:42 07/01/18 08:42 - Medications Medications: Current Medications Albuterol/Ipratropium (Duoneb 3 Mg/0.5 Mg (3 Ml) Ud) 3 ml INH RTID [facility] Last Admin: 07/01/18 07:41 Dose: 3 ml Alprazolam (Xanax) 0.25 mg PO Q12 PRN PRN Reason: Anxiety Last Admin: 07/01/18 08:16 Dose: 0.25 mg Atorvastatin Calcium (Lipitor) 20 mg PO DAILY [facility] Last Admin: 07/01/18 08:20 Dose: 20 mg Collagenase (Santyl) 1 applic TOP DAILY [facility] Last Admin: 07/01/18 11:13 Dose: Not Given Divalproex Sodium (Depakote Sprinkles) 125 mg PO BID [facility] Last Admin: 07/01/18 08:21 Dose: 125 mg Enoxaparin Sodium (Lovenox) 40 mg SC DAILY [facility]; Protocol Last Admin: 07/01/18 08:22 Dose: 40 mg Fluticasone Propionate (Flonase) 2 spr LA DAILY [facility] Last Admin: 07/01/18 08:21 Dose: 2 spr Vancomycin HCl 1 gm/ Sodium (Chloride) 250 mls @ 166.667 mls/hr IVPB Q12 [facility]; Protocol Last Admin: 07/01/18 10:15 Dose: 166.667 mls/hr Cefepime HCl 1 gm/ Sodium (Chloride) 100 mls @ 100 mls/hr IVPB Q8 [facility]; Protocol Last Admin: 07/01/18 08:56 Dose: 100 mls/hr Losartan Potassium (Cozaar) 25 mg PO DAILY [facility] Last Admin: 07/01/18 08:19 Dose: 25 mg Mirtazapine (Remeron) 15 mg PO HS [facility] Last Admin: 06/30/18 21:24 Dose: 15 mg Montelukast Sodium (Singulair) 10 mg PO HS [facility] Last Admin: 06/30/18 21:24 Dose: 10 mg Morphine Sulfate (Morphine) 2 mg IVP Q4 PRN PRN Reason: Pain, severe (8-10) Last Admin: 07/01/18 04:26 Dose: 2 mg Mupirocin (Bactroban Ointment) 1 applic TOP BID [facility] Last Admin: 07/01/18 08:23 Dose: 1 units Pantoprazole Sodium (Protonix Ec Tab) 40 mg PO DAILY [facility] Last Admin: 07/01/18 08:20 Dose: 40 mg Sodium Chloride (Sodium Chloride Tab) 2 gm PO Q12 [facility] Last Admin: 07/01/18 08:20 Dose: 2 gm Tramadol HCl (Ultram) 50 mg PO Q6 PRN PRN Reason: Pain, moderate (4-7) Last Admin: 06/30/18 21:28 Dose: 50 mg - Labs Labs: - Additional Findings Additional findings: Constitutional Appears: Non-toxic, No Acute Distress - Head Exam Head Exam: ATRAUMATIC - Eye Exam Eye Exam: EOMI, PERRL - ENT Exam ENT Exam: Normal Oropharynx - Neck Exam Neck exam: Positive for: Full Rom - Respiratory Exam Respiratory Exam: Clear to Auscultation Bilateral, NORMAL BREATHING PATTERN - Cardiovascular Exam Cardiovascular Exam: RRR, +S1, +S2 - GI/Abdominal Exam GI & Abdominal Exam: Normal Bowel Sounds, Soft Additional comments: NT, ND - Extremities Exam Additional comments: left medial ankle region with 6 x 7 cm round open ulcer with scant yellow discharge, no malodor, + surrounding erythema + tenderness to touch - Neurological Exam Neurological exam: Alert, Oriented x 3 Laboratory Results - last 72 hr 06/28/18 06/28/18 06/28/18 18:00 18:00 18:00 WBC 7.6 RBC 3.50 L Hgb 11.1 L Hct 32.9 L MCV 94.1 MCH 31.6 H MCHC 33.6 RDW 14.5 Plt Count 359 MPV 7.8 Neut % (Auto) 60.8 Lymph % (Auto) 20.4 [place] % (Auto) 11.2 H Eos % (Auto) 7.0 H Baso % (Auto) 0.6 Neut # (Auto) 4.6 Lymph # (Auto) 1.6 [place] # (Auto) 0.9 H Eos # (Auto) 0.5 Baso # (Auto) 0.0 ESR 16 PT 10.6 INR 1.0 APTT 32.3 pO2 VBG pH VBG pCO2 VBG HCO3 VBG Total CO2 VBG O2 Sat (Calc) VBG Base Excess VBG Potassium Glucose Lactate FiO2 Sodium 129 L Potassium 5.0 Chloride 91 L Carbon Dioxide 29 Anion Gap 14 BUN 7 Creatinine 0.5 L Est GFR ( Amer) > 60 Est GFR (Non-Af Amer) > 60 Random Glucose 93 Calcium 10.1 Total Bilirubin 0.2 AST 32 ALT 20 Alkaline Phosphatase 111 C-Reactive Protein < 5.00 Total Protein 7.2 Albumin 3.9 Globulin 3.3 Albumin/Globulin Ratio 1.2 Triglycerides Cholesterol LDL Cholesterol Direct HDL Cholesterol Thyroxine (T4) TSH 3rd Generation Venous Blood Potassium Urine Color Urine Clarity Urine pH Ur Specific [place] Urine Protein Urine Glucose (UA) Urine Ketones Urine Blood Urine Nitrate Urine Bilirubin Urine Urobilinogen Ur Leukocyte Esterase Urine RBC (Auto) Urine Microscopic WBC Blood Type Blood Type Confirm Antibody Screen BBK History Checked 06/28/18 06/28/18 06/28/18 18:00 18:25 21:00 WBC RBC Hgb Hct MCV MCH MCHC RDW Plt Count MPV Neut % (Auto) Lymph % (Auto) [place] % (Auto) Eos % (Auto) Baso % (Auto) Neut # (Auto) Lymph # (Auto) [place] # (Auto) Eos # (Auto) Baso # (Auto) ESR PT INR APTT pO2 21 L VBG pH 7.40 VBG pCO2 46 VBG HCO3 25.6 VBG Total CO2 29.9 H VBG O2 Sat (Calc) 38.4 L VBG Base Excess 3.0 H VBG Potassium 4.9 Glucose 97 Lactate 1.2 FiO2 21.0 Sodium 126.0 L Potassium Chloride 94.0 L Carbon Dioxide Anion Gap BUN Creatinine Est GFR ( Amer) Est GFR (Non-Af Amer) Random Glucose Calcium Total Bilirubin AST ALT Alkaline Phosphatase C-Reactive Protein Total Protein Albumin Globulin Albumin/Globulin Ratio Triglycerides Cholesterol LDL Cholesterol Direct HDL Cholesterol Thyroxine (T4) TSH 3rd Generation Venous Blood Potassium 4.9 Urine Color Urine Clarity Urine pH Ur Specific [place] Urine Protein Urine Glucose (UA) Urine Ketones Urine Blood Urine Nitrate Urine Bilirubin Urine Urobilinogen Ur Leukocyte Esterase Urine RBC (Auto) Urine Microscopic WBC Blood Type O NEGATIVE Blood Type Confirm O NEGATIVE Antibody Screen Negative BBK History Checked No verified bt 06/29/18 06/29/18 06/29/18 05:00 05:00 05:00 WBC 7.3 RBC 3.33 L Hgb 10.7 L Hct 31.1 L MCV 93.6 MCH 32.1 H MCHC 34.3 RDW 14.0 Plt Count 350 MPV 7.4 Neut % (Auto) 59.1 Lymph % (Auto) 19.5 L [place] % (Auto) 12.3 H Eos % (Auto) 8.2 H Baso % (Auto) 0.9 Neut # (Auto) 4.3 Lymph # (Auto) 1.4 [place] # (Auto) 0.9 H Eos # (Auto) 0.6 Baso # (Auto) 0.1 ESR PT 11.2 INR 1.0 APTT 32.7 pO2 VBG pH VBG pCO2 VBG HCO3 VBG Total CO2 VBG O2 Sat (Calc) VBG Base Excess VBG Potassium Glucose Lactate FiO2 Sodium 134 Potassium 4.6 Chloride 98 Carbon Dioxide 30 Anion Gap 11 BUN 6 L Creatinine 0.6 L Est GFR ( Amer) > 60 Est GFR (Non-Af Amer) > 60 Random Glucose 85 Calcium 9.8 Total Bilirubin 0.3 AST 24 ALT 15 Alkaline Phosphatase 87 C-Reactive Protein Total Protein 6.3 Albumin 3.3 L Globulin 3.0 Albumin/Globulin Ratio 1.1 Triglycerides 45 D Cholesterol 158 LDL Cholesterol Direct 53 HDL Cholesterol 78 H Thyroxine (T4) 6.74 TSH 3rd Generation 3.64 Venous Blood Potassium Urine Color Urine Clarity Urine pH Ur Specific [place] Urine Protein Urine Glucose (UA) Urine Ketones Urine Blood Urine Nitrate Urine Bilirubin Urine Urobilinogen Ur Leukocyte Esterase Urine RBC (Auto) Urine Microscopic WBC Blood Type Blood Type Confirm Antibody Screen BBK History Checked 06/29/18 07/01/18 07/01/18 08:05 06:00 06:00 WBC 12.5 H D RBC 3.20 L Hgb 10.2 L Hct 30.0 L MCV 93.8 MCH 31.9 H MCHC 34.0 RDW 14.8 H Plt Count 340 MPV Neut % (Auto) Lymph % (Auto) [place] % (Auto) Eos % (Auto) Baso % (Auto) Neut # (Auto) Lymph # (Auto) [place] # (Auto) Eos # (Auto) Baso # (Auto) ESR PT INR APTT pO2 VBG pH VBG pCO2 VBG HCO3 VBG Total CO2 VBG O2 Sat (Calc) VBG Base Excess VBG Potassium Glucose Lactate FiO2 Sodium 134 Potassium 4.6 Chloride 103 Carbon Dioxide 23 Anion Gap 13 BUN 13 Creatinine 0.5 L Est GFR ( Amer) > 60 Est GFR (Non-Af Amer) > 60 Random Glucose 127 H Calcium 9.6 Total Bilirubin 0.2 AST 21 ALT 21 Alkaline Phosphatase 78 C-Reactive Protein Total Protein 6.4 Albumin 3.4 L Globulin 3.0 Albumin/Globulin Ratio 1.1 Triglycerides Cholesterol LDL Cholesterol Direct HDL Cholesterol Thyroxine (T4) TSH 3rd Generation Venous Blood Potassium Urine Color Colorless Urine Clarity Clear Urine pH 7.0 Ur Specific [place] 1.005 Urine Protein Negative Urine Glucose (UA) Neg Urine Ketones Negative Urine Blood Negative Urine Nitrate Negative Urine Bilirubin Negative Urine Urobilinogen 0.2-1.0 Ur Leukocyte Esterase Neg Urine RBC (Auto) 1 Urine Microscopic WBC 1 Blood Type Blood Type Confirm Antibody Screen BBK History Checked Microbiology 06/28/18 18:51 Foot - Left Gram Stain - Final 06/28/18 18:51 Foot - Left Wound Culture - Final Pseudomonas Aeruginosa Beta Hemolytic Strep Group B 06/28/18 18:15 Blood-Venous Blood Culture - Preliminary NO GROWTH AFTER 48 HOURS 06/28/18 18:00 Blood-Venous Blood Culture - Preliminary NO GROWTH AFTER 48 HOURS 06/29/18 08:05 Urine,Clean Catch Urine Culture - Final No Growth (<1,000 CFU/ML) Assessment and Plan (1) Cellulitis of left leg Status: Chronic (2) CAD (coronary artery disease) Status: Chronic - Assessment and Plan (Free Text) Assessment: A/P- 77 year old female with CAD s/p CABG admitted with nonhealing left medial ankle ulcer/wound and surrounding cellulitis. remains afebrile. has normal wbc count low ESR. blood cx- neg x 2 leg wound cx- Pseudomonas and group A strep based on sensitivity pseudomonas is sens to cefepime and strep sens to vanco ESR- 16 (normal) plan- Advise to continue with IV vancomyicn . day #3 keep vanco trough <15. continue with IV cefepime started yesterday day #2. wound care as per podiatry team. no sign of OM based on low ESR and negative xray report. advise total of 10 days of IV abx. can be switched to oral abx after that. d/w podiatry.
--- NOTE | 2018-07-01 13:56 | CP.PCM.PN ---
Subjective - Date & Time of Evaluation Date of Evaluation: 07/01/18 Time of Evaluation: 11:20 - Subjective Subjective: F/U Ulcer/ Cellulitis LLE Pt awake, c/o of pain in LLE Objective - Vital Signs/Intake and Output Vital Signs (last 24 hours): Temp Pulse Resp BP Pulse Ox 98.4 F 107 H 20 174/70 H 97 07/01/18 08:42 07/01/18 08:42 07/01/18 08:42 07/01/18 08:42 07/01/18 08:42 - Medications Medications: Current Medications Albuterol/Ipratropium (Duoneb 3 Mg/0.5 Mg (3 Ml) Ud) 3 ml INH RTID [facility] Last Admin: 07/01/18 07:41 Dose: 3 ml Alprazolam (Xanax) 0.25 mg PO Q12 PRN PRN Reason: Anxiety Last Admin: 07/01/18 08:16 Dose: 0.25 mg Atorvastatin Calcium (Lipitor) 20 mg PO DAILY [facility] Last Admin: 07/01/18 08:20 Dose: 20 mg Collagenase (Santyl) 1 applic TOP DAILY [facility] Last Admin: 07/01/18 11:13 Dose: Not Given Divalproex Sodium (Depakote Sprinkles) 125 mg PO BID [facility] Last Admin: 07/01/18 08:21 Dose: 125 mg Enoxaparin Sodium (Lovenox) 40 mg SC DAILY [facility]; Protocol Last Admin: 07/01/18 08:22 Dose: 40 mg Fluticasone Propionate (Flonase) 2 spr LA DAILY [facility] Last Admin: 07/01/18 08:21 Dose: 2 spr Vancomycin HCl 1 gm/ Sodium (Chloride) 250 mls @ 166.667 mls/hr IVPB Q12 [facility]; Protocol Last Admin: 07/01/18 10:15 Dose: 166.667 mls/hr Cefepime HCl 1 gm/ Sodium (Chloride) 100 mls @ 100 mls/hr IVPB Q8 [facility]; Protocol Last Admin: 07/01/18 08:56 Dose: 100 mls/hr Losartan Potassium (Cozaar) 25 mg PO DAILY [facility] Last Admin: 07/01/18 08:19 Dose: 25 mg Mirtazapine (Remeron) 15 mg PO HS [facility] Last Admin: 06/30/18 21:24 Dose: 15 mg Montelukast Sodium (Singulair) 10 mg PO HS [facility] Last Admin: 06/30/18 21:24 Dose: 10 mg Morphine Sulfate (Morphine) 2 mg IVP Q4 PRN PRN Reason: Pain, severe (8-10) Last Admin: 07/01/18 04:26 Dose: 2 mg Mupirocin (Bactroban Ointment) 1 applic TOP BID [facility] Last Admin: 07/01/18 08:23 Dose: 1 units Pantoprazole Sodium (Protonix Ec Tab) 40 mg PO DAILY [facility] Last Admin: 07/01/18 08:20 Dose: 40 mg Sodium Chloride (Sodium Chloride Tab) 2 gm PO Q12 [facility] Last Admin: 07/01/18 08:20 Dose: 2 gm Tramadol HCl (Ultram) 50 mg PO Q6 PRN PRN Reason: Pain, moderate (4-7) Last Admin: 06/30/18 21:28 Dose: 50 mg - Labs Labs: 07/01/18 06:00 07/01/18 06:00 PT 11.2 Seconds (9.8-13.1) 06/29/18 05:00 INR 1.0 06/29/18 05:00 APTT 32.7 Seconds (25.6-37.1) 06/29/18 05:00 - Constitutional Appears: No Acute Distress, Chronically Ill - Head Exam Head Exam: NORMAL INSPECTION - Eye Exam Eye Exam: PERRL - ENT Exam ENT Exam: Normal Exam - Neck Exam Neck Exam: Normal Inspection - Respiratory Exam Respiratory Exam: Rhonchi (few scattered) - Cardiovascular Exam Cardiovascular Exam: REGULAR RHYTHM, Murmur (systolic 1/6 LSB A0) - GI/Abdominal Exam GI & Abdominal Exam: Soft, Normal Bowel Sounds - Extremities Exam Extremities Exam: Tenderness (on palpation LLE) Additional comments: [place] open ulcer, scan yellow discharge with surrounded erythea. - Back Exam Back Exam: tenderness (mild ) Additional comments: Kyphosis - Neurological Exam Neurological Exam: Alert, Oriented x3 - Psychiatric Exam Psychiatric exam: Anxious - Skin Skin Exam: Warm Additional comments: See extremities. Assessment and Plan (1) Ulcer of left ankle Status: Acute (2) Cellulitis of left leg Status: Chronic (3) S/P AVR Status: Chronic (4) CAD (coronary artery disease) Status: Chronic (5) PVD (peripheral vascular disease) Status: Chronic (6) COPD (chronic obstructive pulmonary disease) Status: Chronic (7) HTN (hypertension) Status: Chronic (8) High cholesterol Status: Chronic (9) Anxiety Status: Chronic - Assessment and Plan (Free Text) Plan: Continue Cefepime, Bactroban, Ultram, Duoneb, Xanax and rest of Tx.
[2018-07-02] MEDS: Cefepime 1 GM in Sodium Chloride 0.9% 100 ML IVPB SCH ×3 (00:44→16:30)
--- NOTE | 2018-07-02 05:54 | CP.PCM.PN ---
Subjective - Date & Time of Evaluation Date of Evaluation: 07/02/18 Time of Evaluation: 07:08 - Subjective Subjective: Podiatry progress notes for attending Dr. Singer: 77 year old female seen and evaluated in the bedside for left foot pain, redness and ulcerations. Patient is AAO X 3. Patient states that she is still having pain in her left leg but it's improving than yesterday. Patient denies any other pedal complaint at this time. Patient denies any overnight F/N/V/C or SOB. Objective - Vital Signs/Intake and Output Vital Signs (last 24 hours): Temp Pulse Resp BP Pulse Ox 98.1 F 79 19 117/63 99 07/01/18 23:57 07/01/18 23:57 07/01/18 23:57 07/01/18 23:57 07/01/18 23:57 - Medications Medications: Current Medications Albuterol/Ipratropium (Duoneb 3 Mg/0.5 Mg (3 Ml) Ud) 3 ml INH RTID [facility] Last Admin: 07/01/18 19:16 Dose: 3 ml Alprazolam (Xanax) 0.25 mg PO Q12 PRN PRN Reason: Anxiety Last Admin: 07/01/18 17:29 Dose: 0.25 mg Atorvastatin Calcium (Lipitor) 20 mg PO DAILY [facility] Last Admin: 07/01/18 08:20 Dose: 20 mg Collagenase (Santyl) 1 applic TOP DAILY [facility] Last Admin: 07/01/18 11:13 Dose: Not Given Divalproex Sodium (Depakote Sprinkles) 125 mg PO BID [facility] Last Admin: 07/01/18 16:12 Dose: 125 mg Enoxaparin Sodium (Lovenox) 40 mg SC DAILY [facility]; Protocol Last Admin: 07/01/18 08:22 Dose: 40 mg Fluticasone Propionate (Flonase) 2 spr LA DAILY [facility] Last Admin: 07/01/18 08:21 Dose: 2 spr Vancomycin HCl 1 gm/ Sodium (Chloride) 250 mls @ 166.667 mls/hr IVPB Q12 [facility]; Protocol Last Admin: 07/01/18 21:35 Dose: 166.667 mls/hr Cefepime HCl 1 gm/ Sodium (Chloride) 100 mls @ 100 mls/hr IVPB Q8 [facility]; Protocol Last Admin: 07/02/18 00:44 Dose: 100 mls/hr Losartan Potassium (Cozaar) 25 mg PO DAILY [facility] Last Admin: 07/01/18 08:19 Dose: 25 mg Mirtazapine (Remeron) 15 mg PO HS [facility] Last Admin: 07/01/18 21:34 Dose: 15 mg Montelukast Sodium (Singulair) 10 mg PO HS [facility] Last Admin: 07/01/18 21:34 Dose: 10 mg Morphine Sulfate (Morphine) 2 mg IVP Q4 PRN PRN Reason: Pain, severe (8-10) Last Admin: 07/01/18 04:26 Dose: 2 mg Mupirocin (Bactroban Ointment) 1 applic TOP BID [facility] Last Admin: 07/01/18 16:10 Dose: 1 units Pantoprazole Sodium (Protonix Ec Tab) 40 mg PO DAILY [facility] Last Admin: 07/01/18 08:20 Dose: 40 mg Sodium Chloride (Sodium Chloride Tab) 2 gm PO Q12 [facility] Last Admin: 07/01/18 21:34 Dose: 2 gm Tramadol HCl (Ultram) 50 mg PO Q6 PRN PRN Reason: Pain, moderate (4-7) Last Admin: 07/01/18 14:00 Dose: 50 mg - Labs Labs: 07/01/18 06:00 07/01/18 06:00 PT 11.2 Seconds (9.8-13.1) 06/29/18 05:00 INR 1.0 06/29/18 05:00 APTT 32.7 Seconds (25.6-37.1) 06/29/18 05:00 - Constitutional Appears: Well, Non-toxic, No Acute Distress - Head Exam Head Exam: ATRAUMATIC, NORMOCEPHALIC - Extremities Exam Additional comments: LE focused exam: Vasc: DP/PT faintly palpable 1/4 b/l, Cap refill delayed = 4 sec to all digits, Temp gradient warm to warm from proximal to distal in the left side. And warm to cool from proximal to distal to the right side. +2 pitting edema on the right side and mild non pitting edema on the left side. Erythema extending from the left foot to the mid-calf on the left side. erythema noted to be less than yesterday. Neuro: Gross and protective sensations deminished b/l. Derm: Erythema extending from the left foot to the midcalf on the left side. 2 ulcerations noted on the left side. 1st one is medial malleolar ulcer which is 9.5 X 4.0 X 0.2. Base is fibrogranular 60:40, Minimal serous drainage. No malodor, no probe to bone. No tunneling, undermining or tracking. 2nd one is posterior heel ulcer which is 4.5 X 2.0 X 0.3. Base is fibrogranular 70:30, Minimal serous drainage. No malodor, no probe to bone. No tunneling, undermining or tracking. both ulcers surrounded by erythema (less than yesterday) and mild non pitting edema. Positive clinical signs of active infection. Left inter-spaces 1-4 shows interdigital macerations. Toe nails elongated, thickened and dystrophic in all digits. MSK: Pain on palpating left LE. Pain on palpating the dianna-wound areas. - Neurological Exam Neurological Exam: Alert, Awake, Oriented x3 - Psychiatric Exam Psychiatric exam: Normal Affect Assessment and Plan - Assessment and Plan (Free Text) Assessment: 77 y/o F patient seen and evaluated in the ED for Left LE ulcerations, cellulitis and PVD. Plan: Patient seen and evaluated in the bedside. Plan discussed in details with attending Dr. Singer. Chart, labs and vitals reviewed; Afebrile, WBCs 12.5(07/01) X-ray left foot reviewed: Diffuse osteoporosis, No evidence of Osteomyelitis. X-ray left ankle reviewed: Diffuse osteoporosis, Some erosions noted at the medial malleolous. LE venous duplex reviewed; No evidence of DVT. LE arterial duplex done; Stenotic lesions distal SFA 50-69% narrowing with occl uded PT artery. Stenotic disease in the DP artery 50-69% Wound culture Pseudomonas aerogenosa, beta hemolytic strept.. CTA LE: Diffuse calcifications but no occlusion. Possible moderate stenosis in the R distal PT artery. MRI done 07/01: Pending official report ID onboard. recommendations appreciated Continue IV Abx as per ID Vascular surgery Onboard. recommendations appreciated Ulcer dressed using bactroban and DSD. Podiatry will continue to follow up the patient while in house
[2018-07-02] MEDS: Albuterol-Ipratrop 3 mg / 0.5 (3 ml) UD INH SCH ×3 (07:11→19:01)
[2018-07-02] MEDS: Enoxaparin 40 mg Syringe SC SCH (08:31)
[2018-07-02] MEDS: Pantoprazole 40 mg EC Tab PO SCH (08:32)
[2018-07-02] MEDS: Divalproex 125 mg Sprinkle Capsule PO SCH ×2 (08:33→16:35)
[2018-07-02 08:36] LABS: HEMOGLOBIN 9.8 g/dL (12.0-16.0); MEAN CELL VOLUME 93.9 fl (81.0-99.0); MEAN CORPUSCULAR HEMOGLOBIN 32.2 pg (27.0-31.0); MEAN CORPUSCULAR HGB CONC 34.3 g/dL (33.0-37.0); RBC 3.03 Mil/uL (3.80-5.20); RED CELL DISTRIBUTION WIDTH 14.5 % (11.5-14.5); WHITE BLOOD COUNT 11.3 K/uL (4.8-10.8)
[2018-07-02] MEDS: Santyl Collagenase OINTMENT TOP SCH (09:37)
--- NOTE | 2018-07-02 11:22 | CP.PCM.PN ---
Subjective - Date & Time of Evaluation Date of Evaluation: 07/02/18 Time of Evaluation: 11:22 - Subjective Subjective: ID note- Pt. seen and examined today. remains afebrile still has pain in foot. Objective - Vital Signs/Intake and Output Vital Signs (last 24 hours): Temp Pulse Resp BP Pulse Ox 98.1 F 84 18 151/64 H 98 07/02/18 08:12 07/02/18 08:33 07/02/18 08:12 07/02/18 08:33 07/02/18 08:12 - Medications Medications: Current Medications Albuterol/Ipratropium (Duoneb 3 Mg/0.5 Mg (3 Ml) Ud) 3 ml INH RTID [facility] Last Admin: 07/02/18 07:11 Dose: 3 ml Alprazolam (Xanax) 0.25 mg PO Q12 PRN PRN Reason: Anxiety Last Admin: 07/01/18 17:29 Dose: 0.25 mg Atorvastatin Calcium (Lipitor) 20 mg PO DAILY [facility] Last Admin: 07/02/18 08:32 Dose: 20 mg Collagenase (Santyl) 1 applic TOP DAILY [facility] Last Admin: 07/02/18 09:37 Dose: Not Given Divalproex Sodium (Depakote Sprinkles) 125 mg PO BID [facility] Last Admin: 07/02/18 08:33 Dose: 125 mg Enoxaparin Sodium (Lovenox) 40 mg SC DAILY [facility]; Protocol Last Admin: 07/02/18 08:31 Dose: 40 mg Fluticasone Propionate (Flonase) 2 spr LA DAILY [facility] Last Admin: 07/02/18 08:31 Dose: 2 spr Vancomycin HCl 1 gm/ Sodium (Chloride) 250 mls @ 166.667 mls/hr IVPB Q12 [facility]; Protocol Last Admin: 07/01/18 21:35 Dose: 166.667 mls/hr Cefepime HCl 1 gm/ Sodium (Chloride) 100 mls @ 100 mls/hr IVPB Q8 [facility]; Protocol Last Admin: 07/02/18 08:31 Dose: 100 mls/hr Lactulose (Enulose) 20 gm PO DAILY PRN PRN Reason: Constipation Losartan Potassium (Cozaar) 25 mg PO DAILY [facility] Last Admin: 07/02/18 08:33 Dose: 25 mg Mirtazapine (Remeron) 15 mg PO HS [facility] Last Admin: 07/01/18 21:34 Dose: 15 mg Montelukast Sodium (Singulair) 10 mg PO HS [facility] Last Admin: 07/01/18 21:34 Dose: 10 mg Morphine Sulfate (Morphine) 2 mg IVP Q4 PRN PRN Reason: Pain, severe (8-10) Last Admin: 07/01/18 04:26 Dose: 2 mg Mupirocin (Bactroban Ointment) 1 applic TOP BID [facility] Last Admin: 07/02/18 08:28 Dose: 1 applic Pantoprazole Sodium (Protonix Ec Tab) 40 mg PO DAILY [facility] Last Admin: 07/02/18 08:32 Dose: 40 mg Sodium Chloride (Sodium Chloride Tab) 2 gm PO Q12 [facility] Last Admin: 07/02/18 08:32 Dose: 2 gm Tramadol HCl (Ultram) 50 mg PO Q6 PRN PRN Reason: Pain, moderate (4-7) Last Admin: 07/01/18 14:00 Dose: 50 mg - Labs Labs: - Additional Findings Additional findings: Constitutional Appears: Non-toxic, No Acute Distress - Head Exam Head Exam: ATRAUMATIC - Eye Exam Eye Exam: EOMI, PERRL - ENT Exam ENT Exam: Normal Oropharynx - Neck Exam Neck exam: Positive for: Full Rom - Respiratory Exam Respiratory Exam: Clear to Auscultation Bilateral, NORMAL BREATHING PATTERN - Cardiovascular Exam Cardiovascular Exam: RRR, +S1, +S2 - GI/Abdominal Exam GI & Abdominal Exam: Normal Bowel Sounds, Soft Additional comments: NT, ND - Extremities Exam Additional comments: left medial ankle region with 6 x 7 cm round open ulcer with scant yellow discharge, no malodor, + surrounding erythema has decreased + tenderness to touch - Neurological Exam Neurological exam: Alert, Oriented x 3 Laboratory Results - last 72 hr 07/01/18 07/01/18 07/02/18 06:00 06:00 08:22 WBC 12.5 H D 11.3 H RBC 3.20 L 3.03 L Hgb 10.2 L 9.8 L Hct 30.0 L 28.5 L MCV 93.8 93.9 MCH 31.9 H 32.2 H MCHC 34.0 34.3 RDW 14.8 H 14.5 Plt Count 340 346 Sodium 134 Potassium 4.6 Chloride 103 Carbon Dioxide 23 Anion Gap 13 BUN 13 Creatinine 0.5 L Est GFR ( Amer) > 60 Est GFR (Non-Af Amer) > 60 Random Glucose 127 H Calcium 9.6 Total Bilirubin 0.2 AST 21 ALT 21 Alkaline Phosphatase 78 Total Protein 6.4 Albumin 3.4 L Globulin 3.0 Albumin/Globulin Ratio 1.1 Vancomycin Trough 07/02/18 08:22 WBC RBC Hgb Hct MCV MCH MCHC RDW Plt Count Sodium Potassium Chloride Carbon Dioxide Anion Gap BUN Creatinine Est GFR ( Amer) Est GFR (Non-Af Amer) Random Glucose Calcium Total Bilirubin AST ALT Alkaline Phosphatase Total Protein Albumin Globulin Albumin/Globulin Ratio Vancomycin Trough 21.6 H Microbiology 06/28/18 18:15 Blood-Venous Blood Culture - Preliminary NO GROWTH AFTER 3 DAYS 06/28/18 18:00 Blood-Venous Blood Culture - Preliminary NO GROWTH AFTER 3 DAYS 06/28/18 18:51 Foot - Left Gram Stain - Final 06/28/18 18:51 Foot - Left Wound Culture - Final Pseudomonas Aeruginosa Beta Hemolytic Strep Group B 06/29/18 08:05 Urine,Clean Catch Urine Culture - Final No Growth (<1,000 CFU/ML) Accession No. : [id number] Patient Name / ID : JUANITA QUEEN / [id number] Exam Date : 07/01/2018 18:15:59 ( Approved ) Study Comment : Sex / Age : F / 77Y Creator : Aman Faye MD Dictator : Aman Faye MD Calculation Reviewer : Baggage Agent : Aman Faye MD Approver2 : Report Date : 07/02/2018 14:24:09 My Comment : Date of service: 07/01/2018 PROCEDURE: MRI left foot without contrast HISTORY: left foot cellulitis and ulcer COMPARISON: Left foot radiographs 06/28/2018. TECHNIQUE: Multiplanar multisequential MR imaging of the left foot is been performed for evaluation of cellulitis and ulcer. Intravenous gadolinium was not administered as per referring physician request. Examination captures up to the junction of the midfoot and hindfoot but not the complete hindfoot. FINDINGS: Matter signal throughout the digits, metatarsal bones and the visualized tarsus is normal with no edema that would suggest osteomyelitis. No cortical or marrow erosion is identified either. No fracture, subluxation or dislocation Flexor and extensor tendons as imaged appear intact without acute tear. The plantar plate appears intact. Degenerative joint space narrowing and cortical sclerosis appreciate throughout the 1st metatarsophalangeal joint in particular with lesser similar changes present throughout the interphalangeal joints diffusely as well as the remaining metatarsophalangeal joints. Midfoot articulations also appear moderately degenerated. No subluxation or dislocation identified. Subchondral edematous changes at the tarsal tarsal articulations indicate relatively advanced osteoarthritis. IMPRESSION: 1. No MR pattern that would suggest osteomyelitis throughout the forefoot and midfoot skeletal anatomy. 2. [id number] osteoarthritis more so at the midfoot and at the forefoot articulations. 3. No abscess or suspicious fluid collection. 4. No fracture, subluxation or dislocation. Concordant preliminary report from [facility], 07/01/2018. Assessment and Plan (1) Cellulitis of left leg Status: Chronic (2) CAD (coronary artery disease) Status: Chronic - Assessment and Plan (Free Text) Assessment: A/P- 77 year old female with CAD s/p CABG admitted with nonhealing left medial ankle ulcer/wound and surrounding cellulitis. remains afebrile. has normal wbc count low ESR. blood cx- neg x 2 leg wound cx- Pseudomonas and group A strep based on sensitivity pseudomonas is sens to cefepime and strep sens to vanco ESR- 16 (normal) MRI- negative for OM as per report. plan- Advise to continue with IV vancomyicn . day #4 keep vanco trough <15. continue with IV cefepime started yesterday day #3. wound care as per podiatry team. no sign of OM based on low ESR and negative xray report and negative MRI report. advise total of 10 days of IV abx. can be switched to oral abx after that.
--- NOTE | 2018-07-02 12:25 | CP.PCM.PCO ---
Physician Communication Note - Physician Communication Note Physician Communication Note: Pt requires 7 more days of IV antibiotics per Dr. Gibson recommendation
--- NOTE | 2018-07-02 14:29 | MRI ---
Date of service: 07/01/2018 PROCEDURE: MRI left foot without contrast HISTORY: left foot cellulitis and ulcer COMPARISON: Left foot radiographs 06/28/2018. TECHNIQUE: Multiplanar multisequential MR imaging of the left foot is been performed for evaluation of cellulitis and ulcer. Intravenous gadolinium was not administered as per referring physician request. Examination captures up to the junction of the midfoot and hindfoot but not the complete hindfoot. FINDINGS: Matter signal throughout the digits, metatarsal bones and the visualized tarsus is normal with no edema that would suggest osteomyelitis. No cortical or marrow erosion is identified either. No fracture, subluxation or dislocation Flexor and extensor tendons as imaged appear intact without acute tear. The plantar plate appears intact. Degenerative joint space narrowing and cortical sclerosis appreciate throughout the 1st metatarsophalangeal joint in particular with lesser similar changes present throughout the interphalangeal joints diffusely as well as the remaining metatarsophalangeal joints. Midfoot articulations also appear moderately degenerated. No subluxation or dislocation identified. Subchondral edematous changes at the tarsal tarsal articulations indicate relatively advanced osteoarthritis. IMPRESSION: 1. No MR pattern that would suggest osteomyelitis throughout the forefoot and midfoot skeletal anatomy. 2. [id number] osteoarthritis more so at the midfoot and at the forefoot articulations. 3. No abscess or suspicious fluid collection. 4. No fracture, subluxation or dislocation. Concordant preliminary report from [facility], 07/01/2018.
--- NOTE | 2018-07-02 17:41 | CP.PCM.PN ---
Subjective - Date & Time of Evaluation Date of Evaluation: 07/02/18 Time of Evaluation: 14:50 - Subjective Subjective: F/U Ulcer, Cellulitis LLE Pt awake, afebrile, no A/D, c/o of pain in LLE Objective - Vital Signs/Intake and Output Vital Signs (last 24 hours): Temp Pulse Resp BP Pulse Ox 98.3 F 82 20 159/66 H 100 07/02/18 16:17 07/02/18 16:17 07/02/18 16:17 07/02/18 16:17 07/02/18 16:17 - Medications Medications: Current Medications Albuterol/Ipratropium (Duoneb 3 Mg/0.5 Mg (3 Ml) Ud) 3 ml INH RTID [facility] Last Admin: 07/02/18 13:00 Dose: 3 ml Alprazolam (Xanax) 0.25 mg PO Q12 PRN PRN Reason: Anxiety Last Admin: 07/01/18 17:29 Dose: 0.25 mg Atorvastatin Calcium (Lipitor) 20 mg PO DAILY [facility] Last Admin: 07/02/18 08:32 Dose: 20 mg Collagenase (Santyl) 1 applic TOP DAILY [facility] Last Admin: 07/02/18 09:37 Dose: Not Given Divalproex Sodium (Depakote Sprinkles) 125 mg PO BID [facility] Last Admin: 07/02/18 16:35 Dose: 125 mg Enoxaparin Sodium (Lovenox) 40 mg SC DAILY [facility]; Protocol Last Admin: 07/02/18 08:31 Dose: 40 mg Fluticasone Propionate (Flonase) 2 spr LA DAILY [facility] Last Admin: 07/02/18 08:31 Dose: 2 spr Vancomycin HCl 1 gm/ Sodium (Chloride) 250 mls @ 166.667 mls/hr IVPB Q12 [facility]; Protocol Last Admin: 07/01/18 21:35 Dose: 166.667 mls/hr Cefepime HCl 1 gm/ Sodium (Chloride) 100 mls @ 100 mls/hr IVPB Q8 [facility]; Protocol Last Admin: 07/02/18 16:30 Dose: 100 mls/hr Lactulose (Enulose) 20 gm PO DAILY PRN PRN Reason: Constipation Last Admin: 07/02/18 11:43 Dose: 20 gm Losartan Potassium (Cozaar) 25 mg PO DAILY [facility] Last Admin: 07/02/18 08:33 Dose: 25 mg Mirtazapine (Remeron) 15 mg PO HS [facility] Last Admin: 07/01/18 21:34 Dose: 15 mg Montelukast Sodium (Singulair) 10 mg PO HS [facility] Last Admin: 07/01/18 21:34 Dose: 10 mg Morphine Sulfate (Morphine) 2 mg IVP Q4 PRN PRN Reason: Pain, severe (8-10) Last Admin: 07/02/18 16:27 Dose: 2 mg Mupirocin (Bactroban Ointment) 1 applic TOP BID [facility] Last Admin: 07/02/18 16:34 Dose: 1 applic Pantoprazole Sodium (Protonix Ec Tab) 40 mg PO DAILY [facility] Last Admin: 07/02/18 08:32 Dose: 40 mg Sodium Chloride (Sodium Chloride Tab) 2 gm PO Q12 [facility] Last Admin: 07/02/18 08:32 Dose: 2 gm Tramadol HCl (Ultram) 50 mg PO Q6 PRN PRN Reason: Pain, moderate (4-7) Last Admin: 07/01/18 14:00 Dose: 50 mg - Labs Labs: 07/02/18 08:22 07/01/18 06:00 PT 11.2 Seconds (9.8-13.1) 06/29/18 05:00 INR 1.0 06/29/18 05:00 APTT 32.7 Seconds (25.6-37.1) 06/29/18 05:00 - Constitutional Appears: No Acute Distress, Chronically Ill - Head Exam Head Exam: NORMAL INSPECTION - Eye Exam Eye Exam: PERRL - ENT Exam ENT Exam: Normal Exam - Neck Exam Neck Exam: Normal Inspection - Respiratory Exam Respiratory Exam: Rhonchi (few scattered) - Cardiovascular Exam Cardiovascular Exam: REGULAR RHYTHM, Murmur (systolic 1/6 LSB Ao) - GI/Abdominal Exam GI & Abdominal Exam: Soft, Normal Bowel Sounds - Extremities Exam Extremities Exam: Tenderness (on palpation LLE) Additional comments: L Ankle open ulcer with surrounded erythema - Back Exam Back Exam: tenderness (mild) Additional comments: Kyphosis - Neurological Exam Neurological Exam: Alert, Oriented x3 - Psychiatric Exam Psychiatric exam: Anxious - Skin Skin Exam: Warm (See extremities) Assessment and Plan (1) Ulcer of left ankle Status: Acute (2) Cellulitis of left leg Status: Chronic (3) S/P AVR Status: Chronic (4) CAD (coronary artery disease) Status: Chronic (5) PVD (peripheral vascular disease) Status: Chronic (6) COPD (chronic obstructive pulmonary disease) Status: Chronic (7) HTN (hypertension) Status: Chronic (8) High cholesterol Status: Chronic (9) Anxiety Status: Chronic - Assessment and Plan (Free Text) Plan: Continue Cefepime, Bactroban and rest of Tx.
[2018-07-03] MEDS: Cefepime 1 GM in Sodium Chloride 0.9% 100 ML IVPB SCH ×3 (01:06→17:09)
[2018-07-03 06:54] LABS: MEAN CELL VOLUME 94.2 fl (81.0-99.0); MEAN CORPUSCULAR HEMOGLOBIN 31.4 pg (27.0-31.0); MEAN CORPUSCULAR HGB CONC 33.3 g/dL (33.0-37.0); RBC 3.19 Mil/uL (3.80-5.20); RED CELL DISTRIBUTION WIDTH 14.7 % (11.5-14.5); WHITE BLOOD COUNT 7.9 K/uL (4.8-10.8)
[2018-07-03 07:13] LABS: BLOOD UREA NITROGEN 11 mg/dl (7-17); CALCIUM 9.1 mg/dL (8.4-10.2); GFR NON-AFRICAN AMERICAN > 60
[2018-07-03] MEDS: Albuterol-Ipratrop 3 mg / 0.5 (3 ml) UD INH SCH ×3 (08:04→19:29)
[2018-07-03] MEDS: Enoxaparin 40 mg Syringe SC SCH (08:41)
[2018-07-03] MEDS: Divalproex 125 mg Sprinkle Capsule PO SCH ×2 (08:43→17:08)
[2018-07-03] MEDS: Pantoprazole 40 mg EC Tab PO SCH (08:44)
--- NOTE | 2018-07-03 15:22 | CP.PCM.PN ---
Subjective - Date & Time of Evaluation Date of Evaluation: 07/03/18 Time of Evaluation: 15:20 - Subjective Subjective: Podiatry progress notes for attending Dr. Singer: 77 year old female seen and evaluated in the bedside for left foot pain, redness and ulcerations. Patient is AAO X 3. Patient states that she is still having pain in her left leg. Patient denies any other pedal complaint at this time. Patient denies any overnight F/N/V/C or SOB. Objective - Vital Signs/Intake and Output Vital Signs (last 24 hours): Temp Pulse Resp BP Pulse Ox 98.2 F 74 20 172/69 H 98 07/03/18 08:05 07/03/18 08:42 07/03/18 08:05 07/03/18 08:42 07/03/18 08:05 - Medications Medications: Current Medications Albuterol/Ipratropium (Duoneb 3 Mg/0.5 Mg (3 Ml) Ud) 3 ml INH RTID [facility] Last Admin: 07/03/18 13:51 Dose: 3 ml Alprazolam (Xanax) 0.25 mg PO Q12 PRN PRN Reason: Anxiety Last Admin: 07/01/18 17:29 Dose: 0.25 mg Atorvastatin Calcium (Lipitor) 20 mg PO DAILY [facility] Last Admin: 07/03/18 08:42 Dose: 20 mg Divalproex Sodium (Depakote Sprinkles) 125 mg PO BID [facility] Last Admin: 07/03/18 08:43 Dose: 125 mg Enoxaparin Sodium (Lovenox) 40 mg SC DAILY [facility]; Protocol Last Admin: 07/03/18 08:41 Dose: 40 mg Fluticasone Propionate (Flonase) 2 spr LA DAILY [facility] Last Admin: 07/03/18 08:40 Dose: 2 spr Cefepime HCl 1 gm/ Sodium (Chloride) 100 mls @ 100 mls/hr IVPB Q8 [facility]; Protocol Last Admin: 07/03/18 08:44 Dose: 100 mls/hr Vancomycin HCl 750 mg/ Sodium (Chloride) 250 mls @ 166.667 mls/hr IVPB Q12 [facility]; Protocol Last Admin: 07/03/18 12:01 Dose: 166.667 mls/hr Lactulose (Enulose) 20 gm PO DAILY PRN PRN Reason: Constipation Last Admin: 07/02/18 11:43 Dose: 20 gm Losartan Potassium (Cozaar) 25 mg PO DAILY [facility] Last Admin: 07/03/18 08:42 Dose: 25 mg Mirtazapine (Remeron) 15 mg PO HS [facility] Last Admin: 07/02/18 21:09 Dose: 15 mg Montelukast Sodium (Singulair) 10 mg PO HS [facility] Last Admin: 07/02/18 21:09 Dose: 10 mg Morphine Sulfate (Morphine) 2 mg IVP Q4 PRN PRN Reason: Pain, severe (8-10) Mupirocin (Bactroban Ointment) 1 applic TOP BID [facility] Last Admin: 07/03/18 08:39 Dose: 1 applic Pantoprazole Sodium (Protonix Ec Tab) 40 mg PO DAILY [facility] Last Admin: 07/03/18 08:44 Dose: 40 mg Sodium Chloride (Sodium Chloride Tab) 2 gm PO Q12 [facility] Last Admin: 07/03/18 08:41 Dose: 2 gm Tramadol HCl (Ultram) 50 mg PO Q6 PRN PRN Reason: Pain, moderate (4-7) Last Admin: 07/03/18 09:39 Dose: 50 mg - Labs Labs: 07/03/18 05:30 07/03/18 05:30 PT 11.2 Seconds (9.8-13.1) 06/29/18 05:00 INR 1.0 06/29/18 05:00 APTT 32.7 Seconds (25.6-37.1) 06/29/18 05:00 - Constitutional Appears: Well, Non-toxic, No Acute Distress - Head Exam Head Exam: ATRAUMATIC, NORMOCEPHALIC - Extremities Exam Additional comments: LE focused exam: Vasc: DP/PT faintly palpable 1/4 b/l, Cap refill delayed = 4 sec to all digits, Temp gradient warm to warm from proximal to distal in the left side. And warm to cool from proximal to distal to the right side. +2 pitting edema on the right side and mild non pitting edema on the left side. Erythema extending from the left foot to the mid-calf on the left side. erythema noted to be less than yesterday. Neuro: Gross and protective sensations deminished b/l. Derm: Erythema extending from the left foot to the midcalf on the left side. 2 ulcerations noted on the left side. 1st one is medial malleolar ulcer which is 9.5 X 4.0 X 0.2. Base is fibrogranular 60:40, Minimal serous drainage. No malodor, no probe to bone. No tunneling, undermining or tracking. 2nd one is posterior heel ulcer which is 4.5 X 2.0 X 0.3. Base is fibrogranular 70:30, Minimal serous drainage. No malodor, no probe to bone. No tunneling, undermining or tracking. both ulcers surrounded by erythema (less than yesterday) and mild non pitting edema. Positive clinical signs of active infection. Left inter-spaces 1-4 shows interdigital macerations. Toe nails elongated, thickened and dystrophic in all digits. MSK: Pain on palpating left LE. Pain on palpating the dianna-wound areas. - Neurological Exam Neurological Exam: Alert, Awake, Oriented x3 - Psychiatric Exam Psychiatric exam: Normal Affect, Normal Mood Assessment and Plan - Assessment and Plan (Free Text) Assessment: 77 y/o F patient seen and evaluated in the ED for Left LE ulcerations, cellulitis and PVD. Plan: Patient seen and evaluated in the bedside. Plan discussed in details with attending Dr. Singer. Chart, labs and vitals reviewed; Afebrile, WBCs 7.9(07/03) X-ray left foot reviewed: Diffuse osteoporosis, No evidence of Osteomyelitis. X-ray left ankle reviewed: Diffuse osteoporosis, Some erosions noted at the medial malleolous. LE venous duplex reviewed; No evidence of DVT. LE arterial duplex done; Stenotic lesions distal SFA 50-69% narrowing with occluded PT artery. Stenotic disease in the DP artery 50-69% Wound culture Pseudomonas aerogenosa, beta hemolytic strept.. CTA LE: Diffuse calcifications but no occlusion. Possible moderate stenosis in the R distal PT artery. 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 recommendations appreciated Continue IV Abx as per ID - cefepime, vanco Vascular surgery Onboard. recommendations appreciated Ulcer dressed using bactroban and DSD. Podiatry will continue to follow up the patient while in house
--- NOTE | 2018-07-03 16:07 | CP.PCM.PN ---
Subjective - Date & Time of Evaluation Date of Evaluation: 07/03/18 - Subjective Subjective: F/U Cellulitis/ Ulcer LLE Pt c/o of pain in L LE, relieved with pain medication. Objective - Vital Signs/Intake and Output Vital Signs (last 24 hours): Temp Pulse Resp BP Pulse Ox 98.2 F 74 20 172/69 H 98 07/03/18 08:05 07/03/18 08:42 07/03/18 08:05 07/03/18 08:42 07/03/18 08:05 - Medications Medications: Current Medications Albuterol/Ipratropium (Duoneb 3 Mg/0.5 Mg (3 Ml) Ud) 3 ml INH RTID [facility] Last Admin: 07/03/18 13:51 Dose: 3 ml Alprazolam (Xanax) 0.25 mg PO Q12 PRN PRN Reason: Anxiety Last Admin: 07/01/18 17:29 Dose: 0.25 mg Atorvastatin Calcium (Lipitor) 20 mg PO DAILY [facility] Last Admin: 07/03/18 08:42 Dose: 20 mg Divalproex Sodium (Depakote Sprinkles) 125 mg PO BID [facility] Last Admin: 07/03/18 08:43 Dose: 125 mg Enoxaparin Sodium (Lovenox) 40 mg SC DAILY [facility]; Protocol Last Admin: 07/03/18 08:41 Dose: 40 mg Fluticasone Propionate (Flonase) 2 spr LA DAILY [facility] Last Admin: 07/03/18 08:40 Dose: 2 spr Cefepime HCl 1 gm/ Sodium (Chloride) 100 mls @ 100 mls/hr IVPB Q8 [facility]; Protocol Last Admin: 07/03/18 08:44 Dose: 100 mls/hr Vancomycin HCl 750 mg/ Sodium (Chloride) 250 mls @ 166.667 mls/hr IVPB Q12 [facility]; Protocol Last Admin: 07/03/18 12:01 Dose: 166.667 mls/hr Lactulose (Enulose) 20 gm PO DAILY PRN PRN Reason: Constipation Last Admin: 07/02/18 11:43 Dose: 20 gm Losartan Potassium (Cozaar) 25 mg PO DAILY [facility] Last Admin: 07/03/18 08:42 Dose: 25 mg Mirtazapine (Remeron) 15 mg PO HS [facility] Last Admin: 07/02/18 21:09 Dose: 15 mg Montelukast Sodium (Singulair) 10 mg PO HS [facility] Last Admin: 07/02/18 21:09 Dose: 10 mg Morphine Sulfate (Morphine) 2 mg IVP Q4 PRN PRN Reason: Pain, severe (8-10) Mupirocin (Bactroban Ointment) 1 applic TOP BID [facility] Last Admin: 07/03/18 08:39 Dose: 1 applic Pantoprazole Sodium (Protonix Ec Tab) 40 mg PO DAILY [facility] Last Admin: 07/03/18 08:44 Dose: 40 mg Sodium Chloride (Sodium Chloride Tab) 2 gm PO Q12 [facility] Last Admin: 07/03/18 08:41 Dose: 2 gm Tramadol HCl (Ultram) 50 mg PO Q6 PRN PRN Reason: Pain, moderate (4-7) Last Admin: 07/03/18 09:39 Dose: 50 mg - Labs Labs: 07/03/18 05:30 07/03/18 05:30 PT 11.2 Seconds (9.8-13.1) 06/29/18 05:00 INR 1.0 06/29/18 05:00 APTT 32.7 Seconds (25.6-37.1) 06/29/18 05:00 - Constitutional Appears: No Acute Distress, Chronically Ill - Head Exam Head Exam: NORMAL INSPECTION - Eye Exam Eye Exam: PERRL - ENT Exam ENT Exam: Normal Exam - Neck Exam Neck Exam: Normal Inspection - Respiratory Exam Respiratory Exam: Rhonchi (few scattered) - Cardiovascular Exam Cardiovascular Exam: REGULAR RHYTHM, Murmur (Systolic 1/6 LSB Ao) - GI/Abdominal Exam GI & Abdominal Exam: Soft, Normal Bowel Sounds - Extremities Exam Extremities Exam: Tenderness (on palpation LLE) Additional comments: L ankle open ulcer with surrounded erythema - Back Exam Back Exam: tenderness (mild) Additional comments: Kyphosis - Neurological Exam Neurological Exam: Alert, Oriented x3 - Psychiatric Exam Psychiatric exam: Anxious - Skin Skin Exam: Warm Assessment and Plan (1) Ulcer of left ankle Status: Acute (2) Cellulitis of left leg Status: Chronic (3) S/P AVR Status: Chronic (4) CAD (coronary artery disease) Status: Chronic (5) PVD (peripheral vascular disease) Status: Chronic (6) COPD (chronic obstructive pulmonary disease) Status: Chronic (7) HTN (hypertension) Status: Chronic (8) High cholesterol Status: Chronic (9) Anxiety Status: Chronic - Assessment and Plan (Free Text) Plan: Continue Bactroban, Cefepime, Morphine, Duoneb and rest of medications.
[2018-07-04] MEDS: Cefepime 1 GM in Sodium Chloride 0.9% 100 ML IVPB SCH ×3 (00:22→16:50)
[2018-07-04] MEDS: Albuterol-Ipratrop 3 mg / 0.5 (3 ml) UD INH SCH ×3 (07:38→19:01)
[2018-07-04] MEDS: Divalproex 125 mg Sprinkle Capsule PO SCH ×2 (09:03→16:48)
[2018-07-04] MEDS: Enoxaparin 40 mg Syringe SC SCH (09:04)
[2018-07-04] MEDS: Pantoprazole 40 mg EC Tab PO SCH (09:05)
--- NOTE | 2018-07-04 16:58 | CP.PCM.PN ---
Subjective - Date & Time of Evaluation Date of Evaluation: 07/04/18 - Subjective Subjective: F/U Ulcer/Cellulitis LLE Pt awake, no A/D, minimal pain in LLE, Objective - Vital Signs/Intake and Output Vital Signs (last 24 hours): Temp Pulse Resp BP Pulse Ox 98.5 F 55 L 20 134/66 100 07/04/18 16:57 07/04/18 16:57 07/04/18 16:57 07/04/18 16:57 07/04/18 16:57 - Medications Medications: Current Medications Albuterol/Ipratropium (Duoneb 3 Mg/0.5 Mg (3 Ml) Ud) 3 ml INH RTID [facility] Last Admin: 07/04/18 13:16 Dose: 3 ml Alprazolam (Xanax) 0.25 mg PO Q12 PRN PRN Reason: Anxiety Last Admin: 07/01/18 17:29 Dose: 0.25 mg Atorvastatin Calcium (Lipitor) 20 mg PO DAILY [facility] Last Admin: 07/04/18 09:04 Dose: 20 mg Divalproex Sodium (Depakote Sprinkles) 125 mg PO BID [facility] Last Admin: 07/04/18 16:48 Dose: 125 mg Fluticasone Propionate (Flonase) 2 spr LA DAILY [facility] Last Admin: 07/04/18 09:03 Dose: 2 spr Cefepime HCl 1 gm/ Sodium (Chloride) 100 mls @ 100 mls/hr IVPB Q8 [facility]; Protocol Last Admin: 07/04/18 16:50 Dose: 100 mls/hr Vancomycin HCl 750 mg/ Sodium (Chloride) 250 mls @ 166.667 mls/hr IVPB Q12 [facility]; Protocol Last Admin: 07/04/18 09:09 Dose: 166.667 mls/hr Lactulose (Enulose) 20 gm PO DAILY PRN PRN Reason: Constipation Last Admin: 07/02/18 11:43 Dose: 20 gm Losartan Potassium (Cozaar) 25 mg PO DAILY [facility] Last Admin: 07/04/18 09:02 Dose: 25 mg Mirtazapine (Remeron) 15 mg PO HS [facility] Last Admin: 07/03/18 21:08 Dose: 15 mg Montelukast Sodium (Singulair) 10 mg PO HS [facility] Last Admin: 07/03/18 21:08 Dose: 10 mg Morphine Sulfate (Morphine) 2 mg IVP Q4 PRN PRN Reason: Pain, severe (8-10) Mupirocin (Bactroban Ointment) 1 applic TOP BID [facility] Last Admin: 07/04/18 16:48 Dose: 1 applic Pantoprazole Sodium (Protonix Ec Tab) 40 mg PO DAILY [facility] Last Admin: 07/04/18 09:05 Dose: 40 mg Sodium Chloride (Sodium Chloride Tab) 2 gm PO Q12 [facility] Last Admin: 07/04/18 09:07 Dose: 2 gm Tramadol HCl (Ultram) 50 mg PO Q6 PRN PRN Reason: Pain, moderate (4-7) Last Admin: 07/03/18 21:13 Dose: 50 mg - Labs Labs: 07/03/18 05:30 07/03/18 05:30 PT 11.2 Seconds (9.8-13.1) 06/29/18 05:00 INR 1.0 06/29/18 05:00 APTT 32.7 Seconds (25.6-37.1) 06/29/18 05:00 - Constitutional Appears: No Acute Distress, Chronically Ill - Head Exam Head Exam: NORMAL INSPECTION - Eye Exam Eye Exam: PERRL - ENT Exam ENT Exam: Normal Exam - Neck Exam Neck Exam: Normal Inspection - Respiratory Exam Respiratory Exam: Rhonchi (few scattered) - Cardiovascular Exam Cardiovascular Exam: REGULAR RHYTHM, Murmur (systolic 1/6 LSB Ao) - GI/Abdominal Exam GI & Abdominal Exam: Soft, Normal Bowel Sounds - Extremities Exam Extremities Exam: Tenderness (on palpation LLE) Additional comments: L ankle open ulcer with surrounded erythema. L foot dressing in place - Back Exam Back Exam: tenderness (mild L-S) Additional comments: Kyphosis - Neurological Exam Neurological Exam: Alert, Oriented x3 - Psychiatric Exam Psychiatric exam: Anxious - Skin Skin Exam: Warm Additional comments: See extremities. Assessment and Plan (1) Ulcer of left ankle Status: Acute (2) Cellulitis of left leg Status: Chronic (3) S/P AVR Status: Chronic (4) CAD (coronary artery disease) Status: Chronic (5) PVD (peripheral vascular disease) Status: Chronic (6) COPD (chronic obstructive pulmonary disease) Status: Chronic (7) HTN (hypertension) Status: Chronic (8) High cholesterol Status: Chronic (9) Anxiety Status: Chronic - Assessment and Plan (Free Text) Plan: Continue Cefepime, Vanco, Bactroban, Singulair and rest of Tx.
[2018-07-05] MEDS: Cefepime 1 GM in Sodium Chloride 0.9% 100 ML IVPB SCH ×3 (00:21→17:28)
--- NOTE | 2018-07-05 06:45 | CP.PCM.PN ---
Addendum entered and electronically signed by Yuan Houston DPM 07/05/18 10:38: Ordered Ammonium lactate 12% cream to be applied topical TID to the left foot. Addendum entered and electronically signed by Yuan Houston DPM 07/05/18 08:18: clinic lpn number [id number] used for translation. Original Note: Subjective - Date & Time of Evaluation Date of Evaluation: 07/05/18 Time of Evaluation: 08:12 - Subjective Subjective: Podiatry progress notes for attending Dr. Singer: 77 year old female seen and evaluated in the bedside for left foot pain, redness and ulcerations. Patient is AAO X 3. Patient states that she is still having pain in her left leg from yesterday. Patient denies any other pedal complaint at this time. Patient denies any overnight F/V/C or SOB but she states that she had some nausea yesterday. Objective - Vital Signs/Intake and Output Vital Signs (last 24 hours): Temp Pulse Resp BP Pulse Ox 97.5 F L 79 20 155/66 H 99 07/05/18 00:08 07/05/18 00:08 07/05/18 00:08 07/05/18 00:08 07/05/18 00:08 - Medications Medications: Current Medications Albuterol/Ipratropium (Duoneb 3 Mg/0.5 Mg (3 Ml) Ud) 3 ml INH RTID [facility] Last Admin: 07/04/18 19:01 Dose: 3 ml Alprazolam (Xanax) 0.25 mg PO Q12 PRN PRN Reason: Anxiety Last Admin: 07/01/18 17:29 Dose: 0.25 mg Atorvastatin Calcium (Lipitor) 20 mg PO DAILY [facility] Last Admin: 07/04/18 09:04 Dose: 20 mg Divalproex Sodium (Depakote Sprinkles) 125 mg PO BID [facility] Last Admin: 07/04/18 16:48 Dose: 125 mg Fluticasone Propionate (Flonase) 2 spr LA DAILY [facility] Last Admin: 07/04/18 09:03 Dose: 2 spr Cefepime HCl 1 gm/ Sodium (Chloride) 100 mls @ 100 mls/hr IVPB Q8 [facility]; Protocol Last Admin: 07/05/18 00:21 Dose: 100 mls/hr Vancomycin HCl 750 mg/ Sodium (Chloride) 250 mls @ 166.667 mls/hr IVPB Q12 [facility]; Protocol Last Admin: 07/04/18 21:18 Dose: 166.667 mls/hr Lactulose (Enulose) 20 gm PO DAILY PRN PRN Reason: Constipation Last Admin: 07/02/18 11:43 Dose: 20 gm Losartan Potassium (Cozaar) 25 mg PO DAILY [facility] Last Admin: 07/04/18 09:02 Dose: 25 mg Mirtazapine (Remeron) 15 mg PO HS [facility] Last Admin: 07/04/18 21:18 Dose: 15 mg Montelukast Sodium (Singulair) 10 mg PO HS [facility] Last Admin: 07/04/18 21:18 Dose: 10 mg Morphine Sulfate (Morphine) 2 mg IVP Q4 PRN PRN Reason: Pain, severe (8-10) Mupirocin (Bactroban Ointment) 1 applic TOP BID [facility] Last Admin: 07/04/18 16:48 Dose: 1 applic Pantoprazole Sodium (Protonix Ec Tab) 40 mg PO DAILY [facility] Last Admin: 07/04/18 09:05 Dose: 40 mg Sodium Chloride (Sodium Chloride Tab) 2 gm PO Q12 [facility] Last Admin: 07/04/18 21:17 Dose: 2 gm Tramadol HCl (Ultram) 50 mg PO Q6 PRN PRN Reason: Pain, moderate (4-7) Last Admin: 07/05/18 05:19 Dose: 50 mg - Labs Labs: 07/03/18 05:30 07/03/18 05:30 PT 11.2 Seconds (9.8-13.1) 06/29/18 05:00 INR 1.0 06/29/18 05:00 APTT 32.7 Seconds (25.6-37.1) 06/29/18 05:00 - Constitutional Appears: Well, Non-toxic, No Acute Distress - Head Exam Head Exam: ATRAUMATIC, NORMAL INSPECTION, NORMOCEPHALIC - Extremities Exam Additional comments: LE focused exam: Vasc: DP/PT faintly palpable 1/4 b/l, Cap refill delayed = 4 sec to all digits, Temp gradient warm to warm from proximal to distal in the left side. And warm to cool from proximal to distal to the right side. +2 pitting edema on the right side and mild non pitting edema on the left side. Mild erythema extending from the left foot to the mid-calf on the left side. erythema noted to be less than yesterday. Neuro: Gross and protective sensations deminished b/l. Derm: Erythema extending from the left foot to the midcalf on the left side. 2 ulcerations noted on the left side. 1st one is medial malleolar ulcer which is 9.0 X 3.4 X 0.2. Base is fibrogranular 50:50, Minimal serous drainage. No malodor, no probe to bone. No tunneling, undermining or tracking. 2nd one is posterior heel ulcer which is 4.2 X 1.5 X 0.3. Base is fibrogranular 50:50, Minimal serous drainage. No malodor, no probe to bone. No tunneling, undermining or tracking. both ulcers surrounded by erythema (less than yesterday) and mild non pitting edema. Positive clinical signs of active infection. Left inter-spaces 1-4 shows interdigital macerations. Toe nails elongated, thickened and dystrophic in all digits. MSK: Pain on palpating left LE. Pain on palpating the dianna-wound areas. - Neurological Exam Neurological Exam: Alert, Awake, Oriented x3 - Psychiatric Exam Psychiatric exam: Normal Affect, Normal Mood Assessment and Plan - Assessment and Plan (Free Text) Assessment: 77 y/o F patient seen and evaluated in the ED for Left LE ulcerations, cellulitis and PVD. Plan: Patient seen and evaluated in the bedside. Plan discussed in details with attending Dr. Singer. Chart, labs and vitals reviewed; Afebrile, WBCs 7.6 X-ray left foot reviewed (06/28): Diffuse osteoporosis, No evidence of Osteomyelitis. X-ray left ankle reviewed (06/28): Diffuse osteoporosis, Some erosions noted at the medial malleolous. LE venous duplex reviewed (06/28); No evidence of DVT. LE arterial duplex done; Stenotic lesions distal SFA 50-69% narrowing with occluded PT artery. Stenotic disease in the DP artery 50-69% Wound culture Pseudomonas aerogenosa, beta hemolytic strept.. CTA LE: Diffuse calcifications but no occlusion. Possible moderate stenosis in the R distal PT artery. 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 recommendations appreciated Continue IV Abx as per ID - cefepime, vancomycin. Vascular surgery Onboard. recommendations appreciated Ulcer dressed using bactroban and DSD. Podiatry will continue to follow up the patient while in house
[2018-07-05 07:06] LABS: HEMOGLOBIN 11.1 g/dL (12.0-16.0); MEAN CELL VOLUME 94.6 fl (81.0-99.0); MEAN CORPUSCULAR HEMOGLOBIN 31.6 pg (27.0-31.0); MEAN CORPUSCULAR HGB CONC 33.4 g/dL (33.0-37.0); RBC 3.5 Mil/uL (3.80-5.20); RED CELL DISTRIBUTION WIDTH 14.6 % (11.5-14.5); WHITE BLOOD COUNT 7.6 K/uL (4.8-10.8)
[2018-07-05] MEDS: Albuterol-Ipratrop 3 mg / 0.5 (3 ml) UD INH SCH ×2 (07:43→14:53)
[2018-07-05] MEDS: Divalproex 125 mg Sprinkle Capsule PO SCH ×2 (08:47→17:27)
[2018-07-05] MEDS: Pantoprazole 40 mg EC Tab PO SCH (09:02)
[2018-07-05 11:10] LABS: BLOOD UREA NITROGEN 6 mg/dl (7-17); CALCIUM 9.4 mg/dL (8.4-10.2); GFR NON-AFRICAN AMERICAN > 60
--- NOTE | 2018-07-05 13:45 | CP.PCM.PN ---
Subjective - Date & Time of Evaluation Date of Evaluation: 07/05/18 Time of Evaluation: 13:45 - Subjective Subjective: Id note- Pt. seen and examined today. remains afebrile. No new events. Objective - Vital Signs/Intake and Output Vital Signs (last 24 hours): Temp Pulse Resp BP Pulse Ox 98.1 F 76 18 136/68 96 07/05/18 09:17 07/05/18 09:17 07/05/18 09:17 07/05/18 09:17 07/05/18 09:17 - Medications Medications: Current Medications Albuterol/Ipratropium (Duoneb 3 Mg/0.5 Mg (3 Ml) Ud) 3 ml INH RTID [facility] Last Admin: 07/05/18 07:43 Dose: 3 ml Alprazolam (Xanax) 0.25 mg PO Q12 PRN PRN Reason: Anxiety Last Admin: 07/01/18 17:29 Dose: 0.25 mg Atorvastatin Calcium (Lipitor) 20 mg PO DAILY [facility] Last Admin: 07/05/18 08:48 Dose: 20 mg Divalproex Sodium (Depakote Sprinkles) 125 mg PO BID [facility] Last Admin: 07/05/18 08:47 Dose: 125 mg Fluticasone Propionate (Flonase) 2 spr LA DAILY [facility] Last Admin: 07/04/18 09:03 Dose: 2 spr Cefepime HCl 1 gm/ Sodium (Chloride) 100 mls @ 100 mls/hr IVPB Q8 [facility]; Protocol Last Admin: 07/05/18 08:49 Dose: 100 mls/hr Vancomycin HCl 750 mg/ Sodium (Chloride) 250 mls @ 166.667 mls/hr IVPB Q12 [facility]; Protocol Last Admin: 07/05/18 08:54 Dose: 166.667 mls/hr Lactic Acid (Lac-Hydrin 12% Lotion (225 G)) 1 applic TOP TID [facility] Lactulose (Enulose) 20 gm PO DAILY PRN PRN Reason: Constipation Last Admin: 07/02/18 11:43 Dose: 20 gm Losartan Potassium (Cozaar) 25 mg PO DAILY [facility] Last Admin: 07/05/18 08:48 Dose: 25 mg Mirtazapine (Remeron) 15 mg PO HS [facility] Last Admin: 07/04/18 21:18 Dose: 15 mg Montelukast Sodium (Singulair) 10 mg PO HS [facility] Last Admin: 07/04/18 21:18 Dose: 10 mg Morphine Sulfate (Morphine) 2 mg IVP Q4 PRN PRN Reason: Pain, severe (8-10) Mupirocin (Bactroban Ointment) 1 applic TOP BID [facility] Last Admin: 07/05/18 08:40 Dose: 1 applic Pantoprazole Sodium (Protonix Ec Tab) 40 mg PO DAILY [facility] Last Admin: 07/05/18 09:02 Dose: 40 mg Sodium Chloride (Sodium Chloride Tab) 2 gm PO Q12 [facility] Last Admin: 07/05/18 09:01 Dose: 2 gm Tramadol HCl (Ultram) 50 mg PO Q6 PRN PRN Reason: Pain, moderate (4-7) Last Admin: 07/05/18 05:19 Dose: 50 mg - Labs Labs: - Additional Findings Additional findings: Constitutional Appears: Non-toxic, No Acute Distress - Head Exam Head Exam: ATRAUMATIC - Eye Exam Eye Exam: EOMI, PERRL - ENT Exam ENT Exam: Normal Oropharynx - Neck Exam Neck exam: Positive for: Full Rom - Respiratory Exam Respiratory Exam: Clear to Auscultation Bilateral, NORMAL BREATHING PATTERN - Cardiovascular Exam Cardiovascular Exam: RRR, +S1, +S2 - GI/Abdominal Exam GI & Abdominal Exam: Normal Bowel Sounds, Soft Additional comments: NT, ND - Extremities Exam Additional comments: left medial ankle region with 6 x 7 cm round open ulcer , superficial, no discharge, no malodor no surrounding erythema - Neurological Exam Neurological exam: Alert, Oriented x 3 Laboratory Results - last 72 hr 07/03/18 07/03/18 07/03/18 05:30 05:30 08:00 WBC 7.9 RBC 3.19 L Hgb 10.0 L Hct 30.1 L MCV 94.2 MCH 31.4 H MCHC 33.3 RDW 14.7 H Plt Count 331 Sodium 138 Potassium 4.1 Chloride 103 Carbon Dioxide 31 H Anion Gap 8 L BUN 11 Creatinine 0.5 L Est GFR ( Amer) > 60 Est GFR (Non-Af Amer) > 60 Random Glucose 79 Calcium 9.1 Vancomycin Trough 9.6 07/05/18 07/05/18 07/05/18 05:35 05:35 05:35 WBC 7.6 RBC 3.50 L Hgb 11.1 L Hct 33.1 L MCV 94.6 MCH 31.6 H MCHC 33.4 RDW 14.6 H Plt Count 345 Sodium 136 Potassium 3.9 Chloride 102 Carbon Dioxide 30 Anion Gap 8 L BUN 6 L Creatinine 0.5 L Est GFR ( Amer) > 60 Est GFR (Non-Af Amer) > 60 Random Glucose 76 Calcium 9.4 Vancomycin Trough 14.6 H Microbiology 06/28/18 18:15 Blood-Venous Blood Culture - Final NO GROWTH AFTER 5 DAYS 06/28/18 18:15 Blood-Venous Gram Stain - Final TEST NOT PERFORMED 06/28/18 18:00 Blood-Venous Blood Culture - Final NO GROWTH AFTER 5 DAYS 06/28/18 18:00 Blood-Venous Gram Stain - Final TEST NOT PERFORMED 06/28/18 18:51 Foot - Left Gram Stain - Final 06/28/18 18:51 Foot - Left Wound Culture - Final Pseudomonas Aeruginosa Beta Hemolytic Strep Group B 06/29/18 08:05 Urine,Clean Catch Urine Culture - Final No Growth (<1,000 CFU/ML) Assessment and Plan (1) Cellulitis of left leg Status: Chronic (2) CAD (coronary artery disease) Status: Chronic - Assessment and Plan (Free Text) Assessment: A/P- 77 year old female with CAD s/p CABG admitted with nonhealing left medial ankle ulcer/wound and surrounding cellulitis. remains afebrile. has normal wbc count low ESR. blood cx- neg x 2 leg wound cx- Pseudomonas and group A strep based on sensitivity pseudomonas is sens to cefepime and strep sens to vanco ESR- 16 (normal) MRI- negative for OM as per report. plan- Advise to continue with IV vancomyicn . day #7 keep vanco trough <15. continue with IV cefepime started yesterday day #6. wound care as per podiatry team. no sign of OM based on low ESR and negative xray report and negative MRI report. advise total of 10 days of IV abx.( 3 more days). can be switched to oral abx after that ( oral cipro and ampicillin for 7 days after d/c from hospital). f/u closely with podiatry for wound care as outpatietn. All above d/w podiatry today.
[2018-07-05 16:33] VITALS: BP 162/78; PULSE 92; RESP 20; TEMP 97.8
--- NOTE | 2018-07-05 17:42 | CP.PCM.DIS ---
Provider - Provider Date of Admission: 06/28/18 19:21 Attending physician: Corey García MD Diagnosis - Discharge Diagnosis (1) Ulcer of left ankle Status: Acute Priority: High (2) Cellulitis of left leg Status: Chronic Priority: High (3) S/P AVR Status: Chronic Priority: High (4) CAD (coronary artery disease) Status: Chronic Priority: Medium (5) PVD (peripheral vascular disease) Status: Chronic Priority: High (6) COPD (chronic obstructive pulmonary disease) Status: Chronic Priority: Medium (7) HTN (hypertension) Status: Chronic Priority: Medium (8) High cholesterol Status: Chronic Priority: Medium (9) Anxiety Status: Chronic Priority: Medium Hospital Course - Lab Results Lab Results: Micro Results 06/28/18 18:15 Blood-Venous Blood Culture - Final NO GROWTH AFTER 5 DAYS 06/28/18 18:15 Blood-Venous Gram Stain - Final TEST NOT PERFORMED 06/28/18 18:00 Blood-Venous Blood Culture - Final NO GROWTH AFTER 5 DAYS 06/28/18 18:00 Blood-Venous Gram Stain - Final TEST NOT PERFORMED 06/28/18 18:51 Foot - Left Gram Stain - Final 06/28/18 18:51 Foot - Left Wound Culture - Final Pseudomonas Aeruginosa Beta Hemolytic Strep Group B 06/29/18 08:05 Urine,Clean Catch Urine Culture - Final No Growth (<1,000 CFU/ML) Most Recent Lab Values WBC 7.6 K/uL (4.8-10.8) 07/05/18 05:35 RBC 3.50 Mil/uL (3.80-5.20) L 07/05/18 05:35 Hgb 11.1 g/dL (12.0-16.0) L 07/05/18 05:35 Hct 33.1 % (34.0-47.0) L 07/05/18 05:35 MCV 94.6 fl (81.0-99.0) 07/05/18 05:35 MCH 31.6 pg (27.0-31.0) H 07/05/18 05:35 MCHC 33.4 g/dL (33.0-37.0) 07/05/18 05:35 RDW 14.6 % (11.5-14.5) H 07/05/18 05:35 Plt Count 345 K/uL (130-400) 07/05/18 05:35 MPV 7.4 fl (7.2-11.7) 06/29/18 05:00 Neut % (Auto) 59.1 % (50.0-75.0) 06/29/18 05:00 Lymph % (Auto) 19.5 % (20.0-40.0) L 06/29/18 05:00 Gilchrist % (Auto) 12.3 % (0.0-10.0) H 06/29/18 05:00 Eos % (Auto) 8.2 % (0.0-4.0) H 06/29/18 05:00 Baso % (Auto) 0.9 % (0.0-2.0) 06/29/18 05:00 Neut # (Auto) 4.3 K/uL (1.8-7.0) 06/29/18 05:00 Lymph # (Auto) 1.4 K/uL (1.0-4.3) 06/29/18 05:00 Gilchrist # (Auto) 0.9 K/uL (0.0-0.8) H 06/29/18 05:00 Eos # (Auto) 0.6 K/uL (0.0-0.7) 06/29/18 05:00 Baso # (Auto) 0.1 K/uL (0.0-0.2) 06/29/18 05:00 ESR 16 mm/hr (0-30) 06/28/18 18:00 PT 11.2 Seconds (9.8-13.1) 06/29/18 05:00 INR 1.0 06/29/18 05:00 APTT 32.7 Seconds (25.6-37.1) 06/29/18 05:00 pO2 21 mm/Hg (30-55) L 06/28/18 18:25 VBG pH 7.40 (7.32-7.43) 06/28/18 18:25 VBG pCO2 46 mmHg (40-60) 06/28/18 18:25 VBG HCO3 25.6 mmol/L 06/28/18 18:25 VBG Total CO2 29.9 mmol/L (22-28) H 06/28/18 18:25 VBG O2 Sat (Calc) 38.4 % (40-65) L 06/28/18 18:25 VBG Base Excess 3.0 mmol/L (0.0-2.0) H 06/28/18 18:25 VBG Potassium 4.9 mmol/L (3.6-5.2) 06/28/18 18:25 Sodium 126.0 mmol/L (132-148) L 06/28/18 18:25 Chloride 94.0 mmol/L (98-107) L 06/28/18 18:25 Glucose 97 mg/dL (65-105) 06/28/18 18:25 Lactate 1.2 mmol/L (0.7-2.1) 06/28/18 18:25 FiO2 21.0 % 06/28/18 18:25 Sodium 136 mmol/l (132-148) 07/05/18 05:35 Potassium 3.9 MMOL/L (3.6-5.0) 07/05/18 05:35 Chloride 102 mmol/L (98-107) 07/05/18 05:35 Carbon Dioxide 30 mmol/L (22-30) 07/05/18 05:35 Anion Gap 8 (10-20) L 07/05/18 05:35 BUN 6 mg/dl (7-17) L 07/05/18 05:35 Creatinine 0.5 mg/dl (0.7-1.2) L 07/05/18 05:35 Est GFR ( Amer) > 60 07/05/18 05:35 Est GFR (Non-Af Amer) > 60 07/05/18 05:35 Random Glucose 76 mg/dL (65-105) 07/05/18 05:35 Calcium 9.4 mg/dL (8.4-10.2) 07/05/18 05:35 Total Bilirubin 0.2 mg/dl (0.2-1.3) 07/01/18 06:00 AST 21 U/L (14-36) 07/01/18 06:00 ALT 21 U/L (9-52) 07/01/18 06:00 Alkaline Phosphatase 78 U/L (38-126) 07/01/18 06:00 C-Reactive Protein < 5.00 mg/L (0.0-9.9) 06/28/18 18:00 Total Protein 6.4 G/DL (6.3-8.2) 07/01/18 06:00 Albumin 3.4 g/dL (3.5-5.0) L 07/01/18 06:00 Globulin 3.0 gm/dL (2.2-3.9) 07/01/18 06:00 Albumin/Globulin Ratio 1.1 (1.0-2.1) 07/01/18 06:00 Triglycerides 45 mg/DL (0-149) D 06/29/18 05:00 Cholesterol 158 mg/dL (0-199) 06/29/18 05:00 LDL Cholesterol Direct 53 mg/dL (0-129) 06/29/18 05:00 HDL Cholesterol 78 MG/DL (30-70) H 06/29/18 05:00 Thyroxine (T4) 6.74 ug/dl (5.5-11.0) 06/29/18 05:00 TSH 3rd Generation 3.64 mIU/ML (0.46-4.68) 06/29/18 05:00 Venous Blood Potassium 4.9 mmol/L (3.6-5.2) 06/28/18 18:25 Urine Color Colorless (YELLOW) 06/29/18 08:05 Urine Clarity Clear (Clear) 06/29/18 08:05 Urine pH 7.0 (5.0-8.0) 06/29/18 08:05 Ur Specific Hamilton 1.005 (1.003-1.030) 06/29/18 08:05 Urine Protein Negative mg/dL (NEGATIVE) 06/29/18 08:05 Urine Glucose (UA) Neg mg/dL (Normal) 06/29/18 08:05 Urine Ketones Negative mg/dL (NEGATIVE) 06/29/18 08:05 Urine Blood Negative (NEGATIVE) 06/29/18 08:05 Urine Nitrate Negative (NEGATIVE) 06/29/18 08:05 Urine Bilirubin Negative (NEGATIVE) 06/29/18 08:05 Urine Urobilinogen 0.2-1.0 mg/dL (0.2-1.0) 06/29/18 08:05 Ur Leukocyte Esterase Neg Janet/uL (Negative) 06/29/18 08:05 Urine RBC (Auto) 1 /hpf (0-3) 06/29/18 08:05 Urine Microscopic WBC 1 /hpf (0-5) 06/29/18 08:05 Vancomycin Trough 14.6 ug/mL (5.0-10.0) H 07/05/18 05:35 Blood Type O NEGATIVE 06/28/18 18:00 Blood Type Confirm O NEGATIVE 06/28/18 21:00 Antibody Screen Negative 06/28/18 18:00 BBK History Checked No verified bt 06/28/18 18:00 Discharge Exam - Head Exam Head Exam: ATRAUMATIC, NORMAL INSPECTION, NORMOCEPHALIC Discharge Plan - Discharge Medications Prescriptions: Cefepime 1gm in NS 100ml [Maxipime 1gm] 1 gm IVPB Q8 #21 bag Vancomycin 750mg [Vancomycin 750 mg in NS] 750 mg IVPB Q12 #14 bag - Follow Up Plan Condition: GOOD Disposition: REHAB FACILITY/REHAB UNIT Instructions: Cellulitis (Skin Infection), Adult (DC) Additional Instructions: hacer santiago con del valle primario dentro 1 semana Referrals: Vinny Singer DPM [Medical Doctor] - Corey García MD [Family Provider] -
[2018-07-06 13:58] VITALS: O2SAT 99
== END 2018-07-05 18:35 | DRG 300 ==
LOC: H.ER 16:17 → H.ERHOLD 19:21 → H.MEDSURG1 22:22
PROVIDERS: ADMIT Internal Medicine Pulmonary Disease; ATTEND Internal Medicine Pulmonary Disease
DX: I73.89 Other specified peripheral vascular diseases (principal); L03.116 Cellulitis of left lower limb; E87.1 Hypo-osmolality and hyponatremia; L97.329 Non-pressure chronic ulcer of left ankle with unspecified severity; L97.429 Non-pressure chronic ulcer of left heel and midfoot with unspecified severity; B96.5 Pseudomonas (aeruginosa) (mallei) (pseudomallei) as the cause of diseases classified elsewhere; B95.1 Streptococcus, group B, as the cause of diseases classified elsewhere; Z95.2 Presence of prosthetic heart valve; G89.29 Other chronic pain; M19.072 Primary osteoarthritis, left ankle and foot; F03.90 Unspecified dementia, unspecified severity, without behavioral disturbance, psychotic disturbance, mood disturbance, and anxiety; I25.10 Atherosclerotic heart disease of native coronary artery without angina pectoris; J44.9 Chronic obstructive pulmonary disease, unspecified; I10 Essential (primary) hypertension; E78.5 Hyperlipidemia, unspecified; E78.00 Pure hypercholesterolemia, unspecified; F41.9 Anxiety disorder, unspecified; M81.0 Age-related osteoporosis without current pathological fracture; K29.70 Gastritis, unspecified, without bleeding; Z74.01 Bed confinement status; Z95.1 Presence of aortocoronary bypass graft; Z87.440 Personal history of urinary (tract) infections; Z88.6 Allergy status to analgesic agent; Z91.041 Radiographic dye allergy status

== ENCOUNTER 2018-07-05 16:19 | Inpatient (IN) | payer MEDICARE, MEDICAID ==
[2018-07-05 19:02] VITALS: BMI 30.9
[2018-07-05] MEDS ORDERED: Oxycodone/Acetaminophen 5/325 mg Tab PO PRN (20:18)
[2018-07-05] MEDS ORDERED: Patient's Own Med (Vancomycin 750mg [Vancomycin 750 Mg In Ns] 750 MG) IVPB SCH (21:00)
[2018-07-05] MEDS ORDERED: Cefepime 1 GM in Sodium Chloride 0.9% 100 ML IVPB SCH (22:15)
[2018-07-06] MEDS ORDERED: Patient's Own Med (Cefepime 1gm In Ns 100ml [Maxipime 1gm] 1 GM) IVPB SCH (01:00)
[2018-07-06] MEDS: Cefepime 1 GM in Sodium Chloride 0.9% 100 ML IVPB SCH ×3 (04:47→20:29)
--- NOTE | 2018-07-06 06:54 | CP.PCM.PN ---
Subjective - Date & Time of Evaluation Date of Evaluation: 07/06/18 Time of Evaluation: 07:41 - Subjective Subjective: Podiatry progress notes for attending Dr. Singer: 77 year old female seen and evaluated in the bedside for left foot pain, redness and ulcerations. Patient is AAO X 3. Patient states that she is still having pain in her left leg but less than yesterday. Patient denies any other pedal complaint at this time. Patient denies any overnight F/N/V/C or SOB. Objective - Vital Signs/Intake and Output Vital Signs (last 24 hours): Temp Pulse Resp BP Pulse Ox 98.8 F 93 H 20 162/76 H 97 07/05/18 20:14 07/05/18 20:14 07/06/18 00:42 07/05/18 20:14 07/06/18 00:42 - Medications Medications: Current Medications Albuterol/Ipratropium (Duoneb 3 Mg/0.5 Mg (3 Ml) Ud) 3 ml INH RTID [facility] Alprazolam (Xanax) 0.25 mg PO Q12 PRN PRN Reason: Anxiety Atorvastatin Calcium (Lipitor) 20 mg PO DAILY@2100 C[facility] Divalproex Sodium (Depakote Sprinkles) 125 mg PO BID [facility] Enoxaparin Sodium (Lovenox) 40 mg SC DAILY [facility]; Protocol Fluticasone Propionate (Flonase) 2 spr LA DAILY [facility] Vancomycin HCl 750 mg/ Sodium (Chloride) 250 mls @ 166.667 mls/hr IVPB Q12 [facility] Last Admin: 07/05/18 22:08 Dose: 166.667 mls/hr Cefepime HCl 1 gm/ Sodium (Chloride) 100 mls @ 100 mls/hr IVPB Q8@0500,1300,2100 [facility]; Protocol Last Admin: 07/06/18 04:47 Dose: 100 mls/hr Lactic Acid (Lac-Hydrin 12% Lotion (225 G)) 1 applic TOP TID [facility] Lactulose (Enulose) 20 gm PO DAILY PRN PRN Reason: Constipation Losartan Potassium (Cozaar) 25 mg PO DAILY [facility] Mirtazapine (Remeron) 15 mg PO HS [facility] Last Admin: 07/05/18 21:41 Dose: 15 mg Montelukast Sodium (Singulair) 10 mg PO HS [facility] Last Admin: 07/05/18 21:41 Dose: 10 mg Mupirocin (Bactroban Ointment) 1 applic TOP BID [facility] Oxycodone/Acetaminophen (Percocet 5/325 Mg Tab) 1 tab PO Q4 PRN PRN Reason: Pain, severe (8-10) Stop: 07/08/18 20:19 Pantoprazole Sodium (Protonix Ec Tab) 40 mg PO DAILY [facility] Sodium Chloride (Sodium Chloride Tab) 1 gm PO Q12 [facility] Last Admin: 07/05/18 22:10 Dose: 1 gm Tramadol HCl (Ultram) 50 mg PO Q6 PRN PRN Reason: Pain, moderate (4-7) Last Admin: 07/06/18 05:23 Dose: 50 mg - Constitutional Appears: Well, Non-toxic, No Acute Distress - Head Exam Head Exam: ATRAUMATIC, NORMOCEPHALIC - Extremities Exam Additional comments: LE focused exam: Vasc: DP/PT faintly palpable 1/4 b/l, Cap refill delayed = 4 sec to all digits, Temp gradient warm to warm from proximal to distal in the left side. And warm to cool from proximal to distal to the right side. +1 pitting edema on the right side and mild non pitting edema on the left side. Minimal erythema noted in the periulcerative area on the left side. Neuro: Gross and protective sensations deminished b/l. Derm: 2 ulcerations noted on the left side. 1st one is medial malleolar ulcer which is 5.0X 3.8 X 0.3. Base is fibrogranular 50:50, Minimal serous drainage. No malodor, no probe to bone. No tunneling, undermining or tracking. 2nd one is posterior heel ulcer which is 3.5 X 1.0 X 0.3. Base is fibrogranular 50:50, Minimal serous drainage. No malodor, no probe to bone. No tunneling, undermining or tracking. both ulcers surrounded by minimal erythema and mild non pitting edema. Positive clinical signs of active infection. Left inter-spaces 1-4 shows interdigital macerations. Toe nails elongated, thickened and dystrophic in all digits. Diffuse skin dryness noted extending from the lower 1/3 of the leg to the dorsum of the foot on the left side MSK: Pain on palpating left LE. Pain on palpating the dianna-wound areas. - Neurological Exam Neurological Exam: Alert, Awake, Oriented x3 - Psychiatric Exam Psychiatric exam: Normal Affect, Normal Mood Assessment and Plan - Assessment and Plan (Free Text) Assessment: 77 y/o F patient seen and evaluated in the Bedside for Left LE ulcerations and PVD. Plan: Patient seen and evaluated in the bedside. Plan discussed in details with attending Dr. Singer. Chart, labs and vitals reviewed; Afebrile, WBCs 7.6 (07/05) X-ray left foot reviewed (06/28): Diffuse osteoporosis, No evidence of Osteomyelitis. X-ray left ankle reviewed (06/28): Diffuse osteoporosis, Some erosions noted at the medial malleolous. LE venous duplex reviewed (06/28); No evidence of DVT. LE arterial duplex done; Stenotic lesions distal SFA 50-69% narrowing with occluded PT artery. Stenotic disease in the DP artery 50-69% Wound culture Pseudomonas aerogenosa, beta hemolytic strept.. CTA LE: Diffuse calcifications but no occlusion. Possible moderate stenosis in the R distal PT artery. MRI done 07/01: no pattern to suggest OM throughout the forefoot and midfoot; osteoarthritis at midfoot>forefoot; no abscess or fluid collection; no fracture or dislocations Vascular surgery Onboard. recommendations appreciated Ulcer dressed using bactroban and DSD. ID onboard. recommendations appreciated ID Plan: - Advise to continue with IV vancomyicn . day #7 - Keep vanco trough <15. - Continue with IV cefepime. day #6. - Wound care as per podiatry team. - No sign of OM based on low ESR and negative xray report and negative MRI report. - Advise total of 10 days of IV abx.( 3 more days). - Can be switched to oral abx after that ( oral cipro and ampicillin for 7 days after d/c from hospital). - F/U closely with podiatry for wound care as out patient. Podiatry will continue to follow up the patient while in house
[2018-07-06] MEDS: Albuterol-Ipratrop 3 mg / 0.5 (3 ml) UD INH SCH ×3 (07:37→19:34)
[2018-07-06] MEDS ORDERED: Enoxaparin 30 mg Syringe SC SCH (09:00)
[2018-07-06] MEDS: Divalproex 125 mg Sprinkle Capsule PO SCH ×2 (09:11→18:00)
[2018-07-06] MEDS: Enoxaparin 40 mg Syringe SC SCH (09:12)
[2018-07-06] MEDS: Pantoprazole 40 mg EC Tab PO SCH (09:13)
--- NOTE | 2018-07-06 11:08 | CP.PCM.HP ---
History of Present Illness - History of Present Illness History of Present Illness: 77 y/o F, with multiple chronic medical condition, including recent Hx L/E wound I&D, S/R AVR, HTN, COPD. Pt was admitted to [facility] 06/[facility]/18 to [id number] due to Cellulites/Ulcer on LLE, Tx with IV abx. Also Pt was Tx f or other chronic medical conditions. On 07/05/18, Pt condition improve and was admitted to TCU to continue abx IV course for 3 more days, and to benefit from PT,OT. Present on Admission - Present on Admission Any Indicators Present on Admission: No Review of Systems - Constitutional Constitutional: Other (negative) - EENT Eyes: Requires Corrective Lenses Ears: Other (negative) Nose/Mouth/Throat: Other (negative) - Cardiovascular Cardiovascular: Rapid Heart Rate - Respiratory Respiratory: Other (negative) - Gastrointestinal Gastrointestinal: Other (negative) - Genitourinary Genitourinary: Urinary Incontinence - Musculoskeletal Musculoskeletal: Arthralgias, Radiating Pain into Limb - Integumentary Integumentary: Skin Ulcer - Neurological Neurological: Confusion (at times) - Psychiatric Psychiatric: Anxiety, Depression - Endocrine Endocrine: Other (negative) - Hematologic/Lymphatic Hematologic: Other (negative) Past Patient History - Past Medical History & Family History Past Medical History?: Yes Pertinent Family History: Unknown - Past Social History Smoking Status: Former Smoker Alcohol: None Drugs: Denies Home Situation {Lives}: With Family - CARDIAC Hx Cardiac Disorders: Yes Hx Hypercholesterolemia: Yes Hx Hypertension: Yes Other/Comment: AVR - PULMONARY Hx Respiratory Disorders: Yes Hx Asthma: Yes Hx Chronic Obstructive Pulmonary Disease (COPD): Yes - NEUROLOGICAL Hx Neurological Disorder: Yes Hx Dementia: Yes - HEENT Hx HEENT Problems: Yes (Allergic Rhinitis) - RENAL Hx Chronic Kidney Disease: No - ENDOCRINE/METABOLIC Hx Endocrine Disorders: No - HEMATOLOGICAL/ONCOLOGICAL Hx Blood Disorders: No Hx AIDS: No Hx Human Immunodeficiency Virus (HIV): No - INTEGUMENTARY Hx Dermatological Problems: Yes Hx Cellulitis: Yes (LLE) - MUSCULOSKELETAL/RHEUMATOLOGICAL Hx Musculoskeletal Disorders: Yes Hx Arthritis: Yes Hx Falls: Yes Hx Osteoarthritis: Yes Hx Osteoporosis: Yes - GASTROINTESTINAL Hx Gastrointestinal Disorders: Yes Hx Constipation: Yes - GENITOURINARY/GYNECOLOGICAL Hx Genitourinary Disorders: Yes Hx Incontinence: Yes Hx Urinary Tract Infection: Yes - PSYCHIATRIC Hx Psychophysiologic Disorder: Yes Hx Anxiety: Yes Hx Depression: Yes Hx Substance Use: No - SURGICAL HISTORY Hx Surgeries: Yes Hx Coronary Artery Bypass Graft: Yes - ANESTHESIA Hx Anesthesia: Yes Hx Anesthesia Reactions: No Hx Malignant Hyperthermia: No Meds Allergies/Adverse Reactions: Allergies Allergy/AdvReac Type Severity Reaction Status Date / Time aspirin Allergy Mild RASH Verified 05/07/17 17:16 iodine Allergy RASH Verified 05/07/17 17:16 Physical Exam - Constitutional Appears: No Acute Distress - Head Exam Head Exam: NORMAL INSPECTION - Eye Exam Eye Exam: PERRL - ENT Exam ENT Exam: Normal Exam - Neck Exam Neck exam: Positive for: Normal Inspection - Respiratory Exam Respiratory Exam: Decreased Breath Sounds (at bases) - Cardiovascular Exam Cardiovascular Exam: REGULAR RHYTHM, Systolic Murmur (1/6 LSB Ao) - GI/Abdominal Exam GI & Abdominal Exam: Normal Bowel Sounds, Soft - Extremities Exam Extremities exam: Positive for: tenderness (on palpation LLE) Additional comments: Ulcer/erythema LLE, dressing in place. L - Back Exam Back exam: tenderness (mild L-S) Additional comments: Kyphosis - Neurological Exam Neurological exam: Alert, Oriented x3 - Psychiatric Exam Psychiatric exam: Anxious, Depressed - Skin Skin Exam: Warm Additional comments: See extremities. Results - Vital Signs Recent Vital Signs: Last Vital Signs Temp 98.1 F 07/06/18 09:39 Pulse 80 07/06/18 09:39 Resp 20 07/06/18 09:39 BP 122/58 L 07/06/18 09:39 Pulse Ox 99 07/06/18 09:39 reviewed [email or web address] Assessment & Plan (1) Ulcer of left ankle Status: Acute Priority: High (2) Cellulitis of left lower extremity Status: Acute Priority: High (3) PVD (peripheral vascular disease) Status: Chronic Priority: High (4) S/P AVR Status: Chronic Priority: High (5) HTN (hypertension) Status: Chronic Priority: Medium (6) COPD (chronic obstructive pulmonary disease) Status: Chronic Priority: Medium (7) CAD (coronary artery disease) Status: Chronic Priority: Medium (8) Anxiety Status: Chronic Priority: Medium (9) Depression Status: Chronic Priority: Medium - Assessment and Plan (Free Text) Plan: O2 NC 2 L/M, Bactroban, Cefepime, Vanco, Duoneb, Singulair, Cozaar, Lovenox, Percocet and rest of Tx. PT,OT. Neon Sign Servicer consult appreciated. Cardiology and ID consult. - Date & Time Date: 07/06/18 Time: 10:00
[2018-07-06] MEDS: Mycolog II OINT TOP SCH ×2 (12:46→18:01)
--- NOTE | 2018-07-06 17:19 | CP.PCM.PN ---
Subjective - Date & Time of Evaluation Date of Evaluation: 07/06/18 Time of Evaluation: 17:19 - Subjective Subjective: ID Note- pt. seen and examined today. Objective - Vital Signs/Intake and Output Vital Signs (last 24 hours): Temp Pulse Resp BP Pulse Ox 97.7 F 90 20 135/73 97 07/06/18 16:23 07/06/18 16:23 07/06/18 16:23 07/06/18 16:23 07/06/18 16:23 - Medications Medications: Current Medications Albuterol/Ipratropium (Duoneb 3 Mg/0.5 Mg (3 Ml) Ud) 3 ml INH RTID [facility] Last Admin: 07/06/18 13:47 Dose: 3 ml Alprazolam (Xanax) 0.25 mg PO Q12 PRN PRN Reason: Anxiety Atorvastatin Calcium (Lipitor) 20 mg PO DAILY@2100 [facility] Divalproex Sodium (Depakote Sprinkles) 125 mg PO BID [facility] Last Admin: 07/06/18 09:11 Dose: 125 mg Enoxaparin Sodium (Lovenox) 40 mg SC DAILY [facility]; Protocol Last Admin: 07/06/18 09:12 Dose: 40 mg Fluticasone Propionate (Flonase) 2 spr LA DAILY [facility] Last Admin: 07/06/18 09:12 Dose: 2 spr Vancomycin HCl 750 mg/ Sodium (Chloride) 250 mls @ 166.667 mls/hr IVPB Q12 [facility] Last Admin: 07/06/18 09:13 Dose: 166.667 mls/hr Cefepime HCl 1 gm/ Sodium (Chloride) 100 mls @ 100 mls/hr IVPB Q8 @0500,1300,2100 [facility]; Protocol Last Admin: 07/06/18 12:46 Dose: 100 mls/hr Lactic Acid (Lac-Hydrin 12% Lotion (225 G)) 1 applic TOP TID [facility] Last Admin: 07/06/18 12:45 Dose: 1 applic Lactulose (Enulose) 20 gm PO DAILY PRN PRN Reason: Constipation Losartan Potassium (Cozaar) 25 mg PO DAILY [facility] Last Admin: 07/06/18 09:10 Dose: 25 mg Mirtazapine (Remeron) 15 mg PO HS [facility] Last Admin: 07/05/18 21:41 Dose: 15 mg Montelukast Sodium (Singulair) 10 mg PO HS [facility] Last Admin: 07/05/18 21:41 Dose: 10 mg Mupirocin (Bactroban Ointment) 1 applic TOP BID [facility] Last Admin: 07/06/18 09:07 Dose: 1 applic Nystatin/Triamcinolone Acetonide (Mycolog Ii Oint) 1 applic TOP TID [facility] Last Admin: 07/06/18 12:46 Dose: 1 applic Oxycodone/Acetaminophen (Percocet 5/325 Mg Tab) 1 tab PO Q4 PRN PRN Reason: Pain, severe (8-10) Stop: 07/08/18 20:19 Pantoprazole Sodium (Protonix Ec Tab) 40 mg PO DAILY [facility] Last Admin: 07/06/18 09:13 Dose: 40 mg Sodium Chloride (Sodium Chloride Tab) 1 gm PO Q12 [facility] Last Admin: 07/06/18 09:13 Dose: 1 gm Tramadol HCl (Ultram) 50 mg PO Q6 PRN PRN Reason: Pain, moderate (4-7) Last Admin: 07/06/18 05:23 Dose: 50 mg - Additional Findings Additional findings: Constitutional Appears: Non-toxic, No Acute Distress - Head Exam Head Exam: ATRAUMATIC - Eye Exam Eye Exam: EOMI, PERRL - ENT Exam ENT Exam: Normal Oropharynx - Neck Exam Neck exam: Positive for: Full Rom - Respiratory Exam Respiratory Exam: Clear to Auscultation Bilateral, NORMAL BREATHING PATTERN - Cardiovascular Exam Cardiovascular Exam: RRR, +S1, +S2 - GI/Abdominal Exam GI & Abdominal Exam: Normal Bowel Sounds, Soft Additional comments: NT, ND - Extremities Exam Additional comments: left medial ankle region with 6 x 7 cm round open ulcer , superficial, no discharge, no malodor no surrounding erythema - Neurological Exam Neurological exam: Alert, Oriented x 3 Microbiology 06/29/18 08:05 Urine,Clean Catch Urine Culture - Final No Growth (<1,000 CFU/ML) 06/28/18 18:51 Foot - Left Gram Stain - Final 06/28/18 18:51 Foot - Left Wound Culture - Final Pseudomonas Aeruginosa Beta Hemolytic Strep Group B 06/28/18 18:15 Blood-Venous Blood Culture - Final 06/28/18 18:15 Blood-Venous Gram Stain - Final NO GROWTH AFTER 5 DAYS TEST NOT PERFORMED 06/28/18 18:00 Blood-Venous Blood Culture - Final 06/28/18 18:00 Blood-Venous Gram Stain - Final NO GROWTH AFTER 5 DAYS TEST NOT PERFORMED Assessment and Plan (1) Ulcer of left ankle Status: Acute (2) Cellulitis of left lower extremity Status: Acute - Assessment and Plan (Free Text) Assessment: A/P- 77 year old female with CAD s/p CABG admitted with nonhealing left medial ankle ulcer/wound and surrounding cellulitis. remains afebrile. has normal wbc count low ESR. blood cx- neg x 2 leg wound cx- Pseudomonas and group A strep based on sensitivity pseudomonas is sens to cefepime and strep sens to vanco ESR- 16 (normal) MRI- negative for OM as per report. plan- Advise to continue with IV vancomyicn . day #8 keep vanco trough <15. continue with IV cefepime started yesterday day #7. wound care as per podiatry team. no sign of OM based on low ESR and negative xray report and negative MRI report. advise total of 10 days of IV abx.( 2 more days). can be switched to oral abx after that ( oral cipro and ampicillin for 7 days after d/c from hospital). f/u closely with podiatry for wound care as outpatient.. All above d/w podiatry .
--- NOTE | 2018-07-06 21:25 | CP.PCM.CON ---
History of Present Illness - History of Present Illness History of Present Illness: I was asked to see patient by Dr García (seen 07/06 at 2125) Patient is a 77 year old female with HTN CAD s/p CABG, DM nonobstructive PAD who presents for rehab. The patient developed cellulitis of the left leg, she had a CT angio revealing nonobstructive PAD. The patient was treated with abx. Review of Systems - Constitutional Constitutional: absent: As Per HPI, Anorexia, Chills, Daytime Sleepiness, Excessive Sweating, Fatigue, Fever, Frequent Falls, Headache, Increased Appetite, Lethargy, Malaise, Night Sweats, Snoring, Sleep Apnea, Weight Gain, Weight Loss, Weakness, Other - EENT Eyes: absent: As Per HPI, Blind Spots, Blurred Vision, Change in Vision, Decreased Night Vision, Diplopia, Discharge, Dry Eye, Exophthalmos, Floaters, Irritation, Itchy Eyes, Loss of Peripheral Vision, Pain, Photophobia, Requires Corrective Lenses, Sees Flashes, Spots in Vision, Tunnel Vision, Other Visual Disturbances, Loss of Vision, Other Ears: absent: As Per HPI, Decreased Hearing, Ear Discharge, Ear Pain, Tinnitus, Abnormal Hearing, Disequilibrium, Dizziness, Other Nose/Mouth/Throat: absent: As Per HPI, Epistaxis, Nasal Congestion, Nasal Discharge, Nasal Obstruction, Nasal Trauma, Nose Pain, Post Nasal Drip, Sinus Pain, Sinus Pressure, Bleeding Gums, Change in Voice, Dental Pain, Dry Mouth, Dysphagia, Halitosis, Hoarsness, Lip Swelling, Mouth Lesions, Mouth Pain, Odynophagia, Sore Throat, Throat Swelling, Tongue Swelling, Facial Pain, Neck Pain, Neck Mass, Other - Cardiovascular Cardiovascular: absent: As Per HPI, Acrocyanosis, Chest Pain, Chest Pain at Rest, Chest Pain with Activity, Claudication, Diaphoresis, Dyspnea, Dyspnea on Exertion, Edema, Irregular Heart Rhythm, Pain Radiating to Arm/Neck/Jaw, Leg Edema, Leg Ulcers, Lightheadedness, Orthopnea, Palpitations, Paroxysmal Nocturnal Dyspnea, Pedal Edema, Radiating Pain, Rapid Heart Rate, Slow Heart Rate, Syncope, Other - Respiratory Respiratory: absent: As Per HPI, Cough, Dyspnea, Hemoptysis, Dyspnea on Exertion, Wheezing, Snoring, Stridor, Pain on Inspiration, Chest Congestion, Excessive Mucous Production, Change in Mucous Color, Pain with Coughing, Other - Gastrointestinal Gastrointestinal: absent: As Per HPI, Abdominal Pain, Belching, Bloating, Change in Bowel Habits, Change in Stool Character, Coffee Ground Emesis, Constipation, Cramping, Diarrhea, Dyspepsia, Dysphagia, Early Satiety, Excessive Flatus, Fecal Incontinence, Heartburn, Hematemesis, Hematochezia, Loose Stools, Melena, Nausea, Odynophagia, Temesmus, Vomiting, Other - Genitourinary Genitourinary: absent: As Per HPI, Change in Urinary Stream, Difficulty Urinating, Dysuria, Flank Pain, Hematuria, Pyuria, Nocturia, Urinary Incontinence, Urinary Frequency, Urinary Hesitance, Urinary Urgency, Voiding Freq/Small Amts, Freq UTI, Hx Renal/Bladder Calculi, Hx /Renal Surgery, Bladder Distension, Other - Integumentary Integumentary: absent: As Per HPI, Acne, Alopecia, Bleeding Lesions, Change in Hair, Change in Nails, Change in Pigmentation, Changing Lesions, Dry Skin, Erythema, Furuncle, Hirsutism, Lesions, New Lesions, Non-Healing Lesions, Photosensitivity, Pruritus, Rash, Skin Pain, Skin Ulcer, Sores, Striae, Swelling, Unusual Bruising, Wounds, Jaundice, Other - Neurological Neurological: absent: As Per HPI, Abnormal Gait, Abnormal Hearing, Abnormal Movements, Abnormal Speech, Behavioral Changes, Burning Sensations, Confusion, Convulsions, Disequilibrium, Dizziness, Numbness, Focal Weakness, Frequent Falls, Headaches, Lack of Coordination, Loss of Vision, Memory Loss, Paresthesias, Radicular Pain, Restless Legs, Sensory Deficit, Syncope, Tingling, Tremor, Vertigo, Weakness, Other Visual Disturbances, Other - Psychiatric Psychiatric: absent: As Per HPI, Abnormal Sleep Pattern, Anhedonia, Anxiety, Auditory Hallucinations, Behavioral Changes, Change in Appetite, Change in Libido, Confusion, Depression, Difficulty Concentrating, Hallucinations, Homicidal Ideation, Hopelessness, Irritability, Memory Loss, Mood Swings, Panic Attacks, Paranoia, Suicidal Ideation, Visual Hallucinations, Tactile Hallucinations, Other - Endocrine Endocrine: absent: As Per HPI, Change in Body Appearance, Change in Libido, Cold Intolorance, Deepening of Voice, Excessive Sweating, Fatigue, Flushing, Heat Intolorance, Increase in Ring/Shoe/Hat Size, Palpitations, Polydipsia, Polyphagia, Polyuria, Other - Hematologic/Lymphatic Hematologic: absent: As Per HPI, Easy Bleeding, Easy Bruising, Lymphadenopathy, Other Past Patient History - Past Medical History & Family History Past Medical History?: Yes - Past Social History Smoking Status: Former Smoker Alcohol: None Drugs: Denies Home Situation {Lives}: With Family - CARDIAC Hx Cardiac Disorders: Yes Hx Hypercholesterolemia: Yes Hx Hypertension: Yes Other/Comment: AVR - PULMONARY Hx Respiratory Disorders: Yes Hx Asthma: Yes Hx Chronic Obstructive Pulmonary Disease (COPD): Yes - NEUROLOGICAL Hx Neurological Disorder: Yes Hx Dementia: Yes - HEENT Hx HEENT Problems: Yes (Allergic Rhinitis) - RENAL Hx Chronic Kidney Disease: No - ENDOCRINE/METABOLIC Hx Endocrine Disorders: No - HEMATOLOGICAL/ONCOLOGICAL Hx Blood Disorders: No Hx AIDS: No Hx Human Immunodeficiency Virus (HIV): No - INTEGUMENTARY Hx Dermatological Problems: Yes Hx Cellulitis: Yes (LLE) - MUSCULOSKELETAL/RHEUMATOLOGICAL Hx Musculoskeletal Disorders: Yes Hx Arthritis: Yes Hx Falls: Yes Hx Osteoarthritis: Yes Hx Osteoporosis: Yes - GASTROINTESTINAL Hx Gastrointestinal Disorders: Yes Hx Constipation: Yes - GENITOURINARY/GYNECOLOGICAL Hx Genitourinary Disorders: Yes Hx Incontinence: Yes Hx Urinary Tract Infection: Yes - PSYCHIATRIC Hx Psychophysiologic Disorder: Yes Hx Anxiety: Yes Hx Depression: Yes Hx Substance Use: No - SURGICAL HISTORY Hx Surgeries: Yes Hx Coronary Artery Bypass Graft: Yes - ANESTHESIA Hx Anesthesia: Yes Hx Anesthesia Reactions: No Hx Malignant Hyperthermia: No Meds Allergies/Adverse Reactions: Allergies Allergy/AdvReac Type Severity Reaction Status Date / Time aspirin Allergy Mild RASH Verified 05/07/17 17:16 iodine Allergy RASH Verified 05/07/17 17:16 - Medications Medications: Current Medications Albuterol/Ipratropium (Duoneb 3 Mg/0.5 Mg (3 Ml) Ud) 3 ml INH RTID [facility] Last Admin: 07/06/18 19:34 Dose: 3 ml Alprazolam (Xanax) 0.25 mg PO Q12 PRN PRN Reason: Anxiety Atorvastatin Calcium (Lipitor) 20 mg PO DAILY@2100 [facility] Divalproex Sodium (Depakote Sprinkles) 125 mg PO BID [facility] Last Admin: 07/06/18 18:00 Dose: 125 mg Enoxaparin Sodium (Lovenox) 40 mg SC DAILY [facility]; Protocol Last Admin: 07/06/18 09:12 Dose: 40 mg Fluticasone Propionate (Flonase) 2 spr LA DAILY [facility] Last Admin: 07/06/18 09:12 Dose: 2 spr Vancomycin HCl 750 mg/ Sodium (Chloride) 250 mls @ 166.667 mls/hr IVPB Q12 [facility] Last Admin: 07/06/18 09:13 Dose: 166.667 mls/hr Cefepime HCl 1 gm/ Sodium (Chloride) 100 mls @ 100 mls/hr IVPB Q8@0500,1300,2100 [facility]; Protocol Last Admin: 07/06/18 20:29 Dose: 100 mls/hr Lactic Acid (Lac-Hydrin 12% Lotion (225 G)) 1 applic TOP TID [facility] Last Admin: 07/06/18 18:00 Dose: 1 applic Lactulose (Enulose) 20 gm PO DAILY PRN PRN Reason: Constipation Losartan Potassium (Cozaar) 25 mg PO DAILY [facility] Last Admin: 07/06/18 09:10 Dose: 25 mg Mirtazapine (Remeron) 15 mg PO HS [facility] Last Admin: 07/05/18 21:41 Dose: 15 mg Montelukast Sodium (Singulair) 10 mg PO HS [facility] Last Admin: 07/05/18 21:41 Dose: 10 mg Mupirocin (Bactroban Ointment) 1 applic TOP QD7 [facility] Nystatin/Triamcinolone Acetonide (Mycolog Ii Oint) 1 applic TOP TID [facility] Last Admin: 07/06/18 18:01 Dose: 1 applic Oxycodone/Acetaminophen (Percocet 5/325 Mg Tab) 1 tab PO Q4 PRN PRN Reason: Pain, severe (8-10) Stop: 07/08/18 20:19 Pantoprazole Sodium (Protonix Ec Tab) 40 mg PO DAILY [facility] Last Admin: 07/06/18 09:13 Dose: 40 mg Sodium Chloride (Sodium Chloride Tab) 1 gm PO Q12 [facility] Last Admin: 07/06/18 09:13 Dose: 1 gm Tramadol HCl (Ultram) 50 mg PO Q6 PRN PRN Reason: Pain, moderate (4-7) Last Admin: 07/06/18 20:31 Dose: 50 mg Physical Exam - Constitutional Appears: Non-toxic - Head Exam Head Exam: NORMAL INSPECTION - Eye Exam Eye Exam: Normal appearance - ENT Exam ENT Exam: Mucous Membranes Moist - Neck Exam Neck exam: Positive for: Full Rom - Respiratory Exam Respiratory Exam: NORMAL BREATHING PATTERN - Cardiovascular Exam Cardiovascular Exam: REGULAR RHYTHM - GI/Abdominal Exam GI & Abdominal Exam: Normal Bowel Sounds - Rectal Exam Rectal Exam: Deferred - Extremities Exam Extremities exam: Positive for: normal inspection. Negative for: pedal edema - Back Exam Back exam: NORMAL INSPECTION - Neurological Exam Neurological exam: Alert, Oriented x3 - Psychiatric Exam Psychiatric exam: Normal Affect - Skin Skin Exam: Normal Color Results - Vital Signs Recent Vital Signs: Last Vital Signs Temp 99.0 F 07/06/18 20:01 Pulse 95 H 07/06/18 20:01 Resp 20 07/06/18 20:01 BP 116/67 07/06/18 20:01 Pulse Ox 99 07/06/18 20:01 Assessment & Plan (1) Cellulitis of left lower extremity Assessment and Plan: continue abx Status: Acute Priority: High (2) CAD (coronary artery disease) Assessment and Plan: nonobstructive. s/p AVR. Medical therapy. Status: Chronic Priority: Medium (3) PVD (peripheral vascular disease) Assessment and Plan: antiplatelet therapy Status: Chronic Priority: High
[2018-07-07] MEDS: Cefepime 1 GM in Sodium Chloride 0.9% 100 ML IVPB SCH ×3 (04:18→21:49)
--- NOTE | 2018-07-07 07:05 | CP.PCM.PN ---
Subjective - Date & Time of Evaluation Date of Evaluation: 07/07/18 Time of Evaluation: 08:41 - Subjective Subjective: Podiatry progress notes for attending Dr. Singer: 77 year old female seen and evaluated in the bedside for left foot pain, redness and ulcerations. Patient is AAO X 3. Patient states that she is having mild pain in her left leg. Patient denies any other pedal complaint at this time. Patient denies any overnight F/N/V/C or SOB. Objective - Vital Signs/Intake and Output Vital Signs (last 24 hours): Temp Pulse Resp BP Pulse Ox 99.0 F 95 H 20 116/67 99 07/06/18 20:01 07/06/18 20:01 07/06/18 20:01 07/06/18 20:01 07/06/18 20:01 - Medications Medications: Current Medications Albuterol/Ipratropium (Duoneb 3 Mg/0.5 Mg (3 Ml) Ud) 3 ml INH RTID [facility] Last Admin: 07/06/18 19:34 Dose: 3 ml Alprazolam (Xanax) 0.25 mg PO Q12 PRN PRN Reason: Anxiety Atorvastatin Calcium (Lipitor) 20 mg PO DAILY@2100 [facility] Last Admin: 07/06/18 22:00 Dose: 20 mg Divalproex Sodium (Depakote Sprinkles) 125 mg PO BID [facility] Last Admin: 07/06/18 18:00 Dose: 125 mg Enoxaparin Sodium (Lovenox) 40 mg SC DAILY [facility]; Protocol Last Admin: 07/06/18 09:12 Dose: 40 mg Fluticasone Propionate (Flonase) 2 spr LA DAILY [facility] Last Admin: 07/06/18 09:12 Dose: 2 spr Vancomycin HCl 750 mg/ Sodium (Chloride) 250 mls @ 166.667 mls/hr IVPB Q12 [facility] Last Admin: 07/06/18 21:58 Dose: 166.667 mls/hr Cefepime HCl 1 gm/ Sodium (Chloride) 100 mls @ 100 mls/hr IVPB Q8@0500,1300,2100 [facility]; Protocol Last Admin: 07/07/18 04:18 Dose: 100 mls/hr Lactic Acid (Lac-Hydrin 12% Lotion (225 G)) 1 applic TOP TID [facility] Last Admin: 07/06/18 18:00 Dose: 1 applic Lactulose (Enulose) 20 gm PO DAILY PRN PRN Reason: Constipation Losartan Potassium (Cozaar) 25 mg PO DAILY [facility] Last Admin: 07/06/18 09:10 Dose: 25 mg Mirtazapine (Remeron) 15 mg PO HS [facility] Last Admin: 07/06/18 22:13 Dose: 15 mg Montelukast Sodium (Singulair) 10 mg PO HS [facility] Last Admin: 07/06/18 22:12 Dose: 10 mg Mupirocin (Bactroban Ointment) 1 applic TOP QD7 [facility] Nystatin/Triamcinolone Acetonide (Mycolog Ii Oint) 1 applic TOP TID [facility] Last Admin: 07/06/18 18:01 Dose: 1 applic Oxycodone/Acetaminophen (Percocet 5/325 Mg Tab) 1 tab PO Q4 PRN PRN Reason: Pain, severe (8-10) Stop: 07/08/18 20:19 Pantoprazole Sodium (Protonix Ec Tab) 40 mg PO DAILY [facility] Last Admin: 07/06/18 09:13 Dose: 40 mg Sodium Chloride (Sodium Chloride Tab) 1 gm PO Q12 [facility] Last Admin: 07/06/18 22:00 Dose: 1 gm Tramadol HCl (Ultram) 50 mg PO Q6 PRN PRN Reason: Pain, moderate (4-7) Last Admin: 07/07/18 04:17 Dose: 50 mg - Constitutional Appears: Well, Non-toxic, No Acute Distress - Head Exam Head Exam: ATRAUMATIC, NORMOCEPHALIC - Extremities Exam Additional comments: Left LE focused exam: Vasc: DP/PT faintly palpable 1/4 , Cap refill delayed = 4 sec to all digits, Temp gradient warm to cool from proximal to distal. Mild non pitting edema noted. Minimal erythema noted in the periulcerative area. Neuro: Gross and protective sensations deminished. Derm: 2 ulcerations noted on the left side. 1st one is medial malleolar ulcer which is 5.0X 3.8 X 0.3. Base is fibrogranular 50:50, Minimal serous drainage. No malodor, no probe to bone. No tunneling, undermining or tracking. 2nd one is posterior heel ulcer which is 3.5 X 1.0 X 0.3. Base is fibrogranular 50:50, Minimal serous drainage. No malodor, no probe to bone. No tunneling, undermining or tracking. both ulcers surrounded by minimal erythema and mild non pitting edema. Positive clinical signs of active infection. Left inter-spaces 1-4 shows interdigital macerations. Toe nails elongated, thickened and dystrophic in all digits. Diffuse skin dryness noted extending from the lower 1/3 of the leg to the dorsum of the foot. MSK: Pain on palpating left LE. Pain on palpating the dianna-wound areas. Muscle power intact 5/5 in all groups. - Neurological Exam Neurological Exam: Alert, Awake, Oriented x3 - Psychiatric Exam Psychiatric exam: Normal Affect, Normal Mood Assessment and Plan - Assessment and Plan (Free Text) Assessment: 77 y/o F patient seen and evaluated in the Bedside for Left LE ulcerations and PVD. Plan: Patient seen and evaluated in the bedside. Plan discussed in details with attending Dr. Singer. Chart, labs and vitals reviewed; Afebrile, WBCs 7.6 (07/05) X-ray left foot reviewed (06/28): Diffuse osteoporosis, No evidence of Osteomyelitis. X-ray left ankle reviewed (06/28): Diffuse osteoporosis, Some erosions noted at the medial malleolous. LE venous duplex reviewed (06/28); No evidence of DVT. LE arterial duplex done; Stenotic lesions distal SFA 50-69% narrowing with occluded PT artery. Stenotic disease in the DP artery 50-69% Wound culture Pseudomonas aerogenosa, beta hemolytic strept.. CTA LE: Diffuse calcifications but no occlusion. Possible moderate stenosis in the R distal PT artery. MRI done 07/01: no pattern to suggest OM throughout the forefoot and midfoot; osteoarthritis at midfoot>forefoot; no abscess or fluid collection; no fracture or dislocations Vascular surgery Onboard. recommendations appreciated Ulcer dressed using bactroban and DSD. Ammonium lactate applied to the dry skin in the left LE. ID onboard. recommendations appreciated ID Plan: - Advise to continue with IV vancomyicn . day #7 - Keep vanco trough <15. - Continue with IV cefepime. day #6. - Wound care as per podiatry team. - No sign of OM based on low ESR and negative xray report and negative MRI report. - Advise total of 10 days of IV abx.( 3 more days). - Can be switched to oral abx after that ( oral cipro and ampicillin for 7 days after d/c from hospital). - F/U closely with podiatry for wound care as out patient. Podiatry will continue to follow up the patient while in house
[2018-07-07] MEDS: Albuterol-Ipratrop 3 mg / 0.5 (3 ml) UD INH SCH ×3 (08:43→19:08)
[2018-07-07] MEDS: Enoxaparin 40 mg Syringe SC SCH (09:31)
[2018-07-07] MEDS: Pantoprazole 40 mg EC Tab PO SCH (09:32)
[2018-07-07] MEDS: Divalproex 125 mg Sprinkle Capsule PO SCH ×2 (09:33→17:25)
[2018-07-07] MEDS: Mycolog II OINT TOP SCH ×3 (09:34→17:27)
--- NOTE | 2018-07-07 17:48 | CP.PCM.PN ---
Subjective - Date & Time of Evaluation Date of Evaluation: 07/07/18 Time of Evaluation: 12:40 - Subjective Subjective: F/U Ulcer/Cellulitis LLE Pt c/o of pain in Left foot Objective - Vital Signs/Intake and Output Vital Signs (last 24 hours): Temp Pulse Resp BP Pulse Ox 98.1 F 89 20 142/64 96 07/07/18 16:59 07/07/18 16:59 07/07/18 16:59 07/07/18 16:59 07/07/18 16:59 - Medications Medications: Current Medications Albuterol/Ipratropium (Duoneb 3 Mg/0.5 Mg (3 Ml) Ud) 3 ml INH RTID [facility] Last Admin: 07/07/18 13:53 Dose: 3 ml Alprazolam (Xanax) 0.25 mg PO Q12 PRN PRN Reason: Anxiety Atorvastatin Calcium (Lipitor) 20 mg PO DAILY@2100 [facility] Last Admin: 07/06/18 22:00 Dose: 20 mg Divalproex Sodium (Depakote Sprinkles) 125 mg PO BID [facility] Last Admin: 07/07/18 17:25 Dose: 125 mg Enoxaparin Sodium (Lovenox) 40 mg SC DAILY [facility]; Protocol Last Admin: 07/07/18 09:31 Dose: 40 mg Fluticasone Propionate (Flonase) 2 spr LA DAILY [facility] Last Admin: 07/07/18 09:32 Dose: 2 spr Vancomycin HCl 750 mg/ Sodium (Chloride) 250 mls @ 166.667 mls/hr IVPB Q12 [facility] Last Admin: 07/07/18 09:38 Dose: 166.667 mls/hr Cefepime HCl 1 gm/ Sodium (Chloride) 100 mls @ 100 mls/hr IVPB Q8@0500,1300,2100 [facility]; Protocol Last Admin: 07/07/18 13:43 Dose: 100 mls/hr Lactic Acid (Lac-Hydrin 12% Lotion (225 G)) 1 applic TOP TID [facility] Last Admin: 07/07/18 17:26 Dose: 1 applic Lactulose (Enulose) 20 gm PO DAILY PRN PRN Reason: Constipation Losartan Potassium (Cozaar) 25 mg PO DAILY [facility] Last Admin: 07/07/18 09:33 Dose: 25 mg Mirtazapine (Remeron) 15 mg PO HS [facility] Last Admin: 07/06/18 22:13 Dose: 15 mg Montelukast Sodium (Singulair) 10 mg PO HS [facility] Last Admin: 07/06/18 22:12 Dose: 10 mg Mupirocin (Bactroban Ointment) 1 applic TOP QD7 [facility] Last Admin: 07/07/18 09:30 Dose: 1 applic Nystatin (Mycostatin Cream) 1 applic TOP TID [facility] Last Admin: 07/07/18 17:27 Dose: 1 applic Nystatin/Triamcinolone Acetonide (Mycolog Ii Oint) 1 applic TOP TID [facility] Last Admin: 07/07/18 17:27 Dose: 1 applic Oxycodone/Acetaminophen (Percocet 5/325 Mg Tab) 1 tab PO Q4 PRN PRN Reason: Pain, severe (8-10) Stop: 07/08/18 20:19 Pantoprazole Sodium (Protonix Ec Tab) 40 mg PO DAILY [facility] Last Admin: 07/07/18 09:32 Dose: 40 mg Sodium Chloride (Sodium Chloride Tab) 1 gm PO Q12 [facility] Last Admin: 07/07/18 09:32 Dose: 1 gm Tramadol HCl (Ultram) 50 mg PO Q6 PRN PRN Reason: Pain, moderate (4-7) Last Admin: 07/07/18 16:08 Dose: 50 mg - Constitutional Appears: No Acute Distress - Head Exam Head Exam: NORMAL INSPECTION - Eye Exam Eye Exam: PERRL - ENT Exam ENT Exam: Normal Exam - Neck Exam Neck Exam: Normal Inspection - Respiratory Exam Respiratory Exam: Decreased Breath Sounds (at bases) - Cardiovascular Exam Cardiovascular Exam: REGULAR RHYTHM, Murmur (systolic 1/6 LSB Ao) - GI/Abdominal Exam GI & Abdominal Exam: Soft, Normal Bowel Sounds - Extremities Exam Extremities Exam: Tenderness (on palpation LLE) Additional comments: Ulcer/erythema LLE, dressing in place. - Back Exam Back Exam: tenderness (mild L-S) - Neurological Exam Neurological Exam: Altered, Oriented x3 - Psychiatric Exam Psychiatric exam: Anxious, Depressed - Skin Skin Exam: Warm Assessment and Plan (1) Ulcer of left ankle Status: Acute (2) Cellulitis of left lower extremity Status: Acute (3) PVD (peripheral vascular disease) Status: Chronic (4) S/P AVR Status: Chronic (5) HTN (hypertension) Status: Chronic (6) COPD (chronic obstructive pulmonary disease) Status: Chronic (7) CAD (coronary artery disease) Status: Chronic (8) Anxiety Status: Chronic (9) Depression Status: Chronic - Assessment and Plan (Free Text) Plan: Continue Vanco, Cefepime, bactroban and rest of Tx.
--- NOTE | 2018-07-07 19:01 | CP.PCM.PN ---
Subjective - Date & Time of Evaluation Date of Evaluation: 07/07/18 Time of Evaluation: 18:00 - Subjective Subjective: patient feels well. no chest pain Objective - Vital Signs/Intake and Output Vital Signs (last 24 hours): Temp Pulse Resp BP Pulse Ox 98.1 F 89 20 142/64 96 07/07/18 16:59 07/07/18 16:59 07/07/18 16:59 07/07/18 16:59 07/07/18 16:59 - Medications Medications: Current Medications Albuterol/Ipratropium (Duoneb 3 Mg/0.5 Mg (3 Ml) Ud) 3 ml INH RTID [facility] Last Admin: 07/07/18 13:53 Dose: 3 ml Alprazolam (Xanax) 0.25 mg PO Q12 PRN PRN Reason: Anxiety Atorvastatin Calcium (Lipitor) 20 mg PO DAILY@2100 [facility] Last Admin: 07/06/18 22:00 Dose: 20 mg Divalproex Sodium (Depakote Sprinkles) 125 mg PO BID [facility] Last Admin: 07/07/18 17:25 Dose: 125 mg Enoxaparin Sodium (Lovenox) 40 mg SC DAILY [facility]; Protocol Last Admin: 07/07/18 09:31 Dose: 40 mg Fluticasone Propionate (Flonase) 2 spr LA DAILY [facility] Last Admin: 07/07/18 09:32 Dose: 2 spr Vancomycin HCl 750 mg/ Sodium (Chloride) 250 mls @ 166.667 mls/hr IVPB Q12 [facility] Last Admin: 07/07/18 09:38 Dose: 166.667 mls/hr Cefepime HCl 1 gm/ Sodium (Chloride) 100 mls @ 100 mls/hr IVPB Q8@0500,1300,2100 [facility]; Protocol Last Admin: 07/07/18 13:43 Dose: 100 mls/hr Lactic Acid (Lac-Hydrin 12% Lotion (225 G)) 1 applic TOP TID [facility] Last Admin: 07/07/18 17:26 Dose: 1 applic Lactulose (Enulose) 20 gm PO DAILY PRN PRN Reason: Constipation Losartan Potassium (Cozaar) 25 mg PO DAILY [facility] Last Admin: 07/07/18 09:33 Dose: 25 mg Mirtazapine (Remeron) 15 mg PO HS [facility] Last Admin: 07/06/18 22:13 Dose: 15 mg Montelukast Sodium (Singulair) 10 mg PO HS [facility] Last Admin: 07/06/18 22:12 Dose: 10 mg Mupirocin (Bactroban Ointment) 1 applic TOP QD7 [facility] Last Admin: 07/07/18 09:30 Dose: 1 applic Nystatin (Mycostatin Cream) 1 applic TOP TID [facility] Last Admin: 07/07/18 17:27 Dose: 1 applic Nystatin/Triamcinolone Acetonide (Mycolog Ii Oint) 1 applic TOP TID [facility] Last Admin: 07/07/18 17:27 Dose: 1 applic Oxycodone/Acetaminophen (Percocet 5/325 Mg Tab) 1 tab PO Q4 PRN PRN Reason: Pain, severe (8-10) Stop: 07/08/18 20:19 Pantoprazole Sodium (Protonix Ec Tab) 40 mg PO DAILY [facility] Last Admin: 07/07/18 09:32 Dose: 40 mg Sodium Chloride (Sodium Chloride Tab) 1 gm PO Q12 [facility] Last Admin: 07/07/18 09:32 Dose: 1 gm Tramadol HCl (Ultram) 50 mg PO Q6 PRN PRN Reason: Pain, moderate (4-7) Last Admin: 07/07/18 16:08 Dose: 50 mg - Constitutional Appears: Non-toxic - Head Exam Head Exam: NORMAL INSPECTION - Eye Exam Eye Exam: Normal appearance - ENT Exam ENT Exam: Mucous Membranes Moist - Neck Exam Neck Exam: Full ROM - Respiratory Exam Respiratory Exam: Decreased Breath Sounds - Cardiovascular Exam Cardiovascular Exam: REGULAR RHYTHM - GI/Abdominal Exam GI & Abdominal Exam: Normal Bowel Sounds - Rectal Exam Rectal Exam: Deferred - Extremities Exam Extremities Exam: absent: Pedal Edema - Back Exam Back Exam: NORMAL INSPECTION - Neurological Exam Neurological Exam: Alert - Psychiatric Exam Psychiatric exam: Normal Affect - Skin Skin Exam: Normal Color Assessment and Plan (1) Cellulitis of left lower extremity Assessment & Plan: continue abx Status: Acute (2) CAD (coronary artery disease) Assessment & Plan: medical therapy Status: Chronic (3) PVD (peripheral vascular disease) Assessment & Plan: on anbx. antiplatelet Status: Chronic
[2018-07-08] MEDS: Cefepime 1 GM in Sodium Chloride 0.9% 100 ML IVPB SCH ×3 (06:41→22:16)
[2018-07-08] MEDS: Albuterol-Ipratrop 3 mg / 0.5 (3 ml) UD INH SCH ×3 (07:34→19:42)
--- NOTE | 2018-07-08 08:10 | CP.PCM.PN ---
Addendum entered and electronically signed by Shahla Brizuela DPM 07/08/18 11:46: Pending D/C from TCU patient to follow up in wound care center with Dr. Singer for continued local wound care. Original Note: Subjective - Date & Time of Evaluation Date of Evaluation: 07/08/18 Time of Evaluation: 08:10 - Subjective Subjective: Podiatry Progress Note for Dr. Singer: 77 year old female seen and evaluated for LLE ulcerations. Patient is resting comfortbly in bed and in NAD. She reports mild pain to the ulceration sites. She denies N/V/F. Objective - Vital Signs/Intake and Output Vital Signs (last 24 hours): Temp Pulse Resp BP Pulse Ox 98.0 F 75 18 130/58 L 98 07/08/18 08:05 07/08/18 08:05 07/08/18 08:05 07/08/18 08:05 07/08/18 08:05 - Medications Medications: Current Medications Albuterol/Ipratropium (Duoneb 3 Mg/0.5 Mg (3 Ml) Ud) 3 ml INH RTID [facility] Last Admin: 07/08/18 07:34 Dose: 3 ml Alprazolam (Xanax) 0.25 mg PO Q12 PRN PRN Reason: Anxiety Atorvastatin Calcium (Lipitor) 20 mg PO DAILY@2100 [facility] Last Admin: 07/07/18 21:48 Dose: 20 mg Divalproex Sodium (Depakote Sprinkles) 125 mg PO BID [facility] Last Admin: 07/07/18 17:25 Dose: 125 mg Enoxaparin Sodium (Lovenox) 40 mg SC DAILY [facility]; Protocol Last Admin: 07/07/18 09:31 Dose: 40 mg Fluticasone Propionate (Flonase) 2 spr LA DAILY [facility] Last Admin: 07/07/18 09:32 Dose: 2 spr Cefepime HCl 1 gm/ Sodium (Chloride) 100 mls @ 100 mls/hr IVPB Q8@0500,1300,2100 [facility]; Protocol Last Admin: 07/08/18 06:41 Dose: 100 mls/hr Vancomycin HCl 750 mg/ Sodium (Chloride) 250 mls @ 166.667 mls/hr IVPB Q12H [facility] Last Admin: 07/07/18 23:23 Dose: 166.667 mls/hr Lactic Acid (Lac-Hydrin 12% Lotion (225 G)) 1 applic TOP TID [facility] Last Admin: 07/07/18 17:26 Dose: 1 applic Lactulose (Enulose) 20 gm PO DAILY PRN PRN Reason: Constipation Losartan Potassium (Cozaar) 25 mg PO DAILY [facility] Last Admin: 07/07/18 09:33 Dose: 25 mg Mirtazapine (Remeron) 15 mg PO HS [facility] Last Admin: 07/07/18 21:48 Dose: 15 mg Montelukast Sodium (Singulair) 10 mg PO HS [facility] Last Admin: 07/07/18 21:48 Dose: 10 mg Mupirocin (Bactroban Ointment) 1 applic TOP QD7 [facility] Last Admin: 07/07/18 09:30 Dose: 1 applic Nystatin (Mycostatin Cream) 1 applic TOP TID [facility] Last Admin: 07/07/18 17:27 Dose: 1 applic Nystatin/Triamcinolone Acetonide (Mycolog Ii Oint) 1 applic TOP TID [facility] Last Admin: 07/07/18 17:27 Dose: 1 applic Oxycodone/Acetaminophen (Percocet 5/325 Mg Tab) 1 tab PO Q4 PRN PRN Reason: Pain, severe (8-10) Stop: 07/08/18 20:19 Pantoprazole Sodium (Protonix Ec Tab) 40 mg PO DAILY [facility] Last Admin: 07/07/18 09:32 Dose: 40 mg Sodium Chloride (Sodium Chloride Tab) 1 gm PO Q12 [facility] Last Admin: 07/07/18 23:24 Dose: 1 gm Tramadol HCl (Ultram) 50 mg PO Q6 PRN PRN Reason: Pain, moderate (4-7) Last Admin: 07/08/18 03:48 Dose: 50 mg - Constitutional Appears: Well, Non-toxic, No Acute Distress - Extremities Exam Additional comments: Left LE focused exam: Vasc: DP/PT faintly palpable, Cap refill > 3 seconds to all digits, TG warm to cool from proximal to distal. Mild non-pitting edema to LLE Ortho: Pain upon palpation of dianna-ulceration. Neuro: Gross and protective sensation diminished. Derm: LLE ulcerations: Medial malleolar ulceration measuring approximately 5.0 x 3.8 x .3 with mixed fibrogranular base. Mild serous drainage, no probe to bone, no tunneling, no tracking, no undermining. Additional ulceration noted to posterior heel measuring approximately 3.5 x 1 x .3 with fibrogranular base, no drainage, no tunneling no tracking. Interdigital maceration appreciated Assessment and Plan - Assessment and Plan (Free Text) Assessment: 77 year old female seen and evaluated for LLE ulcerations. Plan: Patient seen and evaluated, discussed with Dr. Singer Plan discussed in details with attending Dr. Singer. Afebrile, NNL Local wound care: Bactroban and DSD X-ray left foot and ankle reviewed (06/28): Foot: Diffuse osteoporosis, No evidence of OM; Ankle: diffuse osteoporosis, Some erosions noted at the medial malleolous. 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 Abx per ID reccs Will continue to follow while in house
[2018-07-08] MEDS: Mycolog II OINT TOP SCH ×3 (09:07→17:08)
[2018-07-08] MEDS: Enoxaparin 40 mg Syringe SC SCH (09:09)
[2018-07-08] MEDS: Divalproex 125 mg Sprinkle Capsule PO SCH ×2 (09:10→17:07)
[2018-07-08] MEDS: Pantoprazole 40 mg EC Tab PO SCH (09:10)
--- NOTE | 2018-07-08 16:54 | CP.PCM.PN ---
Subjective - Date & Time of Evaluation Date of Evaluation: 07/08/18 Time of Evaluation: 12:30 - Subjective Subjective: F/U Ulcer/Cellulitis LLE Less pain in LLE. Objective - Vital Signs/Intake and Output Vital Signs (last 24 hours): Temp Pulse Resp BP Pulse Ox 98.0 F 75 18 130/58 L 98 07/08/18 08:05 07/08/18 09:09 07/08/18 08:05 07/08/18 09:09 07/08/18 08:05 - Medications Medications: Current Medications Albuterol/Ipratropium (Duoneb 3 Mg/0.5 Mg (3 Ml) Ud) 3 ml INH RTID [facility] Last Admin: 07/08/18 13:25 Dose: 3 ml Alprazolam (Xanax) 0.25 mg PO Q12 PRN PRN Reason: Anxiety Atorvastatin Calcium (Lipitor) 20 mg PO DAILY@2100 [facility] Last Admin: 07/07/18 21:48 Dose: 20 mg Divalproex Sodium (Depakote Sprinkles) 125 mg PO BID [facility] Last Admin: 07/08/18 09:10 Dose: 125 mg Enoxaparin Sodium (Lovenox) 40 mg SC DAILY [facility]; Protocol Last Admin: 07/08/18 09:09 Dose: 40 mg Fluticasone Propionate (Flonase) 2 spr LA DAILY [facility] Last Admin: 07/08/18 09:08 Dose: 2 spr Cefepime HCl 1 gm/ Sodium (Chloride) 100 mls @ 100 mls/hr IVPB Q8@0500,1300,2100 [facility]; Protocol Last Admin: 07/08/18 12:12 Dose: 100 mls/hr Vancomycin HCl 750 mg/ Sodium (Chloride) 250 mls @ 166.667 mls/hr IVPB Q12H [facility] Last Admin: 07/08/18 11:18 Dose: 166.667 mls/hr Lactic Acid (Lac-Hydrin 12% Lotion (225 G)) 1 applic TOP TID [facility] Last Admin: 07/08/18 12:14 Dose: 1 applic Lactulose (Enulose) 20 gm PO DAILY PRN PRN Reason: Constipation Losartan Potassium (Cozaar) 25 mg PO DAILY [facility] Last Admin: 07/08/18 09:09 Dose: 25 mg Mirtazapine (Remeron) 15 mg PO HS [facility] Last Admin: 07/07/18 21:48 Dose: 15 mg Montelukast Sodium (Singulair) 10 mg PO HS [facility] Last Admin: 07/07/18 21:48 Dose: 10 mg Mupirocin (Bactroban Ointment) 1 applic TOP QD7 [facility] Last Admin: 07/08/18 08:07 Dose: 1 applic Nystatin (Mycostatin Cream) 1 applic TOP TID [facility] Last Admin: 07/08/18 12:14 Dose: 1 applic Nystatin/Triamcinolone Acetonide (Mycolog Ii Oint) 1 applic TOP TID [facility] Last Admin: 07/08/18 12:13 Dose: 1 applic Oxycodone/Acetaminophen (Percocet 5/325 Mg Tab) 1 tab PO Q4 PRN PRN Reason: Pain, severe (8-10) Stop: 07/08/18 20:19 Pantoprazole Sodium (Protonix Ec Tab) 40 mg PO DAILY [facility] Last Admin: 07/08/18 09:10 Dose: 40 mg Sodium Chloride (Sodium Chloride Tab) 1 gm PO Q12 [facility] Last Admin: 07/08/18 09:10 Dose: 1 gm Tramadol HCl (Ultram) 50 mg PO Q6 PRN PRN Reason: Pain, moderate (4-7) Last Admin: 07/08/18 14:16 Dose: 50 mg - Constitutional Appears: No Acute Distress - Head Exam Head Exam: NORMAL INSPECTION - Eye Exam Eye Exam: PERRL - ENT Exam ENT Exam: Normal Exam - Neck Exam Neck Exam: Normal Inspection - Respiratory Exam Respiratory Exam: Decreased Breath Sounds (at bases) - Cardiovascular Exam Cardiovascular Exam: REGULAR RHYTHM, Murmur (systolic 1/6 LSB Ao) - GI/Abdominal Exam GI & Abdominal Exam: Soft, Normal Bowel Sounds - Extremities Exam Extremities Exam: Tenderness (on palpation LLE) Additional comments: Ulcer/erythema LLE, dressing in place - Back Exam Back Exam: tenderness (L-S) - Neurological Exam Neurological Exam: Alert, Oriented x3 Additional comments: At times forgetful. - Psychiatric Exam Psychiatric exam: Anxious, Depressed - Skin Skin Exam: Warm Assessment and Plan (1) Ulcer of left ankle Status: Acute (2) Cellulitis of left lower extremity Status: Acute (3) PVD (peripheral vascular disease) Status: Chronic (4) S/P AVR Status: Chronic (5) HTN (hypertension) Status: Chronic (6) COPD (chronic obstructive pulmonary disease) Status: Chronic (7) CAD (coronary artery disease) Status: Chronic (8) Anxiety Status: Chronic (9) Depression Status: Chronic - Assessment and Plan (Free Text) Plan: Continue Vanco, Cefepime, Bactroban, Ultran, Duoneb, Singulair and rest of Tx.
[2018-07-08 17:18] VITALS: RESP 20
--- NOTE | 2018-07-09 07:17 | CP.PCM.PN ---
Subjective - Date & Time of Evaluation Date of Evaluation: 07/09/18 Time of Evaluation: 07:17 - Subjective Subjective: Podiatry Progress Note for Dr. Singer: 77 yo female patient seen and evaluated in TCU for LLE ulcerations; stable. Patient is resting comfortably and denies any acute events overnight. She denies any pain to the LLE. Denies N/V/F/SOB. Objective - Vital Signs/Intake and Output Vital Signs (last 24 hours): Temp Pulse Resp BP Pulse Ox 98.1 F 96 H 20 136/65 98 07/08/18 21:25 07/08/18 21:25 07/08/18 21:25 07/08/18 21:25 07/08/18 21:25 - Medications Medications: Current Medications Albuterol/Ipratropium (Duoneb 3 Mg/0.5 Mg (3 Ml) Ud) 3 ml INH RTID [facility] Last Admin: 07/08/18 19:42 Dose: 3 ml Alprazolam (Xanax) 0.25 mg PO Q12 PRN PRN Reason: Anxiety Last Admin: 07/08/18 22:52 Dose: 0.25 mg Atorvastatin Calcium (Lipitor) 20 mg PO DAILY@2100 [facility] Last Admin: 07/08/18 22:18 Dose: 20 mg Divalproex Sodium (Depakote Sprinkles) 125 mg PO BID [facility] Last Admin: 07/08/18 17:07 Dose: 125 mg Enoxaparin Sodium (Lovenox) 40 mg SC DAILY [facility]; Protocol Last Admin: 07/08/18 09:09 Dose: 40 mg Fluticasone Propionate (Flonase) 2 spr LA DAILY [facility] Last Admin: 07/08/18 09:08 Dose: 2 spr Cefepime HCl 1 gm/ Sodium (Chloride) 100 mls @ 100 mls/hr IVPB Q8@0500,1300,2100 [facility]; Protocol Last Admin: 07/08/18 22:16 Dose: 100 mls/hr Vancomycin HCl 750 mg/ Sodium (Chloride) 250 mls @ 166.667 mls/hr IVPB Q12H [facility] Last Admin: 07/09/18 02:02 Dose: 166.667 mls/hr Lactic Acid (Lac-Hydrin 12% Lotion (225 G)) 1 applic TOP TID [facility] Last Admin: 07/08/18 17:08 Dose: 1 applic Lactulose (Enulose) 20 gm PO DAILY PRN PRN Reason: Constipation Losartan Potassium (Cozaar) 25 mg PO DAILY [facility] Last Admin: 07/08/18 09:09 Dose: 25 mg Mirtazapine (Remeron) 15 mg PO HS [facility] Last Admin: 07/08/18 22:18 Dose: 15 mg Montelukast Sodium (Singulair) 10 mg PO HS [facility] Last Admin: 07/08/18 23:49 Dose: 10 mg Mupirocin (Bactroban Ointment) 1 applic TOP QD7 [facility] Last Admin: 07/08/18 08:07 Dose: 1 applic Nystatin (Mycostatin Cream) 1 applic TOP TID [facility] Last Admin: 07/08/18 17:08 Dose: 1 applic Nystatin/Triamcinolone Acetonide (Mycolog Ii Oint) 1 applic TOP TID [facility] Last Admin: 07/08/18 17:08 Dose: 1 applic Pantoprazole Sodium (Protonix Ec Tab) 40 mg PO DAILY [facility] Last Admin: 07/08/18 09:10 Dose: 40 mg Sodium Chloride (Sodium Chloride Tab) 1 gm PO Q12 [facility] Last Admin: 07/08/18 22:18 Dose: 1 gm Tramadol HCl (Ultram) 50 mg PO Q6 PRN PRN Reason: Pain, moderate (4-7) Last Admin: 07/08/18 14:16 Dose: 50 mg - Constitutional Appears: Well, Non-toxic, No Acute Distress - Head Exam Head Exam: ATRAUMATIC, NORMOCEPHALIC - Extremities Exam Additional comments: Left LE focused exam: Vasc: DP/PT faintly palpable, Cap refill > 3 seconds to all digits, TG warm to cool from proximal to distal. Mild non-pitting edema to LLE Ortho: Pain upon palpation of dianna-ulceration. Neuro: Gross and protective sensation diminished. Derm: LLE ulcerations: Medial malleolar ulceration measuring approximately 5.0 x 3.8 x .3 with mixed fibrogranular base. Mild serous drainage, no probe to bone, no tunneling, no tracking, no undermining. Additional ulceration noted to posterior heel measuring approximately 3.5 x 1 x .3 with fibrogranular base, no drainage, no tunneling no tracking. Interdigital maceration appreciated - Psychiatric Exam Psychiatric exam: Normal Affect, Normal Mood Assessment and Plan - Assessment and Plan (Free Text) Assessment: 77 year old female seen and evaluated in TCU for LLE ulcerations. Plan: Patient seen and evaluated, discussed with Dr. Singer Afebrile, NNL Local wound care: Bactroban and DSD; stable X-ray left foot and ankle reviewed (06/28): Foot: Diffuse osteoporosis, No evidence of OM; Ankle: diffuse osteoporosis, Some erosions noted at the medial malleolous. 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 Pending D/C from TCU patient to follow up in wound care center with Dr. Singer for continued local wound care. Abx per ID reccs Will continue to follow while in house
[2018-07-09] MEDS: Albuterol-Ipratrop 3 mg / 0.5 (3 ml) UD INH SCH ×3 (07:34→19:38)
[2018-07-09] MEDS: Cefepime 1 GM in Sodium Chloride 0.9% 100 ML IVPB SCH ×3 (09:00→21:32)
[2018-07-09] MEDS: Mycolog II OINT TOP SCH ×3 (10:43→17:42)
[2018-07-09] MEDS: Divalproex 125 mg Sprinkle Capsule PO SCH ×2 (10:46→17:41)
[2018-07-09] MEDS: Enoxaparin 40 mg Syringe SC SCH (10:46)
[2018-07-09] MEDS: Pantoprazole 40 mg EC Tab PO SCH (10:51)
[2018-07-10] MEDS: Cefepime 1 GM in Sodium Chloride 0.9% 100 ML IVPB SCH ×3 (04:08→20:36)
[2018-07-10] MEDS: Albuterol-Ipratrop 3 mg / 0.5 (3 ml) UD INH SCH ×3 (07:32→19:06)
[2018-07-10] MEDS: Divalproex 125 mg Sprinkle Capsule PO SCH ×2 (09:32→17:31)
[2018-07-10] MEDS: Enoxaparin 40 mg Syringe SC SCH (09:32)
[2018-07-10] MEDS: Pantoprazole 40 mg EC Tab PO SCH (09:34)
--- NOTE | 2018-07-10 11:19 | CP.PCM.PN ---
Subjective - Date & Time of Evaluation Date of Evaluation: 07/10/18 Time of Evaluation: 11:17 - Subjective Subjective: Podiatry Progress Note for Dr. Singer: 77 yo female patient seen and evaluated in TCU for LLE ulcerations; stable. Patient resting comfortably, in NAD. Patient reports mild pain to L lower extremity during dressing changes. Denies N/V/F/SOB. Objective - Vital Signs/Intake and Output Vital Signs (last 24 hours): Temp Pulse Resp BP Pulse Ox 97.9 F 74 20 165/71 H 99 07/10/18 08:57 07/10/18 09:34 07/10/18 08:57 07/10/18 09:34 07/10/18 08:57 - Medications Medications: Current Medications Albuterol/Ipratropium (Duoneb 3 Mg/0.5 Mg (3 Ml) Ud) 3 ml INH RTID [facility] Last Admin: 07/10/18 07:32 Dose: 3 ml Alprazolam (Xanax) 0.25 mg PO Q12 PRN PRN Reason: Anxiety Last Admin: 07/08/18 22:52 Dose: 0.25 mg Atorvastatin Calcium (Lipitor) 20 mg PO DAILY@2100 [facility] Last Admin: 07/09/18 21:32 Dose: 20 mg Divalproex Sodium (Depakote Sprinkles) 125 mg PO BID [facility] Last Admin: 07/10/18 09:32 Dose: 125 mg Enoxaparin Sodium (Lovenox) 40 mg SC DAILY [facility]; Protocol Last Admin: 07/10/18 09:32 Dose: 40 mg Fluticasone Propionate (Flonase) 2 spr LA DAILY [facility] Last Admin: 07/10/18 09:35 Dose: 2 spr Cefepime HCl 1 gm/ Sodium (Chloride) 100 mls @ 100 mls/hr IVPB Q8@0500,1300,2100 [facility]; Protocol Last Admin: 07/10/18 04:08 Dose: 100 mls/hr Vancomycin HCl 750 mg/ Sodium (Chloride) 250 mls @ 166.667 mls/hr IVPB Q12H [facility] Last Admin: 07/09/18 23:07 Dose: 166.667 mls/hr Lactic Acid (Lac-Hydrin 12% Lotion (225 G)) 1 applic TOP TID [facility] Last Admin: 07/10/18 09:36 Dose: 1 applic Lactulose (Enulose) 20 gm PO DAILY PRN PRN Reason: Constipation Last Admin: 07/10/18 09:32 Dose: 20 gm Losartan Potassium (Cozaar) 25 mg PO DAILY [facility] Last Admin: 07/10/18 09:34 Dose: 25 mg Mirtazapine (Remeron) 15 mg PO HS [facility] Last Admin: 07/09/18 21:33 Dose: 15 mg Montelukast Sodium (Singulair) 10 mg PO HS [facility] Last Admin: 07/09/18 21:33 Dose: 10 mg Mupirocin (Bactroban Ointment) 1 applic TOP QD7 [facility] Last Admin: 07/10/18 09:31 Dose: Not Given Nystatin (Mycostatin Cream) 1 applic TOP TID [facility] Last Admin: 07/10/18 09:37 Dose: 1 applic Pantoprazole Sodium (Protonix Ec Tab) 40 mg PO DAILY [facility] Last Admin: 07/10/18 09:34 Dose: 40 mg Sodium Chloride (Sodium Chloride Tab) 1 gm PO Q12 [facility] Last Admin: 07/10/18 09:34 Dose: 1 gm Tramadol HCl (Ultram) 50 mg PO Q6 PRN PRN Reason: Pain, moderate (4-7) Last Admin: 07/10/18 07:04 Dose: 50 mg - Constitutional Appears: Well, Non-toxic, No Acute Distress - Head Exam Head Exam: ATRAUMATIC, NORMOCEPHALIC - Extremities Exam Additional comments: Left LE focused exam: Vasc: DP/PT faintly palpable, Cap refill > 3 seconds to all digits, TG warm to cool from proximal to distal. Mild non-pitting edema to LLE Ortho: Pain upon palpation of dianna-ulceration. Neuro: Gross and protective sensation diminished. Derm: LLE ulcerations: Medial malleolar ulceration measuring approximately 5.0 x 3.8 x .3 with mixed fibrogranular base. Mild serous drainage, no probe to bone, no tunneling, no tracking, no undermining, mild maceration periwound. Additional ulceration noted to posterior heel measuring approximately 3.5 x 1 x .3 with fibrogranular base, no drainage, no tunneling no tracking. Mild diffuse erythema to LLE. Assessment and Plan - Assessment and Plan (Free Text) Assessment: 77 year old female seen and evaluated in TCU for LLE ulcerations secondary to PVD. Plan: Patient seen and evaluated, discussed with Dr. Singer Local wound care: Bactroban and DSD; stable X-ray left foot and ankle reviewed (06/28): Foot: Diffuse osteoporosis, No evidence of OM; Ankle: diffuse osteoporosis, Some erosions noted at the medial malleolous. 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 Pending D/C from TCU patient to follow up in wound care center with Dr. Singer for continued local wound care.
--- NOTE | 2018-07-10 16:55 | CP.PCM.PN ---
Subjective - Date & Time of Evaluation Date of Evaluation: 07/10/18 - Subjective Subjective: F/U Ulcer/Cellulitis LLE Pt with pain in L foot, alleviated with Tramadol. Objective - Vital Signs/Intake and Output Vital Signs (last 24 hours): Temp Pulse Resp BP Pulse Ox 97.9 F 86 20 142/61 100 07/10/18 15:30 07/10/18 15:30 07/10/18 15:30 07/10/18 15:30 07/10/18 15:30 - Medications Medications: Current Medications Albuterol/Ipratropium (Duoneb 3 Mg/0.5 Mg (3 Ml) Ud) 3 ml INH RTID [facility] Last Admin: 07/10/18 13:59 Dose: 3 ml Alprazolam (Xanax) 0.25 mg PO Q12 PRN PRN Reason: Anxiety Last Admin: 07/08/18 22:52 Dose: 0.25 mg Atorvastatin Calcium (Lipitor) 20 mg PO DAILY@2100 [facility] Last Admin: 07/09/18 21:32 Dose: 20 mg Divalproex Sodium (Depakote Sprinkles) 125 mg PO BID [facility] Last Admin: 07/10/18 09:32 Dose: 125 mg Enoxaparin Sodium (Lovenox) 40 mg SC DAILY [facility]; Protocol Last Admin: 07/10/18 09:32 Dose: 40 mg Fluticasone Propionate (Flonase) 2 spr LA DAILY [facility] Last Admin: 07/10/18 09:35 Dose: 2 spr Cefepime HCl 1 gm/ Sodium (Chloride) 100 mls @ 100 mls/hr IVPB Q8@0500,1300,2100 [facility]; Protocol Last Admin: 07/10/18 13:40 Dose: 100 mls/hr Vancomycin HCl 750 mg/ Sodium (Chloride) 250 mls @ 166.667 mls/hr IVPB Q12H [facility] Last Admin: 07/10/18 12:18 Dose: 166.667 mls/hr Lactic Acid (Lac-Hydrin 12% Lotion (225 G)) 1 applic TOP TID [facility] Last Admin: 07/10/18 12:19 Dose: 1 applic Lactobacillus Acidophilus (Bacid Acidophilus) 1 cap PO BID [facility] Lactulose (Enulose) 20 gm PO DAILY PRN PRN Reason: Constipation Last Admin: 07/10/18 09:32 Dose: 20 gm Losartan Potassium (Cozaar) 25 mg PO DAILY [facility] Last Admin: 07/10/18 09:34 Dose: 25 mg Mirtazapine (Remeron) 15 mg PO HS [facility] Last Admin: 07/09/18 21:33 Dose: 15 mg Montelukast Sodium (Singulair) 10 mg PO HS [facility] Last Admin: 07/09/18 21:33 Dose: 10 mg Mupirocin (Bactroban Ointment) 1 applic TOP QD7 [facility] Last Admin: 07/10/18 09:31 Dose: Not Given Nystatin (Mycostatin Cream) 1 applic TOP TID [facility] Last Admin: 07/10/18 09:37 Dose: 1 applic Pantoprazole Sodium (Protonix Ec Tab) 40 mg PO DAILY [facility] Last Admin: 07/10/18 09:34 Dose: 40 mg Sodium Chloride (Sodium Chloride Tab) 1 gm PO Q12 [facility] Last Admin: 07/10/18 09:34 Dose: 1 gm Tramadol HCl (Ultram) 50 mg PO Q6 PRN PRN Reason: Pain, moderate (4-7) Last Admin: 07/10/18 14:14 Dose: 50 mg - Constitutional Appears: No Acute Distress - Head Exam Head Exam: NORMAL INSPECTION - Eye Exam Eye Exam: PERRL - ENT Exam ENT Exam: Normal Exam - Neck Exam Neck Exam: Normal Inspection - Respiratory Exam Respiratory Exam: Decreased Breath Sounds (at bases) - Cardiovascular Exam Cardiovascular Exam: REGULAR RHYTHM, Murmur (sytolic / LSB Ao) - GI/Abdominal Exam GI & Abdominal Exam: Soft, Normal Bowel Sounds - Extremities Exam Extremities Exam: Tenderness (on palpation LLE) Additional comments: Ulcer/erythema LLE, dressing in place. - Back Exam Back Exam: tenderness (L-S) - Neurological Exam Neurological Exam: Alert, Oriented x3 Additional comments: Forgetful at times - Psychiatric Exam Psychiatric exam: Anxious, Depressed - Skin Skin Exam: Warm Assessment and Plan (1) Ulcer of left ankle Status: Acute (2) Cellulitis of left lower extremity Status: Acute (3) PVD (peripheral vascular disease) Status: Chronic (4) S/P AVR Status: Chronic (5) HTN (hypertension) Status: Chronic (6) COPD (chronic obstructive pulmonary disease) Status: Chronic (7) CAD (coronary artery disease) Status: Chronic (8) Anxiety Status: Chronic (9) Depression Status: Chronic - Assessment and Plan (Free Text) Plan: Continue Vanco, Cefepime,Bactroban, Duoneb, Singulair, Tylenol and rest of Tx.
[2018-07-10] MEDS: Lactobacillus Acidophilus 500 MU Cap PO SCH (17:29)
[2018-07-11] MEDS: Cefepime 1 GM in Sodium Chloride 0.9% 100 ML IVPB SCH ×3 (05:49→20:31)
[2018-07-11] MEDS: Albuterol-Ipratrop 3 mg / 0.5 (3 ml) UD INH SCH ×3 (07:24→19:13)
[2018-07-11] MEDS: Enoxaparin 40 mg Syringe SC SCH (08:32)
[2018-07-11] MEDS: Divalproex 125 mg Sprinkle Capsule PO SCH ×2 (08:32→16:35)
[2018-07-11] MEDS: Pantoprazole 40 mg EC Tab PO SCH (08:33)
[2018-07-11] MEDS: Lactobacillus Acidophilus 500 MU Cap PO SCH ×2 (08:35→16:34)
[2018-07-11 15:06] LABS: EOS # 0.6 K/uL (0.0-0.7); HEMOGLOBIN 10.6 g/dL (12.0-16.0); LYMPH # 1.5 K/uL (1.0-4.3); LYMPH % 19.2 % (20.0-40.0); MEAN CELL VOLUME 94.9 fl (81.0-99.0); MEAN CORPUSCULAR HEMOGLOBIN 32.4 pg (27.0-31.0); MEAN CORPUSCULAR HGB CONC 34.2 g/dL (33.0-37.0); MEAN PLATELET VOLUME 7.5 fl (7.2-11.7); MONO # 1.2 K/uL (0.0-0.8); MONO % 14.5 % (0.0-10.0); NEUT # 4.8 K/uL (1.8-7.0); NEUT % 59.3 % (50.0-75.0); NRBC % 0.1 % (0.0-0.0); RBC 3.27 Mil/uL (3.80-5.20); RED CELL DISTRIBUTION WIDTH 14.9 % (11.5-14.5); WHITE BLOOD COUNT 8.1 K/uL (4.8-10.8)
[2018-07-11 15:25] LABS: ALB/GLOB RATIO 1.1 (1.0-2.1); ALBUMIN 3.4 g/dL (3.5-5.0); ALT/SGPT 29 U/L (9-52); AST/SGOT 22 U/L (14-36); BLOOD UREA NITROGEN 6 mg/dl (7-17); GFR NON-AFRICAN AMERICAN > 60
--- NOTE | 2018-07-11 15:33 | CP.PCM.PN ---
Subjective - Date & Time of Evaluation Date of Evaluation: 07/11/18 - Subjective Subjective: F/U Ulcer/ Cellulitis LLE Pt with minimal pain in L foot. Objective - Vital Signs/Intake and Output Vital Signs (last 24 hours): Temp Pulse Resp BP Pulse Ox 98.2 F 84 20 145/63 98 07/11/18 15:30 07/11/18 15:30 07/11/18 15:30 07/11/18 15:30 07/11/18 15:30 - Medications Medications: Current Medications Acetaminophen (Tylenol 325mg Tab) 650 mg PO Q6 PRN PRN Reason: Pain, Mild (1-3) Last Admin: 07/11/18 02:45 Dose: 650 mg Albuterol/Ipratropium (Duoneb 3 Mg/0.5 Mg (3 Ml) Ud) 3 ml INH RTID [facility] Last Admin: 07/11/18 13:01 Dose: 3 ml Alprazolam (Xanax) 0.25 mg PO Q12 PRN PRN Reason: Anxiety Last Admin: 07/08/18 22:52 Dose: 0.25 mg Ascorbic Acid (Vitamin C 500 Mg Tab) 500 mg PO DAILY [facility] Last Admin: 07/11/18 14:54 Dose: 500 mg Atorvastatin Calcium (Lipitor) 20 mg PO DAILY@2100 [facility] Last Admin: 07/10/18 20:39 Dose: 20 mg Divalproex Sodium (Depakote Sprinkles) 125 mg PO BID [facility] Last Admin: 07/11/18 08:32 Dose: 125 mg Enoxaparin Sodium (Lovenox) 40 mg SC DAILY [facility]; Protocol Last Admin: 07/11/18 08:32 Dose: 40 mg Fluticasone Propionate (Flonase) 2 spr LA DAILY [facility] Last Admin: 07/11/18 08:32 Dose: 2 spr Vancomycin HCl 750 mg/ Sodium (Chloride) 250 mls @ 166.667 mls/hr IVPB Q12H [facility] Last Admin: 07/11/18 11:52 Dose: 166.667 mls/hr Cefepime HCl 1 gm/ Sodium (Chloride) 100 mls @ 100 mls/hr IVPB Q8@0500,1300,2100 [facility]; Protocol Stop: 07/12/18 06:00 Last Admin: 07/11/18 14:26 Dose: 100 mls/hr Lactic Acid (Lac-Hydrin 12% Lotion (225 G)) 1 applic TOP TID [facility] Last Admin: 07/11/18 14:26 Dose: 1 applic Lactobacillus Acidophilus (Bacid Acidophilus) 1 cap PO BID [facility] Last Admin: 07/11/18 08:35 Dose: 1 cap Lactulose (Enulose) 20 gm PO DAILY PRN PRN Reason: Constipation Last Admin: 07/10/18 09:32 Dose: 20 gm Losartan Potassium (Cozaar) 25 mg PO DAILY [facility] Last Admin: 07/11/18 08:33 Dose: 25 mg Mirtazapine (Remeron) 15 mg PO HS [facility] Last Admin: 07/10/18 22:02 Dose: 15 mg Montelukast Sodium (Singulair) 10 mg PO HS [facility] Last Admin: 07/10/18 22:03 Dose: 10 mg Mupirocin (Bactroban Ointment) 1 applic TOP QD7 [facility] Last Admin: 07/11/18 08:36 Dose: Not Given Nystatin (Mycostatin Cream) 1 applic TOP TID [facility] Last Admin: 07/11/18 14:27 Dose: 1 applic Pantoprazole Sodium (Protonix Ec Tab) 40 mg PO DAILY [facility] Last Admin: 07/11/18 08:33 Dose: 40 mg Sodium Chloride (Sodium Chloride Tab) 1 gm PO Q12 [facility] Last Admin: 07/11/18 08:33 Dose: 1 gm Tramadol HCl (Ultram) 50 mg PO Q6 PRN PRN Reason: Pain, moderate (4-7) Last Admin: 07/11/18 11:51 Dose: 50 mg Zinc Sulfate (Zinc Sulfate 220 Mg Cap) 220 mg PO DAILY [facility] Last Admin: 07/11/18 14:54 Dose: 220 mg - Labs Labs: 07/11/18 14:09 07/11/18 14:09 - Constitutional Appears: No Acute Distress - Head Exam Head Exam: NORMAL INSPECTION - Eye Exam Eye Exam: PERRL - ENT Exam ENT Exam: Normal Exam - Neck Exam Neck Exam: Normal Inspection - Respiratory Exam Respiratory Exam: Decreased Breath Sounds (at bases) - Cardiovascular Exam Cardiovascular Exam: REGULAR RHYTHM, Murmur (systolic 1/6 LSB Ao) - GI/Abdominal Exam GI & Abdominal Exam: Soft, Normal Bowel Sounds - Extremities Exam Extremities Exam: Tenderness (on palpation LLE) Additional comments: Wound on L medial maleolus no exudates, no mal odor, dressing in place. - Back Exam Back Exam: tenderness (L-S) - Neurological Exam Neurological Exam: Alert, Oriented x3 Additional comments: Confused/forgetful at times - Psychiatric Exam Psychiatric exam: Anxious, Depressed - Skin Skin Exam: Warm Assessment and Plan (1) Ulcer of left ankle Status: Acute (2) Cellulitis of left lower extremity Status: Acute (3) PVD (peripheral vascular disease) Status: Chronic (4) S/P AVR Status: Chronic (5) HTN (hypertension) Status: Chronic (6) COPD (chronic obstructive pulmonary disease) Status: Chronic (7) CAD (coronary artery disease) Status: Chronic (8) Anxiety Status: Chronic (9) Depression Status: Chronic - Assessment and Plan (Free Text) Plan: Continue Vanco, Cefepime, Bactroban, Ultram and rest of tx.
[2018-07-12] MEDS: Cefepime 1 GM in Sodium Chloride 0.9% 100 ML IVPB SCH (05:32)
--- NOTE | 2018-07-12 06:05 | CP.PCM.PN ---
Subjective - Date & Time of Evaluation Date of Evaluation: 07/12/18 Time of Evaluation: 06:05 - Subjective Subjective: Podiatry Progress Note for Dr. Singer: 77 yo female patient seen and evaluated in TCU for LLE ulcerations. Patient AAOx3 and in NAD. Denies any acute events overnight. No new pedal complaints. Denies N/V/F/SOB. Objective - Vital Signs/Intake and Output Vital Signs (last 24 hours): Temp Pulse Resp BP Pulse Ox 97.2 F L 89 20 160/60 H 98 07/11/18 19:20 07/11/18 19:20 07/11/18 19:20 07/11/18 19:20 07/11/18 19:20 - Medications Medications: Current Medications Acetaminophen (Tylenol 325mg Tab) 650 mg PO Q6 PRN PRN Reason: Pain, Mild (1-3) Last Admin: 07/11/18 17:46 Dose: 650 mg Albuterol/Ipratropium (Duoneb 3 Mg/0.5 Mg (3 Ml) Ud) 3 ml INH RTID [facility] Last Admin: 07/11/18 19:13 Dose: 3 ml Alprazolam (Xanax) 0.25 mg PO Q12 PRN PRN Reason: Anxiety Last Admin: 07/11/18 22:35 Dose: 0.25 mg Ascorbic Acid (Vitamin C 500 Mg Tab) 500 mg PO DAILY [facility] Last Admin: 07/11/18 14:54 Dose: 500 mg Atorvastatin Calcium (Lipitor) 20 mg PO DAILY@2100 [facility] Last Admin: 07/11/18 21:29 Dose: 20 mg Divalproex Sodium (Depakote Sprinkles) 125 mg PO BID [facility] Last Admin: 07/11/18 16:35 Dose: 125 mg Enoxaparin Sodium (Lovenox) 40 mg SC DAILY [facility]; Protocol Last Admin: 07/11/18 08:32 Dose: 40 mg Fluticasone Propionate (Flonase) 2 spr LA DAILY [facility] Last Admin: 07/11/18 08:32 Dose: 2 spr Vancomycin HCl 750 mg/ Sodium (Chloride) 250 mls @ 166.667 mls/hr IVPB Q12H [facility] Last Admin: 07/12/18 00:51 Dose: 166.667 mls/hr Lactic Acid (Lac-Hydrin 12% Lotion (225 G)) 1 applic TOP TID [facility] Last Admin: 07/11/18 16:36 Dose: 1 applic Lactobacillus Acidophilus (Bacid Acidophilus) 1 cap PO BID [facility] Last Admin: 07/11/18 16:34 Dose: 1 cap Lactulose (Enulose) 20 gm PO DAILY PRN PRN Reason: Constipation Last Admin: 07/10/18 09:32 Dose: 20 gm Losartan Potassium (Cozaar) 25 mg PO DAILY [facility] Last Admin: 07/11/18 08:33 Dose: 25 mg Mirtazapine (Remeron) 15 mg PO HS [facility] Last Admin: 07/11/18 21:29 Dose: 15 mg Montelukast Sodium (Singulair) 10 mg PO HS [facility] Last Admin: 07/11/18 21:29 Dose: 10 mg Mupirocin (Bactroban Ointment) 1 applic TOP QD7 [facility] Last Admin: 07/11/18 08:36 Dose: Not Given Nystatin (Mycostatin Cream) 1 applic TOP TID [facility] Last Admin: 07/11/18 16:36 Dose: 1 applic Pantoprazole Sodium (Protonix Ec Tab) 40 mg PO DAILY [facility] Last Admin: 07/11/18 08:33 Dose: 40 mg Sodium Chloride (Sodium Chloride Tab) 1 gm PO Q12 [facility] Last Admin: 07/11/18 21:29 Dose: 1 gm Tramadol HCl (Ultram) 50 mg PO Q6 PRN PRN Reason: Pain, moderate (4-7) Last Admin: 07/11/18 11:51 Dose: 50 mg Zinc Sulfate (Zinc Sulfate 220 Mg Cap) 220 mg PO DAILY [facility] Last Admin: 07/11/18 14:54 Dose: 220 mg - Labs Labs: 07/11/18 14:09 07/11/18 14:09 - Constitutional Appears: Well, Non-toxic, No Acute Distress - Head Exam Head Exam: ATRAUMATIC, NORMOCEPHALIC - Extremities Exam Additional comments: LLE focused exam: Vasc: DP/PT faintly palpable, Cap refill > 3 seconds to all digits, temperature gradient warm to cool from proximal to distal, pedal hair absent, No edema noted to LLE Ortho: Mild tenderness upon palpation of dianna-ulceration, MMT 4/5 Neuro: Gross and protective sensation diminished. Derm: LLE ulcerations: Medial malleolar ulceration measuring approximately 4.5 x 3.8 x .3 with mixed fibrogranular base. Mild serous drainage, no probe to bone, no tunneling, no tracking, no undermining, mild maceration periwound. Additional ulceration noted to posterior heel measuring approximately 3 x 1 x .3 with fibrogranular base, no drainage, no tunneling no tracking, mild maceration periwound. Mild diffuse erythema to LLE. - Neurological Exam Neurological Exam: Alert, Awake - Psychiatric Exam Psychiatric exam: Normal Affect, Normal Mood Assessment and Plan - Assessment and Plan (Free Text) Assessment: 77 year old female with LLE ulcerations secondary to PVD. Plan: Patient seen and evaluated, discussed with Dr. Singer WBC 8.1 X-ray left foot and ankle reviewed (06/28): Foot: Diffuse osteoporosis, No evidence of OM; Ankle: diffuse osteoporosis, Some erosions noted at the medial malleolous. 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 Local wound care: Bactroban and DSD - Stable from podiatry standpoint, no surgical intervention at this time Pending D/C from TCU, patient to follow up in wound care center/office with Dr. Singer for continued local wound care.
[2018-07-12] MEDS: Albuterol-Ipratrop 3 mg / 0.5 (3 ml) UD INH SCH ×2 (08:16→13:17)
[2018-07-12] MEDS: Enoxaparin 40 mg Syringe SC SCH (09:31)
[2018-07-12] MEDS: Divalproex 125 mg Sprinkle Capsule PO SCH (09:32)
[2018-07-12] MEDS: Pantoprazole 40 mg EC Tab PO SCH (09:35)
[2018-07-12] MEDS: Lactobacillus Acidophilus 500 MU Cap PO SCH (09:36)
--- NOTE | 2018-07-12 10:56 | CP.PCM.PN ---
Subjective - Date & Time of Evaluation Date of Evaluation: 07/12/18 Time of Evaluation: 10:56 - Subjective Subjective: ID Note- Pt. seen and examined today. remains afebrile and clinically improved. Objective - Vital Signs/Intake and Output Vital Signs (last 24 hours): Temp Pulse Resp BP Pulse Ox 97.2 F L 76 20 156/65 H 98 07/11/18 19:20 07/12/18 09:33 07/11/18 19:20 07/12/18 09:33 07/11/18 19:20 - Medications Medications: Current Medications Acetaminophen (Tylenol 325mg Tab) 650 mg PO Q6 PRN PRN Reason: Pain, Mild (1-3) Last Admin: 07/11/18 17:46 Dose: 650 mg Albuterol/Ipratropium (Duoneb 3 Mg/0.5 Mg (3 Ml) Ud) 3 ml INH RTID [facility] Last Admin: 07/11/18 19:13 Dose: 3 ml Alprazolam (Xanax) 0.25 mg PO Q12 PRN PRN Reason: Anxiety Last Admin: 07/11/18 22:35 Dose: 0.25 mg Ascorbic Acid (Vitamin C 500 Mg Tab) 500 mg PO DAILY [facility] Last Admin: 07/12/18 09:35 Dose: 500 mg Atorvastatin Calcium (Lipitor) 20 mg PO DAILY@2100 [facility] Last Admin: 07/11/18 21:29 Dose: 20 mg Divalproex Sodium (Depakote Sprinkles) 125 mg PO BID [facility] Last Admin: 07/12/18 09:32 Dose: 125 mg Enoxaparin Sodium (Lovenox) 40 mg SC DAILY [facility]; Protocol Last Admin: 07/12/18 09:31 Dose: 40 mg Fluticasone Propionate (Flonase) 2 spr LA DAILY [facility] Last Admin: 07/12/18 09:35 Dose: 2 spr Vancomycin HCl 750 mg/ Sodium (Chloride) 250 mls @ 166.667 mls/hr IVPB Q12H [facility] Last Admin: 07/12/18 00:51 Dose: 166.667 mls/hr Lactic Acid (Lac-Hydrin 12% Lotion (225 G)) 1 applic TOP TID [facility] Last Admin: 07/12/18 09:31 Dose: 1 applic Lactobacillus Acidophilus (Bacid Acidophilus) 1 cap PO BID [facility] Last Admin: 10/22/18 09:36 Dose: 1 cap Lactulose (Enulose) 20 gm PO DAILY PRN PRN Reason: Constipation Last Admin: 07/10/18 09:32 Dose: 20 gm Losartan Potassium (Cozaar) 25 mg PO DAILY [facility] Last Admin: 07/12/18 09:33 Dose: 25 mg Mirtazapine (Remeron) 15 mg PO HS [facility] Last Admin: 07/11/18 21:29 Dose: 15 mg Montelukast Sodium (Singulair) 10 mg PO HS [facility] Last Admin: 07/11/18 21:29 Dose: 10 mg Mupirocin (Bactroban Ointment) 1 applic TOP QD7 [facility] Last Admin: 07/12/18 08:31 Dose: 1 applic Nystatin (Mycostatin Cream) 1 applic TOP TID [facility] Last Admin: 07/12/18 09:29 Dose: 1 applic Pantoprazole Sodium (Protonix Ec Tab) 40 mg PO DAILY [facility] Last Admin: 07/12/18 09:35 Dose: 40 mg Sodium Chloride (Sodium Chloride Tab) 1 gm PO Q12 [facility] Last Admin: 07/12/18 09:32 Dose: 1 gm Tramadol HCl (Ultram) 50 mg PO Q6 PRN PRN Reason: Pain, moderate (4-7) Last Admin: 07/11/18 11:51 Dose: 50 mg Zinc Sulfate (Zinc Sulfate 220 Mg Cap) 220 mg PO DAILY [facility] Last Admin: 07/11/18 14:54 Dose: 220 mg - Labs Labs: - Additional Findings Additional findings: Constitutional Appears: Non-toxic, No Acute Distress - Head Exam Head Exam: ATRAUMATIC - Eye Exam Eye Exam: EOMI, PERRL - ENT Exam ENT Exam: Normal Oropharynx - Neck Exam Neck exam: Positive for: Full Rom - Respiratory Exam Respiratory Exam: Clear to Auscultation Bilateral, NORMAL BREATHING PATTERN - Cardiovascular Exam Cardiovascular Exam: RRR, +S1, +S2 - GI/Abdominal Exam GI & Abdominal Exam: Normal Bowel Sounds, Soft Additional comments: NT, ND - Extremities Exam Additional comments: much improved left medial ankle region with 5 x 5 cm round open ulcer , superficial, no discharge, no malodor no surrounding erythema - Neurological Exam Neurological exam: Alert, Oriented x 3 Laboratory Results - last 72 hr 07/11/18 07/11/18 07/11/18 05:07 14:09 14:09 WBC 8.1 RBC 3.27 L Hgb 10.6 L Hct 31.1 L MCV 94.9 MCH 32.4 H MCHC 34.2 RDW 14.9 H Plt Count 356 MPV 7.5 Neut % (Auto) 59.3 Lymph % (Auto) 19.2 L [place] % (Auto) 14.5 H Eos % (Auto) 7.0 H Baso % (Auto) 0.0 Neut # (Auto) 4.8 Lymph # (Auto) 1.5 [place] # (Auto) 1.2 H Eos # (Auto) 0.6 Baso # (Auto) 0.0 Sodium 135 Potassium 4.3 Chloride 100 Carbon Dioxide 31 H Anion Gap 8 L BUN 6 L Creatinine 0.6 L Est GFR ( Amer) > 60 Est GFR (Non-Af Amer) > 60 POC Glucose (mg/dL) 104 Random Glucose 110 H Calcium 10.0 Total Bilirubin < 0.1 L AST 22 ALT 29 Alkaline Phosphatase 82 Total Protein 6.6 Albumin 3.4 L Globulin 3.1 Albumin/Globulin Ratio 1.1 Microbiology 06/29/18 08:05 Urine,Clean Catch Urine Culture - Final No Growth (<1,000 CFU/ML) 06/28/18 18:51 Foot - Left Gram Stain - Final 06/28/18 18:51 Foot - Left Wound Culture - Final Pseudomonas Aeruginosa Beta Hemolytic Strep Group B 06/28/18 18:15 Blood-Venous Blood Culture - Final 06/28/18 18:15 Blood-Venous Gram Stain - Final NO GROWTH AFTER 5 DAYS TEST NOT PERFORMED 06/28/18 18:00 Blood-Venous Blood Culture - Final 06/28/18 18:00 Blood-Venous Gram Stain - Final NO GROWTH AFTER 5 DAYS TEST NOT PERFORMED Assessment and Plan (1) Ulcer of left ankle Status: Acute (2) Cellulitis of left lower extremity Status: Acute - Assessment and Plan (Free Text) Assessment: A/P- 77 year old female with CAD s/p CABG admitted with nonhealing left medial ankle ulcer/wound and surrounding cellulitis. remains afebrile. has normal wbc count low ESR. blood cx- neg x 2 leg wound cx- Pseudomonas and group A strep based on sensitivity pseudomonas is sens to cefepime and strep sens to vanco ESR- 16 (normal) MRI- negative for OM as per report. plan- completed 14 days of both vanco and cefepime for the ankle infected ulcer. no need for further IV abx. wound care as per podiatry team. no sign of OM based on low ESR and negative xray report and negative MRI report. can be switched to oral abx ( oral cipro 250 mg BID and ampicillin 500 mg q8 hours for 7 days after d/c from hospital). f/u closely with podiatry for wound care as outpatient.. All above d/w podiatry .
[2018-07-12 15:30] VITALS: BP 143/64; PULSE 87; TEMP 97.9; O2SAT 98
== END 2018-07-12 15:50 | disposition home health service (06) | DRG 603 ==
LOC: H.TCU 19:03
PROVIDERS: ADMIT Internal Medicine Pulmonary Disease; ATTEND Internal Medicine Pulmonary Disease
PROC: 3E03329 Introduction of Other Anti-infective into Peripheral Vein, Percutaneous Approach (ICD-10-PCS; principal; 2018-07-05)
PROC: F07Z9FZ Gait Training/Functional Ambulation Treatment using Assistive, Adaptive, Supportive or Protective Equipment (ICD-10-PCS; 2018-07-05)
PROC: F08Z4FZ Home Management Treatment using Assistive, Adaptive, Supportive or Protective Equipment (ICD-10-PCS; 2018-07-05)
PROC: F07L6FZ Therapeutic Exercise Treatment of Musculoskeletal System - Lower Back / Lower Extremity using Assistive, Adaptive, Supportive or Protective Equipment (ICD-10-PCS; 2018-07-06)
DX: L03.116 Cellulitis of left lower limb (principal); L97.329 Non-pressure chronic ulcer of left ankle with unspecified severity; E11.51 Type 2 diabetes mellitus with diabetic peripheral angiopathy without gangrene; E11.622 Type 2 diabetes mellitus with other skin ulcer; B96.5 Pseudomonas (aeruginosa) (mallei) (pseudomallei) as the cause of diseases classified elsewhere; B95.0 Streptococcus, group A, as the cause of diseases classified elsewhere; Z16.21 Resistance to vancomycin; I25.10 Atherosclerotic heart disease of native coronary artery without angina pectoris; F03.90 Unspecified dementia, unspecified severity, without behavioral disturbance, psychotic disturbance, mood disturbance, and anxiety; I10 Essential (primary) hypertension; E78.00 Pure hypercholesterolemia, unspecified; M81.0 Age-related osteoporosis without current pathological fracture; M19.072 Primary osteoarthritis, left ankle and foot; J44.9 Chronic obstructive pulmonary disease, unspecified; F41.9 Anxiety disorder, unspecified; F32.9 Major depressive disorder, single episode, unspecified; Z95.2 Presence of prosthetic heart valve; Z95.1 Presence of aortocoronary bypass graft; Z79.02 Long term (current) use of antithrombotics/antiplatelets; Z87.440 Personal history of urinary (tract) infections; Z87.891 Personal history of nicotine dependence; Z88.6 Allergy status to analgesic agent; Z91.041 Radiographic dye allergy status

== ENCOUNTER 2018-11-04 17:39 | Inpatient (IN) | payer MEDICARE, MEDICAID ==
[2018-11-04 17:39] VITALS: BMI 28.3
--- NOTE | 2018-11-04 20:09 | ED PDOC ---
Lower Extremity Pain/Injury Time Seen by Provider: 11/04/18 19:19 Chief Complaint (Nursing): Anxiety Chief Complaint (Provider): Left lower extremity pain History Per: Patient History/Exam Limitations: no limitations Additional Complaint(s): 77 year old female, with a history of anxiety, depression, cellulitis, peripheral vascular disease, SVT, COPD, CAD, and hypercholesterolemia, presents to the ED complaining of left foot and ankle pain. Patient has a history of cellulitis to this foot. She reports that her pain has become progressively worse as well as red. Denies fever or chills. Patient verbalizes that she has trouble ambulating due to pain. Reports she has anxiety and depression due to her condition but is not the reason for presentation. PMD: none Past Medical History Reviewed: Historical Data, Nursing Documentation, Vital Signs Vital Signs: Last Vital Signs Temp 97.9 F 11/04/18 17:55 Pulse 98 H 11/04/18 17:55 Resp 106 H 11/04/18 17:55 BP 118/84 11/04/18 17:55 Pulse Ox 99 11/04/18 17:55 - Medical History PMH: Anxiety, Arthritis, Asthma, CAD, COPD, Dementia, Depression, HTN, Hypercholesterolemia, Osteoporosis Denies: HIV, Chronic Kidney Disease Other PMH: Peripheral vascular disease - Surgical History Surgical History: CABG - Family History Family History: States: Unknown Family Hx - Home Medications Home Medications: Ambulatory Orders Medication Instructions Recorded RX: Rosuvastatin Calcium [Crestor] 10 mg PO DAILY 07/19/15 RX: Albuterol HFA [Ventolin HFA 90 2 puff IH Q4H PRN 06/13/16 mcg/actuation (8 g)] RX: Budesonide/Formoterol Fumarate 2 puff IH Q12H 06/13/16 [Symbicort 160-4.5 Mcg Inhaler] RX: Alprazolam [Xanax] 0.25 mg PO Q12 PRN 06/28/18 RX: Diclofenac Sodium [Voltaren] 1 appl TOP Q6 PRN 06/28/18 RX: Divalproex [Depakote Sprinkles] 125 mg PO BID 06/28/18 RX: Esomeprazole Magnesium [Nexium] 40 mg PO DAILY 06/28/18 RX: Fluticasone Propionate 2 puff LA DAILY 06/28/18 [Flonase] RX: Irbesartan [Avapro] 75 mg PO DAILY 06/28/18 RX: Mirtazapine [Remeron] 15 mg PO HS 06/28/18 RX: Montelukast [Singulair] 10 mg PO HS 06/28/18 RX: Sodium Chloride [Sodium 1 gm PO Q12 06/28/18 Chloride Tab] RX: oxyCODONE/Acetaminophen 1 tab PO Q4 PRN 06/28/18 [Percocet 5/325 mg Tab] RX: traMADol [Ultram] 50 mg PO Q6 PRN 06/28/18 RX: Mupirocin 2% Ointment 1 applic TOP BID tube 07/02/18 [Bactroban Ointment] RX: ALPRAZolam [Xanax] 0.25 mg PO Q12 PRN #60 tab 07/12/18 RX: Acetaminophen [Tylenol 325mg 650 mg PO Q6 PRN tab 07/12/18 tab] RX: Albuterol/Ipratropium [Duoneb 3 ml INH RTID neb 07/12/18 3 mg/0.5 mg (3 ml) UD] RX: Ammonium Lactate 12% 1 applic TOP TID bottle 07/12/18 [Lac-Hydrin 12% Lotion (225 g)] RX: Atorvastatin [Lipitor] 20 mg PO DAILY@2100 tab 07/12/18 RX: Enoxaparin [Lovenox] 40 mg SC DAILY syr 07/12/18 RX: Fluticasone Propionate 2 spr LA DAILY bottle 07/12/18 [Flonase] RX: Lactulose [Enulose] 20 gm PO DAILY PRN udc 07/12/18 RX: Losartan [Cozaar] 25 mg PO DAILY tab 07/12/18 RX: Mirtazapine [Remeron] 15 mg PO HS tab 07/12/18 RX: Mupirocin 2% Ointment 1 applic TOP QD7 tube 07/12/18 [Bactroban Ointment] RX: Nystatin [Mycostatin Cream] 1 applic TOP TID tube 07/12/18 RX: Pantoprazole [Protonix EC Tab] 40 mg PO DAILY ect 07/12/18 RX: Sodium Chloride [Sodium 1 gm PO Q12 tab 07/12/18 Chloride Tab] RX: Zinc [Zinc Sulfate 220 mg Cap] 220 mg PO DAILY cap 07/12/18 RX: traMADol [Ultram] 50 mg PO Q6 PRN #60 tab 07/12/18 - Allergies Allergies/Adverse Reactions: Allergies Allergy/AdvReac Type Severity Reaction Status Date / Time aspirin Allergy Mild RASH Verified 05/07/17 17:16 iodine Allergy RASH Verified 05/07/17 17:16 Review of Systems ROS Statement: Except As Marked, All Systems Reviewed And Found Negative Constitutional: Negative for: Fever, Chills Musculoskeletal: Positive for: Other (Left foot and ankle pain) Psych: Positive for: Anxiety, Depression Physical Exam - Reviewed Nursing Documentation Reviewed: Yes Vital Signs Reviewed: Yes - Physical Exam Appears: Positive for: Non-toxic, No Acute Distress Head Exam: Positive for: ATRAUMATIC, NORMOCEPHALIC Skin: Positive for: Normal Color, Warm, Dry Eye Exam: Positive for: Normal appearance Neck: Positive for: Normal, Painless ROM Cardiovascular/Chest: Positive for: Regular Rate, Rhythm Respiratory: Positive for: Normal Breath Sounds. Negative for: Wheezing, Respiratory Distress Pulses-Dorsalis Pedis (L): 2+ Extremity: Positive for: Capillary Refill (less than 2 seconds), Other (Left ankle and foot: erythematous, indurated and warm to touch; 7cm round excoriated area with yellow drainage to the left lateral malleolar surface; foot is tender to touch) Neurologic/Psych: Positive for: Alert, Oriented. Negative for: Motor/Sensory Deficits - Laboratory Results Result Diagrams: 11/04/18 20:34 11/04/18 20:34 - ECG O2 Sat by Pulse Oximetry: 99 (RA) Pulse Ox Interpretation: Normal - Critical Care Total Time (In Min): 30 Documented Critical Care: Time excludes all time spent performint seperately billable procedures Medical Decision Making Medical Decision Making: Initial Impression: 77 year old female with appearing acute on chronic cellulitis Initial Plan: --ECG --Alcohol serum stat --CMP --Drug screen --Lact acid --Magnesium stat --TSH --ED urine dipstick --CBC --Chest X-ray --Ativan 0.5mg IV --Tylenol 975mg PO --Blood culture --Left ankle X-ray --Left foot X-ray --Urinalysis 22:20 Provider suspects patient is possibly sundowning. Haldol and Atadele ordered. 23:30 Nursing staff was able to reach patient's son who reports that the patient has become increasingly uncooperative at home and likely not compliant with medications. Labs reviewed and reveal depressed sodium levels. Diagnoses are hyponatremia and cellulitis of the lower extremity. Scribe Attestation: Documented by Tonio Marr acting as a scribe for Patrick Stallworth MD. Provider Scribe Attestation: All medical record entries made by the Scribe were at my direction and personally dictated by me. I have reviewed the chart and agree that the record accurately reflects my personal performance of the history, physical exam, medical decision making, and the department course for this patient. I have also personally directed, reviewed, and agree with the discharge instructions and disposition. 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 This is because of the severity of symptoms shown, intensity of services needed, and/or the medical risk in this patient being treated as an outpatient.
[2018-11-04 20:50] LABS: BASO # 0.1 K/uL (0.0-0.2); BASO % 0.5 % (0.0-2.0); EOS # 0.3 K/uL (0.0-0.7); EOS % 2.9 % (0.0-4.0); HEMOGLOBIN 10.1 g/dL (12.0-16.0); LYMPH # 2.2 K/uL (1.0-4.3); LYMPH % 22.1 % (20.0-40.0); MEAN CELL VOLUME 90.3 fl (81.0-99.0); MEAN CORPUSCULAR HEMOGLOBIN 30.6 pg (27.0-31.0); MEAN CORPUSCULAR HGB CONC 33.9 g/dL (33.0-37.0); MEAN PLATELET VOLUME 7.3 fl (7.2-11.7); MONO # 1.1 K/uL (0.0-0.8); MONO % 11.2 % (0.0-10.0); NEUT # 6.3 K/uL (1.8-7.0); NEUT % 63.3 % (50.0-75.0); NRBC % 0.1 % (0.0-0.0); RBC 3.31 Mil/uL (3.80-5.20); RED CELL DISTRIBUTION WIDTH 15.6 % (11.5-14.5); WHITE BLOOD COUNT 9.9 K/uL (4.8-10.8)
[2018-11-04 20:58] LABS: ALB/GLOB RATIO 1.4 (1.0-2.1)
[2018-11-04 21:00] LABS: ALBUMIN 3.8 g/dL (3.5-5.0); ALT/SGPT 20 U/L (9-52); AST/SGOT 23 U/L (14-36); BLOOD UREA NITROGEN 6 mg/dl (7-17); CALCIUM 10.2 mg/dL (8.4-10.2); GFR NON-AFRICAN AMERICAN > 60
--- NOTE | 2018-11-04 22:42 | CP.PCM.CON ---
History of Present Illness - History of Present Illness History of Present Illness: Podiatry consult note - Dr. Singer 77F with extensive pmhx known to Dr. Singer seen and evaluated in the ED for left ankle wound. States that she was brought in by ambulance and her son called it for her. She presented with bandage intact to left ankle which she states was put on by her son who takes care of her. States she has not followed up with Dr. Singer in a long time. She was last seen in the hospital in June. She has trouble detailing history. Denies n/v/f/c/sob/cp. Reports pain to her left ankle and foot when she walks or when there is pressure to the foot/ankle. PMHx: anxiety, depression, cellulitis, peripheral vascular disease, SVT, COPD, CAD, and hypercholesterolemia PSHx: CABG All: denies Past Patient History - Past Medical History & Family History Past Medical History?: Yes - Past Social History Smoking Status: Former Smoker - CARDIAC Hx Hypercholesterolemia: Yes Hx Hypertension: Yes - PULMONARY Hx Asthma: Yes Hx Chronic Obstructive Pulmonary Disease (COPD): Yes - NEUROLOGICAL Hx Dementia: Yes - HEENT Hx HEENT Problems: Yes (Allergic Rhinitis) - RENAL Hx Chronic Kidney Disease: No - ENDOCRINE/METABOLIC Hx Endocrine Disorders: No - HEMATOLOGICAL/ONCOLOGICAL Hx Human Immunodeficiency Virus (HIV): No - INTEGUMENTARY Hx Dermatological Problems: Yes Hx Cellulitis: Yes (LLE) - MUSCULOSKELETAL/RHEUMATOLOGICAL Hx Arthritis: Yes Hx Osteoporosis: Yes - GASTROINTESTINAL Hx Gastrointestinal Disorders: Yes Hx Constipation: Yes - GENITOURINARY/GYNECOLOGICAL Hx Genitourinary Disorders: Yes Hx Incontinence: Yes Hx Urinary Tract Infection: Yes - PSYCHIATRIC Hx Anxiety: Yes Hx Depression: Yes - SURGICAL HISTORY Hx Coronary Artery Bypass Graft: Yes - ANESTHESIA Hx Anesthesia: Yes Hx Anesthesia Reactions: No Hx Malignant Hyperthermia: No Meds Allergies/Adverse Reactions: Allergies Allergy/AdvReac Type Severity Reaction Status Date / Time aspirin Allergy Mild RASH Verified 05/07/17 17:16 iodine Allergy RASH Verified 05/07/17 17:16 Physical Exam - Constitutional Appears: Non-toxic, No Acute Distress - Head Exam Head Exam: NORMOCEPHALIC - Extremities Exam Additional comments: LLE focused VASC: DP pulse palpable 1/4, PT cannot be determined due to presence of ulceration; cap refill <3 seconds to all digits; +1 pitting edema to the foot and ankle DERM: ulceration at the medial malleolus measuring 3.0 x 1.4 x 0.2 cm; no tunneling, tracking, or probe to bone appreciated; no pus or drainage, wound base is fibrotic; erythema present at the ankle and dorsum of forefoot; IDM present in 2-4 interspaces ORTHO: pain on palpation of malleolar wound, pain on active ROM of the ankle NEURO: diminished sensation - Neurological Exam Neurological exam: Alert - Psychiatric Exam Psychiatric exam: Normal Affect Results - Vital Signs Recent Vital Signs: Last Vital Signs Temp 97.9 F 11/04/18 17:55 Pulse 98 H 11/04/18 17:55 Resp 106 H 11/04/18 17:55 BP 118/84 11/04/18 17:55 Pulse Ox 99 11/04/18 20:48 - Labs Result Diagrams: 11/04/18 20:34 11/04/18 20:34 Labs: Laboratory Results - last 24 hr 11/04/18 11/04/18 11/04/18 20:34 20:34 20:34 WBC 9.9 RBC 3.31 L Hgb 10.1 L Hct 29.9 L MCV 90.3 D MCH 30.6 MCHC 33.9 RDW 15.6 H Plt Count 368 MPV 7.3 Neut % (Auto) 63.3 Lymph % (Auto) 22.1 Colbert % (Auto) 11.2 H Eos % (Auto) 2.9 Baso % (Auto) 0.5 Neut # (Auto) 6.3 Lymph # (Auto) 2.2 Colbert # (Auto) 1.1 H Eos # (Auto) 0.3 Baso # (Auto) 0.1 Sodium 127 L Potassium 4.2 Chloride 92 L Carbon Dioxide 24 Anion Gap 15 BUN 6 L Creatinine 0.7 Est GFR ( Amer) > 60 Est GFR (Non-Af Amer) > 60 Random Glucose 95 Lactic Acid 1.0 Calcium 10.2 Magnesium 1.8 Total Bilirubin 0.3 AST 23 ALT 20 Alkaline Phosphatase 87 Total Protein 6.6 Albumin 3.8 Globulin 2.8 Albumin/Globulin Ratio 1.4 TSH 3rd Generation 2.71 Alcohol, Quantitative < 10 Assessment & Plan - Assessment and Plan (Free Text) Assessment: 77F with pmhx of anxiety, depression, cellulitis, peripheral vascular disease, SVT, COPD, CAD, and hypercholesterolemia seen and evaluated in the ED for left venous stasis ulceration Plan: Patient seen and evaluated Discussed in detail with Dr. Singer X-rays - no gross changes appreciated from previous x-rays taken in June, WBC 9.9, afebrile Wound cleansed with sterile saline and dressed with xeroform and DSD Instructed patient to cleanse foot while at home and follow up at [facility] wound clinic next week Rx Keflex Instructed to dry between toes after bathing Further recs per Dr. Singer Thank you for the consult - Date & Time Date: 11/04/18 Time: 22:55
[2018-11-04] MEDS ORDERED: Piperacillin/Tazobact 3.375 GM in Sodium Chloride 0.9% 100 ML IV STA (23:28)
[2018-11-05] MEDS ORDERED: Piperacillin/Tazobact 3.375 gm Inj IVPB ONE (00:33)
[2018-11-05] MEDS ORDERED: Morphine 4 MG/ML VIAL IVP ONE (02:41)
[2018-11-05] MEDS ORDERED: Haloperidol Lactate 2 mg/ml Liquid PO PRN (08:55)
--- NOTE | 2018-11-05 08:55 | CP.PCM.CON ---
History of Present Illness - History of Present Illness History of Present Illness: Psychiatry consult note Patient is a poor historian due to acute delirium. History obtained from the chart. CC: AMS/ foot + ankle pain HPI: 77 y/o F, brought to [facility], by EMS after her son called for worsening foot and ankle pain and AMS. Patient unable to provide any information. A + O x 1. She does not know why she is in the hospital. She is currently confused and does not answer questions appropriately. PMHx: Cellulitis, peripheral vascular disease, SVT, COPD, CAD, and hypercholesterolemia PSHx: CABG All: Aspirin, Iodine Impression: Acute delirium secondary to acute medical issues with likely worsening Major Neurocognitive Disorder. Recommendation: -No acute inpatient psychiatric admission indicated at this time -Continue Depakote 125 mg PO BID; can increase to TID if patient exhibits behavioral disturbances; check VPA level -Can give Haldol 0.5 PO or IM Q8 hrs PRN agitation -Continue Remeron 15 mg PO HS -Avoid benzodiazepines as they can worsen the confusion and cause increased risk of falls -If patient has "sundowning"/ late day confusion, can consider treatment with Seroquel 50 mg PO Daily@1500 Past Patient History - Past Medical History & Family History Past Medical History?: Yes - Past Social History Smoking Status: Unknown If Ever Smoked - CARDIAC Hx Hypercholesterolemia: Yes Hx Hypertension: Yes - PULMONARY Hx Asthma: Yes Hx Chronic Obstructive Pulmonary Disease (COPD): Yes - NEUROLOGICAL Hx Dementia: Yes - HEENT Hx HEENT Problems: Yes (Allergic Rhinitis) - RENAL Hx Chronic Kidney Disease: No - ENDOCRINE/METABOLIC Hx Endocrine Disorders: No - HEMATOLOGICAL/ONCOLOGICAL Hx Human Immunodeficiency Virus (HIV): No - INTEGUMENTARY Hx Dermatological Problems: Yes Hx Cellulitis: Yes (LLE) - MUSCULOSKELETAL/RHEUMATOLOGICAL Hx Arthritis: Yes Hx Osteoporosis: Yes - GASTROINTESTINAL Hx Gastrointestinal Disorders: Yes Hx Constipation: Yes - GENITOURINARY/GYNECOLOGICAL Hx Genitourinary Disorders: Yes Hx Incontinence: Yes Hx Urinary Tract Infection: Yes - PSYCHIATRIC Hx Anxiety: Yes Hx Depression: Yes - SURGICAL HISTORY Hx Coronary Artery Bypass Graft: Yes - ANESTHESIA Hx Anesthesia: Yes Hx Anesthesia Reactions: No Hx Malignant Hyperthermia: No Meds Allergies/Adverse Reactions: Allergies Allergy/AdvReac Type Severity Reaction Status Date / Time aspirin Allergy Mild RASH Verified 05/07/17 17:16 iodine Allergy RASH Verified 05/07/17 17:16 - Medications Medications: Current Medications Acetaminophen (Tylenol 325mg Tab) 650 mg PO Q6 PRN PRN Reason: Pain, Mild (1-3) Albuterol/Ipratropium (Duoneb 3 Mg/0.5 Mg (3 Ml) Ud) 3 ml INH RTID [facility] Atorvastatin Calcium (Lipitor) 20 mg PO DAILY [facility] Divalproex Sodium (Depakote Sprinkles) 125 mg PO BID [facility] Enoxaparin Sodium (Lovenox) 40 mg SC DAILY [facility]; Protocol Fluticasone Propionate (Flonase) 2 spr LA DAILY [facility] Piperacillin Sod/Tazobactam (Sod 3.375 gm/ Sodium Chloride) 100 mls @ 100 mls/hr IVPB Q6 [facility]; Protocol Lactulose (Enulose) 20 gm PO DAILY PRN PRN Reason: Constipation Lorazepam (Ativan) 1 mg IM Q4 PRN PRN Reason: Agitation Last Admin: 11/05/18 06:42 Dose: 1 mg Losartan Potassium (Cozaar) 75 mg PO DAILY [facility] Mirtazapine (Remeron) 15 mg PO HS [facility] Montelukast Sodium (Singulair) 10 mg PO HS [facility] Mupirocin (Bactroban Ointment) 1 applic TOP BID [facility] Nystatin (Mycostatin Cream) 1 applic TOP TID [facility] Oxycodone/Acetaminophen (Percocet 5/325 Mg Tab) 1 tab PO Q6 PRN PRN Reason: Pain, moderate (4-7) Stop: 11/08/18 06:06 Pantoprazole Sodium (Protonix Ec Tab) 40 mg PO DAILY [facility] Sodium Chloride (Sodium Chloride Tab) 1 gm PO DAILY [facility] Zinc Sulfate (Zinc Sulfate 220 Mg Cap) 220 mg PO DAILY [facility] Results - Vital Signs Recent Vital Signs: Last Vital Signs Temp 98.3 F 11/05/18 08:23 Pulse 105 H 11/05/18 08:23 Resp 20 11/05/18 08:23 BP 166/73 H 11/05/18 08:23 Pulse Ox 96 11/05/18 08:23 - Labs Result Diagrams: 11/04/18 20:34 11/04/18 20:34 Labs: Laboratory Results - last 24 hr 11/04/18 11/04/18 11/04/18 20:34 20:34 20:34 WBC 9.9 RBC 3.31 L Hgb 10.1 L Hct 29.9 L MCV 90.3 D MCH 30.6 MCHC 33.9 RDW 15.6 H Plt Count 368 MPV 7.3 Neut % (Auto) 63.3 Lymph % (Auto) 22.1 Catron % (Auto) 11.2 H Eos % (Auto) 2.9 Baso % (Auto) 0.5 Neut # (Auto) 6.3 Lymph # (Auto) 2.2 Catron # (Auto) 1.1 H Eos # (Auto) 0.3 Baso # (Auto) 0.1 Sodium 127 L Potassium 4.2 Chloride 92 L Carbon Dioxide 24 Anion Gap 15 BUN 6 L Creatinine 0.7 Est GFR ( Amer) > 60 Est GFR (Non-Af Amer) > 60 Random Glucose 95 Lactic Acid 1.0 Calcium 10.2 Magnesium 1.8 Total Bilirubin 0.3 AST 23 ALT 20 Alkaline Phosphatase 87 Total Protein 6.6 Albumin 3.8 Globulin 2.8 Albumin/Globulin Ratio 1.4 TSH 3rd Generation 2.71 Alcohol, Quantitative < 10
[2018-11-05 09:35] LABS: HEMOGLOBIN 10.6 g/dL (12.0-16.0); MEAN CORPUSCULAR HEMOGLOBIN 30.2 pg (27.0-31.0); MEAN CORPUSCULAR HGB CONC 33.6 g/dL (33.0-37.0); RBC 3.51 Mil/uL (3.80-5.20); RED CELL DISTRIBUTION WIDTH 15.3 % (11.5-14.5); WHITE BLOOD COUNT 11.1 K/uL (4.8-10.8)
[2018-11-05] MEDS: Divalproex 125 mg Sprinkle Capsule PO SCH ×2 (09:41→16:24)
[2018-11-05] MEDS: Mupirocin 2% Oint 1GM UD TOP SCH ×2 (09:43→18:14)
[2018-11-05 09:46] LABS: ALB/GLOB RATIO 1.3 (1.0-2.1); ALBUMIN 3.8 g/dL (3.5-5.0); ALT/SGPT 18 U/L (9-52); AST/SGOT 25 U/L (14-36); BLOOD UREA NITROGEN 5 mg/dl (7-17); CALCIUM 10.1 mg/dL (8.4-10.2); GFR NON-AFRICAN AMERICAN > 60; HDL CHOLESTEROL 67 MG/DL (30-70)
[2018-11-05] MEDS: Pantoprazole 40 mg EC Tab PO SCH (09:48)
[2018-11-05 09:56] LABS: LDL CHOLESTEROL 43 mg/dL (0-129)
[2018-11-05] MEDS ORDERED: Piperacillin/Tazobact 3.375 GM in Sodium Chloride 0.9% 100 ML IVPB SCH (10:00)
--- NOTE | 2018-11-05 11:35 | US ---
Date of service: 11/04/2018 HISTORY: swelling/pain. PRIORS: None. FINDINGS: 2-D, color and duplex Doppler analysis of the lower extremity venous circulation using routine protocol from the femoral veins through the popliteal veins. Venous compressibility: Normal. Flow and augmentation patterns: Normal. Visualized veins upper third of calf: Normal. Munoz cyst: None. IMPRESSION: No sonographic or Doppler evidence for DVT in left lower extremity. Concordant findings (preliminary report) provided by NIKHIL ROSS.
--- NOTE | 2018-11-05 12:23 | CARD ---
APPROVED REPORT Date of service: 11/05/2018 EKG Measurement Heart [id number] <Conclusion> Sinus tachycardia with premature ventricular complexes Inferior infarct, age undetermined Abnormal ECG
--- NOTE | 2018-11-05 12:40 | RAD ---
Date of service: 11/04/2018 PROCEDURE: Left Ankle Radiographs. HISTORY: pain/swelling COMPARISON: 06/28/2018 FINDINGS: BONES: Profound osteopenia. JOINTS: Postoperative findings related to tibiotalar fusion. SOFT TISSUES: Soft tissue swelling laterally. Ulceration medially. The medial findings are new. OTHER FINDINGS: None. IMPRESSION: New soft tissue ulcer adjacent to the distal tibia without radiographic manifestations of acute osteomyelitis.
--- NOTE | 2018-11-05 12:42 | RAD ---
Date of service: 11/04/2018 PROCEDURE: Left Foot Radiographs. HISTORY: pain/swelling COMPARISON: 06/28/2018 FINDINGS: BONES: Evidence of stable tibiotalar fusion. Profound osteopenia. No visible/acute fracture. JOINTS: Stable postoperative changes. SOFT TISSUES: Diffuse soft tissue swelling. Improved compared to the prior study. OTHER FINDINGS: None. IMPRESSION: Soft tissue swelling without acute articular or osseous abnormality.
--- NOTE | 2018-11-05 12:43 | RAD ---
Date of service: 11/04/2018 PROCEDURE: CHEST RADIOGRAPH, 1 VIEW HISTORY: admit COMPARISON: 06/28/2018 FINDINGS: LUNGS: Clear. PLEURA: No pneumothorax or pleural fluid seen. CARDIOVASCULAR: Atherosclerotic calcifications identified primarily aortic arch. No radiographic findings to suggest acute or significant cardiovascular disease. Incidental Finding(s): Postoperative changes related to sternotomy. Cardiomegaly. OSSEOUS STRUCTURES: No significant abnormalities. VISUALIZED UPPER ABDOMEN: Normal. OTHER FINDINGS: None. IMPRESSION: No active disease.No significant interval change compared to the prior examination(s).
[2018-11-05 12:51] LABS: SQUAMOUS EPITHIAL < 1 /hpf (0-5); URINE AMORPHOUS SEDIMENT OCC /ul (<OCC); URINE BACTERIA OCC (<OCC); URINE BILIRUBIN NEGATIVE (NEGATIVE); URINE BLOOD NEGATIVE (NEGATIVE); URINE CLARITY CLOUDY (Clear); URINE COLOR YELLOW (YELLOW); URINE GLUCOSE (UA) NEG (NEGATIVE); URINE LEUKOCYTE ESTERASE NEG Leu/uL (Negative); URINE PROTEIN NEGATIVE (NEGATIVE); URINE UROBILINOGEN 0.2-1.0 mg/dL (0.2-1.0)
[2018-11-05 12:52] LABS: BENZODIAZEPINES, UR NEGATIVE (NEGATIVE)
[2018-11-05 13:00] LABS: BARBITURATES, UR NEGATIVE (NEGATIVE); OPIATES, UR POSITIVE (NEGATIVE); PHENCYCLIDINE, UR NEGATIVE (NEGATIVE)
--- NOTE | 2018-11-05 14:06 | CP.PCM.CON ---
History of Present Illness - History of Present Illness History of Present Illness: Infectious Diseae Consultation Note- asked to see this patient at the request of for left leg cellulitis. HPI- Patietn known to me from her admission in 06/2018 . Patient is a 77 year old female with PMH of CAD s/p CABG, anxiety, depression, PVD, COPD, who was brought in by her son for anxiety and as per pt's son pt. 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 currently she only moans in pain and does not answer questions. she is afebrile in june she had leg wound cx- Pseudomonas and group A strep based on sensitivity pseudomonas is sens to cefepime and strep sens to vanco completed 7 days of Iv vanco and cefepime no sign of OM at that time based on low ESR and negative xray report and negative MRI report. was advisedto complete total of 10 days of IV abx on l;ast admission can be switched to oral abx after that ( oral cipro and ampicillin for 7 days after d/c from hospital). pt. does not have any discharge from the leg wound site. PMHx: anxiety, depression, cellulitis, peripheral vascular disease, SVT, COPD, CAD, and hypercholesterolemia PSHx: CABG Review of Systems - Review of Systems Review of Systems: ROS- unable to obtain as pt. does not answer questions and only moan sin pain now. Past Patient History - Past Medical History & Family History Past Medical History?: Yes - Past Social History Smoking Status: Unknown If Ever Smoked - CARDIAC Hx Hypercholesterolemia: Yes Hx Hypertension: Yes Other/Comment: CAD s/p CABG - PULMONARY Hx Asthma: Yes Hx Chronic Obstructive Pulmonary Disease (COPD): Yes - NEUROLOGICAL Hx Dementia: Yes - HEENT Hx HEENT Problems: Yes (Allergic Rhinitis) - RENAL Hx Chronic Kidney Disease: No - ENDOCRINE/METABOLIC Hx Endocrine Disorders: No - HEMATOLOGICAL/ONCOLOGICAL Hx Blood Disorders: No - INTEGUMENTARY Hx Dermatological Problems: Yes Hx Cellulitis: Yes (LLE) - MUSCULOSKELETAL/RHEUMATOLOGICAL Hx Arthritis: Yes Hx Osteoporosis: Yes - GASTROINTESTINAL Hx Gastrointestinal Disorders: Yes Hx Constipation: Yes - GENITOURINARY/GYNECOLOGICAL Hx Genitourinary Disorders: Yes Hx Incontinence: Yes Hx Urinary Tract Infection: Yes - PSYCHIATRIC Hx Anxiety: Yes Hx Depression: Yes - SURGICAL HISTORY Hx Coronary Artery Bypass Graft: Yes - ANESTHESIA Hx Anesthesia: Yes Hx Anesthesia Reactions: No Hx Malignant Hyperthermia: No Meds Allergies/Adverse Reactions: Allergies Allergy/AdvReac Type Severity Reaction Status Date / Time aspirin Allergy Mild RASH Verified 05/07/17 17:16 iodine Allergy RASH Verified 05/07/17 17:16 - Medications Medications: Current Medications Acetaminophen (Tylenol 325mg Tab) 650 mg PO Q6 PRN PRN Reason: Pain, Mild (1-3) Albuterol/Ipratropium (Duoneb 3 Mg/0.5 Mg (3 Ml) Ud) 3 ml INH RTID [facility] Atorvastatin Calcium (Lipitor) 20 mg PO DAILY [facility] Last Admin: 11/05/18 09:48 Dose: 20 mg Divalproex Sodium (Depakote Sprinkles) 125 mg PO BID [facility] Last Admin: 11/05/18 09:41 Dose: 125 mg Enoxaparin Sodium (Lovenox) 40 mg SC DAILY [facility]; Protocol Fluticasone Propionate (Flonase) 2 spr LA DAILY [facility] Last Admin: 11/05/18 09:44 Dose: 2 spr Haloperidol Lactate (Haldol) 0.5 mg IM Q8 PRN PRN Reason: Agitation Haloperidol Lactate (Haldol) 0.5 mg PO Q8 PRN PRN Reason: Agitation Piperacillin Sod/Tazobactam (Sod 3.375 gm/ Sodium Chloride) 100 mls @ 100 mls/hr IVPB Q6 [facility]; Protocol Last Admin: 11/05/18 09:42 Dose: 100 mls/hr Vancomycin HCl 1 gm/ Sodium (Chloride) 250 mls @ 166.667 mls/hr IVPB Q12 [facility]; Protocol Lactulose (Enulose) 20 gm PO DAILY PRN PRN Reason: Constipation Losartan Potassium (Cozaar) 75 mg PO DAILY [facility] Last Admin: 11/05/18 09:40 Dose: 75 mg Mirtazapine (Remeron) 15 mg PO HS [facility] Montelukast Sodium (Singulair) 10 mg PO HS [facility] Mupirocin (Bactroban Ointment) 1 applic TOP BID [facility] Last Admin: 11/05/18 09:43 Dose: 1 applic Nystatin (Mycostatin Cream) 1 applic TOP TID [facility] Last Admin: 11/05/18 09:39 Dose: 1 applic Oxycodone/Acetaminophen (Percocet 5/325 Mg Tab) 1 tab PO Q6 PRN PRN Reason: Pain, moderate (4-7) Stop: 11/08/18 06:06 Pantoprazole Sodium (Protonix Ec Tab) 40 mg PO DAILY [facility] Last Admin: 11/05/18 09:48 Dose: 40 mg Sodium Chloride (Sodium Chloride Tab) 1 gm PO DAILY [facility] Last Admin: 11/05/18 09:41 Dose: 1 gm Zinc Sulfate (Zinc Sulfate 220 Mg Cap) 220 mg PO DAILY [facility] Last Admin: 11/05/18 09:41 Dose: 220 mg Results - Vital Signs Recent Vital Signs: Last Vital Signs Temp 98.3 F 11/05/18 08:23 Pulse 105 H 11/05/18 09:40 Resp 20 11/05/18 08:23 BP 166/73 H 11/05/18 09:40 Pulse Ox 96 11/05/18 08:23 - Labs Result Diagrams: 11/05/18 08:15 11/05/18 08:15 Labs: Laboratory Results - last 24 hr 11/04/18 11/04/18 11/04/18 12:20 12:20 20:34 WBC RBC Hgb Hct MCV MCH MCHC RDW Plt Count MPV Neut % (Auto) Lymph % (Auto) [place] % (Auto) Eos % (Auto) Baso % (Auto) Neut # (Auto) Lymph # (Auto) [place] # (Auto) Eos # (Auto) Baso # (Auto) Sodium 127 L Potassium 4.2 Chloride 92 L Carbon Dioxide 24 Anion Gap 15 BUN 6 L Creatinine 0.7 Est GFR ( Amer) > 60 Est GFR (Non-Af Amer) > 60 Random Glucose 95 Lactic Acid Calcium 10.2 Magnesium 1.8 Total Bilirubin 0.3 AST 23 ALT 20 Alkaline Phosphatase 87 Total Protein 6.6 Albumin 3.8 Globulin 2.8 Albumin/Globulin Ratio 1.4 Triglycerides Cholesterol LDL Cholesterol Direct HDL Cholesterol TSH 3rd Generation 2.71 Urine Color Yellow Urine Clarity Cloudy Urine pH 9.0 Ur Specific Nelson 1.008 Urine Protein Negative Urine Glucose (UA) Neg Urine Ketones Negative Urine Blood Negative Urine Nitrate Negative Urine Bilirubin Negative Urine Urobilinogen 0.2-1.0 Ur Leukocyte Esterase Neg Urine RBC (Auto) < 1 Urine Microscopic WBC 2 Ur Squamous Epith Cells < 1 Amorphous Sediment Occ H Urine Bacteria Occ H Urine Opiates Screen Positive H Urine Methadone Screen Negative Ur Barbiturates Screen Negative Ur Phencyclidine Scrn Negative Ur Amphetamines Screen Negative U Benzodiazepines Scrn Negative U Oth Cocaine Metabols Negative U Cannabinoids Screen Negative Alcohol, Quantitative < 10 11/04/18 11/04/18 11/05/18 20:34 20:34 08:15 WBC 9.9 11.1 H RBC 3.31 L 3.51 L Hgb 10.1 L 10.6 L Hct 29.9 L 31.6 L MCV 90.3 D 90.0 MCH 30.6 30.2 MCHC 33.9 33.6 RDW 15.6 H 15.3 H Plt Count 368 364 MPV 7.3 Neut % (Auto) 63.3 Lymph % (Auto) 22.1 [place] % (Auto) 11.2 H Eos % (Auto) 2.9 Baso % (Auto) 0.5 Neut # (Auto) 6.3 Lymph # (Auto) 2.2 [place] # (Auto) 1.1 H Eos # (Auto) 0.3 Baso # (Auto) 0.1 Sodium Potassium Chloride Carbon Dioxide Anion Gap BUN Creatinine Est GFR ( Amer) Est GFR (Non-Af Amer) Random Glucose Lactic Acid 1.0 Calcium Magnesium Total Bilirubin AST ALT Alkaline Phosphatase Total Protein Albumin Globulin Albumin/Globulin Ratio Triglycerides Cholesterol LDL Cholesterol Direct HDL Cholesterol TSH 3rd Generation Urine Color Urine Clarity Urine pH Ur Specific Nelson Urine Protein Urine Glucose (UA) Urine Ketones Urine Blood Urine Nitrate Urine Bilirubin Urine Urobilinogen Ur Leukocyte Esterase Urine RBC (Auto) Urine Microscopic WBC Ur Squamous Epith Cells Amorphous Sediment Urine Bacteria Urine Opiates Screen Urine Methadone Screen Ur Barbiturates Screen Ur Phencyclidine Scrn Ur Amphetamines Screen U Benzodiazepines Scrn U Oth Cocaine Metabols U Cannabinoids Screen Alcohol, Quantitative 11/05/18 08:15 WBC RBC Hgb Hct MCV MCH MCHC RDW Plt Count MPV Neut % (Auto) Lymph % (Auto) [place] % (Auto) Eos % (Auto) Baso % (Auto) Neut # (Auto) Lymph # (Auto) [place] # (Auto) Eos # (Auto) Baso # (Auto) Sodium 130 L Potassium 3.9 Chloride 94 L Carbon Dioxide 25 Anion Gap 15 BUN 5 L Creatinine 0.7 Est GFR ( Amer) > 60 Est GFR (Non-Af Amer) > 60 Random Glucose 92 Lactic Acid Calcium 10.1 Magnesium Total Bilirubin 0.5 AST 25 ALT 18 Alkaline Phosphatase 100 Total Protein 6.6 Albumin 3.8 Globulin 2.8 Albumin/Globulin Ratio 1.3 Triglycerides 51 Cholesterol 124 LDL Cholesterol Direct 43 HDL Cholesterol 67 TSH 3rd Generation 3.49 Urine Color Urine Clarity Urine pH Ur Specific Nelson Urine Protein Urine Glucose (UA) Urine Ketones Urine Blood Urine Nitrate Urine Bilirubin Urine Urobilinogen Ur Leukocyte Esterase Urine RBC (Auto) Urine Microscopic WBC Ur Squamous Epith Cells Amorphous Sediment Urine Bacteria Urine Opiates Screen Urine Methadone Screen Ur Barbiturates Screen Ur Phencyclidine Scrn Ur Amphetamines Screen U Benzodiazepines Scrn U Oth Cocaine Metabols U Cannabinoids Screen Alcohol, Quantitative Laboratory Results - last 72 hr 11/04/18 11/04/18 11/04/18 12:20 12:20 20:34 WBC RBC Hgb Hct MCV MCH MCHC RDW Plt Count MPV Neut % (Auto) Lymph % (Auto) [place] % (Auto) Eos % (Auto) Baso % (Auto) Neut # (Auto) Lymph # (Auto) [place] # (Auto) Eos # (Auto) Baso # (Auto) Sodium 127 L Potassium 4.2 Chloride 92 L Carbon Dioxide 24 Anion Gap 15 BUN 6 L Creatinine 0.7 Est GFR ( Amer) > 60 Est GFR (Non-Af Amer) > 60 Random Glucose 95 Lactic Acid Calcium 10.2 Magnesium 1.8 Total Bilirubin 0.3 AST 23 ALT 20 Alkaline Phosphatase 87 Total Protein 6.6 Albumin 3.8 Globulin 2.8 Albumin/Globulin Ratio 1.4 Triglycerides Cholesterol LDL Cholesterol Direct HDL Cholesterol TSH 3rd Generation 2.71 Urine Color Yellow Urine Clarity Cloudy Urine pH 9.0 Ur Specific Nelson 1.008 Urine Protein Negative Urine Glucose (UA) Neg Urine Ketones Negative Urine Blood Negative Urine Nitrate Negative Urine Bilirubin Negative Urine Urobilinogen 0.2-1.0 Ur Leukocyte Esterase Neg Urine RBC (Auto) < 1 Urine Microscopic WBC 2 Ur Squamous Epith Cells < 1 Amorphous Sediment Occ H Urine Bacteria Occ H Urine Opiates Screen Positive H Urine Methadone Screen Negative Ur Barbiturates Screen Negative Ur Phencyclidine Scrn Negative Ur Amphetamines Screen Negative U Benzodiazepines Scrn Negative U Oth Cocaine Metabols Negative U Cannabinoids Screen Negative Alcohol, Quantitative < 10 11/04/18 11/04/18 11/05/18 20:34 20:34 08:15 WBC 9.9 11.1 H RBC 3.31 L 3.51 L Hgb 10.1 L 10.6 L Hct 29.9 L 31.6 L MCV 90.3 D 90.0 MCH 30.6 30.2 MCHC 33.9 33.6 RDW 15.6 H 15.3 H Plt Count 368 364 MPV 7.3 Neut % (Auto) 63.3 Lymph % (Auto) 22.1 [place] % (Auto) 11.2 H Eos % (Auto) 2.9 Baso % (Auto) 0.5 Neut # (Auto) 6.3 Lymph # (Auto) 2.2 [place] # (Auto) 1.1 H Eos # (Auto) 0.3 Baso # (Auto) 0.1 Sodium Potassium Chloride Carbon Dioxide Anion Gap BUN Creatinine Est GFR ( Amer) Est GFR (Non-Af Amer) Random Glucose Lactic Acid 1.0 Calcium Magnesium Total Bilirubin AST ALT Alkaline Phosphatase Total Protein Albumin Globulin Albumin/Globulin Ratio Triglycerides Cholesterol LDL Cholesterol Direct HDL Cholesterol TSH 3rd Generation Urine Color Urine Clarity Urine pH Ur Specific [place] Urine Protein Urine Glucose (UA) Urine Ketones Urine Blood Urine Nitrate Urine Bilirubin Urine Urobilinogen Ur Leukocyte Esterase Urine RBC (Auto) Urine Microscopic WBC Ur Squamous Epith Cells Amorphous Sediment Urine Bacteria Urine Opiates Screen Urine Methadone Screen Ur Barbiturates Screen Ur Phencyclidine Scrn Ur Amphetamines Screen U Benzodiazepines Scrn U Oth Cocaine Metabols U Cannabinoids Screen Alcohol, Quantitative 11/05/18 08:15 WBC RBC Hgb Hct MCV MCH MCHC RDW Plt Count MPV Neut % (Auto) Lymph % (Auto) [place] % (Auto) Eos % (Auto) Baso % (Auto) Neut # (Auto) Lymph # (Auto) [place] # (Auto) Eos # (Auto) Baso # (Auto) Sodium 130 L Potassium 3.9 Chloride 94 L Carbon Dioxide 25 Anion Gap 15 BUN 5 L Creatinine 0.7 Est GFR ( Amer) > 60 Est GFR (Non-Af Amer) > 60 Random Glucose 92 Lactic Acid Calcium 10.1 Magnesium Total Bilirubin 0.5 AST 25 ALT 18 Alkaline Phosphatase 100 Total Protein 6.6 Albumin 3.8 Globulin 2.8 Albumin/Globulin Ratio 1.3 Triglycerides 51 Cholesterol 124 LDL Cholesterol Direct 43 HDL Cholesterol 67 TSH 3rd Generation 3.49 Urine Color Urine Clarity Urine pH Ur Specific Nelson Urine Protein Urine Glucose (UA) Urine Ketones Urine Blood Urine Nitrate Urine Bilirubin Urine Urobilinogen Ur Leukocyte Esterase Urine RBC (Auto) Urine Microscopic WBC Ur Squamous Epith Cells Amorphous Sediment Urine Bacteria Urine Opiates Screen Urine Methadone Screen Ur Barbiturates Screen Ur Phencyclidine Scrn Ur Amphetamines Screen U Benzodiazepines Scrn U Oth Cocaine Metabols U Cannabinoids Screen Alcohol, Quantitative Microbiology 06/29/18 08:05 Urine,Clean Catch Urine Culture - Final No Growth (<1,000 CFU/ML) 06/28/18 18:51 Foot - Left Gram Stain - Final 06/28/18 18:51 Foot - Left Wound Culture - Final Pseudomonas Aeruginosa Beta Hemolytic Strep Group B 06/28/18 18:15 Blood-Venous Blood Culture - Final 06/28/18 18:15 Blood-Venous Gram Stain - Final NO GROWTH AFTER 5 DAYS TEST NOT PERFORMED 06/28/18 18:00 Blood-Venous Blood Culture - Final 06/28/18 18:00 Blood-Venous Gram Stain - Final NO GROWTH AFTER 5 DAYS TEST NOT PERFORMED Accession No. : [id number] Patient Name / ID : JUANITA QUEEN / [id number] Exam Date : 11/04/2018 21:01:13 ( Approved ) Study Comment : Sex / Age : F / 77Y Creator : Alex Flores MD Dictator : Alex Flores MD Communications Department Chair : Chief Nursing Executive : Alex Flores MD Approver2 : Report Date : 11/05/2018 11:32:10 My Comment : Date of service: 11/04/2018 HISTORY: swelling/pain. PRIORS: None. FINDINGS: 2-D, color and duplex Doppler analysis of the lower extremity venous circulation using routine protocol from the femoral veins through the popliteal veins. Venous compressibility: Normal. Flow and augmentation patterns: Normal. Visualized veins upper third of calf: Normal. Munoz cyst: None. IMPRESSION: No sonographic or Doppler evidence for DVT in left lower extremity. Accession No. : [id number] Patient Name / ID : JUANITA QUEEN / [id number] Exam Date : 11/04/2018 20:24:57 ( Approved ) Study Comment : Sex / Age : F / 77Y Creator : Dictator : Alex Flores MD Communications Department Chair : Chief Nursing Executive : Alex Flores MD Approver2 : Report Date : My Comment : Date of service: 11/04/2018 PROCEDURE: Left Ankle Radiographs. HISTORY: pain/swelling COMPARISON: 06/28/2018 FINDINGS: BONES: Profound osteopenia. JOINTS: Postoperative findings related to tibiotalar fusion. SOFT TISSUES: Soft tissue swelling laterally. Ulceration medially. The medial findings are new. OTHER FINDINGS: None. IMPRESSION: New soft tissue ulcer adjacent to the distal tibia without radiographic manifestations of acute osteomyelitis. Accession No. : [id number] Patient Name / ID : JUANITA QUEEN / [id number] Exam Date : 11/04/2018 20:24:57 ( Approved ) Study Comment : Sex / Age : F / 7Y Creator : Dictator : Alex Flores MD Communications Department Chair : Chief Nursing Executive : Alex Flores MD Approver2 : Report Date : My Comment : Date of service: 11/04/2018 PROCEDURE: Left Foot Radiographs. HISTORY: pain/swelling COMPARISON: 06/28/2018 FINDINGS: BONES: Evidence of stable tibiotalar fusion. Profound osteopenia. No visible/acute fracture. JOINTS: Stable postoperative changes. SOFT TISSUES: Diffuse soft tissue swelling. Improved compared to the prior study. OTHER FINDINGS: None. IMPRESSION: Soft tissue swelling without acute articular or osseous abnormality. Assessment & Plan (1) Cellulitis of lower leg Status: Acute (2) Ulcer of left ankle Status: Acute Priority: High (3) COPD (chronic obstructive pulmonary disease) Status: Chronic Priority: Medium (4) Anxiety Status: Chronic Priority: Medium - Assessment and Plan (Free Text) Assessment: A/P- 77 year old female with CAD s/p CABG, COPD, chronic left medial ankle nonhealing superficial wound. afebrile no discharge foot and ankle xray report no evidence of osteopathy last admission MRI - neg for OM as per report. plan- check ESR. advise to place patietn back to IV vanco and cefepime based on micro report from june admission, however, infection seems superficial keep trough <15. check 2 blood cx as well. Thank you for allowing me to take part in the care of this patient.
--- NOTE | 2018-11-05 14:25 | CP.PCM.HP ---
History of Present Illness - History of Present Illness History of Present Illness: CC: LLE pain. 77 y/o F, with multiple chronic medical condition, including recent Hx of LL/E wound with I&D, s/p AVR, SVT, HTN, COPD, Anxiety, Depression, dementia. Pt was brought to ER [facility], via EMS to be evaluated for chronic L foot/ L ankle pain, worsening several days [employer]. On June 2018, Pt was admitted to [facility] and Tx for L foot/ ankle, malleolus ulcer, Pt completed 14 days of Vanco and Cefepime IV, after been discharged, Pt f/u with abx po and home care of the ulcer by nurses and [employer] visits with no improvement of the ulcer. Pt returned to hospital on 11/04/18, with increased L foot/Ankle pain, described as throbbing, sharp, moderate intensity 8:10, associated to redness/erythema in the area. Worsening symptoms: Increased agitation 2nd to pain and difficulty walking. Aggravated factor: Walking/ stand up. Pt denied: Fever, chills, n/v/d, abdominal pain, CP, palpitations, SOB, cough, sick contact, recent travel out of [place]. EXT U-S: No DVT. R Ankle X-Ray: No evidence of OM. EKG: Sinus rhythm with PVC, inferior infarct age undetermined. CXR: No active disease. Present on Admission - Present on Admission Any Indicators Present on Admission: No Review of Systems - Constitutional Constitutional: Other (negative) - EENT Eyes: Requires Corrective Lenses Ears: Decreased Hearing Nose/Mouth/Throat: Other (negative) - Cardiovascular Cardiovascular: Rapid Heart Rate - Respiratory Respiratory: Other (negative) - Gastrointestinal Gastrointestinal: Other (negative) - Genitourinary Genitourinary: Urinary Incontinence - Musculoskeletal Musculoskeletal: Arthralgias, Back Pain, Other (L foot/ankle pain) - Integumentary Integumentary: Wounds - Neurological Neurological: Confusion, Memory Loss (mild) - Psychiatric Psychiatric: Anxiety, Confusion, Depression - Endocrine Endocrine: Other (negative) - Hematologic/Lymphatic Hematologic: Other (negative) Past Patient History - Past Medical History & Family History Past Medical History?: Yes Pertinent Family History: Unknown - Past Social History Smoking Status: Former Smoker Alcohol: None Drugs: Denies Home Situation {Lives}: With Family - CARDIAC Hx Cardiac Disorders: Yes Hx Hypercholesterolemia: Yes Hx Hypertension: Yes Other/Comment: AVR - PULMONARY Hx Asthma: Yes Hx Chronic Obstructive Pulmonary Disease (COPD): Yes - NEUROLOGICAL Hx Neurological Disorder: Yes Hx Dementia: Yes - HEENT Hx HEENT Problems: Yes (Allergic Rhinitis) - RENAL Hx Chronic Kidney Disease: No - ENDOCRINE/METABOLIC Hx Endocrine Disorders: No - HEMATOLOGICAL/ONCOLOGICAL Hx Human Immunodeficiency Virus (HIV): No - INTEGUMENTARY Hx Dermatological Problems: Yes Hx Cellulitis: Yes (LLE) - MUSCULOSKELETAL/RHEUMATOLOGICAL Hx Musculoskeletal Disorders: Yes Hx Arthritis: Yes Hx Falls: Yes Hx Osteoporosis: Yes - GASTROINTESTINAL Hx Gastrointestinal Disorders: Yes Hx Constipation: Yes - GENITOURINARY/GYNECOLOGICAL Hx Genitourinary Disorders: Yes Hx Incontinence: Yes Hx Urinary Tract Infection: Yes - PSYCHIATRIC Hx Psychophysiologic Disorder: Yes Hx Anxiety: Yes Hx Depression: Yes - SURGICAL HISTORY Hx Surgeries: Yes Other/Comment: Bioprosthetic AVR - ANESTHESIA Hx Anesthesia: Yes Hx Anesthesia Reactions: No Hx Malignant Hyperthermia: No Meds Allergies/Adverse Reactions: Allergies Allergy/AdvReac Type Severity Reaction Status Date / Time aspirin Allergy Mild RASH Verified 05/07/17 17:16 iodine Allergy RASH Verified 05/07/17 17:16 Physical Exam - Constitutional Appears: Chronically Ill - Head Exam Head Exam: NORMAL INSPECTION - Eye Exam Eye Exam: PERRL - ENT Exam Additional comments: Hard of hearing - Neck Exam Neck exam: Positive for: Normal Inspection - Respiratory Exam Respiratory Exam: Decreased Breath Sounds (at bases) - Cardiovascular Exam Cardiovascular Exam: REGULAR RHYTHM, Systolic Murmur (1/6 LSB Ao) - GI/Abdominal Exam GI & Abdominal Exam: Normal Bowel Sounds, Soft - Extremities Exam Extremities exam: Positive for: pedal edema, tenderness (on palpation L ankle) Additional comments: L ankle with round excoriated area and yellow drainage to left lateral malleolar surface. L knee varus deformity. Chronic skin changes BLE. - Back Exam Back exam: tenderness (L-S) - Neurological Exam Additional comments: Awake, follows commands, confused, disoriented. No focal motor deficit. - Psychiatric Exam Psychiatric exam: Agitated, Anxious, Depressed - Skin Skin Exam: Erythema (L ankle), Warm Results - Vital Signs Recent Vital Signs: Last Vital Signs Temp 98.3 F 11/05/18 08:23 Pulse 105 H 11/05/18 09:40 Resp 20 11/05/18 08:23 BP 166/73 H 11/05/18 09:40 Pulse Ox 96 11/05/18 08:23 reviewed Good - Labs Result Diagrams: 11/05/18 08:15 11/05/18 08:15 Labs: Laboratory Results - last 24 hr 11/04/18 11/04/18 11/04/18 12:20 12:20 20:34 WBC RBC Hgb Hct MCV MCH MCHC RDW Plt Count MPV Neut % (Auto) Lymph % (Auto) [place] % (Auto) Eos % (Auto) Baso % (Auto) Neut # (Auto) Lymph # (Auto) [place] # (Auto) Eos # (Auto) Baso # (Auto) Sodium 127 L Potassium 4.2 Chloride 92 L Carbon Dioxide 24 Anion Gap 15 BUN 6 L Creatinine 0.7 Est GFR ( Amer) > 60 Est GFR (Non-Af Amer) > 60 Random Glucose 95 Lactic Acid Calcium 10.2 Magnesium 1.8 Total Bilirubin 0.3 AST 23 ALT 20 Alkaline Phosphatase 87 Total Protein 6.6 Albumin 3.8 Globulin 2.8 Albumin/Globulin Ratio 1.4 Triglycerides Cholesterol LDL Cholesterol Direct HDL Cholesterol TSH 3rd Generation 2.71 Urine Color Yellow Urine Clarity Cloudy Urine pH 9.0 Ur Specific Heron 1.008 Urine Protein Negative Urine Glucose (UA) Neg Urine Ketones Negative Urine Blood Negative Urine Nitrate Negative Urine Bilirubin Negative Urine Urobilinogen 0.2-1.0 Ur Leukocyte Esterase Neg Urine RBC (Auto) < 1 Urine Microscopic WBC 2 Ur Squamous Epith Cells < 1 Amorphous Sediment Occ H Urine Bacteria Occ H Urine Opiates Screen Positive H Urine Methadone Screen Negative Ur Barbiturates Screen Negative Ur Phencyclidine Scrn Negative Ur Amphetamines Screen Negative U Benzodiazepines Scrn Negative U Oth Cocaine Metabols Negative U Cannabinoids Screen Negative Alcohol, Quantitative < 10 11/04/18 11/04/18 11/05/18 20:34 20:34 08:15 WBC 9.9 11.1 H RBC 3.31 L 3.51 L Hgb 10.1 L 10.6 L Hct 29.9 L 31.6 L MCV 90.3 D 90.0 MCH 30.6 30.2 MCHC 33.9 33.6 RDW 15.6 H 15.3 H Plt Count 368 364 MPV 7.3 Neut % (Auto) 63.3 Lymph % (Auto) 22.1 [place] % (Auto) 11.2 H Eos % (Auto) 2.9 Baso % (Auto) 0.5 Neut # (Auto) 6.3 Lymph # (Auto) 2.2 [place] # (Auto) 1.1 H Eos # (Auto) 0.3 Baso # (Auto) 0.1 Sodium Potassium Chloride Carbon Dioxide Anion Gap BUN Creatinine Est GFR ( Amer) Est GFR (Non-Af Amer) Random Glucose Lactic Acid 1.0 Calcium Magnesium Total Bilirubin AST ALT Alkaline Phosphatase Total Protein Albumin Globulin Albumin/Globulin Ratio Triglycerides Cholesterol LDL Cholesterol Direct HDL Cholesterol TSH 3rd Generation Urine Color Urine Clarity Urine pH Ur Specific Heron Urine Protein Urine Glucose (UA) Urine Ketones Urine Blood Urine Nitrate Urine Bilirubin Urine Urobilinogen Ur Leukocyte Esterase Urine RBC (Auto) Urine Microscopic WBC Ur Squamous Epith Cells Amorphous Sediment Urine Bacteria Urine Opiates Screen Urine Methadone Screen Ur Barbiturates Screen Ur Phencyclidine Scrn Ur Amphetamines Screen U Benzodiazepines Scrn U Oth Cocaine Metabols U Cannabinoids Screen Alcohol, Quantitative 11/05/18 08:15 WBC RBC Hgb Hct MCV MCH MCHC RDW Plt Count MPV Neut % (Auto) Lymph % (Auto) [place] % (Auto) Eos % (Auto) Baso % (Auto) Neut # (Auto) Lymph # (Auto) [place] # (Auto) Eos # (Auto) Baso # (Auto) Sodium 130 L Potassium 3.9 Chloride 94 L Carbon Dioxide 25 Anion Gap 15 BUN 5 L Creatinine 0.7 Est GFR ( Amer) > 60 Est GFR (Non-Af Amer) > 60 Random Glucose 92 Lactic Acid Calcium 10.1 Magnesium Total Bilirubin 0.5 AST 25 ALT 18 Alkaline Phosphatase 100 Total Protein 6.6 Albumin 3.8 Globulin 2.8 Albumin/Globulin Ratio 1.3 Triglycerides 51 Cholesterol 124 LDL Cholesterol Direct 43 HDL Cholesterol 67 TSH 3rd Generation 3.49 Urine Color Urine Clarity Urine pH Ur Specific Heron Urine Protein Urine Glucose (UA) Urine Ketones Urine Blood Urine Nitrate Urine Bilirubin Urine Urobilinogen Ur Leukocyte Esterase Urine RBC (Auto) Urine Microscopic WBC Ur Squamous Epith Cells Amorphous Sediment Urine Bacteria Urine Opiates Screen Urine Methadone Screen Ur Barbiturates Screen Ur Phencyclidine Scrn Ur Amphetamines Screen U Benzodiazepines Scrn U Oth Cocaine Metabols U Cannabinoids Screen Alcohol, Quantitative Assessment & Plan (1) Skin ulcer of malleolar area of left ankle Status: Acute Priority: High (2) Cellulitis of lower leg Status: Acute Priority: High (3) Acute delirium Status: Acute Priority: High (4) Major neurocognitive disorder Status: Chronic Priority: High (5) SIADH (syndrome of inappropriate ADH production) Status: Chronic Priority: Medium (6) Hx of aortic valve replacement Status: Chronic Priority: Medium (7) Hyponatremia Status: Acute Priority: High (8) Lumbago Status: Chronic Priority: Medium (9) PVD (peripheral vascular disease) Status: Chronic Priority: High (10) COPD (chronic obstructive pulmonary disease) Status: Acute Priority: Medium (11) Anxiety Status: Chronic Priority: High (12) Depression Status: Chronic Priority: High (13) HTN (hypertension) Status: Chronic Priority: Medium - Assessment and Plan (Free Text) Plan: F/U Blood C-S, Wound C-S, U C-S, continue Vanco, Cefepime, Bactroban, Nistatin, Haldol, Remeron, Depakote, Lovenox, Duoneb and rest of Tx. OT eval. ID, Podiatry and Psychiatry consults appreciated. - Date & Time Date: 11/05/18 Time: 14:25
[2018-11-05] MEDS: Albuterol-Ipratrop 3 mg / 0.5 (3 ml) UD INH SCH (18:59)
[2018-11-05] MEDS: Cefepime 1 GM in Sodium Chloride 0.9% 100 ML IVPB SCH (21:34)
--- NOTE | 2018-11-05 21:49 | CARD ---
APPROVED REPORT Date of service: 11/05/2018 EKG Measurement Heart [id number] <Conclusion> Sinus tachycardia Inferior infarct, age undetermined Abnormal ECG
--- NOTE | 2018-11-05 22:11 | CARD ---
APPROVED REPORT Date of service: 11/05/2018 EXAM: Two-dimensional and M-mode echocardiogram with Doppler and color Doppler. Other Information Quality : FairRhythm : Tachycardia Technically limited study due to Pt not cooperative INDICATION Hypertension/HCVD Cardiac Disease: CAD Surgery/Intervention CABD DIMENSIONS IVSd1.28 (0.7-1.1cm)LVDd4.02 (3.9-5.9cm) LVOT Diameter1.97 (1.8-2.4cm)PWd1.16 (0.7-1.1cm) IVSs1.16 (0.8-1.2cm)LVDs2.33 (2.5-4.0cm) FS (%) 42.0 %PWs1.38 (0.8-1.2cm) Aortic Valve AoV Peak Vkwhhugz717.7cm/sAoV VTI32.2cmAO Peak GR.26mmHg LVOT Peak Hhqtwcac929.6cm/sLVOT VTI18.99cmAO Mean GR.15mmHg LESLEY (VMAX)0.30cq4MFV (VTI)0.94cm2 Mitral Valve E/A ratio0.0 TDI E/Lateral E'0.0E/Medial E'0.0 LEFT VENTRICLE The left ventricle is normal size. There is normal left ventricular wall thickness. The left ventricular systolic function is low normal. The estimated ejection fraction is 50-55% No regional wall motion abnormalities noted.. Transmitral Doppler flow pattern is Grade I-abnormal relaxation pattern. No left ventricle thrombus noted on this study. There is no ventricular septal defect visualized. There is no left ventricular aneurysm. There is no mass noted in the left ventricle. RIGHT VENTRICLE The right ventricle is normal size. There is normal right ventricular wall thickness. The right ventricular systolic function is normal. ATRIA The left atrium size is normal. The right atrium size is normal. The interatrial septum is intact with no evidence for an atrial septal defect. AORTIC VALVE The aortic valve is calcified. Mild aortic regurgitation is present. There is moderate aortic valvular stenosis. Peak aortic velocity is 2.6 m/sec with calculated LESLEY 1.4 cm2. Could be underestimated. There is no aortic valvular vegetation. MITRAL VALVE The mitral valve is normal in structure. There is no evidence of mitral valve prolapse. There is no mitral valve stenosis. There is trace mitral valve regurgitation noted. TRICUSPID VALVE The tricuspid valve is normal in structure. There is trace tricuspid valve regurgitation noted. There is no tricuspid valve prolapse or vegetation. There is no tricuspid valve stenosis. PULMONIC VALVE The pulmonary valve is normal in structure. There is no pulmonic valvular regurgitation. There is no pulmonic valvular stenosis. GREAT VESSELS The aortic root is normal in size. The ascending aorta is normal in size. The pulmonary artery is normal. The IVC is normal in size and collapses >50% with inspiration. PERICARDIAL EFFUSION There is no pericardial effusion. There is no pleural effusion. <Conclusion> Technically difficult study. The left ventricular systolic function is low normal. The estimated ejection fraction is 50-55% Transmitral Doppler flow pattern is Grade I-abnormal relaxation pattern. The left atrium size is normal. There is moderate aortic valvular stenosis. Peak aortic velocity is 2.6 m/sec with calculated LESLEY 1.4 cm2. Could be underestimated. There is trace mitral valve regurgitation noted. There is trace tricuspid valve regurgitation noted.
[2018-11-06] MEDS: Albuterol-Ipratrop 3 mg / 0.5 (3 ml) UD INH SCH ×3 (07:33→19:26)
[2018-11-06] MEDS: Cefepime 1 GM in Sodium Chloride 0.9% 100 ML IVPB SCH ×2 (09:22→21:13)
[2018-11-06] MEDS: Divalproex 125 mg Sprinkle Capsule PO SCH ×2 (09:23→16:13)
[2018-11-06] MEDS: Mupirocin 2% Oint 1GM UD TOP SCH ×2 (09:24→16:13)
[2018-11-06] MEDS: Pantoprazole 40 mg EC Tab PO SCH (09:24)
[2018-11-06] MEDS: Enoxaparin 40 mg Syringe SC SCH (09:24)
--- NOTE | 2018-11-06 13:44 | CP.PCM.PN ---
Subjective - Date & Time of Evaluation Date of Evaluation: 11/06/18 Time of Evaluation: 10:10 - Subjective Subjective: F/U cellulitis LLE Arousable, confused. Objective - Vital Signs/Intake and Output Vital Signs (last 24 hours): Temp Pulse Resp BP Pulse Ox 97.5 F L 88 19 115/72 99 11/06/18 08:03 11/06/18 08:03 11/06/18 08:03 11/06/18 08:03 11/06/18 08:03 - Medications Medications: Current Medications Acetaminophen (Tylenol 325mg Tab) 650 mg PO Q6 PRN PRN Reason: Pain, Mild (1-3) Albuterol/Ipratropium (Duoneb 3 Mg/0.5 Mg (3 Ml) Ud) 3 ml INH RTID [facility] Last Admin: 11/06/18 13:07 Dose: 3 ml Atorvastatin Calcium (Lipitor) 20 mg PO DAILY [facility] Last Admin: 11/06/18 09:23 Dose: 20 mg Divalproex Sodium (Depakote Sprinkles) 125 mg PO BID [facility] Last Admin: 11/06/18 09:23 Dose: 125 mg Enoxaparin Sodium (Lovenox) 40 mg SC DAILY [facility]; Protocol Last Admin: 11/06/18 09:24 Dose: 40 mg Fluticasone Propionate (Flonase) 2 spr LA DAILY [facility] Last Admin: 11/06/18 09:22 Dose: 2 spr Haloperidol Lactate (Haldol) 0.5 mg IM Q8 PRN PRN Reason: Agitation Last Admin: 11/05/18 20:19 Dose: 0.5 mg Haloperidol Lactate (Haldol) 0.5 mg PO Q8 PRN PRN Reason: Agitation Vancomycin HCl 1 gm/ Sodium (Chloride) 250 mls @ 166.667 mls/hr IVPB Q12H [facility]; Protocol Last Admin: 11/06/18 05:10 Dose: 166.667 mls/hr Cefepime HCl 1 gm/ Sodium (Chloride) 100 mls @ 100 mls/hr IVPB Q12 [facility]; Protocol Last Admin: 11/06/18 09:22 Dose: 100 mls/hr Lactulose (Enulose) 20 gm PO DAILY PRN PRN Reason: Constipation Losartan Potassium (Cozaar) 75 mg PO DAILY [facility] Last Admin: 11/06/18 09:23 Dose: 75 mg Mirtazapine (Remeron) 15 mg PO HS [facility] Last Admin: 11/05/18 21:34 Dose: 15 mg Montelukast Sodium (Singulair) 10 mg PO HS [facility] Last Admin: 11/05/18 21:37 Dose: 10 mg Mupirocin (Bactroban Ointment) 1 applic TOP BID [facility] Last Admin: 11/06/18 09:24 Dose: 1 applic Nystatin (Mycostatin Cream) 1 applic TOP TID [facility] Last Admin: 11/06/18 12:05 Dose: 1 applic Oxycodone/Acetaminophen (Percocet 5/325 Mg Tab) 1 tab PO Q6 PRN PRN Reason: Pain, moderate (4-7) Stop: 11/08/18 06:06 Pantoprazole Sodium (Protonix Ec Tab) 40 mg PO DAILY [facility] Last Admin: 11/06/18 09:24 Dose: 40 mg Sodium Chloride (Sodium Chloride Tab) 1 gm PO DAILY [facility] Last Admin: 11/06/18 09:24 Dose: 1 gm Zinc Sulfate (Zinc Sulfate 220 Mg Cap) 220 mg PO DAILY [facility] Last Admin: 11/06/18 09:25 Dose: 220 mg - Labs Labs: 11/05/18 08:15 11/05/18 08:15 - Constitutional Appears: Chronically Ill - Head Exam Head Exam: NORMAL INSPECTION - Eye Exam Eye Exam: PERRL - ENT Exam Additional comments: Hard of hearing - Neck Exam Neck Exam: Normal Inspection - Respiratory Exam Respiratory Exam: Decreased Breath Sounds (at bases) - Cardiovascular Exam Cardiovascular Exam: REGULAR RHYTHM, Murmur (systolic 1/6 LSB Ao) - GI/Abdominal Exam GI & Abdominal Exam: Soft, Normal Bowel Sounds - Extremities Exam Extremities Exam: Pedal Edema, Tenderness (on palpation L ankle) Additional comments: L ankle with round excoriated area and drainage on left malleolar surface. L knee varus deformity. Chronic skin changes BLE - Back Exam Back Exam: tenderness (L-S) - Neurological Exam Neurological Exam: Awake Additional comments: Follows commands, confused, disoriented. No focal deficit. - Psychiatric Exam Psychiatric exam: Anxious, Depressed - Skin Skin Exam: Warm Assessment and Plan (1) Skin ulcer of malleolar area of left ankle Status: Acute (2) Cellulitis of lower leg Status: Acute (3) Acute delirium Status: Acute (4) Major neurocognitive disorder Status: Chronic (5) SIADH (syndrome of inappropriate ADH production) Status: Chronic (6) Hx of aortic valve replacement Status: Chronic (7) Hyponatremia Status: Acute (8) Lumbago Status: Chronic (9) PVD (peripheral vascular disease) Status: Chronic (10) COPD (chronic obstructive pulmonary disease) Status: Acute (11) Anxiety Status: Chronic (12) Depression Status: Chronic (13) HTN (hypertension) Status: Chronic - Assessment and Plan (Free Text) Plan: ontinue Bactroban, Cefepime, Vanco and rest of Tx.
[2018-11-06] MEDS: Oxycodone/Acetaminophen 5/325 mg Tab PO PRN (21:19)
[2018-11-07] MEDS: Albuterol-Ipratrop 3 mg / 0.5 (3 ml) UD INH SCH ×3 (08:05→19:38)
[2018-11-07] MEDS: Cefepime 1 GM in Sodium Chloride 0.9% 100 ML IVPB SCH ×2 (09:03→21:27)
[2018-11-07] MEDS: Pantoprazole 40 mg EC Tab PO SCH (09:04)
[2018-11-07] MEDS: Enoxaparin 40 mg Syringe SC SCH (09:04)
[2018-11-07] MEDS: Divalproex 125 mg Sprinkle Capsule PO SCH ×2 (09:06→16:40)
[2018-11-07] MEDS: Mupirocin 2% Oint 1GM UD TOP SCH ×2 (09:07→16:41)
[2018-11-07] MEDS: Oxycodone/Acetaminophen 5/325 mg Tab PO PRN ×2 (09:22→21:46)
--- NOTE | 2018-11-07 14:36 | CP.PCM.PN ---
Subjective - Date & Time of Evaluation Date of Evaluation: 11/07/18 Time of Evaluation: 11:00 - Subjective Subjective: F/U Cellulitis LLE Pt confused, c/o of pain in L foot and pain in the mouth with difficulty to talk. Objective - Vital Signs/Intake and Output Vital Signs (last 24 hours): Temp Pulse Resp BP Pulse Ox 98.0 F 85 19 142/76 99 11/07/18 08:56 11/07/18 08:56 11/07/18 08:56 11/07/18 08:56 11/07/18 08:56 - Medications Medications: Current Medications Acetaminophen (Tylenol 325mg Tab) 650 mg PO Q6 PRN PRN Reason: Pain, Mild (1-3) Albuterol/Ipratropium (Duoneb 3 Mg/0.5 Mg (3 Ml) Ud) 3 ml INH RTID [facility] Last Admin: 11/07/18 14:10 Dose: 3 ml Atorvastatin Calcium (Lipitor) 20 mg PO DAILY [facility] Last Admin: 11/07/18 09:04 Dose: 20 mg Clotrimazole (Mycelex Kristian) 10 mg MT 5XD [facility] Divalproex Sodium (Depakote Sprinkles) 125 mg PO BID [facility] Last Admin: 11/07/18 09:06 Dose: 125 mg Enoxaparin Sodium (Lovenox) 40 mg SC DAILY [facility]; Protocol Last Admin: 11/07/18 09:04 Dose: 40 mg Fluticasone Propionate (Flonase) 2 spr LA DAILY [facility] Last Admin: 11/07/18 09:07 Dose: 2 spr Haloperidol Lactate (Haldol) 0.5 mg IM Q8 PRN PRN Reason: Agitation Last Admin: 11/07/18 03:46 Dose: 0.5 mg Haloperidol Lactate (Haldol) 0.5 mg PO Q8 PRN PRN Reason: Agitation Vancomycin HCl 1 gm/ Sodium (Chloride) 250 mls @ 166.667 mls/hr IVPB Q12H [facility]; Protocol Last Admin: 11/07/18 05:43 Dose: 166.667 mls/hr Cefepime HCl 1 gm/ Sodium (Chloride) 100 mls @ 100 mls/hr IVPB Q12 [facility]; Protocol Last Admin: 11/07/18 09:03 Dose: 100 mls/hr Lactulose (Enulose) 20 gm PO DAILY PRN PRN Reason: Constipation Losartan Potassium (Cozaar) 75 mg PO DAILY [facility] Last Admin: 11/07/18 09:05 Dose: 75 mg Mirtazapine (Remeron) 15 mg PO HS [facility] Last Admin: 11/06/18 21:18 Dose: 15 mg Montelukast Sodium (Singulair) 10 mg PO HS [facility] Last Admin: 11/06/18 21:18 Dose: 10 mg Mupirocin (Bactroban Ointment) 1 applic TOP BID [facility] Last Admin: 11/07/18 09:07 Dose: 1 applic Nystatin (Mycostatin Cream) 1 applic TOP TID [facility] Last Admin: 11/07/18 12:37 Dose: 1 applic Oxycodone/Acetaminophen (Percocet 5/325 Mg Tab) 1 tab PO Q6 PRN PRN Reason: Pain, moderate (4-7) Stop: 11/08/18 06:06 Last Admin: 11/07/18 09:22 Dose: 1 tab Pantoprazole Sodium (Protonix Ec Tab) 40 mg PO DAILY [facility] Last Admin: 11/07/18 09:04 Dose: 40 mg Sodium Chloride (Sodium Chloride Tab) 1 gm PO DAILY [facility] Last Admin: 11/07/18 09:04 Dose: 1 gm Zinc Sulfate (Zinc Sulfate 220 Mg Cap) 220 mg PO DAILY [facility] Last Admin: 11/07/18 09:06 Dose: 220 mg - Labs Labs: 11/05/18 08:15 11/05/18 08:15 - Constitutional Appears: Chronically Ill - Head Exam Head Exam: NORMAL INSPECTION - Eye Exam Eye Exam: PERRL - ENT Exam Additional comments: Hard of hearing. white patches areas in the tongue. - Neck Exam Neck Exam: Normal Inspection - Respiratory Exam Respiratory Exam: Decreased Breath Sounds (at bases) - Cardiovascular Exam Cardiovascular Exam: REGULAR RHYTHM, Murmur (systolic 1/6 LSB Ao) - GI/Abdominal Exam GI & Abdominal Exam: Soft, Normal Bowel Sounds - Extremities Exam Extremities Exam: Pedal Edema, Tenderness (on palpation L ankle) Additional comments: L ankle with excoriated area and drainage to left lateral malleolar surface. L knee varus deformity. Chronic skin changes BLE - Back Exam Back Exam: tenderness (L-S) - Neurological Exam Neurological Exam: Awake Additional comments: Follows commands, confused, no focal motor deficit. - Psychiatric Exam Psychiatric exam: Anxious, Depressed - Skin Skin Exam: Warm Assessment and Plan (1) Skin ulcer of malleolar area of left ankle Status: Acute (2) Cellulitis of lower leg Status: Acute (3) Acute delirium Status: Acute (4) Major neurocognitive disorder Status: Chronic (5) SIADH (syndrome of inappropriate ADH production) Status: Chronic (6) Hx of aortic valve replacement Status: Chronic (7) Hyponatremia Status: Acute (8) Lumbago Status: Chronic (9) PVD (peripheral vascular disease) Status: Chronic (10) COPD (chronic obstructive pulmonary disease) Status: Acute (11) Anxiety Status: Chronic (12) Depression Status: Chronic (13) HTN (hypertension) Status: Chronic (14) Oral candidiasis Status: Acute - Assessment and Plan (Free Text) Plan: Continue with Mycostatin cream, Vanco, Clotrimazole, Zinc Sulfate, Sodium Chl and rest of Tx.
[2018-11-07] MEDS ORDERED: Nystatin 100,000 Units/ml Oral Susp 5 ml UD PO SCH (17:00)
--- NOTE | 2018-11-07 22:59 | PCM.RRT ---
<Rubina Hutson - Last Filed: 11/08/18 00:53> INTEGRATION ASSISTANT Nurse Assessment - Situation INTEGRATION ASSISTANT Responder Arrival Time: 21:58 Location: [facility] INTEGRATION ASSISTANT Reason for Call: Tachycardia INTEGRATION ASSISTANT Called By: RN I.Reason for INTEGRATION ASSISTANT - A) Acute Change in Patient: Subjective: INTEGRATION ASSISTANT called 2158. 77 yo F admitted due to lower extremity cellulitis; INTEGRATION ASSISTANT called for tachycardia into 190s. Upon arrival, noted elderly female in no apparent distress. Pt denied feeling chest pain or palpitations. Vitals upon arrival: BP 201/90, HR 191, RR 21, T 98.9, O2 sat 99 EKG done - showed supraventricular tachycardia at 190+ bpm 2205: 6 mg adenosine IV ordered; pushed - initial response noted in HR to low 110s Repeat EKG showed sinus tachycardia Within several minutes, HR back up to 190s 2213: Additional 12 mg adenosine IV ordered; pushed - initial response noted with HR down to 50s, however again back to 180s in several minutes 2219: Cardizem 10 mg IVP ordered; pushed with appropriate response; HR down to 102, NSR Pt's admitting physician Dr. García notified; asked for cardiology consult. Dr. Kee spoke with cardio consult Dr. Leyva to inform of case. Patient transferred to telemetry unit. Assessment: 77 yo female, admitted for lower extremity cellulitis; with episode of SVT. Plan: Transfer to tele for continuous cardiac monitoring. Start cardizem drip. Cardiology consult - Dr. Leyva notified. INTEGRATION ASSISTANT end 22:26 INTEGRATION ASSISTANT leader: Dr. Kee INTEGRATION ASSISTANT residents: Dr. Hutson PGY2, Dr. Amaya, PGY2 <Charly Kee - Last Filed: 11/08/18 03:10> INTEGRATION ASSISTANT Nurse Assessment - Vital Signs Vital Signs: Rapid Response Vital Sign Blood Pressure 201/90 Pulse Rate 191 Respiratory Rate 21 Temperature 98.9 F Oxygen Saturation 99 - Vital Signs at end of INTEGRATION ASSISTANT Vital Signs at end of INTEGRATION ASSISTANT: Rapid Response End Vital Sign Blood Pressure 150/81 Pulse Rate 102 Respiratory Rate 21 Temperature 98.9 F O2 Sat by Pulse Oximetry 99 Assessment and Plan - Assessment and Plan (Free Text) Assessment: Seen and examined patient personally. Agree with resident's A/P. 77 yo with cardiac hx including SVT being treated for LE cellulitis. INTEGRATION ASSISTANT was called due to HR of 190/min. Upon assessment pt tachycardic and hypertensive. Lungs clear b/l. Only reports mild CP/SOB but otherwise asymptomatic. EKG I personally reviewed showed SVT at 190/min. Broke to sinus tahcy with 6 mg of Adenosine. Contacted primary who agreed to transfer pt to tele; however, before transfer again HR went up to 180/min. 12 mg of Adenosine was given and HR came down and again went up. Discussed with air control electronics operator and gave 10 mg of IV Cardizem and transferred her to tele floor. HR around 100-110/min for a while and then again up to 160s at which point she was started on cardizem drip. HR controlled. Will continue Cardizem drip and tele monitoring and will follow cardiology recommendations. Spent total of 33 min of critical care time trying to stabilize this critically unstable patient excluding time spent for any procedures
[2018-11-07] MEDS ORDERED: Sodium Chloride 0.9% Inj (10mL) IV ONE (23:53)
[2018-11-08] MEDS: Albuterol-Ipratrop 3 mg / 0.5 (3 ml) UD INH SCH ×3 (07:12→19:28)
[2018-11-08] MEDS: Enoxaparin 40 mg Syringe SC SCH (08:22)
[2018-11-08] MEDS: Cefepime 1 GM in Sodium Chloride 0.9% 100 ML IVPB SCH ×2 (08:28→21:05)
[2018-11-08] MEDS: Mupirocin 2% Oint 1GM UD TOP SCH ×2 (08:33→17:16)
[2018-11-08] MEDS: Divalproex 125 mg Sprinkle Capsule PO SCH ×2 (08:36→17:16)
[2018-11-08] MEDS: Pantoprazole 40 mg EC Tab PO SCH (08:42)
--- NOTE | 2018-11-08 10:40 | CP.PCM.PN ---
Subjective - Date & Time of Evaluation Date of Evaluation: 11/08/18 Time of Evaluation: 10:39 - Subjective Subjective: ID Note- Patient seen and examined today. pt. apparently had MUCK HAULER earlier this morning and was found to be tachycardic and was started on IV cardizem and transferred to tele unit. currently pt. awake and alert. she denies any fever or chills and states she feels ok. Objective - Vital Signs/Intake and Output Vital Signs (last 24 hours): Temp Pulse Resp BP Pulse Ox 98.0 F 97 H 20 146/58 L 96 11/08/18 07:44 11/08/18 09:00 11/08/18 07:44 11/08/18 08:35 11/08/18 07:44 - Medications Medications: Current Medications Acetaminophen (Tylenol 325mg Tab) 650 mg PO Q6 PRN PRN Reason: Pain, Mild (1-3) Albuterol/Ipratropium (Duoneb 3 Mg/0.5 Mg (3 Ml) Ud) 3 ml INH RTID [facility] Last Admin: 11/08/18 07:12 Dose: 3 ml Atorvastatin Calcium (Lipitor) 20 mg PO DAILY [facility] Last Admin: 11/08/18 08:41 Dose: 20 mg Clotrimazole (Mycelex Kristian) 10 mg MT 5XD [facility] Last Admin: 11/08/18 08:42 Dose: 10 mg Divalproex Sodium (Depakote Sprinkles) 125 mg PO BID [facility] Last Admin: 11/08/18 08:36 Dose: 125 mg Enoxaparin Sodium (Lovenox) 40 mg SC DAILY [facility]; Protocol Last Admin: 11/08/18 08:22 Dose: 40 mg Fluticasone Propionate (Flonase) 2 spr LA DAILY [facility] Last Admin: 11/08/18 08:38 Dose: 2 spr Haloperidol Lactate (Haldol) 0.5 mg IM Q8 PRN PRN Reason: Agitation Last Admin: 11/07/18 23:52 Dose: 0.5 mg Haloperidol Lactate (Haldol) 0.5 mg PO Q8 PRN PRN Reason: Agitation Vancomycin HCl 1 gm/ Sodium (Chloride) 250 mls @ 166.667 mls/hr IVPB Q12H [facility]; Protocol Last Admin: 11/08/18 04:42 Dose: 166.667 mls/hr Cefepime HCl 1 gm/ Sodium (Chloride) 100 mls @ 100 mls/hr IVPB Q12 [facility]; Protocol Last Admin: 11/08/18 08:28 Dose: 100 mls/hr Diltiazem HCl 125 mg/ Sodium (Chloride) 125 mls @ 10 mls/hr IV .[id number] ONE; Protocol Stop: 11/08/18 11:16 Last Admin: 11/07/18 23:10 Dose: 10 mg/hr, 10 mls/hr Lactulose (Enulose) 20 gm PO DAILY PRN PRN Reason: Constipation Losartan Potassium (Cozaar) 75 mg PO DAILY [facility] Last Admin: 11/08/18 08:35 Dose: 75 mg Mirtazapine (Remeron) 15 mg PO HS [facility] Last Admin: 11/07/18 21:27 Dose: 15 mg Montelukast Sodium (Singulair) 10 mg PO HS [facility] Last Admin: 11/07/18 21:26 Dose: 10 mg Mupirocin (Bactroban Ointment) 1 applic TOP BID [facility] Last Admin: 11/08/18 08:33 Dose: 1 applic Nystatin (Mycostatin Cream) 1 applic TOP TID [facility] Last Admin: 11/08/18 08:21 Dose: 1 applic Pantoprazole Sodium (Protonix Ec Tab) 40 mg PO DAILY [facility] Last Admin: 11/08/18 08:42 Dose: 40 mg Sodium Chloride (Sodium Chloride Tab) 1 gm PO DAILY [facility] Last Admin: 11/08/18 08:43 Dose: 1 gm Zinc Sulfate (Zinc Sulfate 220 Mg Cap) 220 mg PO DAILY [facility] Last Admin: 11/08/18 08:43 Dose: 220 mg - Labs Labs: - Constitutional Appears: No Acute Distress - Head Exam Head Exam: ATRAUMATIC - Eye Exam Eye Exam: EOMI - Neck Exam Neck Exam: Full ROM - Respiratory Exam Respiratory Exam: NORMAL BREATHING PATTERN - Cardiovascular Exam Cardiovascular Exam: Tachycardia, +S1, +S2 - GI/Abdominal Exam GI & Abdominal Exam: Soft, Normal Bowel Sounds Additional comments: NT, ND - Extremities Exam Additional comments: left medial ankle superficail open wound, no discharge, minimal erythema edema has decreased - Neurological Exam Neurological Exam: Alert, Awake - Additional Findings Additional findings: Laboratory Results - last 72 hr 11/04/18 11/04/18 11/05/18 12:20 12:20 16:20 ESR 11 POC Glucose (mg/dL) Urine Color Yellow Urine Clarity Cloudy Urine pH 9.0 Ur Specific [place] 1.008 Urine Protein Negative Urine Glucose (UA) Neg Urine Ketones Negative Urine Blood Negative Urine Nitrate Negative Urine Bilirubin Negative Urine Urobilinogen 0.2-1.0 Ur Leukocyte Esterase Neg Urine RBC (Auto) < 1 Urine Microscopic WBC 2 Ur Squamous Epith Cells < 1 Amorphous Sediment Occ H Urine Bacteria Occ H Urine Opiates Screen Positive H Urine Methadone Screen Negative Ur Barbiturates Screen Negative Valproic Acid Ur Phencyclidine Scrn Negative Ur Amphetamines Screen Negative U Benzodiazepines Scrn Negative U Oth Cocaine Metabols Negative U Cannabinoids Screen Negative 11/06/18 11/07/18 06:50 22:17 ESR POC Glucose (mg/dL) 110 Urine Color Urine Clarity Urine pH Ur Specific [place] Urine Protein Urine Glucose (UA) Urine Ketones Urine Blood Urine Nitrate Urine Bilirubin Urine Urobilinogen Ur Leukocyte Esterase Urine RBC (Auto) Urine Microscopic WBC Ur Squamous Epith Cells Amorphous Sediment Urine Bacteria Urine Opiates Screen Urine Methadone Screen Ur Barbiturates Screen Valproic Acid 17.4 L Ur Phencyclidine Scrn Ur Amphetamines Screen U Benzodiazepines Scrn U Oth Cocaine Metabols U Cannabinoids Screen Microbiology 11/05/18 21:37 Foot - Left Gram Stain - Final 11/05/18 21:37 Foot - Left Wound Culture - Preliminary Pseudomonas Aeruginosa 11/04/18 02:31 Blood Blood Culture - Preliminary NO GROWTH AFTER 3 DAYS 11/04/18 20:00 Blood Blood Culture - Preliminary NO GROWTH AFTER 3 DAYS Assessment and Plan (1) Cellulitis of lower leg Status: Acute (2) Ulcer of left ankle Status: Acute (3) COPD (chronic obstructive pulmonary disease) Status: Chronic (4) Anxiety Status: Chronic - Assessment and Plan (Free Text) Assessment: A/P- 77 year old female with CAD s/p CABG, COPD, chronic left medial ankle nonhealing superficial wound. tachycardic on cardizem and on tele unit . afebrile normal wbc ocunt no discharge foot and ankle xray report no evidence of osteopathy last admission MRI - neg for OM as per report. foot cx from this admission- pseudomonas and corynebacterium blood cx- neg x 2 plan- advise to continue with IV vanco and cefepime based on micro report to treat both corynebacterium and pseudomonas. keep trough <15.
--- NOTE | 2018-11-08 15:21 | CP.PCM.PN ---
Subjective - Date & Time of Evaluation Date of Evaluation: 11/08/18 Time of Evaluation: 10:40 - Subjective Subjective: F/U Cellulitis LLE C/O of pain in LLE, had PRACTICAL NURSE last night, due to tachycardia, HR 190, BP 187/87, stated on Cardizem IV. Objective - Vital Signs/Intake and Output Vital Signs (last 24 hours): Temp Pulse Resp BP Pulse Ox 98.1 F 101 H 20 159/69 H 96 11/08/18 12:14 11/08/18 12:14 11/08/18 12:14 11/08/18 12:14 11/08/18 12:14 - Medications Medications: Current Medications Acetaminophen (Tylenol 325mg Tab) 650 mg PO Q6 PRN PRN Reason: Pain, Mild (1-3) Albuterol/Ipratropium (Duoneb 3 Mg/0.5 Mg (3 Ml) Ud) 3 ml INH RTID [facility] Last Admin: 11/08/18 13:20 Dose: 3 ml Atorvastatin Calcium (Lipitor) 20 mg PO DAILY [facility] Last Admin: 11/08/18 08:41 Dose: 20 mg Clotrimazole (Mycelex Kristian) 10 mg MT 5XD [facility] Last Admin: 11/08/18 13:21 Dose: Not Given Divalproex Sodium (Depakote Sprinkles) 125 mg PO BID [facility] Last Admin: 11/08/18 08:36 Dose: 125 mg Enoxaparin Sodium (Lovenox) 40 mg SC DAILY [facility]; Protocol Last Admin: 11/08/18 08:22 Dose: 40 mg Fluticasone Propionate (Flonase) 2 spr LA DAILY [facility] Last Admin: 11/08/18 08:38 Dose: 2 spr Haloperidol Lactate (Haldol) 0.5 mg IM Q8 PRN PRN Reason: Agitation Last Admin: 11/07/18 23:52 Dose: 0.5 mg Haloperidol Lactate (Haldol) 0.5 mg PO Q8 PRN PRN Reason: Agitation Vancomycin HCl 1 gm/ Sodium (Chloride) 250 mls @ 166.667 mls/hr IVPB Q12H [facility]; Protocol Last Admin: 11/08/18 04:42 Dose: 166.667 mls/hr Cefepime HCl 1 gm/ Sodium (Chloride) 100 mls @ 100 mls/hr IVPB Q12 [facility]; Protocol Last Admin: 11/08/18 08:28 Dose: 100 mls/hr Diltiazem HCl 125 mg/ Sodium (Chloride) 125 mls @ 10 mls/hr IV .[id number] ONE; Protocol Stop: 11/09/18 01:10 Last Admin: 11/08/18 13:19 Dose: 5 mg/hr, 5 mls/hr Lactulose (Enulose) 20 gm PO DAILY PRN PRN Reason: Constipation Losartan Potassium (Cozaar) 75 mg PO DAILY [facility] Last Admin: 11/08/18 08:35 Dose: 75 mg Mirtazapine (Remeron) 15 mg PO HS [facility] Last Admin: 11/07/18 21:27 Dose: 15 mg Montelukast Sodium (Singulair) 10 mg PO HS [facility] Last Admin: 11/07/18 21:26 Dose: 10 mg Mupirocin (Bactroban Ointment) 1 applic TOP BID [facility] Last Admin: 11/08/18 08:33 Dose: 1 applic Nystatin (Mycostatin Cream) 1 applic TOP TID [facility] Last Admin: 11/08/18 13:21 Dose: 1 applic Pantoprazole Sodium (Protonix Ec Tab) 40 mg PO DAILY [facility] Last Admin: 11/08/18 08:42 Dose: 40 mg Sodium Chloride (Sodium Chloride Tab) 1 gm PO DAILY [facility] Last Admin: 11/08/18 08:43 Dose: 1 gm Zinc Sulfate (Zinc Sulfate 220 Mg Cap) 220 mg PO DAILY [facility] Last Admin: 11/08/18 08:43 Dose: 220 mg - Labs Labs: 11/05/18 08:15 11/05/18 08:15 - Constitutional Appears: Chronically Ill - Head Exam Head Exam: NORMAL INSPECTION - Eye Exam Eye Exam: PERRL - ENT Exam Additional comments: Hard of hearing. White patches areas in the tongue. - Neck Exam Neck Exam: Normal Inspection - Respiratory Exam Respiratory Exam: Decreased Breath Sounds (at bases) - Cardiovascular Exam Cardiovascular Exam: REGULAR RHYTHM, Murmur (1/6 LSB Ao) - GI/Abdominal Exam GI & Abdominal Exam: Soft, Normal Bowel Sounds - Extremities Exam Extremities Exam: Tenderness (On palpation L ankle.) Additional comments: L foot dressing in place. L knee varus deformity, chronic skin changes BLE. - Back Exam Back Exam: tenderness (L-S) - Neurological Exam Neurological Exam: Awake Additional comments: Confused, disoriented, follows commands, no focal motor deficit. - Psychiatric Exam Psychiatric exam: Anxious, Depressed - Skin Skin Exam: Warm Assessment and Plan (1) Skin ulcer of malleolar area of left ankle Status: Acute (2) Cellulitis of lower leg Status: Acute (3) Acute delirium Status: Acute (4) Major neurocognitive disorder Status: Chronic (5) SIADH (syndrome of inappropriate ADH production) Status: Chronic (6) Hx of aortic valve replacement Status: Chronic (7) Hyponatremia Status: Acute (8) Lumbago Status: Chronic (9) PVD (peripheral vascular disease) Status: Chronic (10) COPD (chronic obstructive pulmonary disease) Status: Acute (11) Anxiety Status: Chronic (12) Depression Status: Chronic (13) HTN (hypertension) Status: Chronic - Assessment and Plan (Free Text) Plan: Pt transferred to Telemetry, Continue Vanco, Cefepime, Nystatin, Diltiazem and rest of Tx.
--- NOTE | 2018-11-08 16:11 | CARD ---
APPROVED REPORT Date of service: 11/07/2018 EKG Measurement Heart [id number] <Conclusion> Sinus tachycardia Inferior infarct, age undetermined Abnormal ECG
--- NOTE | 2018-11-09 06:54 | CP.PCM.CON ---
History of Present Illness - History of Present Illness History of Present Illness: Jonathan Herrera PGY1, Cardio consult for Dr Leyva Pt is a 77 yo female with a PMH of CAD, HLD, HTN, AVR, SVT, Depression, dementia and LLE wound which required I&D. Pt presented due to chronic LLE pain which had started several days before. Pt has been previously treated for LLE cellulitis before. Pt has experienced tachycardia since her admission. Past Patient History - Past Medical History & Family History Past Medical History?: Yes - Past Social History Smoking Status: Former Smoker Alcohol: None Drugs: Denies Home Situation {Lives}: With Family - CARDIAC Hx Cardiac Disorders: Yes Hx Hypercholesterolemia: Yes Hx Hypertension: Yes Other/Comment: AVR - PULMONARY Hx Asthma: Yes Hx Chronic Obstructive Pulmonary Disease (COPD): Yes - NEUROLOGICAL Hx Neurological Disorder: Yes Hx Dementia: Yes - HEENT Hx HEENT Problems: Yes (Allergic Rhinitis) - RENAL Hx Chronic Kidney Disease: No - ENDOCRINE/METABOLIC Hx Endocrine Disorders: No - HEMATOLOGICAL/ONCOLOGICAL Hx Human Immunodeficiency Virus (HIV): No - INTEGUMENTARY Hx Dermatological Problems: Yes Hx Cellulitis: Yes (LLE) - MUSCULOSKELETAL/RHEUMATOLOGICAL Hx Musculoskeletal Disorders: Yes Hx Arthritis: Yes Hx Falls: Yes Hx Osteoporosis: Yes - GASTROINTESTINAL Hx Gastrointestinal Disorders: Yes Hx Constipation: Yes - GENITOURINARY/GYNECOLOGICAL Hx Genitourinary Disorders: Yes Hx Incontinence: Yes Hx Urinary Tract Infection: Yes - PSYCHIATRIC Hx Psychophysiologic Disorder: Yes Hx Anxiety: Yes Hx Depression: Yes - SURGICAL HISTORY Hx Surgeries: Yes Other/Comment: Bioprosthetic AVR - ANESTHESIA Hx Anesthesia: Yes Hx Anesthesia Reactions: No Hx Malignant Hyperthermia: No Meds Allergies/Adverse Reactions: Allergies Allergy/AdvReac Type Severity Reaction Status Date / Time aspirin Allergy Mild RASH Verified 05/07/17 17:16 iodine Allergy RASH Verified 05/07/17 17:16 - Medications Medications: Current Medications Acetaminophen (Tylenol 325mg Tab) 650 mg PO Q6 PRN PRN Reason: Pain, Mild (1-3) Albuterol/Ipratropium (Duoneb 3 Mg/0.5 Mg (3 Ml) Ud) 3 ml INH RTID [facility] Last Admin: 11/08/18 19:28 Dose: Not Given Atorvastatin Calcium (Lipitor) 20 mg PO DAILY [facility] Last Admin: 11/08/18 08:41 Dose: 20 mg Clotrimazole (Mycelex Kristian) 10 mg MT 5XD [facility] Last Admin: 11/09/18 04:01 Dose: Not Given Divalproex Sodium (Depakote Sprinkles) 125 mg PO BID [facility] Last Admin: 11/08/18 17:16 Dose: 125 mg Enoxaparin Sodium (Lovenox) 40 mg SC DAILY [facility]; Protocol Last Admin: 11/08/18 08:22 Dose: 40 mg Fluticasone Propionate (Flonase) 2 spr LA DAILY [facility] Last Admin: 11/08/18 08:38 Dose: 2 spr Haloperidol Lactate (Haldol) 0.5 mg IM Q8 PRN PRN Reason: Agitation Last Admin: 11/07/18 23:52 Dose: 0.5 mg Haloperidol Lactate (Haldol) 0.5 mg PO Q8 PRN PRN Reason: Agitation Vancomycin HCl 1 gm/ Sodium (Chloride) 250 mls @ 166.667 mls/hr IVPB Q12H [facility]; Protocol Last Admin: 11/09/18 04:04 Dose: 166.667 mls/hr Cefepime HCl 1 gm/ Sodium (Chloride) 100 mls @ 100 mls/hr IVPB Q12 [facility]; Protocol Last Admin: 11/08/18 21:05 Dose: 100 mls/hr Lactulose (Enulose) 20 gm PO DAILY PRN PRN Reason: Constipation Losartan Potassium (Cozaar) 75 mg PO DAILY [facility] Last Admin: 11/08/18 08:35 Dose: 75 mg Mirtazapine (Remeron) 15 mg PO HS [facility] Last Admin: 11/08/18 21:04 Dose: 15 mg Montelukast Sodium (Singulair) 10 mg PO HS [facility] Last Admin: 11/08/18 21:04 Dose: 10 mg Mupirocin (Bactroban Ointment) 1 applic TOP BID [facility] Last Admin: 11/08/18 17:16 Dose: 1 applic Nystatin (Mycostatin Cream) 1 applic TOP TID [facility] Last Admin: 11/08/18 17:18 Dose: 1 applic Pantoprazole Sodium (Protonix Ec Tab) 40 mg PO DAILY [facility] Last Admin: 11/08/18 08:42 Dose: 40 mg Sodium Chloride (Sodium Chloride Tab) 1 gm PO DAILY [facility] Last Admin: 11/08/18 08:43 Dose: 1 gm Zinc Sulfate (Zinc Sulfate 220 Mg Cap) 220 mg PO DAILY [facility] Last Admin: 11/08/18 08:43 Dose: 220 mg Physical Exam - Constitutional Appears: No Acute Distress - Head Exam Head Exam: ATRAUMATIC, NORMOCEPHALIC - Eye Exam Eye Exam: EOMI - ENT Exam ENT Exam: Mucous Membranes Moist - Respiratory Exam Respiratory Exam: Clear to Auscultation Bilateral, NORMAL BREATHING PATTERN. absent: Accessory Muscle Use, Respiratory Distress - Cardiovascular Exam Cardiovascular Exam: RRR, +S1, +S2. absent: Diastolic murmur, Systolic Murmur - GI/Abdominal Exam GI & Abdominal Exam: Normal Bowel Sounds, Soft - Extremities Exam Extremities exam: Negative for: pedal edema Additional comments: LLE bandage is clean dry and intact - Skin Skin Exam: Dry, Normal Color, Warm Results - Vital Signs Recent Vital Signs: Last Vital Signs Temp 99.4 F 11/09/18 05:00 Pulse 95 H 11/09/18 05:00 Resp 20 11/09/18 05:00 BP 182/79 H 11/09/18 05:00 Pulse Ox 96 11/09/18 05:00 - Labs Result Diagrams: 11/05/18 08:15 11/05/18 08:15 Labs: Laboratory Results - last 24 hr 11/09/18 05:45 Vancomycin Trough 15.6 H Assessment & Plan - Assessment and Plan (Free Text) Assessment: SVT CABG CAD HLD HTN AVR SVT Plan: SVT BNP 827 HA1C follow up EKG 11/07/18 shows sinus tachycardia ECHO 11/05 EF 50-55%, Grade 1 relaxation pattern, moderate Medications lipitor cozaar metoprolol tartrate 50 q12 Pt seen, examined, assessment and plan discussed with Dr Gordon Herrera PGY1 - Date & Time Date: 11/09/18 Time: 06:55
[2018-11-09] MEDS: Albuterol-Ipratrop 3 mg / 0.5 (3 ml) UD INH SCH ×3 (07:43→19:22)
[2018-11-09] MEDS: Mupirocin 2% Oint 1GM UD TOP SCH ×2 (08:13→16:27)
[2018-11-09] MEDS: Divalproex 125 mg Sprinkle Capsule PO SCH ×2 (08:18→17:16)
[2018-11-09] MEDS: Enoxaparin 40 mg Syringe SC SCH ×2 (08:20→08:23)
[2018-11-09] MEDS: Cefepime 1 GM in Sodium Chloride 0.9% 100 ML IVPB SCH ×2 (08:21→21:04)
[2018-11-09] MEDS: Pantoprazole 40 mg EC Tab PO SCH (08:29)
--- NOTE | 2018-11-09 10:31 | CP.PCM.PN ---
Subjective - Date & Time of Evaluation Date of Evaluation: 11/09/18 Time of Evaluation: 10:13 - Subjective Subjective: Podiatry consult note - Dr. Singer 77 y/o female patient seen and evaluated for left ankle wound. Patient sleeping during examination and noted to be slightly lethargic. She has trouble detailing history. Denies n/v/f/c/sob/cp. Reports pain to her left ankle and foot when she walks or when there is pressure to the foot/ankle. Objective - Vital Signs/Intake and Output Vital Signs (last 24 hours): Temp Pulse Resp BP Pulse Ox 98.3 F 93 H 18 162/82 H 96 11/09/18 07:50 11/09/18 09:00 11/09/18 07:50 11/09/18 08:34 11/09/18 07:50 - Medications Medications: Current Medications Acetaminophen (Tylenol 325mg Tab) 650 mg PO Q6 PRN PRN Reason: Pain, Mild (1-3) Albuterol/Ipratropium (Duoneb 3 Mg/0.5 Mg (3 Ml) Ud) 3 ml INH RTID [facility] Last Admin: 11/09/18 07:43 Dose: 3 ml Atorvastatin Calcium (Lipitor) 20 mg PO DAILY [facility] Last Admin: 11/09/18 08:19 Dose: 20 mg Clotrimazole (Mycelex Kristian) 10 mg MT 5XD [facility] Last Admin: 11/09/18 08:13 Dose: 10 mg Divalproex Sodium (Depakote Sprinkles) 125 mg PO BID [facility] Last Admin: 11/09/18 08:18 Dose: 125 mg Enoxaparin Sodium (Lovenox) 40 mg SC DAILY [facility]; Protocol Last Admin: 11/09/18 08:23 Dose: 40 mg Fluticasone Propionate (Flonase) 2 spr LA DAILY [facility] Last Admin: 11/09/18 08:19 Dose: 2 spr Haloperidol Lactate (Haldol) 0.5 mg IM Q8 PRN PRN Reason: Agitation Last Admin: 11/07/18 23:52 Dose: 0.5 mg Haloperidol Lactate (Haldol) 0.5 mg PO Q8 PRN PRN Reason: Agitation Vancomycin HCl 1 gm/ Sodium (Chloride) 250 mls @ 166.667 mls/hr IVPB Q12H [facility]; Protocol Last Admin: 11/09/18 04:04 Dose: 166.667 mls/hr Cefepime HCl 1 gm/ Sodium (Chloride) 100 mls @ 100 mls/hr IVPB Q12 [facility]; Protocol Last Admin: 11/09/18 08:21 Dose: 100 mls/hr Lactulose (Enulose) 20 gm PO DAILY PRN PRN Reason: Constipation Losartan Potassium (Cozaar) 75 mg PO DAILY [facility] Last Admin: 11/09/18 08:16 Dose: 75 mg Metoprolol Tartrate (Lopressor) 50 mg PO Q12 [facility] Last Admin: 11/09/18 08:34 Dose: 50 mg Mirtazapine (Remeron) 15 mg PO HS [facility] Last Admin: 11/08/18 21:04 Dose: 15 mg Montelukast Sodium (Singulair) 10 mg PO [facility] Last Admin: 11/08/18 21:04 Dose: 10 mg Mupirocin (Bactroban Ointment) 1 applic TOP BID [facility] Last Admin: 11/09/18 08:13 Dose: 1 applic Nystatin (Mycostatin Cream) 1 applic TOP TID [facility] Last Admin: 11/09/18 08:13 Dose: 1 applic Pantoprazole Sodium (Protonix Ec Tab) 40 mg PO DAILY [facility] Last Admin: 11/09/18 08:29 Dose: 40 mg Sodium Chloride (Sodium Chloride Tab) 1 gm PO DAILY [facility] Last Admin: 11/09/18 08:29 Dose: 1 gm Zinc Sulfate (Zinc Sulfate 220 Mg Cap) 220 mg PO DAILY [facility] Last Admin: 11/09/18 08:30 Dose: 220 mg - Labs Labs: 11/05/18 08:15 11/05/18 08:15 - Constitutional Appears: Well, Non-toxic, No Acute Distress - Head Exam Head Exam: ATRAUMATIC, NORMOCEPHALIC - Extremities Exam Additional comments: LLE focused VASC: DP pulse palpable 1/4, PT cannot be determined due to presence of ulceration; cap refill <3 seconds to all digits; +1 pitting edema to the foot and ankle DERM: ulceration at the medial malleolus measuring 3.0 x 1.4 x 0.2 cm; no tunneling, tracking, or probe to bone appreciated; no pus or drainage, wound base is fibrotic; erythema present at the ankle and dorsum of forefoot; IDM present in 2-4 interspaces ORTHO: pain on palpation of malleolar wound, pain on active ROM of the ankle NEURO: diminished sensation - Neurological Exam Neurological Exam: Alert, Awake, Oriented x3 - Psychiatric Exam Psychiatric exam: Normal Affect, Normal Mood Assessment and Plan - Assessment and Plan (Free Text) Assessment: 77F with pmhx of anxiety, depression, cellulitis, peripheral vascular disease, SVT, COPD, CAD, and hypercholesterolemia seen and evaluated for left venous stasis ulceration Plan: Patient seen and evaluated Discussed in detail with Dr. Singer Chart, labs and vitals were reviewed- NNL today, afebrile at this time X-rays - no gross changes appreciated from previous x-rays taken in June, Wound cleansed with sterile saline and dressed with xeroform and DSD Patient stable from Podiatric standpoint As per Dr. Singer, patient to follow up at the [facility] upon discharge [facility] aware that patient will follow up, and likely transportation to be arranged for patient from home Podiatry will follow patient while she is in house
[2018-11-09 13:10] LABS: HEMOGLOBIN 10.4 g/dL (12.0-16.0); MEAN CELL VOLUME 89.8 fl (81.0-99.0); MEAN CORPUSCULAR HGB CONC 33.4 g/dL (33.0-37.0); RBC 3.48 Mil/uL (3.80-5.20); RED CELL DISTRIBUTION WIDTH 15.8 % (11.5-14.5); WHITE BLOOD COUNT 9.1 K/uL (4.8-10.8)
[2018-11-09 13:32] LABS: BLOOD UREA NITROGEN 9 mg/dl (7-17); CALCIUM 9.8 mg/dL (8.4-10.2); GFR NON-AFRICAN AMERICAN > 60
--- NOTE | 2018-11-09 14:07 | PQF ---
PROVIDER RESPONSE TEXT: COPD chronic stable REVIEWER QUERY TEXT: COPD Specificity COPD - Chronic Obstructive Pulmonary Disease is documented in the Medical Record. Please specify the associated condition (includes suspected or probable) Such as: --Stable -- Exacerbation - acute -- Other, please specify O2 sat: 11/05: low 90---11/08 low: 92 H and P includes: PE:Respiratory: Exam: Decreased Breath Sounds (at bases) dxs. include: COPD (chronic obstructive pulmonary disease) Status: Acute Priority: Medium -Flonase, Aida, Cathy TICampbell The patient's Clinical Indicators include: --- Query created by: Emily Calle on 11/08/2018 11:18 AM Electronically signed by: Corey García MD 11/09/2018 2:04 PM
--- NOTE | 2018-11-09 15:01 | CP.PCM.PN ---
Subjective - Date & Time of Evaluation Date of Evaluation: 11/09/18 Time of Evaluation: 10:40 - Subjective Subjective: F/U Cellulitis LLE Awake, confused, c/o of pain in LLE and less pain in her tongue. Objective - Vital Signs/Intake and Output Vital Signs (last 24 hours): Temp Pulse Resp BP Pulse Ox 97.8 F 92 H 18 166/84 H 97 11/09/18 12:03 11/09/18 12:03 11/09/18 12:03 11/09/18 12:03 11/09/18 12:03 - Medications Medications: Current Medications Acetaminophen (Tylenol 325mg Tab) 650 mg PO Q6 PRN PRN Reason: Pain, Mild (1-3) Albuterol/Ipratropium (Duoneb 3 Mg/0.5 Mg (3 Ml) Ud) 3 ml INH RTID [facility] Last Admin: 11/09/18 13:05 Dose: 3 ml Atorvastatin Calcium (Lipitor) 20 mg PO DAILY [facility] Last Admin: 11/09/18 08:19 Dose: 20 mg Clotrimazole (Mycelex Kristian) 10 mg MT 5XD [facility] Last Admin: 11/09/18 08:13 Dose: 10 mg Divalproex Sodium (Depakote Sprinkles) 125 mg PO BID [facility] Last Admin: 11/09/18 08:18 Dose: 125 mg Enoxaparin Sodium (Lovenox) 40 mg SC DAILY [facility]; Protocol Last Admin: 11/09/18 08:23 Dose: 40 mg Fluticasone Propionate (Flonase) 2 spr LA DAILY [facility] Last Admin: 11/09/18 08:19 Dose: 2 spr Haloperidol Lactate (Haldol) 0.5 mg IM Q8 PRN PRN Reason: Agitation Last Admin: 11/07/18 23:52 Dose: 0.5 mg Haloperidol Lactate (Haldol) 0.5 mg PO Q8 PRN PRN Reason: Agitation Vancomycin HCl 1 gm/ Sodium (Chloride) 250 mls @ 166.667 mls/hr IVPB Q12H [facility]; Protocol Last Admin: 11/09/18 04:04 Dose: 166.667 mls/hr Cefepime HCl 1 gm/ Sodium (Chloride) 100 mls @ 100 mls/hr IVPB Q12 [facility]; Protoco l Last Admin: 11/09/18 08:21 Dose: 100 mls/hr Lactulose (Enulose) 20 gm PO DAILY PRN PRN Reason: Constipation Losartan Potassium (Cozaar) 75 mg PO DAILY [facility] Last Admin: 11/09/18 08:16 Dose: 75 mg Metoprolol Tartrate (Lopressor) 50 mg PO Q12 [facility] Last Admin: 11/09/18 08:34 Dose: 50 mg Mirtazapine (Remeron) 15 mg PO HS [facility] Last Admin: 11/08/18 21:04 Dose: 15 mg Montelukast Sodium (Singulair) 10 mg PO HS [facility] Last Admin: 11/08/18 21:04 Dose: 10 mg Mupirocin (Bactroban Ointment) 1 applic TOP BID [facility] Last Admin: 11/09/18 08:13 Dose: 1 applic Nystatin (Mycostatin Cream) 1 applic TOP TID [facility] Last Admin: 11/09/18 08:13 Dose: 1 applic Pantoprazole Sodium (Protonix Ec Tab) 40 mg PO DAILY [facility] Last Admin: 11/09/18 08:29 Dose: 40 mg Potassium Chloride (Potassium Chloride Oral Soln) 20 meq PO DAILY [facility] Sodium Chloride (Sodium Chloride Tab) 1 gm PO DAILY [facility] Last Admin: 11/09/18 08:29 Dose: 1 gm Zinc Sulfate (Zinc Sulfate 220 Mg Cap) 220 mg PO DAILY [facility] Last Admin: 11/09/18 08:30 Dose: 220 mg - Labs Labs: 11/09/18 13:00 11/09/18 13:00 - Constitutional Appears: Chronically Ill - Head Exam Head Exam: NORMAL INSPECTION - Eye Exam Eye Exam: PERRL - ENT Exam Additional comments: Hard of hearing, White patches areas in the tongue - Neck Exam Neck Exam: Normal Inspection - Respiratory Exam Respiratory Exam: Decreased Breath Sounds (at bases) - Cardiovascular Exam Cardiovascular Exam: REGULAR RHYTHM, Murmur (systolic 1/6 LSB, Ao) - GI/Abdominal Exam GI & Abdominal Exam: Soft, Normal Bowel Sounds - Extremities Exam Extremities Exam: Tenderness (to palpation L ankle) Additional comments: L foot dressing in place, L knee varus deformity, chronic skin changes BLE - Back Exam Back Exam: tenderness (L-S) - Neurological Exam Neurological Exam: Awake Additional comments: Confused, follows commands, no focal motor deficit. - Psychiatric Exam Psychiatric exam: Anxious, Depressed - Skin Skin Exam: Warm Assessment and Plan (1) Skin ulcer of malleolar area of left ankle Status: Acute (2) Cellulitis of lower leg Status: Acute (3) Acute delirium Status: Acute (4) Major neurocognitive disorder Status: Chronic (5) SIADH (syndrome of inappropriate ADH production) Status: Chronic (6) Hx of aortic valve replacement Status: Chronic (7) Hyponatremia Status: Acute (8) Lumbago Status: Chronic (9) PVD (peripheral vascular disease) Status: Chronic (10) COPD (chronic obstructive pulmonary disease) Status: Acute (11) Anxiety Status: Chronic (12) Depression Status: Chronic (13) HTN (hypertension) Status: Chronic - Assessment and Plan (Free Text) Plan: Continue Vanco, Cefepime and rest of Tx.
[2018-11-09 16:18] LABS: SQUAMOUS EPITHIAL 1 /hpf (0-5); URINE BACTERIA RARE (<OCC); URINE BILIRUBIN NEGATIVE (NEGATIVE); URINE BLOOD NEGATIVE (NEGATIVE); URINE CLARITY SLIGHTY-CLOUDY (Clear); URINE COLOR YELLOW (YELLOW); URINE GLUCOSE (UA) NEG (NEGATIVE); URINE LEUKOCYTE ESTERASE NEG Leu/uL (Negative); URINE PROTEIN 30 mg/dL (NEGATIVE); URINE UROBILINOGEN 0.2-1.0 mg/dL (0.2-1.0)
[2018-11-09] MEDS: Potassium Chloride 20 mEq/15 ml LIQ UD PO SCH (17:21)
[2018-11-10] MEDS: Albuterol-Ipratrop 3 mg / 0.5 (3 ml) UD INH SCH ×3 (07:31→19:28)
[2018-11-10] MEDS: Mupirocin 2% Oint 1GM UD TOP SCH ×2 (08:17→17:13)
[2018-11-10] MEDS: Divalproex 125 mg Sprinkle Capsule PO SCH ×2 (08:18→17:13)
[2018-11-10] MEDS: Enoxaparin 40 mg Syringe SC SCH (08:19)
[2018-11-10] MEDS: Potassium Chloride 20 mEq/15 ml LIQ UD PO SCH (08:20)
[2018-11-10] MEDS: Pantoprazole 40 mg EC Tab PO SCH (08:20)
[2018-11-10] MEDS: Cefepime 1 GM in Sodium Chloride 0.9% 100 ML IVPB SCH (08:36)
--- NOTE | 2018-11-10 11:10 | CP.PCM.PN ---
Subjective - Date & Time of Evaluation Date of Evaluation: 11/10/18 Time of Evaluation: 11:10 - Subjective Subjective: ID Note- Patient seen and examined today. resting comfortably. no new events overnight. Pt. is being transfererd to [place] as per CONTRACT PROGRAMMER . Objective - Vital Signs/Intake and Output Vital Signs (last 24 hours): Temp Pulse Resp BP Pulse Ox 99.1 F 77 18 136/73 98 11/10/18 07:46 11/10/18 09:00 11/10/18 07:46 11/10/18 08:19 11/10/18 07:46 - Medications Medications: Current Medications Acetaminophen (Tylenol 325mg Tab) 650 mg PO Q6 PRN PRN Reason: Pain, Mild (1-3) Albuterol/Ipratropium (Duoneb 3 Mg/0.5 Mg (3 Ml) Ud) 3 ml INH RTID [facility] Last Admin: 11/10/18 07:31 Dose: 3 ml Atorvastatin Calcium (Lipitor) 20 mg PO DAILY [facility] Last Admin: 11/10/18 08:18 Dose: 20 mg Clotrimazole (Mycelex Kristian) 10 mg MT 5XD [facility] Last Admin: 11/10/18 08:34 Dose: Not Given Divalproex Sodium (Depakote Sprinkles) 125 mg PO BID [facility] Last Admin: 11/10/18 08:18 Dose: 125 mg Enoxaparin Sodium (Lovenox) 40 mg SC DAILY [facility]; Protocol Last Admin: 11/10/18 08:19 Dose: 40 mg Fluticasone Propionate (Flonase) 2 spr LA DAILY [facility] Last Admin: 11/10/18 08:18 Dose: 2 spr Haloperidol Lactate (Haldol) 0.5 mg IM Q8 PRN PRN Reason: Agitation Last Admin: 11/07/18 23:52 Dose: 0.5 mg Haloperidol Lactate (Haldol) 0.5 mg PO Q8 PRN PRN Reason: Agitation Vancomycin HCl 1 gm/ Sodium (Chloride) 250 mls @ 166.667 mls/hr IVPB Q12H [facility]; Protocol Last Admin: 11/10/18 04:04 Dose: 166.667 mls/hr Cefepime HCl 1 gm/ Sodium (Chloride) 100 mls @ 100 mls/hr IVPB Q12 [facility]; Protocol Last Admin: 11/10/18 08:36 Dose: 100 mls/hr Lactulose (Enulose) 20 gm PO DAILY PRN PRN Reason: Constipation Losartan Potassium (Cozaar) 75 mg PO DAILY [facility] Last Admin: 11/10/18 08:18 Dose: 75 mg Metoprolol Tartrate (Lopressor) 50 mg PO Q12 [facility] Last Admin: 11/10/18 08:19 Dose: 50 mg Mirtazapine (Remeron) 15 mg PO HS [facility] Last Admin: 11/09/18 21:03 Dose: 15 mg Montelukast Sodium (Singulair) 10 mg PO HS [facility] Last Admin: 11/09/18 21:03 Dose: 10 mg Mupirocin (Bactroban Ointment) 1 applic TOP BID [facility] Last Admin: 11/10/18 08:17 Dose: 1 applic Nystatin (Mycostatin Cream) 1 applic TOP TID [facility] Last Admin: 11/10/18 08:20 Dose: 1 applic Ondansetron HCl (Zofran Inj) 4 mg IVP Q4 PRN PRN Reason: Nausea/Vomiting Last Admin: 11/09/18 18:35 Dose: 4 mg Pantoprazole Sodium (Protonix Ec Tab) 40 mg PO DAILY [facility] Last Admin: 11/10/18 08:20 Dose: 40 mg Potassium Chloride (Potassium Chloride Oral Soln) 20 meq PO DAILY [facility] Last Admin: 11/10/18 08:20 Dose: 20 meq Sodium Chloride (Sodium Chloride Tab) 1 gm PO DAILY [facility] Last Admin: 11/10/18 08:21 Dose: 1 gm Zinc Sulfate (Zinc Sulfate 220 Mg Cap) 220 mg PO DAILY [facility] Last Admin: 11/10/18 08:21 Dose: 220 mg - Labs Labs: - Additional Findings Additional findings: - Constitutional Appears: No Acute Distress - Head Exam Head Exam: ATRAUMATIC - Eye Exam Eye Exam: EOMI - Neck Exam Neck Exam: Full ROM - Respiratory Exam Respiratory Exam: NORMAL BREATHING PATTERN - Cardiovascular Exam Cardiovascular Exam: Tachycardia, +S1, +S2 - GI/Abdominal Exam GI & Abdominal Exam: Soft, Normal Bowel Sounds Additional comments: NT, ND - Extremities Exam Additional comments: left medial ankle superficail open wound, no discharge, erythema has resolved edema has resolved - Neurological Exam Neurological Exam: Alert, Awake Laboratory Results - last 72 hr 11/07/18 11/08/18 11/09/18 22:17 16:06 05:45 WBC RBC Hgb Hct MCV MCH MCHC RDW Plt Count Sodium Potassium Chloride Carbon Dioxide Anion Gap BUN Creatinine Est GFR ( Amer) Est GFR (Non-Af Amer) POC Glucose (mg/dL) 110 Random Glucose Hemoglobin A1c Calcium NT-Pro-B Natriuret Pep Urine Color Yellow Urine Clarity Slighty-cloudy Urine pH 7.0 Ur Specific [place] 1.017 Urine Protein 30 Urine Glucose (UA) Neg Urine Ketones Trace Urine Blood Negative Urine Nitrate Negative Urine Bilirubin Negative Urine Urobilinogen 0.2-1.0 Ur Leukocyte Esterase Neg Urine RBC (Auto) 3 Urine Microscopic WBC 2 Ur Squamous Epith Cells 1 Urine Bacteria Rare Vancomycin Trough 15.6 H 11/09/18 11/09/18 11/09/18 05:45 09:52 13:00 WBC 9.1 RBC 3.48 L Hgb 10.4 L Hct 31.2 L MCV 89.8 MCH 30.0 MCHC 33.4 RDW 15.8 H Plt Count 440 H Sodium Potassium Chloride Carbon Dioxide Anion Gap BUN Creatinine Est GFR ( Amer) Est GFR (Non-Af Amer) POC Glucose (mg/dL) Random Glucose Hemoglobin A1c 5.4 Calcium NT-Pro-B Natriuret Pep 827 Urine Color Urine Clarity Urine pH Ur Specific [place] Urine Protein Urine Glucose (UA) Urine Ketones Urine Blood Urine Nitrate Urine Bilirubin Urine Urobilinogen Ur Leukocyte Esterase Urine RBC (Auto) Urine Microscopic WBC Ur Squamous Epith Cells Urine Bacteria Vancomycin Trough 11/09/18 11/10/18 13:00 12:10 WBC RBC Hgb Hct MCV MCH MCHC RDW Plt Count Sodium 134 137 Potassium 3.2 L 3.8 Chloride 98 104 Carbon Dioxide 25 23 Anion Gap 14 14 BUN 9 10 Creatinine 0.7 0.7 Est GFR ( Amer) > 60 > 60 Est GFR (Non-Af Amer) > 60 > 60 POC Glucose (mg/dL) Random Glucose 113 H 87 Hemoglobin A1c Calcium 9.8 9.8 NT-Pro-B Natriuret Pep Urine Color Urine Clarity Urine pH Ur Specific [place] Urine Protein Urine Glucose (UA) Urine Ketones Urine Blood Urine Nitrate Urine Bilirubin Urine Urobilinogen Ur Leukocyte Esterase Urine RBC (Auto) Urine Microscopic WBC Ur Squamous Epith Cells Urine Bacteria Vancomycin Trough Microbiology 11/08/18 16:06 Urine Random Urine Culture - Final No Growth (<1,000 CFU/ML) 11/04/18 02:31 Blood Blood Culture - Final NO GROWTH AFTER 5 DAYS 11/04/18 02:31 Blood Gram Stain - Final TEST NOT PERFORMED 11/04/18 20:00 Blood Blood Culture - Final NO GROWTH AFTER 5 DAYS 11/04/18 20:00 Blood Gram Stain - Final TEST NOT PERFORMED 11/05/18 21:37 Foot - Left Gram Stain - Final 11/05/18 21:37 Foot - Left Wound Culture - Final Pseudomonas Aeruginosa Corynebacterium Species Microbiology 06/28/18 18:51 Foot - Left Gram Stain - Final 06/28/18 18:51 Foot - Left Wound Culture - Final Pseudomonas Aeruginosa Beta Hemolytic Strep Group B Assessment and Plan (1) Cellulitis of lower leg Status: Acute (2) Ulcer of left ankle Status: Acute (3) COPD (chronic obstructive pulmonary disease) Status: Chronic (4) Anxiety Status: Chronic - Assessment and Plan (Free Text) Assessment: A/P- 77 year old female with CAD s/p CABG, COPD, chronic left medial ankle nonhealing superficial wound. afebrile normal wbc ocunt no discharge foot and ankle xray report no evidence of osteopathy last admission MRI - neg for OM as per report. foot cx from this admission- pseudomonas and corynebacterium blood cx- neg x 2 plan- has completed 5 days of IV vanco and cefepime. based on very low ESR and the foot/ankle xray results No OM. advise to d/c IV abx and pt. can be d/c on oral antibiotics namely cipro 250 mg BID and PCN VK 250 mg QID for 7-10 days. 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 All above was discussed with CONTRACT PROGRAMMER taking care of patient Hellen in detail.
[2018-11-10 12:30] LABS: BLOOD UREA NITROGEN 10 mg/dl (7-17); CALCIUM 9.8 mg/dL (8.4-10.2); GFR NON-AFRICAN AMERICAN > 60
--- NOTE | 2018-11-10 13:08 | CP.PCM.PN ---
Subjective - Date & Time of Evaluation Date of Evaluation: 11/10/18 Time of Evaluation: 09:30 - Subjective Subjective: F/U Cellulitis LLE. Pt awake, confused, c/o of pain in L foot. Objective - Vital Signs/Intake and Output Vital Signs (last 24 hours): Temp Pulse Resp BP Pulse Ox 97.5 F L 89 18 153/78 H 99 11/10/18 12:05 11/10/18 12:05 11/10/18 12:05 11/10/18 12:05 11/10/18 12:05 - Medications Medications: Current Medications Acetaminophen (Tylenol 325mg Tab) 650 mg PO Q6 PRN PRN Reason: Pain, Mild (1-3) Albuterol/Ipratropium (Duoneb 3 Mg/0.5 Mg (3 Ml) Ud) 3 ml INH RTID [facility] Last Admin: 11/10/18 07:31 Dose: 3 ml Atorvastatin Calcium (Lipitor) 20 mg PO DAILY [facility] Last Admin: 11/10/18 08:18 Dose: 20 mg Clotrimazole (Mycelex Kristian) 10 mg MT 5XD [facility] Last Admin: 11/10/18 08:34 Dose: Not Given Diltiazem HCl (Cardizem Cd) 120 mg PO DAILY [facility] Divalproex Sodium (Depakote Sprinkles) 125 mg PO BID [facility] Last Admin: 11/10/18 08:18 Dose: 125 mg Enoxaparin Sodium (Lovenox) 40 mg SC DAILY [facility]; Protocol Last Admin: 11/10/18 08:19 Dose: 40 mg Fluticasone Propionate (Flonase) 2 spr LA DAILY [facility] Last Admin: 11/10/18 08:18 Dose: 2 spr Haloperidol Lactate (Haldol) 0.5 mg IM Q8 PRN PRN Reason: Agitation Last Admin: 11/07/18 23:52 Dose: 0.5 mg Haloperidol Lactate (Haldol) 0.5 mg PO Q8 PRN PRN Reason: Agitation Vancomycin HCl 1 gm/ Sodium (Chloride) 250 mls @ 166.667 mls/hr IVPB Q12H [facility]; Protocol Last Admin: 11/10/18 04:04 Dose: 166.667 mls/hr Cefepime HCl 1 gm/ Sodium (Chloride) 100 mls @ 100 mls/hr IVPB Q12 [facility]; Protocol Last Admin: 11/10/18 08:36 Dose: 100 mls/hr Lactulose (Enulose) 20 gm PO DAILY PRN PRN Reason: Constipation Losartan Potassium (Cozaar) 75 mg PO DAILY [facility] Last Admin: 11/10/18 08:18 Dose: 75 mg Metoprolol Tartrate (Lopressor) 50 mg PO Q12 [facility] Last Admin: 11/10/18 08:19 Dose: 50 mg Mirtazapine (Remeron) 15 mg PO HS [facility] Last Admin: 11/09/18 21:03 Dose: 15 mg Montelukast Sodium (Singulair) 10 mg PO HS [facility] Last Admin: 11/09/18 21:03 Dose: 10 mg Mupirocin (Bactroban Ointment) 1 applic TOP BID [facility] Last Admin: 11/10/18 08:17 Dose: 1 applic Nystatin (Mycostatin Cream) 1 applic TOP TID [facility] Last Admin: 11/10/18 08:20 Dose: 1 applic Ondansetron HCl (Zofran Inj) 4 mg IVP Q4 PRN PRN Reason: Nausea/Vomiting Last Admin: 11/09/18 18:35 Dose: 4 mg Pantoprazole Sodium (Protonix Ec Tab) 40 mg PO DAILY [facility] Last Admin: 11/10/18 08:20 Dose: 40 mg Potassium Chloride (Potassium Chloride Oral Soln) 20 meq PO DAILY [facility] Last Admin: 11/10/18 08:20 Dose: 20 meq Sodium Chloride (Sodium Chloride Tab) 1 gm PO DAILY [facility] Last Admin: 11/10/18 08:21 Dose: 1 gm Zinc Sulfate (Zinc Sulfate 220 Mg Cap) 220 mg PO DAILY [facility] Last Admin: 11/10/18 08:21 Dose: 220 mg - Labs Labs: 11/09/18 13:00 11/10/18 12:10 - Constitutional Appears: Chronically Ill - Head Exam Head Exam: NORMAL INSPECTION - Eye Exam Eye Exam: PERRL - ENT Exam Additional comments: Hard of hearing. Diminished white patches areas in the tongue. - Respiratory Exam Respiratory Exam: Decreased Breath Sounds (at bases) - Cardiovascular Exam Cardiovascular Exam: REGULAR RHYTHM, Murmur (systolic 1/6 LSB Ao) - GI/Abdominal Exam GI & Abdominal Exam: Soft, Normal Bowel Sounds - Extremities Exam Extremities Exam: Tenderness (L ankle on palpation.) Additional comments: L foot dressing in place, L knee varus deformity, chronic skin changed BLE - Back Exam Back Exam: tenderness (L-S) - Neurological Exam Neurological Exam: Alert, Awake Additional comments: Confused, disoriented, follows commands, no focal motor deficit. - Psychiatric Exam Psychiatric exam: Anxious, Depressed - Skin Skin Exam: Warm Assessment and Plan (1) Skin ulcer of malleolar area of left ankle Status: Acute (2) Cellulitis of lower leg Status: Acute (3) Acute delirium Status: Acute (4) Major neurocognitive disorder Status: Chronic (5) SIADH (syndrome of inappropriate ADH production) Status: Chronic (6) Hx of aortic valve replacement Status: Chronic (7) Hyponatremia Status: Acute (8) Lumbago Status: Chronic (9) PVD (peripheral vascular disease) Status: Chronic (10) COPD (chronic obstructive pulmonary disease) Status: Acute (11) Anxiety Status: Chronic (12) Depression Status: Chronic (13) HTN (hypertension) Status: Chronic - Assessment and Plan (Free Text) Plan: Continue Cipro,Penicillin VK, Bactroban, Clotimazole, Nystatin and rest of Tx.
[2018-11-10] MEDS: diltiaZEM 120 mg/24 Hours CD Cap PO SCH (13:12)
--- NOTE | 2018-11-10 15:01 | CP.PCM.PN ---
Subjective - Date & Time of Evaluation Date of Evaluation: 11/10/18 Time of Evaluation: 08:00 - Subjective Subjective: Pt seen and examined this morning at bedside. Denies chest pain or SOB Objective - Vital Signs/Intake and Output Vital Signs (last 24 hours): Temp Pulse Resp BP Pulse Ox 97.5 F L 94 H 18 153/78 H 99 11/10/18 12:05 11/10/18 13:12 11/10/18 12:05 11/10/18 13:12 11/10/18 12:05 - Medications Medications: Current Medications Acetaminophen (Tylenol 325mg Tab) 650 mg PO Q6 PRN PRN Reason: Pain, Mild (1-3) Albuterol/Ipratropium (Duoneb 3 Mg/0.5 Mg (3 Ml) Ud) 3 ml INH RTID [facility] Last Admin: 11/10/18 13:07 Dose: 3 ml Atorvastatin Calcium (Lipitor) 20 mg PO DAILY [facility] Last Admin: 11/10/18 08:18 Dose: 20 mg Clotrimazole (Mycelex Kristian) 10 mg MT 5XD [facility] Last Admin: 11/10/18 13:13 Dose: 10 mg Diltiazem HCl (Cardizem Cd) 120 mg PO DAILY [facility] Last Admin: 11/10/18 13:12 Dose: 120 mg Divalproex Sodium (Depakote Sprinkles) 125 mg PO BID [facility] Last Admin: 11/10/18 08:18 Dose: 125 mg Enoxaparin Sodium (Lovenox) 40 mg SC DAILY [facility]; Protocol Last Admin: 11/10/18 08:19 Dose: 40 mg Fluticasone Propionate (Flonase) 2 spr LA DAILY [facility] Last Admin: 11/10/18 08:18 Dose: 2 spr Haloperidol Lactate (Haldol) 0.5 mg IM Q8 PRN PRN Reason: Agitation Last Admin: 11/07/18 23:52 Dose: 0.5 mg Haloperidol Lactate (Haldol) 0.5 mg PO Q8 PRN PRN Reason: Agitation Vancomycin HCl 1 gm/ Sodium (Chloride) 250 mls @ 166.667 mls/hr IVPB Q12H [facility]; Protocol Last Admin: 11/10/18 04:04 Dose: 166.667 mls/hr Cefepime HCl 1 gm/ Sodium (Chloride) 100 mls @ 100 mls/hr IVPB Q12 [facility]; Protocol Last Admin: 11/10/18 08:36 Dose: 100 mls/hr Lactulose (Enulose) 20 gm PO DAILY PRN PRN Reason: Constipation Losartan Potassium (Cozaar) 75 mg PO DAILY [facility] Last Admin: 11/10/18 08:18 Dose: 75 mg Metoprolol Tartrate (Lopressor) 50 mg PO Q12 [facility] Last Admin: 11/10/18 08:19 Dose: 50 mg Mirtazapine (Remeron) 15 mg PO HS [facility] Last Admin: 11/09/18 21:03 Dose: 15 mg Montelukast Sodium (Singulair) 10 mg PO HS [facility] Last Admin: 11/09/18 21:03 Dose: 10 mg Mupirocin (Bactroban Ointment) 1 applic TOP BID [facility] Last Admin: 11/10/18 08:17 Dose: 1 applic Nystatin (Mycostatin Cream) 1 applic TOP TID [facility] Last Admin: 11/10/18 13:13 Dose: 1 applic Ondansetron HCl (Zofran Inj) 4 mg IVP Q4 PRN PRN Reason: Nausea/Vomiting Last Admin: 11/09/18 18:35 Dose: 4 mg Pantoprazole Sodium (Protonix Ec Tab) 40 mg PO DAILY [facility] Last Admin: 11/10/18 08:20 Dose: 40 mg Potassium Chloride (Potassium Chloride Oral Soln) 20 meq PO DAILY [facility] Last Admin: 11/10/18 08:20 Dose: 20 meq Sodium Chloride (Sodium Chloride Tab) 1 gm PO DAILY [facility] Last Admin: 11/10/18 08:21 Dose: 1 gm Zinc Sulfate (Zinc Sulfate 220 Mg Cap) 220 mg PO DAILY [facility] Last Admin: 11/10/18 08:21 Dose: 220 mg - Labs Labs: 11/09/18 13:00 11/10/18 12:10 - Constitutional Appears: No Acute Distress - Head Exam Head Exam: ATRAUMATIC, NORMOCEPHALIC - ENT Exam ENT Exam: Mucous Membranes Moist - Neck Exam Neck Exam: Full ROM - Respiratory Exam Respiratory Exam: Clear to Ausculation Bilateral, NORMAL BREATHING PATTERN. absent: Accessory Muscle Use - Cardiovascular Exam Cardiovascular Exam: RRR, +S1, +S2. absent: Murmur - GI/Abdominal Exam GI & Abdominal Exam: Soft, Normal Bowel Sounds. absent: Tenderness - Extremities Exam Extremities Exam: Full ROM. absent: Calf Tenderness, Tenderness - Skin Skin Exam: Dry, Intact, Normal Color Assessment and Plan - Assessment and Plan (Free Text) Assessment: SVT CABG CAD HLD HTN AVR Plan: SVT BNP 827 HA1C 5.4 EKG 11/07/18 shows sinus tachycardia ECHO 11/05 EF 50-55%, Grade 1 relaxation pattern, moderate Diltiazem drip was discontinued yesterday, pt experienced tachycardia 190's over night, start cardizem 120 daily Medications lipitor cozaar metoprolol tartrate 50 q12 cardizem Pt seen, examined, assessment and plan discussed with Dr Gordon Herrera PGY1
[2018-11-11] MEDS: Albuterol-Ipratrop 3 mg / 0.5 (3 ml) UD INH SCH ×2 (07:48→13:28)
--- NOTE | 2018-11-11 07:59 | CP.PCM.PN ---
Subjective - Date & Time of Evaluation Date of Evaluation: 11/11/18 Time of Evaluation: 07:00 - Subjective Subjective: Pt seen and examined this morning at bedside. No new complaints at this time Objective - Vital Signs/Intake and Output Vital Signs (last 24 hours): Temp Pulse Resp BP Pulse Ox 97.8 F 80 16 158/73 H 95 11/11/18 05:02 11/11/18 05:02 11/11/18 05:02 11/11/18 05:02 11/11/18 05:02 - Medications Medications: Current Medications Acetaminophen (Tylenol 325mg Tab) 650 mg PO Q6 PRN PRN Reason: Pain, Mild (1-3) Last Admin: 11/10/18 23:06 Dose: 650 mg Albuterol/Ipratropium (Duoneb 3 Mg/0.5 Mg (3 Ml) Ud) 3 ml INH RTID [facility] Last Admin: 11/11/18 07:48 Dose: 3 ml Atorvastatin Calcium (Lipitor) 20 mg PO DAILY [facility] Last Admin: 11/10/18 08:18 Dose: 20 mg Ciprofloxacin (Cipro) 250 mg PO BID [facility]; Protocol Last Admin: 11/10/18 17:13 Dose: 250 mg Clotrimazole (Mycelex Kristian) 10 mg MT 5XD [facility] Last Admin: 11/10/18 21:03 Dose: 10 mg Diltiazem HCl (Cardizem Cd) 120 mg PO DAILY [facility] Last Admin: 11/10/18 13:12 Dose: 120 mg Divalproex Sodium (Depakote Sprinkles) 125 mg PO BID [facility] Last Admin: 11/10/18 17:13 Dose: 125 mg Fluticasone Propionate (Flonase) 2 spr LA DAILY [facility] Last Admin: 11/10/18 08:18 Dose: 2 spr Haloperidol Lactate (Haldol) 0.5 mg IM Q8 PRN PRN Reason: Agitation Last Admin: 11/07/18 23:52 Dose: 0.5 mg Haloperidol Lactate (Haldol) 0.5 mg PO Q8 PRN PRN Reason: Agitation Lactulose (Enulose) 20 gm PO DAILY PRN PRN Reason: Constipation Losartan Potassium (Cozaar) 75 mg PO DAILY [facility] Last Admin: 11/10/18 08:18 Dose: 75 mg Metoprolol Tartrate (Lopressor) 50 mg PO Q12 [facility] Last Admin: 11/10/18 21:01 Dose: 50 mg Mirtazapine (Remeron) 15 mg PO HS [facility] Last Admin: 11/10/18 21:02 Dose: 15 mg Montelukast Sodium (Singulair) 10 mg PO HS [facility] Last Admin: 11/10/18 21:02 Dose: 10 mg Mupirocin (Bactroban Ointment) 1 applic TOP BID [facility] Last Admin: 11/10/18 17:13 Dose: 1 applic Nystatin (Mycostatin Cream) 1 applic TOP TID [facility] Last Admin: 11/10/18 17:14 Dose: 1 applic Ondansetron HCl (Zofran Inj) 4 mg IVP Q4 PRN PRN Reason: Nausea/Vomiting Last Admin: 11/10/18 23:03 Dose: 4 mg Pantoprazole Sodium (Protonix Ec Tab) 40 mg PO DAILY [facility] Last Admin: 11/10/18 08:20 Dose: 40 mg Penicillin V Potassium (Penicillin Vk Tab) 250 mg PO QID [facility]; Protocol Last Admin: 11/10/18 21:04 Dose: 250 mg Potassium Chloride (Potassium Chloride Oral Soln) 20 meq PO DAILY [facility] Last Admin: 11/10/18 08:20 Dose: 20 meq Sodium Chloride (Sodium Chloride Tab) 1 gm PO DAILY [facility] Last Admin: 11/10/18 08:21 Dose: 1 gm Zinc Sulfate (Zinc Sulfate 220 Mg Cap) 220 mg PO DAILY [facility] Last Admin: 11/10/18 08:21 Dose: 220 mg - Labs Labs: 11/09/18 13:00 11/10/18 12:10 - Constitutional Appears: No Acute Distress - Head Exam Head Exam: ATRAUMATIC, NORMOCEPHALIC - Eye Exam Eye Exam: EOMI - ENT Exam ENT Exam: Mucous Membranes Moist - Cardiovascular Exam Cardiovascular Exam: RRR, +S1, +S2, Murmur - GI/Abdominal Exam GI & Abdominal Exam: Soft, Normal Bowel Sounds. absent: Tenderness - Extremities Exam Extremities Exam: Full ROM. absent: Pedal Edema, Tenderness - Skin Skin Exam: Dry, Normal Color, Warm Assessment and Plan - Assessment and Plan (Free Text) Assessment: SVT CABG CAD HLD HTN AVR Plan: SVT BNP 827 HA1C 5.4 EKG 11/07/18 shows sinus tachycardia ECHO 11/05 EF 50-55%, Grade 1 relaxation pattern, moderate Diltiazem drip was discontinued yesterday, pt experienced tachycardia 190's over night, start cardizem 120 daily heart rate well controlled at this time, no episodes of tachycardia at this time Medications lipitor cozaar metoprolol tartrate 50 q12 cardizem Pt seen, examined, assessment and plan discussed with Dr Gordon Herrera PGY1
[2018-11-11] MEDS: Mupirocin 2% Oint 1GM UD TOP SCH ×2 (08:09→16:17)
[2018-11-11 08:10] VITALS: RESP 20
[2018-11-11] MEDS: diltiaZEM 120 mg/24 Hours CD Cap PO SCH (08:11)
[2018-11-11] MEDS: Divalproex 125 mg Sprinkle Capsule PO SCH ×3 (08:12→16:25)
[2018-11-11] MEDS: Pantoprazole 40 mg EC Tab PO SCH (08:13)
[2018-11-11] MEDS: Potassium Chloride 20 mEq/15 ml LIQ UD PO SCH (08:14)
--- NOTE | 2018-11-11 10:39 | CP.PCM.PN ---
Subjective - Date & Time of Evaluation Date of Evaluation: 11/11/18 Time of Evaluation: 10:38 - Subjective Subjective: Podiatry consult note - Dr. Singer 77 y/o female patient seen and evaluated for left ankle wound. Patient sleeping during examination and noted to be slightly lethargic. She has trouble detailing history. Denies n/v/f/c/sob/cp. Reports pain to her left ankle and foot when she walks or when there is pressure to the foot/ankle. Objective - Vital Signs/Intake and Output Vital Signs (last 24 hours): Temp Pulse Resp BP Pulse Ox 97.2 F L 89 20 115/79 94 L 11/11/18 08:08 11/11/18 09:00 11/11/18 08:08 11/11/18 08:12 11/11/18 08:08 - Medications Medications: Current Medications Acetaminophen (Tylenol 325mg Tab) 650 mg PO Q6 PRN PRN Reason: Pain, Mild (1-3) Last Admin: 11/10/18 23:06 Dose: 650 mg Albuterol/Ipratropium (Duoneb 3 Mg/0.5 Mg (3 Ml) Ud) 3 ml INH RTID [facility] Last Admin: 11/11/18 07:48 Dose: 3 ml Atorvastatin Calcium (Lipitor) 20 mg PO DAILY [facility] Last Admin: 11/11/18 08:10 Dose: 20 mg Ciprofloxacin (Cipro) 250 mg PO BID [facility]; Protocol Last Admin: 11/11/18 08:12 Dose: 250 mg Clotrimazole (Mycelex Kristian) 10 mg MT 5XD [facility] Last Admin: 11/11/18 08:09 Dose: 10 mg Diltiazem HCl (Cardizem Cd) 120 mg PO DAILY [facility] Last Admin: 11/11/18 08:11 Dose: 120 mg Divalproex Sodium (Depakote Sprinkles) 125 mg PO BID [facility] Last Admin: 11/11/18 08:12 Dose: 125 mg Fluticasone Propionate (Flonase) 2 spr LA DAILY [facility] Last Admin: 11/11/18 08:09 Dose: 2 spr Haloperidol Lactate (Haldol) 0.5 mg IM Q8 PRN PRN Reason: Agitation Last Admin: 11/07/18 23:52 Dose: 0.5 mg Haloperidol Lactate (Haldol) 0.5 mg PO Q8 PRN PRN Reason: Agitation Lactulose (Enulose) 20 gm PO DAILY PRN PRN Reason: Constipation Losartan Potassium (Cozaar) 75 mg PO DAILY [facility] Last Admin: 11/11/18 08:12 Dose: 75 mg Metoprolol Tartrate (Lopressor) 50 mg PO Q12 [facility] Last Admin: 11/11/18 08:10 Dose: 50 mg Mirtazapine (Remeron) 15 mg PO HS [facility] Last Admin: 11/10/18 21:02 Dose: 15 mg Montelukast Sodium (Singulair) 10 mg PO HS [facility] Last Admin: 11/10/18 21:02 Dose: 10 mg Mupirocin (Bactroban Ointment) 1 applic TOP BID [facility] Last Admin: 11/11/18 08:09 Dose: 1 applic Nystatin (Mycostatin Cream) 1 applic TOP TID [facility] Last Admin: 11/11/18 08:09 Dose: 1 applic Ondansetron HCl (Zofran Inj) 4 mg IVP Q4 PRN PRN Reason: Nausea/Vomiting Last Admin: 11/10/18 23:03 Dose: 4 mg Pantoprazole Sodium (Protonix Ec Tab) 40 mg PO DAILY [facility] Last Admin: 11/11/18 08:13 Dose: 40 mg Penicillin V Potassium (Penicillin Vk Tab) 250 mg PO QID [facility]; Protocol Last Admin: 11/11/18 08:10 Dose: 250 mg Potassium Chloride (Potassium Chloride Oral Soln) 20 meq PO DAILY [facility] Last Admin: 11/11/18 08:14 Dose: 20 meq Sodium Chloride (Sodium Chloride Tab) 1 gm PO DAILY [facility] Last Admin: 11/11/18 08:11 Dose: 1 gm Zinc Sulfate (Zinc Sulfate 220 Mg Cap) 220 mg PO DAILY [facility] Last Admin: 11/11/18 08:11 Dose: 220 mg - Labs Labs: 11/09/18 13:00 11/10/18 12:10 - Constitutional Appears: Well, Non-toxic, No Acute Distress - Head Exam Head Exam: ATRAUMATIC, NORMOCEPHALIC - Extremities Exam Additional comments: LLE focused VASC: DP pulse palpable 1/4, PT cannot be determined due to presence of ulceration; cap refill <3 seconds to all digits; +1 pitting edema to the foot and ankle DERM: ulceration at the medial malleolus measuring 3.0 x 1.4 x 0.2 cm; no tunneling, tracking, or probe to bone appreciated; no pus or drainage, wound base is fibrotic; erythema present at the ankle and dorsum of forefoot; IDM present in 2-4 interspaces ORTHO: pain on palpation of malleolar wound, pain on active ROM of the ankle NEURO: diminished sensation - Neurological Exam Neurological Exam: Alert, Awake, Oriented x3 - Psychiatric Exam Psychiatric exam: Normal Affect, Normal Mood Assessment and Plan - Assessment and Plan (Free Text) Assessment: 77F with pmhx of anxiety, depression, cellulitis, peripheral vascular disease, SVT, COPD, CAD, and hypercholesterolemia seen and evaluated for left venous stasis ulceration Plan: Patient seen and evaluated Discussed in detail with Dr. Singer Chart, labs and vitals were reviewed- NNL today, afebrile at this time X-rays - no gross changes appreciated from previous x-rays taken in June, Wound cleansed with sterile saline and dressed with xeroform and DSD Patient stable from Podiatric standpoint As per Dr. Singer, patient to follow up at [facility] upon [facility] aware that patient will follow up, and likely transportation to be arranged for patient from home Podiatry will follow patient while she is in house
[2018-11-11 16:17] VITALS: BP 158/71; PULSE 81; TEMP 98.9; O2SAT 95
--- NOTE | 2018-11-11 19:35 | CP.PCM.DIS ---
Provider - Provider Date of Admission: 11/04/18 23:25 Attending physician: Corey García MD Consults: 11/05/18 06:17 Podiatry Consult Routine Comment: Consulting Provider: Vinny Singer Consulting Physician: Vinny Singer Reason for Consult: admitted for LEFT lower ext cellulitis/ulcer Psychiatry Consult Routine Comment: Consulting Provider: Dianna Dsouza Consulting Physician: Dianna Dsouza Reason for Consult: AMS / severe dementia 11/05/18 09:00 Case Management Referral Routine Comment: lives w/son Physician Instructions: Reason For Exam: Needs assist at home Reason for Referral: Discharge Planning Nursing Referral for Wound Care Routine Comment: redness to abd folds and dianna area Physician Instructions: Reason For Exam: ulcer to L Low Ext, pt incontinent 11/05/18 13:43 Infectious Disease Consult Routine Comment: Consulting Provider: Mag Gibson Consulting Physician: Mag Gibson Reason for Consult: LLE cellulitis/ulcer 11/07/18 22:50 Cardiology Consult Routine Comment: Consulting Provider: Jacob Leyva Consulting Physician: Jacob Leyva Reason for Consult: SVT Diagnosis - Discharge Diagnosis (1) Skin ulcer of malleolar area of left ankle Status: Acute Priority: High (2) Cellulitis of lower leg Status: Acute Priority: High (3) Acute delirium Status: Acute Priority: High (4) Major neurocognitive disorder Status: Chronic Priority: High (5) SIADH (syndrome of inappropriate ADH production) Status: Chronic Priority: Medium (6) Hx of aortic valve replacement Status: Chronic Priority: Medium (7) Hyponatremia Status: Acute Priority: High (8) Lumbago Status: Chronic Priority: Medium (9) PVD (peripheral vascular disease) Status: Chronic Priority: High (10) COPD (chronic obstructive pulmonary disease) Status: Acute Priority: Medium (11) Anxiety Status: Chronic Priority: High (12) Depression Status: Chronic Priority: High (13) HTN (hypertension) Status: Chronic Priority: Medium Hospital Course - Lab Results Lab Results: Micro Results 11/08/18 16:06 Urine Random Urine Culture - Final No Growth (<1,000 CFU/ML) 11/04/18 02:31 Blood Blood Culture - Final NO GROWTH AFTER 5 DAYS 11/04/18 02:31 Blood Gram Stain - Final TEST NOT PERFORMED 11/04/18 20:00 Blood Blood Culture - Final NO GROWTH AFTER 5 DAYS 11/04/18 20:00 Blood Gram Stain - Final TEST NOT PERFORMED 11/05/18 21:37 Foot - Left Gram Stain - Final 11/05/18 21:37 Foot - Left Wound Culture - Final Pseudomonas Aeruginosa Corynebacterium Species Most Recent Lab Values WBC 9.1 K/uL (4.8-10.8) 11/09/18 13:00 RBC 3.48 Mil/uL (3.80-5.20) L 11/09/18 13:00 Hgb 10.4 g/dL (12.0-16.0) L 11/09/18 13:00 Hct 31.2 % (34.0-47.0) L 11/09/18 13:00 MCV 89.8 fl (81.0-99.0) 11/09/18 13:00 MCH 30.0 pg (27.0-31.0) 11/09/18 13:00 MCHC 33.4 g/dL (33.0-37.0) 11/09/18 13:00 RDW 15.8 % (11.5-14.5) H 11/09/18 13:00 Plt Count 440 K/uL (130-400) H 11/09/18 13:00 MPV 7.3 fl (7.2-11.7) 11/04/18 20:34 Neut % (Auto) 63.3 % (50.0-75.0) 11/04/18 20:34 Lymph % (Auto) 22.1 % (20.0-40.0) 11/04/18 20:34 [place] % (Auto) 11.2 % (0.0-10.0) H 11/04/18 20:34 Eos % (Auto) 2.9 % (0.0-4.0) 11/04/18 20:34 Baso % (Auto) 0.5 % (0.0-2.0) 11/04/18 20:34 Neut # (Auto) 6.3 K/uL (1.8-7.0) 11/04/18 20:34 Lymph # (Auto) 2.2 K/uL (1.0-4.3) 11/04/18 20:34 [place] # (Auto) 1.1 K/uL (0.0-0.8) H 11/04/18 20:34 Eos # (Auto) 0.3 K/uL (0.0-0.7) 11/04/18 20:34 Baso # (Auto) 0.1 K/uL (0.0-0.2) 11/04/18 20:34 ESR 11 mm/hr (0-30) 11/05/18 16:20 Sodium 137 mmol/l (132-148) 11/10/18 12:10 Potassium 3.8 MMOL/L (3.6-5.0) 11/10/18 12:10 Chloride 104 mmol/L (98-107) 11/10/18 12:10 Carbon Dioxide 23 mmol/L (22-30) 11/10/18 12:10 Anion Gap 14 (10-20) 11/10/18 12:10 BUN 10 mg/dl (7-17) 11/10/18 12:10 Creatinine 0.7 mg/dl (0.7-1.2) 11/10/18 12:10 Est GFR ( Amer) > 60 11/10/18 12:10 Est GFR (Non-Af Amer) > 60 11/10/18 12:10 POC Glucose (mg/dL) 110 mg/dL (65-110) 11/07/18 22:17 Random Glucose 87 mg/dL (65-105) 11/10/18 12:10 Hemoglobin A1c 5.4 % (4.2-6.5) 11/09/18 05:45 Lactic Acid 1.0 mmol/L (0.7-2.1) 11/04/18 20:34 Calcium 9.8 mg/dL (8.4-10.2) 11/10/18 12:10 Magnesium 1.8 MG/DL (1.6-2.3) 11/04/18 20:34 Total Bilirubin 0.5 mg/dl (0.2-1.3) 11/05/18 08:15 AST 25 U/L (14-36) 11/05/18 08:15 ALT 18 U/L (9-52) 11/05/18 08:15 Alkaline Phosphatase 100 U/L (38-126) 11/05/18 08:15 NT-Pro-B Natriuret Pep 827 pg/ml (0-900) 11/09/18 09:52 Total Protein 6.6 G/DL (6.3-8.2) 11/05/18 08:15 Albumin 3.8 g/dL (3.5-5.0) 11/05/18 08:15 Globulin 2.8 gm/dL (2.2-3.9) 11/05/18 08:15 Albumin/Globulin Ratio 1.3 (1.0-2.1) 11/05/18 08:15 Triglycerides 51 mg/DL (0-149) 11/05/18 08:15 Cholesterol 124 mg/dL (0-199) 11/05/18 08:15 LDL Cholesterol Direct 43 mg/dL (0-129) 11/05/18 08:15 HDL Cholesterol 67 MG/DL (30-70) 11/05/18 08:15 TSH 3rd Generation 3.49 mIU/ML (0.46-4.68) 11/05/18 08:15 Urine Color Yellow (YELLOW) 11/08/18 16:06 Urine Clarity Slighty-cloudy (Clear) 11/08/18 16:06 Urine pH 7.0 (5.0-8.0) 11/08/18 16:06 Ur Specific [place] 1.017 (1.003-1.030) 11/08/18 16:06 Urine Protein 30 mg/dL (NEGATIVE) 11/08/18 16:06 Urine Glucose (UA) Neg mg/dL (NEGATIVE) 11/08/18 16:06 Urine Ketones Trace mg/dL (NEGATIVE) 11/08/18 16:06 Urine Blood Negative (NEGATIVE) 11/08/18 16:06 Urine Nitrate Negative (NEGATIVE) 11/08/18 16:06 Urine Bilirubin Negative (NEGATIVE) 11/08/18 16:06 Urine Urobilinogen 0.2-1.0 mg/dL (0.2-1.0) 11/08/18 16:06 Ur Leukocyte Esterase Neg Janet/uL (Negative) 11/08/18 16:06 Urine RBC (Auto) 3 /hpf (0-3) 11/08/18 16:06 Urine Microscopic WBC 2 /hpf (0-5) 11/08/18 16:06 Ur Squamous Epith Cells 1 /hpf (0-5) 11/08/18 16:06 Amorphous Sediment Occ /ul (<OCC) H 11/04/18 12:20 Urine Bacteria Rare (<OCC) 11/08/18 16:06 Vancomycin Trough 15.6 ug/mL (5.0-10.0) H 11/09/18 05:45 Urine Opiates Screen Positive (NEGATIVE) H 11/04/18 12:20 Urine Methadone Screen Negative (NEGATIVE) 11/04/18 12:20 Ur Barbiturates Screen Negative (NEGATIVE) 11/04/18 12:20 Valproic Acid 17.4 ug/mL (50.0-100.0) L 11/06/18 06:50 Ur Phencyclidine Scrn Negative (NEGATIVE) 11/04/18 12:20 Ur Amphetamines Screen Negative (NEGATIVE) 11/04/18 12:20 U Benzodiazepines Scrn Negative (NEGATIVE) 11/04/18 12:20 U Oth Cocaine Metabols Negative (NEGATIVE) 11/04/18 12:20 U Cannabinoids Screen Negative (NEGATIVE) 11/04/18 12:20 Alcohol, Quantitative < 10 mg/dl (0-10) 11/04/18 20:34 Discharge Exam - Head Exam Head Exam: ATRAUMATIC, NORMOCEPHALIC Discharge Plan - Discharge Medications Prescriptions: Ciprofloxacin [Cipro] 500 mg PO Q12 #20 tab Penicillin V Potassium 500 mg PO BID #20 tablet - Follow Up Plan Condition: FAIR Disposition: MANAGER DELI FAC W/PLAN READMIS Instructions: Diabetic Foot Ulcer (DC), Cellulitis (Skin Infection), Adult (DC), Hyponatremia (DC) Referrals: [facility] [Outside] Vinny Singer DPM [Medical Doctor] - Corey García MD [Family Provider] -
--- NOTE | 2018-11-12 14:25 | PQF ---
PROVIDER RESPONSE TEXT: Provider was unable to determine a response for this query. REVIEWER QUERY TEXT: Pressure Ulcer Type Pressure ulcer is documented in the Medical Record. Please specify the location, present on admission status and/or stage: versus Pressure Ulcer is ruled out? -- Other -- Clinically unable to determine -- Unknown Nurses Admission database: Pressure Ulcer POA: Yes Admission Assessment Physical: Left Lower Leg: ulcer 7cm 11/05 Pressure Ulcer Assessment: Lt. Elbow: 11/04 Podiatry consult includes: evaluated in the ED for left venous stasis ulceration 11/07 Wound RN:Sacrum is clean and intact. There is erythema and slight skin loss in breast folds. Rashad ansed and dried. Abdominal fold with mild erythema. No fungal infection noted. Stage of each pressure ulcer (National Pressure Ulcer Advisory Panel definitions): -- Stage I: Intact skin with non-blanchable redness of a localized area -- Stage II: Partial thickness skin loss involving dermis with a shallow open ulcer or an open serum -filled blister -- Stage III: Full thickness skin loss involving damage or necrosis of subcutaneous tissue -- Stage IV: Full thickness skin loss with exposed bone, tendon or muscle -- Unstageable: Full thickness tissue loss in which the base of the ulcer is covered by slough and/o r eschar in the wound bed The patient's Clinical Indicators include: ---- Query created by: Emily Calle on 11/09/2018 12:34 PM Electronically signed by: Corey García MD 11/12/2018 2:22 PM
== END 2018-11-11 18:10 | DRG 300 ==
LOC: H.ER 17:39 → H.ERHOLD 23:25 → H.MEDSURG1 11-05 01:57 → H.TEL 11-07 22:44
PROVIDERS: ADMIT Internal Medicine Pulmonary Disease; ATTEND Internal Medicine Pulmonary Disease
DX: I83.023 Varicose veins of left lower extremity with ulcer of ankle (principal); L97.329 Non-pressure chronic ulcer of left ankle with unspecified severity; L03.116 Cellulitis of left lower limb; E22.2 Syndrome of inappropriate secretion of antidiuretic hormone; F01.51 Vascular dementia, unspecified severity, with behavioral disturbance; F05 Delirium due to known physiological condition; I47.1 Supraventricular tachycardia; B37.0 Candidal stomatitis; B96.5 Pseudomonas (aeruginosa) (mallei) (pseudomallei) as the cause of diseases classified elsewhere; I73.89 Other specified peripheral vascular diseases; Z95.3 Presence of xenogenic heart valve; Z95.1 Presence of aortocoronary bypass graft; I25.10 Atherosclerotic heart disease of native coronary artery without angina pectoris; I10 Essential (primary) hypertension; Z91.14 Patient's other noncompliance with medication regimen; E78.5 Hyperlipidemia, unspecified; E78.00 Pure hypercholesterolemia, unspecified; M81.0 Age-related osteoporosis without current pathological fracture; J44.9 Chronic obstructive pulmonary disease, unspecified; K59.00 Constipation, unspecified; F41.9 Anxiety disorder, unspecified; F32.9 Major depressive disorder, single episode, unspecified; Z91.041 Radiographic dye allergy status; Z88.6 Allergy status to analgesic agent; Z87.891 Personal history of nicotine dependence; Z87.440 Personal history of urinary (tract) infections